=== PATIENT | male | born 1950 | race Caucasian/White ===

== ENCOUNTER → 2016-04-28 | Outpatient (CLI) | payer BC, OTHER ==
[2016-04-28 10:17] LABS: ALANINE AMINOTRANSFERASE 32 U/L (21-72); ALBUMIN 4.4 g/dL (3.5-5.0); ALKALINE PHOSPHATASE 88 U/L (38-126); ASPARTATE AMINO TRANSFERASE 24 U/L (17-59); BILIRUBIN,TOTAL 0.8 mg/dL (0.2-1.3); CHOLESTEROL 120.63 mg/dL (0-200); Direct HDL 53 mg/dL (>40); TRIGLYCERIDES 43 mg/dL (<150)
[2016-04-28 10:33] LABS: DIRECT LDL 50 mg/dL (<100)
== END ==
LOC: OD 07:27
PROVIDERS: ATTEND Specialist
DX: Z79.899 Other long term (current) drug therapy (principal); E03.9 Hypothyroidism, unspecified; E78.5 Hyperlipidemia, unspecified; E66.3 Overweight; I10 Essential (primary) hypertension; E11.9 Type 2 diabetes mellitus without complications; G47.30 Sleep apnea, unspecified; I25.10 Atherosclerotic heart disease of native coronary artery without angina pectoris; I25.2 Old myocardial infarction; R09.89 Other specified symptoms and signs involving the circulatory and respiratory systems; Z95.5 Presence of coronary angioplasty implant and graft; E78.00 Pure hypercholesterolemia, unspecified
CPT/HCPCS: 36415; 80061; 80076; 83036

== ENCOUNTER 2016-10-29 13:44 | Emergency (ER) | payer MEDICARE, OTHER ==
[2016-10-29] MEDS ORDERED: DIPHENHYDRAMINE HCL 50 MG/ML VIAL ONE (13:59)
[2016-10-29] MEDS ORDERED: EPINEPHRINE INJ/PF 1 MG/1 ML AMPULE ONE ×3 (14:00→15:07)
[2016-10-29] MEDS ORDERED: FAMOTIDINE INJ/PF 20 MG/2 ML SDV IV ONE ×2 (14:00→16:09)
[2016-10-29] MEDS ORDERED: METHYLPREDNISOLONE INJ 125 MG/2 ML SDV ONE (14:00)
[2016-10-29] MEDS ORDERED: PROPOFOL 100 ML IV ONE ×3 (14:15→18:15)
--- NOTE | 2016-10-29 14:29 | ER Document Report ---
ED General - General Stated Complaint: DIFFICULTY BREATHING Time Seen by Provider: 10/29/16 13:54 Mode of Arrival: Medic Information source: Patient, Emergency Med Personnel Notes: 66-year-old male who was outside and was stung twice presents with complaints of shortness of breath by EMS. Patient initially did not want to be transported EMS was able to convince the patient come in. They believed initially that this was heatstroke however on patient's arrival to the ED he does admit that his tongue is swollen TRAVEL OUTSIDE OF THE [place] IN LAST 30 DAYS: No - HPI Onset: Just prior to arrival Onset/Duration: Sudden Quality of pain: No pain Severity: Severe Pain Level: Denies Associated symptoms: Other Exacerbated by: Denies Relieved by: Denies Similar symptoms previously: No Recently seen / treated by doctor: No - Related Data Allergies/Adverse Reactions: No Known Allergies Allergy (Verified 10/29/16 15:03) Past Medical History - Social History Smoking Status: Never Smoker Cigarette use (# per day): No Chew tobacco use (# tins/day): No Smoking Education Provided: No Family History: Reviewed & Not Pertinent - Past Medical History Cardiac Medical History: Reports: Hx Coronary Artery Disease, Hx Heart Attack - 2006, cardiac cath x 2, total of 5 stents, Hx Hypertension - meds x 30 years Pulmonary Medical History: Denies: Hx Asthma, Hx Bronchitis, Hx COPD, Hx Pneumonia Neurological Medical History: Denies: Hx Cerebrovascular Accident, Hx Seizures Musculoskeltal Medical History: Reports Hx Arthritis Past Surgical History: Denies: Hx Pacemaker - Immunizations Hx Diphtheria, Pertussis, Tetanus Vaccination: Yes Hx Pneumococcal Vaccination: 08/11/06 Review of Systems - Review of Systems Notes: REVIEW OF SYSTEMS: CONSTITUTIONAL : Denies fever, chills, or sweats. Denies recent illness. EENT: Tongue swelling CARDIOVASCULAR: Denies chest pain. Denies palpitations or racing or irregular heart beat. Denies ankle edema. RESPIRATORY: Denies cough, cold, or chest congestion. Denies shortness of breath, difficulty breathing, or wheezing. GASTROINTESTINAL: Denies abdominal pain or distention. Denies nausea, vomiting , or diarrhea. Denies blood in vomitus, stools, or per rectum. Denies black, tarry stools. Denies constipation. GENITOURINARY: Denies difficulty urinating, painful urination, burning, frequency, blood in urine, or discharge. MUSCULOSKELETAL: Denies back or neck pain or stiffness. Denies joint pain or swelling. SKIN: Hives HEMATOLOGIC : Denies easy bruising or bleeding. LYMPHATIC: Denies swollen, enlarged glands. NEUROLOGICAL: Denies confusion or altered mental status. Denies passing out or loss of consciousness. Denies dizziness or lightheadedness. Denies headache. Denies weakness or paralysis or loss of use of either side. Denies problems with gait or speech. Denies sensory loss, numbness, or tingling. Denies seizures. PSYCHIATRIC: Denies anxiety or stress. Denies depression, suicidal ideation, or homicidal ideation. ALL OTHER SYSTEMS REVIEWED AND NEGATIVE. Dictation was performed using [employer] voice recognition software PHYSICAL EXAMINATION: GENERAL: Well-appearing, well-nourished and in no acute distress. HEAD: Atraumatic, normocephalic. EYES: Pupils equal round and reactive to light, extraocular movements intact, sclera anicteric, conjunctiva are normal. ENT: Extremely edematous tongue protruding from mouth uvula swollen patient breathing with mild stridor NECK: Normal range of motion, supple without lymphadenopathy LUNGS: Breath sounds clear to auscultation bilaterally and equal. No wheezes rales or rhonchi. HEART: Tachycardic ABDOMEN: Soft, nontender, nondistended abdomen. No guarding, no rebound. No masses appreciated. Musculoskeletal: Normal range of motion, no pitting or edema. No cyanosis. NEUROLOGICAL: Cranial nerves grossly intact. Normal speech, normal gait. Normal sensory, motor exams PSYCH: Normal mood, normal affect. SKIN: Hives noted of the left inner thigh right leg Course - Re-evaluation Re-evalutation: 10/29/16 14:28 danielle miller contacted for transfer 10/29/16 14:53 dr Hernandez accepts the transfer , will awaiting transport 10/29/16 15:30 I was immediately notified upon patient's arrival that the tongue was edematous , we immediately remove the patient from room 12 into the trauma bay, crich kit glide scope was prepared, patient was given 2 rounds of epinephrine 0.5mg IM, 125 mg Solu-Medrol, 20 of Pepcid IV 50 Benadryl IV. Patient was watched for approximately 7-10 minutes and it appeared that the swelling was getting worse. I emergently contacted the surgeon for concerns of emergent cricothyrotomy. Anesthesia was also consulted immediately, patient's tongue continued to protrude and get larger, after evaluation with anesthesiologist and surgeon we determined the intubation was most appropriate, patient was intubated with glide scope with no difficulty. Patient will unfortunately have to be transported given that we do not have any ICU beds at this time 10/29/16 15:39 Patient started on epinephrine drip - Diagnostic Test Radiology reviewed: Image reviewed, Reports reviewed Critical Care Note - Critical Care Note Total time excluding time spent on procedures (mins): 45 Comments: 70 minutes of critical care time spent in direct contact evaluating and reevaluating the patient, treating symptoms, reviewing labs and studies and speaking with family and consultants excluding any procedures Discharge - Discharge Clinical Impression: At risk for difficult intubation on pre-intubation airway assessment Anaphylactic reaction Qualifiers: Encounter type: initial encounter Qualified Code(s): T78.2XXA - Anaphylactic shock, unspecified, initial encounter Condition: Critical Disposition: [facility] Referrals: MICHAEL RUIZ MD [Primary Care Provider] - Follow up as needed
[2016-10-29] MEDS ORDERED: MIDAZOLAM 2 MG/2 ML INJ ONE (14:36)
[2016-10-29] MEDS ORDERED: FENTANYL CITRATE INJ/PF 100 MCG/2 ML AMPUL ONE (14:39)
[2016-10-29] MEDS ORDERED: DEXTROSE 5%-WATER 250 ML with EPINEPHRINE/PF 1 MG IV PRN ×2 (14:55)
--- NOTE | 2016-10-29 15:04 | RADIOLOGY REPORT (SQ) ---
EXAM DESCRIPTION: CHEST SINGLE VIEW COMPLETED DATE/TIME: 10/29/2016 2:55 pm REASON FOR STUDY: DIFFICULTY BREATHING COMPARISON: 08/22/2006 EXAM PARAMETERS: NUMBER OF VIEWS: One view. TECHNIQUE: Single frontal radiographic view of the chest acquired. RADIATION DOSE: NA LIMITATIONS: None. FINDINGS: LUNGS AND PLEURA: Patchy bibasilar airspace opacities. Lungs and pleural spaces otherwise clear. MEDIASTINUM AND HILAR STRUCTURES: No masses. Contour normal. HEART AND VASCULAR STRUCTURES: Heart stable in size. Normal vasculature. BONES: No acute findings. HARDWARE: Endotracheal tube is 3.9 cm above suyapa. OTHER: No other significant finding. IMPRESSION: SATISFACTORY PLACEMENT ENDOTRACHEAL TUBE. PATCHY BIBASILAR AIRSPACE OPACITIES COULD REPRESENT SUBSEGMENTAL ATELECTASIS, ASPIRATION, OR PNEUMONI A. TECHNICAL DOCUMENTATION: JOB ID: [id number]
[2016-10-29] MEDS ORDERED: NORMAL SALINE 1000 ML 1,000 ML IV ONE (16:03)
[2016-10-29] MEDS ORDERED: PROPOFOL INJ 200 MG/20 ML VIAL IV ONE ×3 (16:04→16:06)
[2016-10-29] MEDS ORDERED: PROPOFOL 100 ML IV PRN (16:04)
[2016-10-29] MEDS ORDERED: ROCURONIUM BROMIDE INJ 50 MG/5 ML VIAL IV ONE ×2 (16:06→16:09)
[2016-10-29] MEDS ORDERED: FENTANYL CITRATE INJ/PF 100 MCG/2 ML AMPUL IV ONE (16:06)
[2016-10-29] MEDS ORDERED: SUCCINYLCHOLINE CHLORIDE INJ 200 MG/10 ML VIAL IV ONE (16:06)
[2016-10-29] MEDS ORDERED: EPINEPHRINE INJ/PF 1 MG/1 ML AMPULE IM ONE ×2 (16:07)
[2016-10-29] MEDS ORDERED: DIPHENHYDRAMINE HCL 50 MG/ML VIAL IV ONE (16:08)
[2016-10-29] MEDS ORDERED: METHYLPREDNISOLONE INJ 125 MG/2 ML SDV IV ONE (16:08)
[2016-10-29] MEDS ORDERED: NORMAL SALINE 500 ML with ROCURONIUM BROMIDE 500 MG IV PRN ×2 (16:18)
[2016-10-29 18:39] VITALS: BP 148/98
== END 2016-10-29 18:45 | disposition short-term general hospital (02) ==
LOC: ER 13:44
PROC: 0BH17EZ Insertion of Endotracheal Airway into Trachea, Via Natural or Artificial Opening (ICD-10-PCS; principal; 2016-10-29)
DX: T78.2XXA Anaphylactic shock, unspecified, initial encounter (principal)
CPT/HCPCS: 99291; 51702; 96374; 96375; 82962; 71010; 31500; J2250; J1200; J0171; J3010; J2930; J0330; J7060; S0028

== ENCOUNTER 2017-05-27 22:38 | Emergency (ER) | payer OTHER ==
--- NOTE | 2017-05-27 23:13 | ER Document Report ---
ED General - General Chief Complaint: Altered Mental Status Stated Complaint: ALTERED MENTAL STATUS Time Seen by Provider: 05/27/17 23:03 Cannot obtain history due to: Altered mental status Notes: Patient is a 66-year-old male status post esophagectomy, discharged from [facility] yesterday who presents with confusion. History is somewhat limited secondary to the patient's altered mental status at time of presentation. Patient himself denies any acute complaints. He denies any localizing pain. Denies shortness of breath, headache or neck pain or focal weakness or numbness. EMS reports that the noted that the patient has not received any pain medication today although did receive zolpidem approximately 1 minute prior to the onset of the symptoms. No history of similar symptoms in the past. No recent falls or head trauma. Nothing seemed to improve or worsen his symptoms. They have not contacted his primary doctor or discharging physician. TRAVEL OUTSIDE OF THE [place] IN LAST 30 DAYS: No - Related Data Allergies/Adverse Reactions: lisinopril Allergy (Severe, Verified 05/27/17 22:59) Edema Past Medical History - General Information source: Patient, Emergency Med Personnel, [facility], 1928–1983 Records Cannot obtain history due to: Mentally challenged - Social History Smoking Status: Never Smoker Frequency of alcohol use: None Drug Abuse: None Lives with: Family Family History: Reviewed & Not Pertinent Patient has suicidal ideation: No Patient has homicidal ideation: No - Past Medical History Cardiac Medical History: Reports: Hx Coronary Artery Disease, Hx Heart Attack - 2006, cardiac cath x 2, total of 5 stents, Hx Hypercholesterolemia, Hx Hypertension - meds x 30 years Pulmonary Medical History: Denies: Hx Asthma, Hx Bronchitis, Hx COPD, Hx Pneumonia Neurological Medical History: Denies: Hx Cerebrovascular Accident, Hx Seizures Endocrine Medical History: Reports: Hx Diabetes Mellitus Type 2 Renal/ Medical History: Denies: Hx Peritoneal Dialysis Musculoskeltal Medical History: Reports Hx Arthritis Past Surgical History: Denies: Hx Pacemaker - Immunizations Hx Diphtheria, Pertussis, Tetanus Vaccination: Yes Hx Pneumococcal Vaccination: 08/11/06 Review of Systems - Review of Systems Notes: Constitutional: Negative for fever. HENT: Negative for sore throat. Eyes: Negative for visual changes. Cardiovascular: Negative for chest pain. Respiratory: Negative for shortness of breath. Gastrointestinal: Negative for abdominal pain, vomiting or diarrhea. Genitourinary: Negative for dysuria. Musculoskeletal: Negative for back pain. Skin: Negative for rash. Neurological: Negative for headaches, weakness or numbness. 10 point ROS negative except as marked above and in HPI. Physical Exam - Vital signs Vitals: Temp Pulse Resp BP Pulse Ox 99.1 F 100 22 H 126/78 H 93 05/27/17 22:46 05/27/17 22:46 05/27/17 22:46 05/27/17 22:46 05/27/17 22:46 Interpretation: Hypoxic Notes: PHYSICAL EXAMINATION: GENERAL: Appears tired but wakes easily to voice HEAD: Atraumatic, normocephalic. EYES: Pupils equal round and reactive to light, extraocular movements intact, sclera anicteric, conjunctiva are normal. ENT: nares patent, oropharynx clear without exudates. Moderately dry mucous membranes. NECK: Normal range of motion, supple without lymphadenopathy LUNGS: Breath sounds clear to auscultation bilaterally and equal. No wheezes rales or rhonchi. HEART: Regular rate and rhythm without murmurs ABDOMEN: Soft, nontender, normoactive bowel sounds. No guarding, no rebound. No masses appreciated. EXTREMITIES: Normal range of motion, no pitting or edema. No cyanosis. NEUROLOGICAL: Face symmetric. Tongue protrudes midline. Extraocular motions intact. Pupils are 2 mm and equally reactive. Normal speech. 5 out of 5 strength in both the distal and proximal upper and lower extremities bilaterally. Sensation is grossly intact throughout. Finger to nose testing normal. Pronator drift normal. PSYCH: Pleasant on contact, oriented to person, place, but not year. He knows who the president is. Is able to give me his recent hospitalization course. SKIN: Warm, Dry, normal turgor, no rashes or lesions noted. Course - Re-evaluation Re-evalutation: 05/27/17 23:07 Patient presents with altered mental status, appears to have some degree of delirium has some points he is quite awake, cogent, oriented to person, place, month, president, and current situation although not to the year. However if I do not continue to ask him additional questions he rapidly falls back asleep and can always be somewhat difficult to awake. He denies any focal complaints other than stating "I am tired of laying in a damn bed all the time". Specifically he denies any shortness of breath, fever, chest pain, abdominal pain. 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 Stroke screen is negative. NIH stroke scale is 0. Vitals are not notable only from borderline hypoxemia and the patient does have a right-sided chest tube in place. Will obtain labs, chest x-ray, CT the head, and place patient on panel monitor. Patient does not appear to be oversedated with narcotics and the reported to EMS that he has not actually received any pain medication at all today. Although the patient has received zolpidem his symptoms actually started within 1 minute of receiving that medication and I do not believe that his symptoms can therefore can be attributed to that medication. 05/28/17 02:21 Labs, CT the head unremarkable. Chest x-ray shows an ongoing mediastinal infection. Patient does seem to be having hira pus coming from his chest tube as well as his REKHA drains. The at the bedside reports that the odor has become much more intense over the last 24 hours further increasing my suspicion of this is a worsening infection. We have broadened the patient's antibiotics to include cefepime and vancomycin. I have spoken with the patient's surgeon at [facility] who has accepted the patient back for transfer. At this point the patient's clinical presentation most consistently presents as encephalopathy in the setting of likely ongoing infection and postoperative course. Will continue with IV fluids, IV antibiotics and monitoring until the patient can be transferred. 05/28/17 04:09 Patient can clinically unchanged. Awaiting transport. - Vital Signs Vital signs: Temp Pulse Resp BP Pulse Ox 99.2 F 100 19 101/50 L 95 05/28/17 03:00 05/27/17 22:46 05/28/17 03:01 05/28/17 03:01 05/28/17 03:01 - Laboratory Result Diagrams: 05/27/17 23:50 05/27/17 23:50 Laboratory results interpreted by me: 05/27/17 05/27/17 05/27/17 23:50 23:50 23:50 RBC 3.05 L Hgb 9.6 L Hct 28.4 L Seg Neuts % (Manual) 94 H Lymphocytes % (Manual) 4 L Monocytes % (Manual) 2 L Abs Neuts (Manual) 8.8 H Abs Lymphs (Manual) 0.4 L VBG pH 7.47 H VBG pCO2 34.7 L Sodium 135.3 L Creatinine 0.38 L Calcium 8.1 L AST 102 H ALT 75 H Alkaline Phosphatase 220 H Ammonia Total Protein 5.4 L Albumin 2.5 L 05/27/17 23:50 RBC Hgb Hct Seg Neuts % (Manual) Lymphocytes % (Manual) Monocytes % (Manual) Abs Neuts (Manual) Abs Lymphs (Manual) VBG pH VBG pCO2 Sodium Creatinine Calcium AST ALT Alkaline Phosphatase Ammonia < 8.7 L Total Protein Albumin - Diagnostic Test Radiology reviewed: Image reviewed, Reports reviewed Radiology results interpreted by me: 05/28/17 02:22 CT head: No acute intracranial bleed or mass Chest x-ray: Bilateral mediastinal infection worse on the right Discharge - Discharge Clinical Impression: Encephalopathy acute, Mediastinal infection Incontinence of urine Qualifiers: Urinary Incontinence type: unspecified incontinence Qualified Code(s): R32 - Unspecified urinary incontinence Dyspnea Qualifiers: Dyspnea type: unspecified Qualified Code(s): R06.00 - Dyspnea, unspecified Condition: Fair Disposition: [facility] Referrals: MICHAEL RUIZ MD [Primary Care Provider] - Follow up as needed
--- NOTE | 2017-05-27 23:49 | EKG REPORT ---
SEVERITY:- BORDERLINE ECG - SINUS RHYTHM BORDERLINE T WAVE ABNORMALITIES : Confirmed by: Arturo Reyes MD 27-May-2017 23:49:24
[2017-05-28 00:14] LABS: VENOUS BLOOD BASE EXCESS 1.3 mmol/L; VENOUS BLOOD HCO3 24.7 mmol/L (20-32); VENOUS BLOOD PCO2 34.7 mmHg (35-63); VENOUS BLOOD PH 7.47 (7.30-7.42)
[2017-05-28 00:15] LABS: HEMATOCRIT 28.4 % (37.9-51.0); HEMOGLOBIN 9.6 g/dL (13.5-17.0); MEAN CORPUSCULAR HEMOGLOBIN 31.5 pg (27.0-33.4); MEAN CORPUSCULAR HGB CONC 33.7 g/dL (32.0-36.0); MEAN CORPUSCULAR VOLUME 93 fl (80-97); PLATELET COUNT 396 10^3/uL (150-450); RED BLOOD COUNT 3.05 10^6/uL (4.35-5.55); RED CELL DISTRIBUTION WIDTH 13.9 % (11.5-14.0); WHITE BLOOD COUNT 9.4 10^3/uL (4.0-10.5)
--- NOTE | 2017-05-28 00:35 | RADIOLOGY REPORT (SQ) ---
EXAM DESCRIPTION: CT HEAD WITHOUT CLINICAL HISTORY: 66 years Male, ams COMPARISON: None. TECHNIQUE: No contrast. This exam was performed according to our departmental dose-optimization program, which includes automated exposure control, adjustment of the mA and/or kV according to patient size and/or use of iterative reconstruction technique. FINDINGS: No hemorrhage or infarct. No mass, mass effect, or midline shift. Atherosclerosis. Brain and extra-axial structures appear otherwise intact. IMPRESSION: No acute findings.
[2017-05-28 00:39] LABS: ABSOLUTE LYMPHOCYTES# (MANUAL) 0.4 10^3/uL (0.5-4.7); ABSOLUTE MONOCYTES # (MANUAL) 0.2 10^3/uL (0.1-1.4); ABSOLUTE NEUTROPHILS# (MANUAL) 8.8 10^3/uL (1.7-8.2); BASOPHILS % (MANUAL) 0 % (0-2); EOSINOPHILS % (MANUAL) 0 % (0-6); LYMPHOCYTES % (MANUAL) 4 % (13-45); MONOCYTES % (MANUAL) 2 % (3-13); SEGMENTED NEUTROPHILS % (MAN) 94 % (42-78); TOTAL CELLS COUNTED 100
[2017-05-28 00:40] LABS: OVALOCYTES SLIGHT; PLATELET COMMENT ADEQUATE; POIKILOCYTOSIS SLIGHT; TOXIC GRANULATION SLIGHT
[2017-05-28 00:48] LABS: ALANINE AMINOTRANSFERASE 75 U/L (21-72); ALBUMIN 2.5 g/dL (3.5-5.0); ALKALINE PHOSPHATASE 220 U/L (38-126); ANION GAP 10 (5-19); ASPARTATE AMINO TRANSFERASE 102 U/L (17-59); BILIRUBIN,DIRECT 0.2 mg/dL (0.0-0.4); BILIRUBIN,TOTAL 0.3 mg/dL (0.2-1.3); BLOOD UREA NITROGEN 16 mg/dL (7-20); CALCIUM 8.1 mg/dL (8.4-10.2); CARBON DIOXIDE 23 mmol/L (22-30); CHLORIDE 102 mmol/L (98-107); GLUCOSE 104 mg/dL (75-110); POTASSIUM 4.5 mmol/L (3.6-5.0); SODIUM 135.3 mmol/L (137-145); TOTAL PROTEIN 5.4 g/dL (6.3-8.2)
--- NOTE | 2017-05-28 00:55 | RADIOLOGY REPORT (SQ) ---
EXAM DESCRIPTION: CHEST SINGLE VIEW CLINICAL HISTORY: 66 years Male, ams COMPARISON: 8.19.17 NUMBER OF VIEWS/TECHNIQUE: 1/AP LIMITATIONS: None. FINDINGS: Moderate hazy opacity-layered effusion of bilateral lower hemithoraces. Moderate lung volume. Normal cardiac silhouette. Graft material overlies right paracentral mediastinum. Left jugular central line tip at the cavoatrial junction. Right chest tube. Normal cardiac silhouette. No pneumothorax. No acute bone defect. IMPRESSION: Moderate opacity-effusion of bilateral lower hemithoraces. Lines and tubes.
[2017-05-28] MEDS ORDERED: VANCOMYCIN HCL INJ 1000 MG VIAL IV ONE (02:10)
[2017-05-28] MEDS ORDERED: NORMAL SALINE 1000 ML 1,000 ML IV ONE ×2 (02:14→04:09)
[2017-05-28] MEDS ORDERED: CEFEPIME 2 GM/D5W RTU 2 GM/50 ML RTUPB IV ONE (03:15)
[2017-05-28 07:02] VITALS: BP 102/53
== END 2017-05-28 07:50 | disposition short-term general hospital (02) ==
LOC: ER 22:38
DX: J98.51 Mediastinitis (principal); G93.40 Encephalopathy, unspecified; R41.82 Altered mental status, unspecified; R32 Unspecified urinary incontinence; R06.00 Dyspnea, unspecified; I25.10 Atherosclerotic heart disease of native coronary artery without angina pectoris; E78.00 Pure hypercholesterolemia, unspecified; I10 Essential (primary) hypertension; E11.9 Type 2 diabetes mellitus without complications; I25.2 Old myocardial infarction
CPT/HCPCS: 93005; 99285; 96361; 96365; 96366; 96367; 36415; 87040; 82140; 85025; 80053; 82803; 71045; 70450; 93010; J7030; J3370; J0692

== ENCOUNTER 2017-07-08 11:52 | Emergency (ER) | payer OTHER ==
[2017-07-08] MEDS ORDERED: NORMAL SALINE 1000 ML 1,000 ML IV ONE (12:11)
[2017-07-08] MEDS ORDERED: NORMAL SALINE 1000 ML 1,000 ML IV PRN (12:11)
--- NOTE | 2017-07-08 12:18 | ER Document Report ---
ED General - General Chief Complaint: Depression Stated Complaint: PSYCH PROBLEM Time Seen by Provider: 07/08/17 12:11 Notes: History of complain-66 years old male with a history of esophageal cancer resected recently, with permanent pleural vac, feeding tube, presents today with general weakness and difficulty in breathing. Initial report indicates he is also has a thought of ending his life. But he completely denied. In his word he said we will do that. I am hoping to get out of the tube and get better. Dehydrated, otherwise denies any fever chills All other constitutional symptoms. REVIEW OF SYSTEMS: CONSTITUTIONAL : Denies fever, chills, or sweats. Denies recent illness. EENT: Denies eye, ear, throat, or mouth pain or symptoms. Denies nasal or sinus congestion or discharge. Denies throat, tongue, or mouth swelling or difficulty swallowing. CARDIOVASCULAR: Denies chest pain. Denies palpitations or racing or irregular heart beat. Denies ankle edema. RESPIRATORY: Denies cough, cold, or chest congestion. Denies shortness of breath, difficulty breathing, or wheezing. GASTROINTESTINAL: Denies abdominal pain or distention. Denies nausea, vomiting , or diarrhea. Denies blood in vomitus, stools, or per rectum. Denies black, tarry stools. Denies constipation. GENITOURINARY: Denies difficulty urinating, painful urination, burning, frequency, blood in urine, or discharge. MUSCULOSKELETAL: Generalized weakness SKIN: Denies rash, lesions or sores. HEMATOLOGIC : Denies easy bruising or bleeding. LYMPHATIC: Denies swollen, enlarged glands. NEUROLOGICAL: Denies confusion or altered mental status. Denies passing out or loss of consciousness. Denies dizziness or lightheadedness. Denies headache. Denies weakness or paralysis or loss of use of either side. Denies problems with gait or speech. Denies sensory loss, numbness, or tingling. Denies seizures. PSYCHIATRIC: Denies anxiety or stress. Denies depression, suicidal ideation, or homicidal ideation. ALL OTHER SYSTEMS REVIEWED AND NEGATIVE. Dictation was performed using [employer] voice recognition software PHYSICAL EXAMINATION: GENERAL: Appears dry and weak, dry buccal mucosa, right-sided chest tube in place draining fluid. 2 wound VAC noted. Feeding tube in place.. HEAD: Atraumatic, normocephalic. EYES: Pupils equal round and reactive to light, extraocular movements intact, sclera anicteric, conjunctiva are normal. ENT: Nares patent, oropharynx clear without exudates. Moist mucous membranes. NECK: Normal range of motion, supple without lymphadenopathy LUNGS: Bilaterally decreased breath sounds but no obvious rales or wheezing. HEART: Regular rate and rhythm without murmurs ABDOMEN: Soft, nontender, nondistended abdomen. No guarding, no rebound. No masses appreciated. Musculoskeletal: Normal range of motion, no pitting or edema. No cyanosis. NEUROLOGICAL: Cranial nerves grossly intact. Normal speech, normal gait. Normal sensory, motor exams PSYCH: Normal mood, normal affect. SKIN: Warm, Dry, normal turgor, no rashes or lesions noted. TRAVEL OUTSIDE OF THE [place] IN LAST 30 DAYS: No - HPI Onset/Duration: Gradual Quality of pain: Achy. denies: No pain, Burning, Cramping, Dull, Fullness, Pressure, Sharp, Stabbing, Throbbing, Other Severity: Moderate Pain Level: Denies Associated symptoms: denies: None, Allergy/hay fever, Body/muscle aches, Chest pain, Chills, Nonproductive cough, Productive cough, Diarrhea, Drooling, Earache , Fever, Headache, Hoarseness, Hurts to breath, Leg swelling, Nausea, Vomiting, Rhinnorhea, Sinus pain/drainage, Shortness of breath, Slow to respond, Sore throat, Sweating, Weakness, Other Exacerbated by: denies: Denies, Supine, Sitting, Standing, Movement, Walking, Coughing, Deep breathing, Food, Other Relieved by: denies: Denies, Supine, Sitting, Standing, Remaining still, Antacids, Food, Other - Related Data Allergies/Adverse Reactions: lisinopril Allergy (Severe, Verified 05/27/17 22:59) Edema Past Medical History - Social History Smoking Status: Former Smoker Chew tobacco use (# tins/day): No Frequency of alcohol use: None Drug Abuse: None Family History: Reviewed & Not Pertinent Patient has suicidal ideation: No Patient has homicidal ideation: No - Past Medical History Cardiac Medical History: Reports: Hx Coronary Artery Disease, Hx Heart Attack - 2006, cardiac cath x 2, total of 5 stents, Hx Hypercholesterolemia, Hx Hypertension - meds x 30 years Pulmonary Medical History: Denies: Hx Asthma, Hx Bronchitis, Hx COPD, Hx Pneumonia Neurological Medical History: Denies: Hx Cerebrovascular Accident, Hx Seizures Endocrine Medical History: Reports: Hx Diabetes Mellitus Type 2 GI Medical History: Denies: None, Hx Cirrhosis, Hx Crohn's Disease, Hx Diverticulitis, Hx Gastritis, Hx Gastroesophageal Reflux Disease, Hx Hepatitis, Hx Hiatal Hernia, Hx Irritable Bowel, Hx Liver Failure, Hx Pancreatitis, Hx Ulcer, Hx Ulcerative Colitis, Hx Colonoscopy, Hx Endoscopic Retrograde Cholangio , Hx Endoscopy, Other Musculoskeltal Medical History: Reports Hx Arthritis Past Surgical History: Denies: Hx Pacemaker - Immunizations Hx Diphtheria, Pertussis, Tetanus Vaccination: Yes Hx Pneumococcal Vaccination: 08/11/06 Review of Systems - Review of Systems Constitutional: Chills, Weakness. denies: No symptoms reported, See HPI, Diaphoresis, Fever, Malaise, Other, Weight gain, Weight loss, Recent illness EENT: denies: No symptoms reported, See HPI, Eye pain, Eye discharge, Blurred vision, Tearing, Double vision, Ear pain, Ear discharge, Nose pain, Nose congestion, Nose discharge, Sinus pressure, Sinus discharge, Throat pain, Difficulty swallowing, Throat swelling, Mouth pain, Mouth swelling, Dental problem, Vertigo, Other Cardiovascular: See HPI Respiratory: See HPI Gastrointestinal: See HPI Genitourinary: denies: No symptoms reported, See HPI, Burning, Dysuria, Discharge, Frequency, Flank pain, Hematuria, Incontinence, Pain, Urgency, Retention, Other Musculoskeletal: See HPI. denies: No symptoms reported, Back pain, Gout, Joint pain, Joint swelling, Muscle pain, Muscle stiffness, Neck pain, Deformity, Leg swelling, Ankle swelling, Other Skin: denies: No symptoms reported, See HPI, Change in color, Change in hair/ nails, Dryness, Lesions, Lumps, Rash, Other Physical Exam - Vital signs Vitals: Temp Pulse Resp BP Pulse Ox 97.7 F 87 20 136/75 H 95 07/08/17 12:09 07/08/17 12:09 07/08/17 12:09 07/08/17 12:09 07/08/17 12:09 - Notes Notes: Dictated Course - Re-evaluation Re-evalutation: 07/08/17 15:00 Post IV fluid color has come back to normal he feels much better. Patient to go home. - Vital Signs Vital signs: Temp Pulse Resp BP Pulse Ox 97.7 F 87 19 142/79 H 96 07/08/17 12:09 07/08/17 12:09 07/08/17 14:02 07/08/17 14:02 07/08/17 14:02 - Laboratory Result Diagrams: 07/08/17 12:18 07/08/17 12:18 Laboratory results interpreted by me: 07/08/17 07/08/17 12:18 12:18 Hgb 13.3 L RDW 17.8 H BUN 23 H Creatinine 0.42 L Glucose 165 H ALT 85 H Alkaline Phosphatase 150 H Albumin 3.2 L - Diagnostic Test Radiology reviewed: Reports reviewed - Chest x-ray reported by radiologist, which was reviewed Discharge - Discharge Clinical Impression: Dehydration Condition: Fair Disposition: HOME, SELF-CARE Instructions: Dehydration ([facility])
[2017-07-08 12:47] LABS: HEMATOCRIT 40.3 % (37.9-51.0); HEMOGLOBIN 13.3 g/dL (13.5-17.0); MEAN CORPUSCULAR HEMOGLOBIN 29.6 pg (27.0-33.4); MEAN CORPUSCULAR HGB CONC 32.9 g/dL (32.0-36.0); MEAN CORPUSCULAR VOLUME 90 fl (80-97); PLATELET COUNT 228 10^3/uL (150-450); RED BLOOD COUNT 4.48 10^6/uL (4.35-5.55); RED CELL DISTRIBUTION WIDTH 17.8 % (11.5-14.0); WHITE BLOOD COUNT 5.8 10^3/uL (4.0-10.5)
--- NOTE | 2017-07-08 12:59 | RADIOLOGY REPORT (SQ) ---
EXAM DESCRIPTION: CHEST SINGLE VIEW COMPLETED DATE/TIME: 07/08/2017 12:27 pm REASON FOR STUDY: chest tube COMPARISON: Chest films 08/22/2006, 10/29/2016, 05/28/2017 moved stone 3D chart EXAM PARAMETERS: NUMBER OF VIEWS: One view. TECHNIQUE: Single frontal radiographic view of the chest acquired. RADIATION DOSE: NA LIMITATIONS: None. FINDINGS: LUNGS AND PLEURA: Patient is post surgery over the right hemithorax. There Toby-Celaya drains over the chest wall, and a right-sided large bore chest tube, with the tip at the apex right h emithorax. No right pneumothorax. Minimal right basilar atelectasis. On the left, the upper lobe is hyperinflated and hyperlucent from obstructive disease. There is loss of the discrete left hemidiaphragm from basilar airspace disease atelectasis versus pneumonia. Trac e left effusion could not be excluded. MEDIASTINUM AND HILAR STRUCTURES: No masses. Contour normal. HEART AND VASCULAR STRUCTURES: Heart normal in size. Normal vasculature. BONES: No acute findings. HARDWARE: Esophageal stent present along the mid 3rd of the esophagus. Right PICC line tip superior vena cava. Left permanent central line in the superior vena cava. OTHER: No other significant finding. IMPRESSION: Post surgery over the right chest. Large bore right chest tube in place without pneumot horax. Chest wall drains are in place. Esophageal stent mid 3rd of the esophagus. Left basilar consolidation atelectasis versus pneumonia. Minimal right basilar atelectasis. TECHNICAL DOCUMENTATION: JOB ID: [id number] [employer]- All Rights Reserved Reading location - IP/workstation name: [email or web address]
[2017-07-08 13:01] LABS: ALANINE AMINOTRANSFERASE 85 U/L (21-72); ALBUMIN 3.2 g/dL (3.5-5.0); ALKALINE PHOSPHATASE 150 U/L (38-126); ANION GAP 9 (5-19); ASPARTATE AMINO TRANSFERASE 46 U/L (17-59); BILIRUBIN,DIRECT 0.2 mg/dL (0.0-0.4); BILIRUBIN,TOTAL 0.2 mg/dL (0.2-1.3); BLOOD UREA NITROGEN 23 mg/dL (7-20); CALCIUM 8.9 mg/dL (8.4-10.2); CARBON DIOXIDE 27 mmol/L (22-30); CHLORIDE 105 mmol/L (98-107); GLUCOSE 165 mg/dL (75-110); POTASSIUM 4.3 mmol/L (3.6-5.0); SODIUM 140.7 mmol/L (137-145); TOTAL PROTEIN 6.3 g/dL (6.3-8.2)
[2017-07-08 16:14] VITALS: BP 122/84
== END 2017-07-08 16:18 | disposition home or self-care (01) ==
LOC: ER 11:52
DX: E86.0 Dehydration (principal); R53.1 Weakness; R06.00 Dyspnea, unspecified; R68.83 Chills (without fever); I25.10 Atherosclerotic heart disease of native coronary artery without angina pectoris; I10 Essential (primary) hypertension; I25.2 Old myocardial infarction; E11.9 Type 2 diabetes mellitus without complications; Z95.5 Presence of coronary angioplasty implant and graft; Z85.01 Personal history of malignant neoplasm of esophagus; Z98.890 Other specified postprocedural states; Z97.8 Presence of other specified devices; Z88.8 Allergy status to other drugs, medicaments and biological substances; Z87.891 Personal history of nicotine dependence
CPT/HCPCS: 99285; 36415; 85027; 80053; 71045; J7030

== ENCOUNTER 2017-08-07 13:30 | Emergency (ER) | payer OTHER ==
--- NOTE | 2017-08-07 14:16 | ER Document Report ---
ED General - General Chief Complaint: Obstructed G-Tube Stated Complaint: FEEDING TUBE PROBLEM Time Seen by Provider: 08/07/17 13:40 TRAVEL OUTSIDE OF THE [place] IN LAST 30 DAYS: No - HPI Notes: Pleasant 67-year-old man with complicated medical history of any soft ectomy for esophageal cancer in April presents with some serosanguineous discharge from his feeding tube. Patient has chronic REKHA drains in place to continue draining serosanguineous discharge. Patient takes nothing by mouth secondary to his recent surgery. is concerned the man fell last Monday refusing to see his surgeon. Surgeon is at [facility] Dr. Ye Yo. - Related Data Allergies/Adverse Reactions: lisinopril Allergy (Severe, Verified 08/07/17 14:01) Edema Past Medical History - Social History Smoking Status: Unknown if Ever Smoked Family History: Reviewed & Not Pertinent - Past Medical History Cardiac Medical History: Reports: Hx Coronary Artery Disease, Hx Heart Attack - 2006, cardiac cath x 2, total of 5 stents, Hx Hypercholesterolemia, Hx Hypertension - meds x 30 years Pulmonary Medical History: Denies: Hx Asthma, Hx Bronchitis, Hx COPD, Hx Pneumonia Neurological Medical History: Denies: Hx Cerebrovascular Accident, Hx Seizures Endocrine Medical History: Reports: Hx Diabetes Mellitus Type 2 Renal/ Medical History: Denies: Hx Peritoneal Dialysis GI Medical History: Denies: Hx Cirrhosis, Hx Crohn's Disease, Hx Diverticulitis , Hx Gastritis, Hx Gastroesophageal Reflux Disease, Hx Hepatitis, Hx Hiatal Hernia, Hx Irritable Bowel, Hx Liver Failure, Hx Pancreatitis, Hx Ulcer, Hx Ulcerative Colitis, Hx Colonoscopy, Hx Endoscopic Retrograde Cholangio, Hx Endoscopy Musculoskeltal Medical History: Reports Hx Arthritis Infectious Medical History: Denies: Hx Hepatitis Past Surgical History: Denies: Hx Pacemaker - Immunizations Hx Diphtheria, Pertussis, Tetanus Vaccination: Yes Hx Pneumococcal Vaccination: 08/11/06 Review of Systems - Review of Systems Notes: REVIEW OF SYSTEMS: CONSTITUTIONAL: -fevers, -chills EENT: -eye pain, -difficulty swallowing, -nasal congestion CARDIOVASCULAR: -chest pain, -syncope. RESPIRATORY: -cough, -SOB GASTROINTESTINAL: -abdominal pain, -nausea, -vomiting, -diarrhea GENITOURINARY: -dysuria, -hematuria MUSCULOSKELETAL: -back pain, -neck pain SKIN: -rash or skin lesions. HEMATOLOGIC: -easy bruising or bleeding. LYMPHATIC: -swollen, enlarged glands. NEUROLOGICAL: -altered mental status or loss of consciousness, -headache, - neurologic symptoms PSYCHIATRIC: -anxiety, -depression. ALL OTHER SYSTEMS REVIEWED AND NEGATIVE. Physical Exam - Notes Notes: PHYSICAL EXAMINATION: GENERAL: Well-appearing, well-nourished and in no acute distress. HEAD: Atraumatic, normocephalic. EYES: Pupils equal round and reactive to light, extraocular movements intact, sclera anicteric, conjunctiva are normal. ENT: nares patent, oropharynx clear without exudates. Moist mucous membranes. NECK: Normal range of motion, supple without lymphadenopathy LUNGS: Breath sounds clear to auscultation bilaterally HEART: Regular rate and rhythm without murmurs ABDOMEN: Soft, nontender. Feeding tube appears properly positioned no erythema no foul exudate. EXTREMITIES: Normal range of motion, no pitting or edema. No cyanosis. NEUROLOGICAL: Cranial nerves grossly intact. Normal speech, normal gait. Normal sensory and motor exams. PSYCH: Normal mood, normal affect. SKIN: Warm, Dry, normal turgor, no rashes or lesions noted. Course - Re-evaluation Re-evalutation: 08/07/17 14:28 Well-appearing man in no acute distress. is concerned he has to see his CT surgery. We flush his feeding tube with no problems. Patient is stable vital signs within normal limits no orthopnea. Patient agrees to 5 call surgeon scheduled appointment. Contact his cardiothoracic surgeon Dr. Ye Amaral. Arrange for an appointment tomorrow at 9 AM. Discharge - Discharge Clinical Impression: Feeding tube obstruction Qualifiers: Encounter type: initial encounter Qualified Code(s): T85.598A - Other mechanical complication of other gastrointestinal prosthetic devices, implants and grafts, initial encounter Condition: Stable Disposition: HOME, SELF-CARE Additional Instructions: See Dr. Lima @ 9 am tomorrow Referrals: MICHAEL RUIZ MD [Primary Care Provider] - Follow up as needed YE LIMA MD [NO LOCAL MD] - Follow up as needed (9 am tomorrow)
[2017-08-07 16:09] VITALS: BP 118/74
== END 2017-08-07 16:11 | disposition home or self-care (01) ==
LOC: ER 13:30
DX: T85.598A Other mechanical complication of other gastrointestinal prosthetic devices, implants and grafts, initial encounter (principal); C15.9 Malignant neoplasm of esophagus, unspecified; I25.10 Atherosclerotic heart disease of native coronary artery without angina pectoris; I25.2 Old myocardial infarction; I10 Essential (primary) hypertension; E11.9 Type 2 diabetes mellitus without complications; Z79.899 Other long term (current) drug therapy
CPT/HCPCS: 99283

== ENCOUNTER → 2017-08-17 | Outpatient (CLI) | payer MEDICARE, OTHER ==
--- NOTE | 2017-08-17 13:58 | RADIOLOGY REPORT (SQ) ---
EXAM DESCRIPTION: CHEST 2 VIEWS COMPLETED DATE/TIME: 08/17/2017 12:53 pm REASON FOR STUDY: PLEURAL EFFUSION (J90) COMPARISON: 08/22/2006 EXAM PARAMETERS: NUMBER OF VIEWS: two views TECHNIQUE: Digital Frontal and Lateral radiographic views of the chest acquired. RADIATION DOSE: NA LIMITATIONS: none FINDINGS: LUNGS AND PLEURA: Small left pleural effusion. Minimal right pleural effusion. Retrocard iac opacification on the left. MEDIASTINUM AND HILAR STRUCTURES: No masses or contour abnormalities. HEART AND VASCULAR STRUCTURES: Heart normal size. No evidence for failure. BONES: No acute findings. HARDWARE: Thoracotomy tube on the right. Injection port on the left. An esophageal stent is present . OTHER: No other significant finding. IMPRESSION: A small left pleural effusion and minimal right pleural effusion. Possible left lower l obe atelectasis. Tubes and catheters as described. TECHNICAL DOCUMENTATION: JOB ID: [id number] [employer]- All Rights Reserved Reading location - IP/workstation name: [email or web address]
== END ==
LOC: RAD 12:29
PROVIDERS: ATTEND Surgery
DX: J90 Pleural effusion, not elsewhere classified (principal)
CPT/HCPCS: 71046

== ENCOUNTER 2018-04-19 05:40 | Inpatient (IN) | payer MEDICARE ==
[2018-04-19] MEDS ORDERED: ALBUTEROL SULFATE 0.083% NEB 2.5 MG/3 ML AMPUL NEB ONE (05:49)
--- NOTE | 2018-04-19 05:49 | ER Document Report ---
ED Medical Screen (RME) - General Stated Complaint: BREATHING PROBLEMS Primary Care Provider: YE DAS MD [Primary Care Provider] - Follow up as needed Notes: 67-year-old male. History of esophageal cancer. Coughing, short of breath. EMS arrived and found oxygen saturations in the low 80s. Placed on nasal cannula. They were unable to get his oxygen levels up. Placed him on a nonrebreather at 10 L oxygen saturations are improving. Patient is in mild r espiratory distress at this time and tachypneic. I have greeted and performed a rapid initial assessment of this patient. A comprehensive ED assessment and evaluation of the patient, analysis of test results and completion of the medical decision making process will be conducted by additional ED providers. TRAVEL OUTSIDE OF THE [place] IN LAST 30 DAYS: No - Related Data Allergies/Adverse Reactions: lisinopril Allergy (Severe, Verified 08/07/17 14:01) Edema Past Medical History - Past Medical History Cardiac Medical History: Reports: Hx Coronary Artery Disease, Hx Heart Attack - 2006, cardiac cath x 2, total of 5 stents, Hx Hypercholesterolemia, Hx Hyperten char - meds x 30 years Pulmonary Medical History: Denies: Hx Asthma, Hx Bronchitis, Hx COPD, Hx Pneumonia Neurological Medical History: Denies: Hx Cerebrovascular Accident, Hx Seizures Endocrine Medical History: Reports: Hx Diabetes Mellitus Type 2 Renal/ Medical History: Denies: Hx Peritoneal Dialysis GI Medical History: Denies: Hx Cirrhosis, Hx Crohn's Disease, Hx Diverticulitis, Hx Gastritis, Hx Gastroesophageal Reflux Disease, Hx Hepatitis, Hx Hiatal Hernia, Hx Irritable Bowel, Hx Liver Failure, Hx Pancreatitis, Hx Ulcer, Hx Ulcerative Colitis, Hx Colonoscopy, Hx Endoscopic Retrograde Cholangio, Hx Endoscopy Musculoskeltal Medical History: Reports Hx Arthritis Infectious Medical History: Denies: Hx Hepatitis Past Surgical History: Denies: Hx Pacemaker - Immunizations Hx Diphtheria, Pertussis, Tetanus Vaccination: Yes Doctor's Discharge - Discharge Referrals: YE DAS MD [Primary Care Provider] - Follow up as needed
--- NOTE | 2018-04-19 06:45 | ER Document Report ---
ED General - General Chief Complaint: Shortness Of Breath Stated Complaint: BREATHING PROBLEMS Time Seen by Provider: 04/19/18 06:14 Primary Care Provider: YE DAS MD [NO LOCAL MD] - Follow up as needed Information source: Patient, Relative TRAVEL OUTSIDE OF THE [place] IN LAST 30 DAYS: No - HPI Patient complains to provider of: Difficulty breathing Onset: Other - Last night Onset/Duration: Sudden, Persistent Quality of pain: No pain Associated symptoms: Productive cough, Shortness of breath. denies: Fever, Leg swelling, Nausea, Vomiting Exacerbated by: Supine Relieved by: Denies Notes: Patient presents to the emergency department for evaluation of difficulty breat rupesh. His is the primary historian. She states that he has been coughing for the last month. He has not been evaluated for this. She states that over the last 2 days the cough has become more productive with yellow mucus. Denies any fevers. No nausea or vomiting. He had not been complaining of shortness of breath until last night. He is currently not undergoing any chemotherapy treatm ent for his esophageal cancer. He has no calf pain or swelling. No history of blood clots. He does have orthopnea. The patient is not able to lay flat. He must be at at least a 30 degree angle, but required sitting up in a recliner for sleep over the last 2 days. - Related Data Allergies/Adverse Reactions: lisinopril Allergy (Severe, Verified 08/07/17 14:01) Edema Past Medical History - General Information source: Relative - Social History Smoking Status: Unknown if Ever Smoked Family History: Reviewed & Not Pertinent Patient has suicidal ideation: No Patient has homicidal ideation: No - Past Medical History Cardiac Medical History: Reports: Hx Coronary Artery Disease, Hx Heart Attack - 2006, cardiac cath x 2, total of 5 stents, Hx Hypercholesterolemia, Hx Hypertension - meds x 30 years Pulmonary Medical History: Denies: Hx Asthma, Hx Bronchitis, Hx COPD, Hx Pneumonia Neurological Medical History: Denies: Hx Cerebrovascular Accident, Hx Seizures Endocrine Medical History: Reports: Hx Diabetes Mellitus Type 2 Renal/ Medical History: Denies: Hx Peritoneal Dialysis GI Medical History: Denies: Hx Cirrhosis, Hx Crohn's Disease, Hx Diverticulitis, Hx Gastritis, Hx Gastroesophageal Reflux Disease, Hx Hepatitis, Hx Hiatal Hernia, Hx Irritable Bowel, Hx Liver Failure, Hx Pancreatitis, Hx Ulcer, Hx Ulcerative Colitis, Hx Colonoscopy, Hx Endoscopic Retrograde Cholangio, Hx Endoscopy Musculoskeletal Medical History: Reports Hx Arthritis Psychiatric Medical History: Reports: Hx Depression Infectious Medical History: Denies: Hx Hepatitis Past Surgical History: Denies: Hx Pacemaker Other: Esophagectomy, port placement - Immunizations Hx Diphtheria, Pertussis, Tetanus Vaccination: Yes Hx Pneumococcal Vaccination: 08/11/06 Review of Systems - Review of Systems Constitutional: Weakness EENT: No symptoms reported Cardiovascular: denies: Chest pain, Palpitations Respiratory: Cough, Short of breath. denies: Hemoptysis Gastrointestinal: denies: Diarrhea, Nausea, Vomiting Genitourinary: denies: Burning, Dysuria Male Genitourinary: No symptoms reported Musculoskeletal: No symptoms reported Skin: No symptoms reported -: Yes All other systems reviewed and negative Physical Exam - Vital signs Vitals: Resp BP Pulse Ox 31 H 127/79 H 98 04/19/18 05:45 04/19/18 05:45 04/19/18 05:45 - Abdominal Notes: PEG tube left abdomen, no surrounding erythema or induration Course - Re-evaluation Re-evalutation: 04/19/18 11:01 Patient seen and reevaluated. His breathing has significantly improved. He remains normotensive. CT scan results have returned, reviewed with patient and . Antibiotics had already been administered, blood cultures already ordered. 04/19/18 11:23 Notified by nursing that patient did have a systolic blood pressure in the 80s. He continues to feel improved. Second liter of normal saline ordered. 04/19/18 11:[address] Mcgowan, he will admit the patient for further care. - Vital Signs Vital signs: Temp Pulse Resp BP Pulse Ox 98.7 F 98 34 H 113/72 96 04/19/18 06:10 04/19/18 06:10 04/19/18 09:01 04/19/18 09:01 04/19/18 09:01 - Laboratory Result Diagrams: 04/19/18 06:37 04/19/18 06:37 Laboratory results interpreted by me: 04/19/18 04/19/18 04/19/18 06:37 06:37 06:54 WBC 12.8 H Hgb 12.3 L Hct 37.6 L RDW 15.1 H Seg Neuts % (Manual) 90 H Lymphocytes % (Manual) 8 L Monocytes % (Manual) 2 L Abs Neuts (Manual) 11.5 H Creatinine 0.37 L Glucose 134 H POC Glucose 137 H Albumin 3.1 L - Diagnostic Test Radiology reviewed: Image reviewed - EKG Interpretation by Me Rate: Normal Rhythm: NSR When compared to previous EKG there are: No significant change Additional EKG results interpreted by me: EKG interpreted by myself as showing a sinus mechanism with a rate of 95 bpm. Normal axis. Mildly short MD interval. Nonspecific ST and T wave changes, but no acute changes concerning for ischemia or infarction. No significant change when compared to prior study. 04/19/18 08:14 Discharge - Discharge Clinical Impression: Sepsis, Pneumonia, Hypoxia Condition: Fair Disposition: ADMITTED INPATIENT Admitting Provider: Hospitalist - Juan M Unit Admitted: IMCU Referrals: YE DAS MD [NO LOCAL MD] - Follow up as needed
--- NOTE | 2018-04-19 06:52 | RADIOLOGY REPORT (SQ) ---
EXAM DESCRIPTION: XR CHEST 1 VIEW COMPLETED DATE/TME: 04/19/2018 05:48 CLINICAL HISTORY: 67 years, Male, sob COMPARISON: November 14, 2017 NUMBER OF VIEWS: One TECHNIQUE: AP view of the chest LIMITATIONS: None. FINDINGS: Mediport from a left subclavian approach. Small bilateral pleural effusions with adjacent atelectasis. Cardiac silhouette is normal in size. Postsurgical changes over the right hilum. IMPRESSION: Small bilateral pleural effusions with adjacent atelectasis. copyright 2010 [employer]- All Rights Reserved
[2018-04-19 06:57] LABS: HEMATOCRIT 37.6 % (37.9-51.0); HEMOGLOBIN 12.3 g/dL (13.5-17.0); MEAN CORPUSCULAR HEMOGLOBIN 27.4 pg (27.0-33.4); MEAN CORPUSCULAR HGB CONC 32.7 g/dL (32.0-36.0); MEAN CORPUSCULAR VOLUME 84 fl (80-97); PLATELET COUNT 415 10^3/uL (150-450); RED BLOOD COUNT 4.49 10^6/uL (4.35-5.55); RED CELL DISTRIBUTION WIDTH 15.1 % (11.5-14.0); WHITE BLOOD COUNT 12.8 10^3/uL (4.0-10.5)
[2018-04-19 06:59] LABS: INTERNATIONAL RATION (INR) 1.11; PROTHROMBIN TIME 14.9 SEC (11.4-15.4)
[2018-04-19 07:00] LABS: VENOUS BLOOD BASE EXCESS 1.2 mmol/L; VENOUS BLOOD HCO3 26.4 mmol/L (20-32); VENOUS BLOOD PCO2 44.2 mmHg (35-63); VENOUS BLOOD PH 7.39 (7.30-7.42)
[2018-04-19 07:19] LABS: ABSOLUTE MONOCYTES # (MANUAL) 0.3 10^3/uL (0.1-1.4); ABSOLUTE NEUTROPHILS# (MANUAL) 11.5 10^3/uL (1.7-8.2); ANISOCYTOSIS 1+; BASOPHILS % (MANUAL) 0 % (0-2); EOSINOPHILS % (MANUAL) 0 % (0-6); LYMPHOCYTES % (MANUAL) 8 % (13-45); MONOCYTES % (MANUAL) 2 % (3-13); PLATELET COMMENT ADEQUATE; SEGMENTED NEUTROPHILS % (MAN) 90 % (42-78); TOTAL CELLS COUNTED 100
[2018-04-19] MEDS ORDERED: NORMAL SALINE 1000 ML 1,000 ML IV ONE ×2 (07:25→11:16)
[2018-04-19 07:28] LABS: ALANINE AMINOTRANSFERASE 43 U/L (21-72); ALBUMIN 3.1 g/dL (3.5-5.0); ALKALINE PHOSPHATASE 117 U/L (38-126); ANION GAP 9 (5-19); ASPARTATE AMINO TRANSFERASE 24 U/L (17-59); BILIRUBIN,DIRECT 0.3 mg/dL (0.0-0.4); BILIRUBIN,TOTAL 0.4 mg/dL (0.2-1.3); BLOOD UREA NITROGEN 18 mg/dL (7-20); CALCIUM 8.9 mg/dL (8.4-10.2); CARBON DIOXIDE 25 mmol/L (22-30); CHLORIDE 107 mmol/L (98-107); GLUCOSE 134 mg/dL (75-110); POTASSIUM 4.1 mmol/L (3.6-5.0); SODIUM 141.2 mmol/L (137-145); TOTAL PROTEIN 6.6 g/dL (6.3-8.2)
[2018-04-19] MEDS ORDERED: CEFTRIAXONE INJ 1000 MG VIAL IV ONE (07:31)
--- NOTE | 2018-04-19 09:36 | EKG REPORT ---
SEVERITY:- BORDERLINE ECG - SINUS RHYTHM BORDERLINE T ABNORMALITIES, INFERIOR LEADS : Confirmed by: Carrie Griffiths 19-Apr-2018 09:34:58
[2018-04-19] MEDS: LEVOFLOXACIN 750 MG/D5W RTU 750 MG/150 ML RTUPB IV SCH ×2 (09:57→10:00)
--- NOTE | 2018-04-19 10:23 | RADIOLOGY REPORT (SQ) ---
EXAM DESCRIPTION: CTA CHEST COMPLETED DATE/TIME: 04/19/2018 9:55 am REASON FOR STUDY: Dyspnea, hypoxia, h/o esophageal cancer COMPARISON: None. TECHNIQUE: CT scan of the chest performed using helical scanning technique with dynamic intravenous contrast injection. Images reviewed with lung, soft tissue and bone windows. Reconstructed coronal and sagittal MPR images reviewed. Additional 3 dimensional post-processing performed to develop Maximal Intensity Projection images (AZ P). All images stored on PACS. All CT scanners at this facility use dose modulation, iterative reconstruction, and/or weight based d osing when appropriate to reduce radiation dose to as low as reasonably achievable (ALARA). [facility]: Dose Right [facility]: CareDose [facility]: Dose Right [facility]: Teradose 4D [facility]: Doorbot CONTRAST TYPE AND DOSE: contrast/concentration: Isovue mg/ml; Total Contrast Delivered: 75.0 ml; To mendez Saline Delivered: 80.0 ml Contrast bolus optimized for the pulmonary arteries. Not diagnostic for the aorta. RENAL FUNCTION: GFR > 60. RADIATION DOSE: CT Rad equipment meets quality standard of care and radiation dose reduction techniq ues were employed. CTDIvol: 19.2 - 33.1 mGy. DLP: 730 mGy-cm. . LIMITATIONS: None. FINDINGS: LUNGS AND PLEURA: Small bilateral pleural effusions and associated atelectasis or consolid ation. There are diffusely scattered centrilobular ground-glass nodules bilaterally. AORTA AND GREAT VESSELS: No aneurysm. Contrast bolus not optimized for the aorta. HEART: No pericardial effusion. Coronary artery calcifications. PULMONARY ARTERIES: No emboli visualized in the main pulmonary arteries or the segmental branches. HILAR AND MEDIASTINAL STRUCTURES: No identified masses or abnormal nodes. Status post esophagectomy and pull-through. HARDWARE: None in the chest. UPPER ABDOMEN: No significant findings. Limited exam. THYROID AND OTHER SOFT TISSUES: No masses. No adenopathy. BONES: No acute or significant finding. 3D MIPS: Confirm above findings. OTHER: No other significant finding. IMPRESSION: 1. Negative examination for pulmonary embolism. 2. Diffusely scattered centrilobular ground-glass nodules bilaterally, nonspecific and infectious or inflammatory. Differential considerations include atypical infection as well as inhalational lung d isease such as hypersensitivity pneumonitis or smoking related respiratory bronchiolitis. 3. Small bilateral pleural effusions and associated atelectasis or consolidation. 4. Postoperative findings of esophagectomy and pull-through. Comparison to prior examinations would be helpful to evaluate for stability. COMMENT: Quality ID # [id number]: Final reports with documentation of one or more dose reduction techniques (e.g., Automated exposure control, adjustment of the mA and/or kV according to patient size, use of iterative reconstruction technique) TECHNICAL DOCUMENTATION: JOB ID: [id number] [employer]- All Rights Reserved Reading location - IP/workstation name: [email or web address]
[2018-04-19 12:59] LABS: APPEARANCE,URINE SLIGHTLY-CLOUDY; BILIRUBIN,URINE NEGATIVE (NEGATIVE); COLOR,URINE YELLOW; GLUCOSE, URINE NEGATIVE (NEGATIVE); KETONES,URINE NEGATIVE (NEGATIVE); LEUKOCYTE ESTERASE,URINE TRACE (NEGATIVE); NITRITE,URINE NEGATIVE (NEGATIVE); PROTEIN,URINE NEGATIVE (NEGATIVE); URINE SPECIFIC GRAVITY 1.046
[2018-04-19] MEDS ORDERED: ALBUTEROL SULFATE 0.083% NEB 2.5 MG/3 ML AMPUL NEB PRN (13:35)
[2018-04-19] MEDS ORDERED: NORMAL SALINE 1000 ML 1,000 ML IV PRN (13:35)
--- NOTE | 2018-04-19 15:40 | PDOC H&P ---
History of Present Illness Admission Date/PCP: 04/19/18 11:48 MICHAEL RUIZ MD Patient complains of: Increased shortness of breath with cough History of Present Illness: NICOLE EDWARDS is a 67 year old male with a history of esophageal cancer with esophagectomy. He reports that for approximately 1 week (his feels like it has been 3 weeks) he has noticed a cough. He began to experience increased shortness of breath. He would cough to the point where he would have emesis. The sputum was thick and yellow and eventually bile was present. He felt lightheaded when standing. His appetite has been decreased as well. Upon presentation to the emergency department he was noted to have abnormalities on x-ray including pleural effusion and groundglass appearance possibly reflecting pneumonia. His white blood cell count was elevated and his blood pressure was low. He was referred to the hospitalist service for admission. Past Medical History Cardiac Medical History: Reports: Coronary Artery Disease, Myocardial Infarction - 2006, cardiac cath x 2, total of 5 stents, Hyperlipidema, Hypertension - meds x 30 years Pulmonary Medical History: Denies: Asthma, Bronchitis, Chronic Obstructive Pulmonary Disease (COPD), Pneumonia EENT Medical History: Reports: Cataracts Neurological Medical History: Denies: Seizures Endocrine Medical History: Reports: Diabetes Mellitus Type 2 Renal/ Medical History: Reports: None Malignancy Medical History: Reports: Other - Esophagus GI Medical History: Denies: Cirrhosis, Crohn's Disease, Diverticulitis, Gastroesophageal Reflux Disease, Hepatitis, Hiatal Hernia, Ulcerative Colitis Musculoskeltal Medical History: Reports: Arthritis Psychiatric Medical History: Reports: Depression Hematology: Denies: Anemia Past Surgical History Past Surgical History: Reports: Herniorrhaphy - Bilateral Denies: Pacemaker Social History Information Source: Patient, Relative Lives with: Family Smoking Status: Former Smoker Frequency of Alcohol Use: Rare Hx Recreational Drug Use: No Hx Prescription Drug Abuse: No - Advance Directive Resuscitation Status: Do Not Resuscitate Surrogate healthcare decision maker:: Living will on file at the hospital. Family History Family History: CAD, COPD, DM Parental Family History Reviewed: Yes Children Family History Reviewed: Yes Sibling(s) Family History Reviewed.: Yes Medication/Allergy Home Medications: Aspirin [Ecotrin 81 mg EC Tablet] 81 mg PO DAILY 04/19/18 Atorvastatin Calcium [Lipitor 40 mg Tablet] 40 mg JT QHS 04/19/18 Citalopram Hydrobromide [Celexa 20 mg Tablet] 40 mg PO DAILY 04/19/18 Levothyroxine Sodium [Synthroid] 175 mcg PO Q6AM 04/19/18 Megestrol Acetate [Megace Es] 625 mg PO DAILY 04/19/18 Metoprolol Tartrate [Lopressor 25 mg Tablet] 25 mg JT DAILY 04/19/18 Ondansetron HCl [Zofran 8 mg Tablet] 8 mg PO .1HR PC CAR RIDES PRN 04/19/18 Zolpidem Tartrate [Ambien] 10 mg PO QHS 04/19/18 Allergies/Adverse Reactions: lisinopril Allergy (Severe, Verified 08/07/17 14:01) Edema Review of Systems Constitutional: PRESENT: as per HPI Eyes: ABSENT: visual disturbances Ears: ABSENT: hearing changes Nose, Mouth, and Throat: PRESENT: headache(s). ABSENT: mouth pain Cardiovascular: PRESENT: dyspnea on exertion. ABSENT: edema, palpitations Respiratory: PRESENT: cough, dyspnea, sputum Gastrointestinal: ABSENT: abdominal pain, constipation, diarrhea, heartburn Genitourinary: PRESENT: difficulty urinating, nocturia Integumentary: PRESENT: wounds - PEG tube site Neurological: ABSENT: abnormal speech, memory loss, syncope, tremor(s) Psychiatric: PRESENT: depression. ABSENT: hallucinations Endocrine: ABSENT: cold intolerance, heat intolerance Hematologic/Lymphatic: ABSENT: easy bruising, lymphadenopathy Allergic/Immunologic: ABSENT: seasonal rhinorrhea Physical Exam Vital Signs: Temp Pulse Resp BP Pulse Ox 98.5 F 98 29 H 99/59 L 98 04/19/18 13:42 04/19/18 06:10 04/19/18 13:27 04/19/18 13:27 04/19/18 13:27 Intake & Output 04/18/18 04/19/18 04/20/18 06:59 06:59 06:59 Intake Total 2150 Balance 2150 Weight 80.5 kg General appearance: PRESENT: mild distress, well-developed Head exam: PRESENT: normocephalic Eye exam: PRESENT: conjunctiva pink. ABSENT: scleral icterus Ear exam: PRESENT: normal external ear exam Mouth exam: PRESENT: dry mucosa Neck exam: ABSENT: carotid bruit, lymphadenopathy Respiratory exam: PRESENT: decreased breath sounds, rales - Faint on the left. ABSENT: accessory muscle use, stridor, wheezes Cardiovascular exam: PRESENT: RRR, +S1, +S2 GI/Abdominal exam: PRESENT: hypoactive bowel sounds, soft, tenderness - Around the PEG tube site. There is erythema with bilious discharge. Skin erosion at the site as well. Rectal exam: PRESENT: deferred Gentrourinary exam: PRESENT: indwelling catheter Extremities exam: ABSENT: pedal edema Musculoskeletal exam: PRESENT: normal inspection Neurological exam: PRESENT: alert, awake, oriented to person, oriented to place, oriented to time, oriented to situation, CN II-XII grossly intact Psychiatric exam: PRESENT: flat affect. ABSENT: agitated, anxious Focused psych exam: ABSENT: restlessness Skin exam: PRESENT: other - Skin erosion at the site of the PEG tube. It is circumferential. It is quite tender and erythematous. Bilious drainage stains the gauze dressing. There was no foul odor. The silicone collar for the PEG tube seems loose. Results Laboratory Results: 04/19/18 06:37 04/19/18 06:37 04/19/18 04/19/18 04/19/18 06:37 06:37 06:37 WBC 12.8 H RBC 4.49 Hgb 12.3 L Hct 37.6 L MCV 84 MCH 27.4 MCHC 32.7 RDW 15.1 H Plt Count 415 Seg Neutrophils % Not Reportable Lymphocytes % Not Reportable Monocytes % Not Reportable Eosinophils % Not Reportable Basophils % Not Reportable Absolute Neutrophils Not Reportable Absolute Lymphocytes Not Reportable Absolute Monocytes Not Reportable Absolute Eosinophils Not Reportable Absolute Basophils Not Reportable VBG pH VBG pCO2 VBG HCO3 VBG Base Excess Sodium 141.2 Potassium 4.1 Chloride 107 Carbon Dioxide 25 Anion Gap 9 BUN 18 Creatinine 0.37 L Est GFR ( Amer) > 60 Est GFR (Non-Af Amer) > 60 Glucose 134 H Lactic Acid 1.2 Calcium 8.9 Total Bilirubin 0.4 AST 24 ALT 43 Alkaline Phosphatase 117 Total Protein 6.6 Albumin 3.1 L Urine Color Urine Appearance Urine pH Ur Specific [place] Urine Protein Urine Glucose (UA) Urine Ketones Urine Blood Urine Nitrite Ur Leukocyte Esterase Urine WBC (Auto) Urine RBC (Auto) 04/19/18 04/19/18 06:37 12:37 WBC RBC Hgb Hct MCV MCH MCHC RDW Plt Count Seg Neutrophils % Lymphocytes % Monocytes % Eosinophils % Basophils % Absolute Neutrophils Absolute Lymphocytes Absolute Monocytes Absolute Eosinophils Absolute Basophils VBG pH 7.39 VBG pCO2 44.2 VBG HCO3 26.4 VBG Base Excess 1.2 Sodium Potassium Chloride Carbon Dioxide Anion Gap BUN Creatinine Est GFR ( Amer) Est GFR (Non-Af Amer) Glucose Lactic Acid Calcium Total Bilirubin AST ALT Alkaline Phosphatase Total Protein Albumin Urine Color YELLOW Urine Appearance SLIGHTLY-CLOUDY Urine pH 7.0 Ur Specific [place] 1.046 Urine Protein NEGATIVE Urine Glucose (UA) NEGATIVE Urine Ketones NEGATIVE Urine Blood NEGATIVE Urine Nitrite NEGATIVE Ur Leukocyte Esterase TRACE H Urine WBC (Auto) 23 Urine RBC (Auto) 9 Impressions: Chest X-Ray 04/19/18 05:48 IMPRESSION: Small bilateral pleural effusions with adjacent atelectasis. copyright 2011 [employer]- All Rights Reserved Chest/Abdomen CTA 04/19/18 07:41 IMPRESSION: 1. Negative examination for pulmonary embolism. 2. Diffusely scattered centrilobular ground-glass nodules bilaterally, nonspecific and infectious or inflammatory. Differential considerations include atypical infection as well as inhalational lung disease such as hypersensitivity pneumonitis or smoking related respiratory bronchiolitis. 3. Small bilateral pleural effusions and associated atelectasis or consolidation. 4. Postoperative findings of esophagectomy and pull-through. Comparison to pr ior examinations would be helpful to evaluate for stability. Assessment & Plan - Diagnosis (1) Sepsis Qualifiers: Sepsis type: sepsis due to unspecified organism Qualified Code(s): A41.9 - Sepsis, unspecified organism Is this a current diagnosis for this admission?: Yes Plan: The patient exhibited elevated white blood cell count, low blood pressure and tachypnea. He was aggressively hydrated and his blood pressure improved. Antibiotic therapy was started as well. Since the serum lactic acid was normal I will not repeat it. I will continue to monitor his white blood cell count. Cultures have been submitted. (2) Pneumonia Qualifiers: Pneumonia type: due to unspecified organism Laterality: unspecified laterality Is this a current diagnosis for this admission?: Yes Plan: The CT scan revealed scattered centrilobular foci with groundglass appearance. Likely consistent with pneumonia. He also has small bilateral pleural effusions. He will continue on ceftriaxone and levofloxacin. We will continue to monitor his vital signs. I do not believe a sputum culture was ordered prior to initiation of antibiotic therapy. (3) Hypoxia Plan: Patient required oxygen supplementation at the time of admission. With fluids and initiation of antibiotics his saturation improved. (4) Irritation around percutaneous endoscopic gastrostomy (PEG) tube site Is this a current diagnosis for this admission?: Yes Plan: The patient's reports that this has been an ongoing problem and in fact is improved. There is erosion and irritation from gastric secretions. reports that the surgeon suggestion of topical medication has shown significant improvement. I have placed orders to clean the site with saline and then apply Xeroform gauze covered with gauze and changed to daily. The patient will be on antibiotic therapy for his pneumonia and so no specific antibiotic therapy required for this site. (5) History of esophagectomy Is this a current diagnosis for this admission?: Yes Plan: Despite his esophagectomy, the patient has regained a safe swallow. He still requires tube feeding to meet his caloric needs. I have initiated the TwoCal formula at 50 mL an hour with water flushes. In addition he uses 1 packet of been a protein twice daily. We are able to replicate his home regimen. He does have an oral diet for gratification and he can take his medications by mouth as well. - Time Time Spent: 50 to 70 Minutes Medications reviewed and adjusted accordingly: Yes Anticipated discharge: Home - Inpatient Certification Based on my medical assessment, after consideration of the patient's comorbidities, presenting symptoms, or acuity I expect that the services needed warrant INPATIENT care.: Yes I certify that my determination is in accordance with my understanding of Medicare's requirements for reasonable and necessary INPATIENT services [42 CFR 412.3e].: Yes Medical Necessity: Need Close Monitoring Due to Risk of Patient Decompensation, Need For IV Fluids, Need for Pain Control, Need for IV Antibiotics 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
[2018-04-19] MEDS: HEPARIN SOD (PORCINE) 5,000 UNIT/ML 1 ML SYRINGE SUBCUT SCH ×2 (16:00→23:21)
[2018-04-19] MEDS: ONDANSETRON HCL 8 MG TABLET PO PRN (16:06)
[2018-04-19] MEDS: TAMSULOSIN HCL 0.4 MG CAP.SR.24H PO SCH (20:19)
[2018-04-19] MEDS ORDERED: (PENDING PHARMACY ID) (Zolpidem Tartrate [Ambien] 10 MG) PO SCH (22:00)
[2018-04-19] MEDS ORDERED: HEPARIN SOD (PORCINE) 5,000 UNIT/ML 1 ML SYRINGE ONE (22:35)
[2018-04-19] MEDS ORDERED: CITALOPRAM HYDROBROMIDE 20 MG TABLET ONE (22:45)
[2018-04-19] MEDS: ZOLPIDEM TARTRATE 5 MG TABLET PO SCH (23:20)
[2018-04-19] MEDS: CITALOPRAM HYDROBROMIDE 20 MG TABLET PO SCH (23:21)
[2018-04-19] MEDS: ATORVASTATIN CALCIUM 40 MG TABLET PO SCH (23:21)
--- NOTE | 2018-04-20 00:35 | RADIOLOGY REPORT (SQ) ---
EXAM DESCRIPTION: XR CHEST 1 VIEW COMPLETED DATE/TME: 04/20/2018 00:00 CLINICAL HISTORY: 67 years, Male, RESP DISTRESS COMPARISON: None. NUMBER OF VIEWS: One TECHNIQUE: AP view of the chest LIMITATIONS: None. FINDINGS: Mediport from a left subclavian approach terminates at the superior cavoatrial junction. Small left pleural effusion. Minimal bibasilar subsegmental atelectasis. No pleural abnormalities on the right. Cardiac silhouette is normal in size. IMPRESSION: Small left pleural effusion and bibasilar subsegmental atelectasis, similar appearance to prior study. copyright 2010 [employer]- All Rights Reserved
[2018-04-20] MEDS ORDERED: ACETYLCYSTEINE 20% SOLN 800 MG/4 ML VIAL.NEB ONE (00:50)
[2018-04-20] MEDS ORDERED: TORSEMIDE 20 MG TABLET PO ONE (01:15)
[2018-04-20 02:26] LABS: HEMATOCRIT 31.8 % (37.9-51.0); HEMOGLOBIN 10.4 g/dL (13.5-17.0); MEAN CORPUSCULAR HEMOGLOBIN 27.5 pg (27.0-33.4); MEAN CORPUSCULAR HGB CONC 32.8 g/dL (32.0-36.0); MEAN CORPUSCULAR VOLUME 84 fl (80-97); PLATELET COUNT 295 10^3/uL (150-450); RED BLOOD COUNT 3.79 10^6/uL (4.35-5.55); RED CELL DISTRIBUTION WIDTH 15.4 % (11.5-14.0); WHITE BLOOD COUNT 7.4 10^3/uL (4.0-10.5)
[2018-04-20 02:42] LABS: ABSOLUTE LYMPHOCYTES# (MANUAL) 0.2 10^3/uL (0.5-4.7); ABSOLUTE MONOCYTES # (MANUAL) 0.4 10^3/uL (0.1-1.4); ABSOLUTE NEUTROPHILS# (MANUAL) 6.6 10^3/uL (1.7-8.2); BASOPHILS % (MANUAL) 0 % (0-2); EOSINOPHILS % (MANUAL) 2 % (0-6); LYMPHOCYTES % (MANUAL) 3 % (13-45); MONOCYTES % (MANUAL) 6 % (3-13); SEGMENTED NEUTROPHILS % (MAN) 89 % (42-78); TOTAL CELLS COUNTED 100
[2018-04-20 02:43] LABS: ANISOCYTOSIS 1+; PLATELET COMMENT ADEQUATE
[2018-04-20] MEDS ORDERED: TORSEMIDE 20 MG TABLET ONE (02:56)
[2018-04-20 03:23] LABS: ANION GAP 6 (5-19); BLOOD UREA NITROGEN 16 mg/dL (7-20); CALCIUM 8.4 mg/dL (8.4-10.2); CARBON DIOXIDE 22 mmol/L (22-30); CHLORIDE 113 mmol/L (98-107); GLUCOSE 110 mg/dL (75-110); POTASSIUM 4.2 mmol/L (3.6-5.0); SODIUM 140.8 mmol/L (137-145)
[2018-04-20 03:37] LABS: FREE T3 2.93 pg/mL (2.77-5.27); FREE T4 (FREE THYROXINE) 1.7 ng/dL (0.78-2.19)
[2018-04-20 03:51] LABS: THYROID STIMULATING HORMONE 0.73 uIU/mL (0.47-4.68)
[2018-04-20] MEDS: LEVOTHYROXINE SODIUM 0.075 MG TABLET PO SCH (05:53)
[2018-04-20] MEDS: HEPARIN SOD (PORCINE) 5,000 UNIT/ML 1 ML SYRINGE SUBCUT SCH ×3 (05:53→22:26)
[2018-04-20] MEDS: LEVOTHYROXINE SODIUM 0.1 MG TABLET PO SCH (05:53)
--- NOTE | 2018-04-20 07:31 | Progress Note ---
Provider Note Provider Note: Critical care note: Critical care time began 23:59 04/19/2018 Problem: Rapid response for Acute hypoxia The patient was noted by his PACU nurse to develop a significant drop in his oxygen saturation due to paroxysmal coughing. She was also noting that he continued to be significantly tachypneic and due to these concerns called for a rapid response. Patient was found to have an O2 sat of 97% on 100% oxygen via a nonrebreather mask. His respiratory rate was 33 and he was noted to be taking very short shallow breaths without any evidence of respiratory distress. A chest x-ray was be repeated and showed an increased left pleural effusion and stable cardiomegaly as compared to his film from earlier in the day. Patient was noted to have bibasilar rales on exam with dullness in the left base consistent with his x-ray findings. The patient's previous film had been interpreted as a pneumonia and he is currently on antibiotic therapy. As the patient seemed to be stable at the time my evaluation I allowed for him to be transferred to the [facility] for further care. In addition to his current therapy I added Mucomyst via nebulizer twice daily and Lasix 40 mg IV x1. A sputum culture was obtained and sent for evaluation. Respiratory therapy will be doing frequent re-evaluations during the night to determine if he has a need for further intervention. Critical care time ended 00:34 04/20/2018 Total time involved with [id number] critical care 17 minutes.
--- NOTE | 2018-04-20 08:34 | RADIOLOGY REPORT (SQ) ---
EXAM DESCRIPTION: CHEST SINGLE VIEW COMPLETED DATE/TIME: 04/20/2018 8:23 am REASON FOR STUDY: Pneumonia COMPARISON: Chest films 04/20/2018, 04/19/2018 CT angio chest 04/19/2018 EXAM PARAMETERS: NUMBER OF VIEWS: One view. TECHNIQUE: Single frontal radiographic view of the chest acquired. RADIATION DOSE: NA LIMITATIONS: None. FINDINGS: LUNGS AND PLEURA: Persistent trace left pleural effusion. Left retrocardiac consolidation atelectasis versus pneumonia. Stable scarring in the right perihilar region. No pneumothorax MEDIASTINUM AND HILAR STRUCTURES: No masses. Contour normal. HEART AND VASCULAR STRUCTURES: No cardiomegaly BONES: No acute findings. HARDWARE: Left-sided permanent central line tip superior vena cava. Surgical clips along the rightwa rd mediastinum post distal esophagectomy and partial gastric pull-through OTHER: No other significant finding. IMPRESSION: Persistent trace left lower fusion Persistent retrocardiac consolidation atelectasis versus pneumonia. TECHNICAL DOCUMENTATION: JOB ID: [id number] [employer]- All Rights Reserved Reading location - IP/workstation name: [email or web address]
[2018-04-20] MEDS: LEVALBUTEROL HCL NEB 1.25 MG/3 ML AMPUL NEB PRN ×2 (08:53→20:34)
[2018-04-20] MEDS: ACETYLCYSTEINE 20% SOLN 800 MG/4 ML VIAL.NEB NEB SCH ×2 (08:53→20:34)
[2018-04-20] MEDS: METOPROLOL SUCCINATE 25 MG TAB.SR.24H PO SCH (09:33)
[2018-04-20] MEDS: MEGESTROL ACETATE SUSP 400 MG/10 ML UDCUP PO SCH (09:34)
[2018-04-20] MEDS: CITALOPRAM HYDROBROMIDE 20 MG TABLET PO SCH ×2 (09:34→22:26)
[2018-04-20] MEDS: ASPIRIN 81 MG TABLET, ENT COATED PO SCH (09:34)
[2018-04-20] MEDS: LEVOFLOXACIN 750 MG/D5W RTU 750 MG/150 ML RTUPB IV SCH (09:34)
[2018-04-20] MEDS ORDERED: (PENDING PHARMACY ID) (Levothyroxine Sodium [Levothyroxine Sodium] 175 MCG) PO SCH (10:00)
[2018-04-20] MEDS ORDERED: MEGESTROL ACETATE 625 MG GT SCH (10:00)
[2018-04-20] MEDS: CEFTRIAXONE 1 GM/D5W RTU 1 GM/50 ML RTUPB IV SCH (12:34)
[2018-04-20] MEDS: TAMSULOSIN HCL 0.4 MG CAP.SR.24H PO SCH (17:05)
--- NOTE | 2018-04-20 20:05 | PDOC PROGRESS REPORT ---
Subjective Progress Note for:: 04/20/18 Subjective:: The patient became acutely short of breath last night. See Dr. Guillory's note. Feels better this morning. Reason For Visit: SEPSIS Physical Exam Vital Signs: Temp Pulse Resp BP Pulse Ox 98.4 F 72 20 100/57 L 98 04/20/18 16:31 04/20/18 16:31 04/20/18 16:31 04/20/18 16:31 04/20/18 16:31 Intake & Output 04/19/18 04/20/18 04/21/18 06:59 06:59 06:59 Intake Total 3200 1310 Output Total 1000 1300 Balance 2200 10 Weight 80.5 kg 83.1 kg General appearance: PRESENT: no acute distress, cooperative, other - Frail appearing Mouth exam: PRESENT: dry mucosa, tongue midline Respiratory exam: PRESENT: clear to auscultation bette. ABSENT: rales, rhonchi, wheezes Cardiovascular exam: PRESENT: RRR, +S1, +S2 GI/Abdominal exam: PRESENT: normal bowel sounds, soft, tenderness - At the PEG tube site, other - PEG tube in place Neurological exam: PRESENT: alert, awake, oriented to person, oriented to place, oriented to situation Psychiatric exam: ABSENT: agitated, anxious Skin exam: PRESENT: other - Still with erythema at the PEG tube site. Lips are very dry. Results Laboratory Results: 04/20/18 02:18 04/20/18 02:18 04/20/18 04/20/18 04/20/18 02:18 02:18 02:18 WBC 7.4 RBC 3.79 L Hgb 10.4 L Hct 31.8 L MCV 84 MCH 27.5 MCHC 32.8 RDW 15.4 H Plt Count 295 Seg Neutrophils % Not Reportable Lymphocytes % Not Reportable Monocytes % Not Reportable Eosinophils % Not Reportable Basophils % Not Reportable Absolute Neutrophils Not Reportable Absolute Lymphocytes Not Reportable Absolute Monocytes Not Reportable Absolute Eosinophils Not Reportable Absolute Basophils Not Reportable Sodium 140.8 Potassium 4.2 Chloride 113 H Carbon Dioxide 22 Anion Gap 6 BUN 16 Creatinine 0.35 L Est GFR ( Amer) > 60 Est GFR (Non-Af Amer) > 60 Glucose 110 Calcium 8.4 TSH 0.73 Free T4 1.70 Free T3 pg/mL 2.93 04/20/18 02:18 NT-Pro-B Natriuret Pep 273 Impressions: Chest/Abdomen CTA 04/19/18 07:41 IMPRESSION: 1. Negative examination for pulmonary embolism. 2. Diffusely scattered centrilobular ground-glass nodules bilaterally, nonspecific and infectious or inflammatory. Differential considerations include atypical infection as well as inhalational lung disease such as hypersensitivity pneumonitis or smoking related respiratory bronchiolitis. 3. Small bilateral pleural effusions and associated atelectasis or consolidation. 4. Postoperative findings of esophagectomy and pull-through. Comparison to prior examinations would be helpful to evaluate for stability. Chest X-Ray 04/20/18 06:00 IMPRESSION: Persistent trace left lower fusion Persistent retrocardiac consolidation atelectasis versus pneumonia. Assessment & Plan - Diagnosis (1) Sepsis Qualifiers: Sepsis type: sepsis due to unspecified organism Qualified Code(s): A41.9 - Sepsis, unspecified organism Is this a current diagnosis for this admission?: Yes Plan: Resolved (2) Pneumonia Qualifiers: Pneumonia type: due to unspecified organism Laterality: unspecified laterality Is this a current diagnosis for this admission?: Yes Plan: Continue antibiotics as ordered (3) Hypoxia Is this a current diagnosis for this admission?: Yes Plan: Continue supplemental oxygen (4) Irritation around percutaneous endoscopic gastrostomy (PEG) tube site Is this a current diagnosis for this admission?: Yes Plan: Minimal improvement. These types of lesions usually take weeks to resolve. (5) History of esophagectomy Is this a current diagnosis for this admission?: Yes Plan: Multiple symptoms related to reflux in the past. He does tend to cough. Although he takes his pills by mouth he has requested no more meal trays since he does not eat but rather gets his nutrition through the PEG tube. - Time Time Spent with patient: 15-24 minutes Medications reviewed and adjusted accordingly: Yes
[2018-04-20] MEDS: ZOLPIDEM TARTRATE 5 MG TABLET PO SCH (22:26)
[2018-04-20] MEDS: ATORVASTATIN CALCIUM 40 MG TABLET PO SCH (22:26)
[2018-04-20] MEDS: PROMETHAZINE HCL 25 MG TABLET PO PRN (22:39)
[2018-04-21] MEDS: LANSOPRAZOLE 30 MG TAB.RAP.DR PO SCH (05:45)
[2018-04-21] MEDS: LEVOTHYROXINE SODIUM 0.1 MG TABLET PO SCH (05:45)
[2018-04-21] MEDS: LEVOTHYROXINE SODIUM 0.075 MG TABLET PO SCH (05:45)
[2018-04-21] MEDS: HEPARIN SOD (PORCINE) 5,000 UNIT/ML 1 ML SYRINGE SUBCUT SCH ×3 (05:45→22:12)
[2018-04-21] MEDS: LEVALBUTEROL HCL NEB 1.25 MG/3 ML AMPUL NEB PRN (08:37)
[2018-04-21] MEDS: ACETYLCYSTEINE 20% SOLN 800 MG/4 ML VIAL.NEB NEB SCH ×2 (08:38→20:21)
--- NOTE | 2018-04-21 08:39 | RADIOLOGY REPORT (SQ) ---
EXAM DESCRIPTION: CHEST SINGLE VIEW COMPLETED DATE/TIME: 04/21/2018 7:54 am REASON FOR STUDY: pneumonia COMPARISON: 04/20/2018. FINDINGS: Single-view chest AP portable upright. Left central line remains in good position. Persistent small effusions with basilar diminished aeration, similar appearance compared to prior. No significant change. TECHNICAL DOCUMENTATION: JOB ID: [id number] Reading location - IP/workstation name: [email or web address]
[2018-04-21] MEDS: LEVOFLOXACIN 750 MG/D5W RTU 750 MG/150 ML RTUPB IV SCH (11:27)
[2018-04-21] MEDS: CEFTRIAXONE 1 GM/D5W RTU 1 GM/50 ML RTUPB IV SCH (11:27)
[2018-04-21] MEDS: CITALOPRAM HYDROBROMIDE 20 MG TABLET PO SCH ×2 (11:27→22:07)
[2018-04-21] MEDS: FUROSEMIDE 20 MG TABLET PO SCH (11:27)
[2018-04-21] MEDS: PROMETHAZINE HCL 25 MG TABLET PO PRN (11:28)
[2018-04-21] MEDS: MEGESTROL ACETATE SUSP 400 MG/10 ML UDCUP PO SCH (11:28)
[2018-04-21] MEDS: METOPROLOL SUCCINATE 25 MG TAB.SR.24H PO SCH (11:28)
[2018-04-21] MEDS: ASPIRIN 81 MG TABLET, ENT COATED PO SCH (11:28)
[2018-04-21] MEDS ORDERED: MORPHINE SULFATE 10 MG/ML INJ ONE (19:39)
--- NOTE | 2018-04-21 19:51 | PDOC PROGRESS REPORT ---
Subjective Progress Note for:: 04/21/18 Subjective:: Still feeling poorly. Very depressed. Reason For Visit: SEPSIS Physical Exam Vital Signs: Temp Pulse Resp BP Pulse Ox 98.6 F 77 20 100/59 L 98 04/21/18 15:32 04/21/18 15:32 04/21/18 15:32 04/21/18 15:32 04/21/18 15:32 Intake & Output 04/20/18 04/21/18 04/22/18 06:59 06:59 06:59 Intake Total 3200 1870 600 Output Total 1000 1900 600 Balance 2200 -30 0 Weight 83.1 kg 80.1 kg General appearance: PRESENT: no acute distress, cooperative Eye exam: PRESENT: conjunctiva pale. ABSENT: scleral icterus Respiratory exam: PRESENT: crackles - Bases, decreased breath sounds - Basis. ABSENT: rhonchi, stridor Cardiovascular exam: PRESENT: RRR, +S1, +S2 GI/Abdominal exam: PRESENT: normal bowel sounds, soft, tenderness - Around the PEG tube site Neurological exam: PRESENT: alert, awake, oriented to person, oriented to place, oriented to situation Psychiatric exam: PRESENT: depressed, flat affect Results Laboratory Results: 04/20/18 02:18 04/20/18 02:18 04/19/18 12:37 Catheterized Urine Urine Culture - Final Enterococcus Faecalis(Group D) 04/20/18 02:18 NT-Pro-B Natriuret Pep 273 Impressions: Chest/Abdomen CTA 04/19/18 07:41 IMPRESSION: 1. Negative examination for pulmonary embolism. 2. Diffusely scattered centrilobular ground-glass nodules bilaterally, nonspecific and infectious or inflammatory. Differential considerations include atypical infection as well as inhalational lung disease such as hypersensitivity pneumonitis or smoking related respiratory bronchiolitis. 3. Small bilateral pleural effusions and associated atelectasis or consolidation. 4. Postoperative findings of esophagectomy and pull-through. Comparison to sam or examinations would be helpful to evaluate for stability. Assessment & Plan - Diagnosis (1) Sepsis Qualifiers: Sepsis type: sepsis due to unspecified organism Qualified Code(s): A41.9 - Sepsis, unspecified organism Is this a current diagnosis for this admission?: Yes Plan: Improved. The patient has received IV fluid and has been on antibiotic therapy. Urine was positive for Enterococcus faecalis and sputum was growing [place] with scarce normal ledy. (2) Pneumonia Qualifiers: Pneumonia type: due to unspecified organism Laterality: unspecified lat erality Is this a current diagnosis for this admission?: Yes Plan: White cell count is improved once started on antibiotic therapy. Continue to monitor. Cannot exclude aspiration as a cause. (3) Hypoxia Is this a current diagnosis for this admission?: Yes Plan: Still requiring nasal cannula supplementation. (4) Irritation around percutaneous endoscopic gastrostomy (PEG) tube site Is this a current diagnosis for this admission?: Yes Plan: Surgical consult ordered to evaluate PEG tube and PEG tube site (5) History of esophagectomy Is this a current diagnosis for this admission?: Yes (6) Depression Qualifiers: Depression Type: unspecified Qualified Code(s): F32.9 - Major depressive disorder, single episode, unspecified Is this a current diagnosis for this admission?: Yes Plan: The patient has a very depressed affect. He in fact admitted to being depressed. He is already on an SSRI but has not noticed significant improvemen t. Even though he can swallow (which is excellent for an esophagectomy patient) he has no interest in eating. He will take his pills by mouth. The nurse has observed him declining cell phone calls. His also reported concerns for depression. I spoke to the patient. I will add venlafaxine 75 mg twice daily initially to complement the SSRI. Continue to monitor. Will suggest mental health counseling as an outpatient. - Time Time Spent with patient: 15-24 minutes Medications reviewed and adjusted accordingly: Yes
--- NOTE | 2018-04-21 20:09 | PDOC CONSULTATION ---
Consultation Consult Date: 04/21/18 Consult reason:: peg tube leak with irritation of skin History of Present Illness Admission Date/PCP: 04/19/18 11:48 MICHAEL RUIZ MD History of Present Illness: NICOLE EDWARDS is a 67 year old male with history of esophagectomy for ca and peg tube about 7 months ago. Peg tube noted to be leaking and irritating the skin. Past Medical History Cardiac Medical History: Reports: Coronary Artery Disease, Myocardial Infarction - 2006, cardiac cath x 2, total of 5 stents, Hyperlipidema, Hypertension - meds x 30 years Pulmonary Medical History: Denies: Asthma, Bronchitis, Chronic Obstructive Pulmonary Disease (COPD), Pneumonia EENT Medical History: Reports: Cataracts Neurological Medical History: Denies: Seizures Endocrine Medical History: Reports: Diabetes Mellitus Type 2 Renal/ Medical History: Reports: None Malignancy Medical History: Reports: Other - Esophagus GI Medical History: Denies: Cirrhosis, Crohn's Disease, Diverticulitis, Gastroesophageal Reflux Disease, Hepatitis, Hiatal Hernia, Ulcerative Colitis Musculoskeltal Medical History: Reports: Arthritis Psychiatric Medical History: Reports: Depression Hematology: Denies: Anemia Past Surgical History Past Surgical History: Reports: Herniorrhaphy - Bilateral Denies: Pacemaker Social History Lives with: Family Smoking Status: Former Smoker Frequency of Alcohol Use: Rare Hx Recreational Drug Use: No Hx Prescription Drug Abuse: No - Advance Directive Resuscitation Status: Do Not Resuscitate Family History Family History: CAD, COPD, DM Parental Family History Reviewed: Yes Children Family History Reviewed: No Sibling(s) Family History Reviewed.: No Medication/Allergy Home Medications: Aspirin [Ecotrin 81 mg EC Tablet] 81 mg PO DAILY 04/19/18 Atorvastatin Calcium [Lipitor 40 mg Tablet] 40 mg JT QHS 04/19/18 Citalopram Hydrobromide [Celexa 20 mg Tablet] 40 mg PO DAILY 04/19/18 Levothyroxine Sodium [Synthroid] 175 mcg PO Q6AM 04/19/18 Megestrol Acetate [Megace Es] 625 mg PO DAILY 04/19/18 Metoprolol Tartrate [Lopressor 25 mg Tablet] 25 mg JT DAILY 04/19/18 Ondansetron HCl [Zofran 8 mg Tablet] 8 mg PO .1HR PC CAR RIDES PRN 04/19/18 Zolpidem Tartrate [Ambien] 10 mg PO QHS 04/19/18 Allergies/Adverse Reactions: lisinopril Allergy (Severe, Verified 08/07/17 14:01) Edema Review of Systems Constitutional: PRESENT: other - no fever/chills Ears: PRESENT: other - no visual/hearing change Cardiovascular: PRESENT: other - no chest pains/cough Gastrointestinal: PRESENT: other - pains around peg tube site Physical Exam Vital Signs: Temp Pulse Resp BP Pulse Ox 98.6 F 77 20 100/59 L 98 04/21/18 15:32 04/21/18 15:32 04/21/18 15:32 04/21/18 15:32 04/21/18 15:32 Intake & Output 04/20/18 04/21/18 04/22/18 06:59 06:59 06:59 Intake Total 3200 1870 600 Output Total 1000 1900 600 Balance 2200 -30 0 Weight 83.1 kg 80.1 kg General appearance: PRESENT: no acute distress Head exam: PRESENT: atraumatic Eye exam: PRESENT: conjunctiva pink Mouth exam: PRESENT: moist Neck exam: PRESENT: full ROM Respiratory exam: PRESENT: decreased breath sounds Cardiovascular exam: PRESENT: RRR Pulses: PRESENT: normal radial pulses Vascular exam: PRESENT: normal capillary refill GI/Abdominal exam: PRESENT: other - leak around peg tube site with erythema of surrounding skin. Skin excoriation from jejunal leak Rectal exam: PRESENT: deferred Neurological exam: PRESENT: alert, oriented to person, oriented to place, oriented to time, oriented to situation Psychiatric exam: PRESENT: depressed Skin exam: PRESENT: normal color, warm Results Laboratory Results: 04/20/18 02:18 04/20/18 02:18 04/19/18 12:37 Catheterized Urine Urine Culture - Final Enterococcus Faecalis(Group D) 04/20/18 02:18 NT-Pro-B Natriuret Pep 273 Impressions: Chest/Abdomen CTA 04/19/18 07:41 IMPRESSION: 1. Negative examination for pulmonary embolism. 2. Diffusely scattered centrilobular ground-glass nodules bilaterally, nonspecific and infectious or inflammatory. Differential considerations include atypical infection as well as inhalational lung disease such as hypersensitivity pneumonitis or smoking related respiratory bronchiolitis. 3. Small bilateral pleural effusions and associated atelectasis or consolidation. 4. Postoperative findings of esophagectomy and pull-through. Comparison to prior examinations would be helpful to evaluate for stability. Assessment & Plan - Diagnosis (1) Irritation around percutaneous endoscopic gastrostomy (PEG) tube site Is this a current diagnosis for this admission?: Yes - Time Time Spent: 30 to 50 Minutes - Plan Summary Plan Summary: Temporarily applied an appliance around peg/jejunal tube to prevent contact of secretion/leak from Jejunal tube. Tube is about 20 Fr. May need a replacement with a bigger tube. Will ask End oscopy for a bigger tube Monday. Can be replace at bedside.
[2018-04-21] MEDS: TAMSULOSIN HCL 0.4 MG CAP.SR.24H PO SCH (20:47)
[2018-04-21] MEDS ORDERED: MORPHINE SULFATE 10 MG/ML INJ IV ONE (21:00)
[2018-04-21] MEDS: ONDANSETRON HCL 8 MG TABLET PO PRN (22:07)
[2018-04-21] MEDS: ZOLPIDEM TARTRATE 5 MG TABLET PO SCH (22:07)
[2018-04-21] MEDS: VENLAFAXINE HCL 75 MG TABLET PO SCH (22:10)
[2018-04-21] MEDS: ATORVASTATIN CALCIUM 40 MG TABLET PO SCH (22:11)
[2018-04-22 05:24] LABS: HEMATOCRIT 32.8 % (37.9-51.0); HEMOGLOBIN 10.9 g/dL (13.5-17.0); MEAN CORPUSCULAR HEMOGLOBIN 27.6 pg (27.0-33.4); MEAN CORPUSCULAR HGB CONC 33.2 g/dL (32.0-36.0); MEAN CORPUSCULAR VOLUME 83 fl (80-97); PLATELET COUNT 296 10^3/uL (150-450); RED BLOOD COUNT 3.94 10^6/uL (4.35-5.55); RED CELL DISTRIBUTION WIDTH 15.3 % (11.5-14.0); WHITE BLOOD COUNT 5.7 10^3/uL (4.0-10.5)
[2018-04-22 05:48] LABS: ALANINE AMINOTRANSFERASE 37 U/L (21-72); ALBUMIN 2.5 g/dL (3.5-5.0); ALKALINE PHOSPHATASE 95 U/L (38-126); ANION GAP 5 (5-19); ASPARTATE AMINO TRANSFERASE 21 U/L (17-59); BILIRUBIN,DIRECT 0.1 mg/dL (0.0-0.4); BILIRUBIN,TOTAL 0.2 mg/dL (0.2-1.3); BLOOD UREA NITROGEN 16 mg/dL (7-20); CALCIUM 8.6 mg/dL (8.4-10.2); CARBON DIOXIDE 27 mmol/L (22-30); CHLORIDE 107 mmol/L (98-107); GLUCOSE 141 mg/dL (75-110); POTASSIUM 4.5 mmol/L (3.6-5.0); TOTAL PROTEIN 5.7 g/dL (6.3-8.2)
[2018-04-22] MEDS: HEPARIN SOD (PORCINE) 5,000 UNIT/ML 1 ML SYRINGE SUBCUT SCH ×2 (06:03→13:18)
[2018-04-22] MEDS: LANSOPRAZOLE 30 MG TAB.RAP.DR PO SCH (06:03)
[2018-04-22] MEDS: LEVOTHYROXINE SODIUM 0.075 MG TABLET PO SCH (06:03)
[2018-04-22] MEDS: LEVOTHYROXINE SODIUM 0.1 MG TABLET PO SCH (06:03)
[2018-04-22] MEDS: ONDANSETRON HCL 8 MG TABLET PO PRN ×2 (06:03→20:49)
[2018-04-22] MEDS: ACETYLCYSTEINE 20% SOLN 800 MG/4 ML VIAL.NEB NEB SCH ×2 (08:38→20:49)
[2018-04-22] MEDS: ASPIRIN 81 MG TABLET, ENT COATED PO SCH (10:13)
[2018-04-22] MEDS: VENLAFAXINE HCL 75 MG TABLET PO SCH (10:13)
[2018-04-22] MEDS: METOPROLOL SUCCINATE 25 MG TAB.SR.24H PO SCH (10:13)
[2018-04-22] MEDS: CITALOPRAM HYDROBROMIDE 20 MG TABLET PO SCH (10:13)
[2018-04-22] MEDS: FUROSEMIDE 20 MG TABLET PO SCH (10:13)
[2018-04-22] MEDS: LEVOFLOXACIN 750 MG/D5W RTU 750 MG/150 ML RTUPB IV SCH (10:13)
[2018-04-22] MEDS: MEGESTROL ACETATE SUSP 400 MG/10 ML UDCUP PO SCH (10:13)
--- NOTE | 2018-04-22 11:25 | PDOC PROGRESS REPORT ---
Subjective Progress Note for:: 04/22/18 Subjective:: more comfortable. No pains around catheter Reason For Visit: SEPSIS Physical Exam Vital Signs: Temp Pulse Resp BP Pulse Ox 97.4 F 69 18 112/63 98 04/22/18 07:43 04/22/18 07:43 04/22/18 07:43 04/22/18 07:43 04/22/18 07:43 Intake & Output 04/21/18 04/22/18 04/23/18 06:59 06:59 06:59 Intake Total 1870 750 Output Total 1900 1200 Balance -30 -450 Weight 80.1 kg 79.8 kg Exam: Appliance around catheter in place. Still has some leakage around appliance Results Laboratory Results: 04/22/18 04:37 04/22/18 04:37 04/22/18 04/22/18 04:37 04:37 WBC 5.7 RBC 3.94 L Hgb 10.9 L Hct 32.8 L MCV 83 MCH 27.6 MCHC 33.2 RDW 15.3 H Plt Count 296 Sodium 139.0 Potassium 4.5 Chloride 107 Carbon Dioxide 27 Anion Gap 5 BUN 16 Creatinine 0.34 L Est GFR ( Amer) > 60 Est GFR (Non-Af Amer) > 60 Glucose 141 H Calcium 8.6 Total Bilirubin 0.2 AST 21 ALT 37 Alkaline Phosphatase 95 Total Protein 5.7 L Albumin 2.5 L 04/20/18 06:10 Sputum Gram Stain - Final 04/19/18 12:37 Catheterized Urine Urine Culture - Final Enterococcus Faecalis(Group D) 04/20/18 02:18 NT-Pro-B Natriuret Pep 273 Impressions: Chest/Abdomen CTA 04/19/18 07:41 IMPRESSION: 1. Negative examination for pulmonary embolism. 2. Diffusely scattered centrilobular ground-glass nodules bilaterally, nonspecific and infectious or inflammatory. Differential considerations include atypical infection as well as inhalational lung disease such as hypersensitivity pneumonitis or smoking related respiratory bronchiolitis. 3. Small bilateral pleural effusions and associated atelectasis or conso lidation. 4. Postoperative findings of esophagectomy and pull-through. Comparison to prior examinations would be helpful to evaluate for stability. Assessment & Plan - Diagnosis (1) Irritation around percutaneous endoscopic gastrostomy (PEG) tube site Is this a current diagnosis for this admission?: Yes - Time Time Spent with patient: 15-24 minutes - Plan Summary Plan Summary: Jejunostomy need to be changed to a bigger size to prevent leakage. Will change tomorrow. Ask endo for a size 22 or 24 Fr.
[2018-04-22] MEDS ORDERED: NORMAL SALINE 1000 ML 1,000 ML IV PRN (16:52)
[2018-04-22] MEDS: TAMSULOSIN HCL 0.4 MG CAP.SR.24H PO SCH (17:29)
[2018-04-22] MEDS: PROMETHAZINE HCL 25 MG TABLET PO PRN (17:31)
--- NOTE | 2018-04-22 17:41 | PDOC PROGRESS REPORT ---
Subjective Progress Note for:: 04/22/18 Subjective:: Patient looks slightly better than yesterday. Still with very flat affect. Reports feeling very dry. Reason For Visit: SEPSIS Physical Exam Vital Signs: Temp Pulse Resp BP Pulse Ox 98.1 F 80 18 110/64 98 04/22/18 15:56 04/22/18 15:56 04/22/18 15:56 04/22/18 15:56 04/22/18 15:56 Intake & Output 04/21/18 04/22/18 04/23/18 06:59 06:59 06:59 Intake Total 1870 750 150 Output Total 1900 1200 275 Balance -30 -450 -125 Weight 80.1 kg 79.8 kg General appearance: PRESENT: no acute distress, cooperative, other - Frail- appearing Ear exam: PRESENT: normal external ear exam Mouth exam: PRESENT: other - Very dry lips with skin peeling Respiratory exam: PRESENT: clear to auscultation bette - Anteriorly, symmetrical, unlabored. ABSENT: rales, rhonchi, wheezes Cardiovascular exam: PRESENT: RRR, +S1, +S2 GI/Abdominal exam: PRESENT: normal bowel sounds, soft, tenderness - Around PEG tube site Neurological exam: PRESENT: alert, awake, oriented to person, oriented to place, oriented to situation, CN II-XII grossly intact Psychiatric exam: PRESENT: flat affect. ABSENT: agitated, anxious Results Laboratory Results: 04/22/18 04:37 04/22/18 04:37 04/22/18 04/22/18 04:37 04:37 WBC 5.7 RBC 3.94 L Hgb 10.9 L Hct 32.8 L MCV 83 MCH 27.6 MCHC 33.2 RDW 15.3 H Plt Count 296 Sodium 139.0 Potassium 4.5 Chloride 107 Carbon Dioxide 27 Anion Gap 5 BUN 16 Creatinine 0.34 L Est GFR ( Amer) > 60 Est GFR (Non-Af Amer) > 60 Glucose 141 H Calcium 8.6 Total Bilirubin 0.2 AST 21 ALT 37 Alkaline Phosphatase 95 Total Protein 5.7 L Albumin 2.5 L 04/20/18 06:10 Sputum Gram Stain - Final 04/20/18 06:10 Sputum Sputum Culture - Final Yeast, Not [place] Albicans Reduced Normal Heather 04/20/18 02:18 NT-Pro-B Natriuret Pep 273 Impressions: Chest/Abdomen CTA 04/19/18 07:41 IMPRESSION: 1. Negative examination for pulmonary embolism. 2. Diffusely scattered centrilobular ground-glass nodules bilaterally, nonspecific and infectious or inflammatory. Differential considerations include atypical infection as well as inhalational lung disease such as hypersensitivity pneumonitis or smoking related respiratory bronchiolitis. 3. Small bilateral pleural effusions and associated atelectasis or consolidation. 4. Postoperative findings of esophagectomy and pull-through. Comparison to prior examinations would be helpful to evaluate for stability. Assessment & Plan - Diagnosis (1) Sepsis Qualifiers: Sepsis type: sepsis due to unspecified organism Qualified Code(s): A41.9 - Sepsis, unspecified organism Is this a current diagnosis for this admission?: Yes Plan: Significantly improved. Continue to treat infections. (2) Pneumonia Qualifiers: Pneumonia type: due to unspecified organism Laterality: unspecified late rality Is this a current diagnosis for this admission?: Yes Plan: The last sputum specimen grew overwhelmingly predominant yeast. I did start the patient on fluconazole. We will continue to monitor progress. (3) Hypoxia Is this a current diagnosis for this admission?: Yes Plan: Still requiring 3 L oxygen supplement (4) Irritation around percutaneous endoscopic gastrostomy (PEG) tube site Is this a current diagnosis for this admission?: Yes Plan: Appreciate consult from surgery. I believe the plan is to replace the PEG tube tomorrow. (5) History of esophagectomy Is this a current diagnosis for this admission?: Yes Plan: Patient is able to take his pills by mouth. He states that he is not tolerating sips of water and does not want any or drink by mouth. (6) Depression Qualifiers: Depression Type: unspecified Qualified Code(s): F32.9 - Major depressive d isorder, single episode, unspecified Is this a current diagnosis for this admission?: Yes Plan: Just added a second medication yesterday. He does not express any side effects. - Time Time Spent with patient: 15-24 minutes Medications reviewed and adjusted accordingly: Yes
[2018-04-22] MEDS ORDERED: MORPHINE SULFATE 10 MG/ML INJ ONE (22:33)
[2018-04-22] MEDS ORDERED: MORPHINE SULFATE 10 MG/ML INJ IV ONE (23:00)
--- NOTE | 2018-04-22 23:57 | EKG REPORT ---
SEVERITY:- ABNORMAL ECG - SINUS RHYTHM : Confirmed by: Carrie Griffiths 22-Apr-2018 23:56:29
[2018-04-23] MEDS: FLUCONAZOLE 200 MG/NS RTU 200 MG/100 ML RTUPB IV SCH ×2 (00:45→21:35)
[2018-04-23] MEDS: ATORVASTATIN CALCIUM 40 MG TABLET PO SCH ×2 (00:45→21:35)
[2018-04-23] MEDS: VENLAFAXINE HCL 75 MG TABLET PO SCH ×3 (00:45→21:35)
[2018-04-23] MEDS: ZOLPIDEM TARTRATE 5 MG TABLET PO SCH ×2 (00:45→21:35)
[2018-04-23] MEDS: CITALOPRAM HYDROBROMIDE 20 MG TABLET PO SCH ×3 (00:45→21:34)
[2018-04-23] MEDS: HEPARIN SOD (PORCINE) 5,000 UNIT/ML 1 ML SYRINGE SUBCUT SCH ×4 (00:45→21:35)
[2018-04-23] MEDS: LEVOTHYROXINE SODIUM 0.1 MG TABLET PO SCH (05:54)
[2018-04-23] MEDS: LANSOPRAZOLE 30 MG TAB.RAP.DR PO SCH (05:54)
[2018-04-23] MEDS: LEVOTHYROXINE SODIUM 0.075 MG TABLET PO SCH (06:30)
--- NOTE | 2018-04-23 06:57 | EKG REPORT ---
SEVERITY:- BORDERLINE ECG - SINUS RHYTHM BORDERLINE T ABNORMALITIES, INFERIOR LEADS : Confirmed by: Carrie Griffiths 23-Apr-2018 06:56:58
[2018-04-23] MEDS: LEVALBUTEROL HCL NEB 1.25 MG/3 ML AMPUL NEB PRN (08:15)
[2018-04-23] MEDS: ACETYLCYSTEINE 20% SOLN 800 MG/4 ML VIAL.NEB NEB SCH ×2 (08:15→20:09)
--- NOTE | 2018-04-23 09:11 | OPERATIVE REPORT E ---
Operative Report NAME: NICOLE EDWARDS : 1950 AGE: 67Y DATE OF SURGERY: 04/22/2018 ROOM: 313 PREOPERATIVE DIAGNOSIS: LEAKING JEJUNOSTOMY TUBE. POSTOPERATIVE DIAGNOSIS: LEAKING JEJUNOSTOMY TUBE. OPERATION: Placement of a larger jejunostomy tube, Kinyarwanda-22. SURGEON: LEBRON NUÑEZ M.D. ANESTHESIA: Sedation. INDICATION: This is a 67-year-old male post esophagectomy and jejunostomy tube placement about 7 months ago. The patient was admitted for leaking around the jejunostomy tube and irritating the skin, causing a lot of pain. The original J-tube is about a 20 Kinyarwanda size. PROCEDURE: Patient was given morphine IV and after a few minutes the old J-tube was threaded with Glidewire. The old jejunostomy tube was then pulled out over the guidewire. Next, a size Kinyarwanda-22 J-tube/gastrostomy tube was then passed through the guidewire and threaded through original hole. The Glidewire was subsequently pulled out and a new G-tube balloon was then inflated to about 4 mL. A Vaseline dressing placed around the insertion site and a 4 x 4 placed over it. The new G-tube is going to be used for feedings right away. DICTATING PHYSICIAN: LEBRON NUÑEZ M.D. [id number] PHY#: [id number] ID: [id number] JOB#: [id number] ACCT: [id number] cc:LEBRON NUÑEZ M.D. >
--- NOTE | 2018-04-23 09:30 | PDOC PROGRESS REPORT ---
Subjective Progress Note for:: 04/23/18 Subjective:: The patient seems to be feeling slightly better today. His PEG tube was replaced last evening. He reports that there is less pain. Reason For Visit: SEPSIS Physical Exam Vital Signs: Temp Pulse Resp BP Pulse Ox 97.8 F 77 24 H 103/65 99 04/23/18 07:54 04/23/18 07:54 04/23/18 07:54 04/23/18 07:54 04/23/18 07:54 Intake & Output 04/22/18 04/23/18 04/24/18 06:59 06:59 06:59 Intake Total 750 2617 10 Output Total 1200 1125 Balance -450 1492 10 Weight 79.8 kg 78.3 kg General appearance: PRESENT: no acute distress, other - Very frail-appearing 67-year-old patient resting in bed. Head exam: PRESENT: normocephalic Eye exam: PRESENT: conjunctiva pale Mouth exam: PRESENT: dry mucosa Respiratory exam: PRESENT: decreased breath sounds - At bases, rales - At bases, symmetrical. ABSENT: wheezes Cardiovascular exam: PRESENT: RRR, +S1, +S2 GI/Abdominal exam: PRESENT: normal bowel sounds, soft, tenderness - Still slightly near the PEG tube site but nowhere else. Neurological exam: PRESENT: alert, awake, oriented to person, oriented to place, oriented to time, oriented to situation, CN II-XII grossly intact Psychiatric exam: PRESENT: flat affect. ABSENT: agitated, anxious Results Laboratory Results: 04/22/18 04:37 04/22/18 04:37 04/20/18 06:10 Sputum Gram Stain - Final 04/20/18 06:10 Sputum Sputum Culture - Final Yeast, Not [place] Albicans Reduced Normal Ledy 04/20/18 02:18 NT-Pro-B Natriuret Pep 273 Impressions: Chest/Abdomen CTA 04/19/18 07:41 IMPRESSION: 1. Negative examination for pulmonary embolism. 2. Diffusely scattered centrilobular ground-glass nodules bilaterally, nonspecific and infectious or inflammatory. Differential considerations include atypical infection as well as inhalational lung disease such as hypersensitivity pneumonitis or smoking related respiratory bronchiolitis. 3. Small bilateral pleural effusions and associated atelectasis or consolidation. 4. Postoperative findings of esophagectomy and pull-through. Comparison to prior examinations would be helpful to evaluate for stability. Assessment & Plan - Diagnosis (1) Sepsis Qualifiers: Sepsis type: Streptococcus, other Qualified Code(s): A40.8 - Other streptococcal sepsis Is this a current diagnosis for this admission?: Yes Plan: Urine with enterococci. Complete antibiotic therapy as ordered. The patient also had sputum with predominance of yeast and minimal normal ledy. Flucona zole started. Sepsis resolved. (2) Pneumonia Qualifiers: Pneumonia type: due to unspecified organism Laterality: unspecified lat erality Is this a current diagnosis for this admission?: Yes Plan: Possibly aspiration from coughing although difficult to tell. Reflux is always present after partial esophagectomy. Continue antibiotic therapy. (3) Hypoxia Is this a current diagnosis for this admission?: Yes Plan: Still requiring 3 and half liters oxygen by nasal cannula. I have ordered physical therapy consult. Hopefully with increased activity his breathing will improve. (4) Irritation around percutaneous endoscopic gastrostomy (PEG) tube site Is this a current diagnosis for this admission?: Yes Plan: PEG tube replaced last night. Appreciate surgicalist help. (5) History of esophagectomy Is this a current diagnosis for this admission?: Yes Plan: Patient is able to take his pills by mouth. He states that he is not tolerating sips of water and does not want any or drink by mouth. Hopefully as he begins to feel better he will take in liquids by mouth and I could decrease the water boluses. (6) Depression Qualifiers: Depression Type: unspecified Qualified Code(s): F32.9 - Major depressive disorder, single episode, unspecified Is this a current diagnosis for this admission?: Yes Plan: Having change the PEG tube and having less pain probably will have a significant positive effect. I have ordered physical therapy. Increased activity will be helpful as well. No changes in the new medication for at least a week. - Time Time Spent with patient: Less than 15 minutes Medications reviewed and adjusted accordingly: Yes
[2018-04-23] MEDS: LEVOFLOXACIN 750 MG/D5W RTU 750 MG/150 ML RTUPB IV SCH (10:48)
[2018-04-23] MEDS: ASPIRIN 81 MG TABLET, ENT COATED PO SCH (10:49)
[2018-04-23] MEDS: METOPROLOL SUCCINATE 25 MG TAB.SR.24H PO SCH (10:49)
[2018-04-23] MEDS: MEGESTROL ACETATE SUSP 400 MG/10 ML UDCUP PO SCH (10:49)
[2018-04-23] MEDS: PANTOT AC/MIN OIL/PET HY-PHL OINT 50 GM TOP SCH ×2 (12:59→17:03)
[2018-04-23] MEDS: TAMSULOSIN HCL 0.4 MG CAP.SR.24H PO SCH (17:03)
[2018-04-23] MEDS: PROMETHAZINE HCL 25 MG TABLET PO PRN (17:11)
[2018-04-24] MEDS: HEPARIN SOD (PORCINE) 5,000 UNIT/ML 1 ML SYRINGE SUBCUT SCH ×3 (05:13→22:07)
[2018-04-24] MEDS: LANSOPRAZOLE 30 MG TAB.RAP.DR PO SCH (05:13)
[2018-04-24] MEDS: LEVOTHYROXINE SODIUM 0.1 MG TABLET PO SCH (05:13)
[2018-04-24] MEDS: LEVOTHYROXINE SODIUM 0.075 MG TABLET PO SCH (05:13)
[2018-04-24] MEDS: ACETYLCYSTEINE 20% SOLN 800 MG/4 ML VIAL.NEB NEB SCH ×2 (08:04→20:11)
[2018-04-24] MEDS: PROMETHAZINE HCL 25 MG TABLET PO PRN (08:35)
[2018-04-24] MEDS: ASPIRIN 81 MG TABLET, ENT COATED PO SCH (11:03)
[2018-04-24] MEDS: LEVOFLOXACIN 750 MG/D5W RTU 750 MG/150 ML RTUPB IV SCH (11:03)
[2018-04-24] MEDS: VENLAFAXINE HCL 75 MG TABLET PO SCH ×2 (11:03→22:06)
[2018-04-24] MEDS: CITALOPRAM HYDROBROMIDE 20 MG TABLET PO SCH ×2 (11:03→22:06)
[2018-04-24] MEDS: PANTOT AC/MIN OIL/PET HY-PHL OINT 50 GM TOP SCH ×2 (11:04→17:29)
[2018-04-24] MEDS: MEGESTROL ACETATE SUSP 400 MG/10 ML UDCUP PO SCH (11:04)
[2018-04-24] MEDS: METOPROLOL SUCCINATE 25 MG TAB.SR.24H PO SCH (11:05)
[2018-04-24] MEDS: ONDANSETRON HCL 8 MG TABLET PO PRN (13:25)
--- NOTE | 2018-04-24 15:58 | PDOC PROGRESS REPORT ---
Subjective Progress Note for:: 04/24/18 Subjective:: No adverse events overnight. No new complaints. He says he can take his pills with water but drinking any substantial amount of water makes him nauseated. He said he eats very little food by mouth. He is at 50 mL's an hour on his tube feeds and says his goal rate is 80. He says he mainly just feels tired. Reason For Visit: SEPSIS Physical Exam Vital Signs: Temp Pulse Resp BP Pulse Ox 98.0 F 82 26 H 108/61 99 04/24/18 12:03 04/24/18 12:03 04/24/18 12:03 04/24/18 12:03 04/24/18 12:03 Intake & Output 04/23/18 04/24/18 04/25/18 06:59 06:59 06:59 Intake Total 2617 980 50 Output Total 1125 1300 400 Balance 1492 -320 -350 Weight 78.3 kg 79.5 kg General appearance: PRESENT: no acute distress, cooperative, disheveled Respiratory exam: PRESENT: crackles - Bibasilar, rhonchi - Left base, tachypnea - Mild, unlabored. ABSENT: accessory muscle use, wheezes Cardiovascular exam: PRESENT: RRR, +S1, +S2 Vascular exam: PRESENT: normal capillary refill GI/Abdominal exam: PRESENT: normal bowel sounds, soft, other - PEG tube. ABSENT: distended, guarding, rebound, tenderness Extremities exam: ABSENT: clubbing, pedal edema Neurological exam: PRESENT: alert, awake, oriented to person, oriented to place, oriented to time, oriented to situation Psychiatric exam: PRESENT: appropriate affect, normal mood Skin exam: PRESENT: dry, warm Results Laboratory Results: 04/22/18 04:37 04/22/18 04:37 04/19/18 06:58 Blood Blood Culture - Final NO GROWTH IN 5 DAYS 04/19/18 06:37 Blood Blood Culture - Final NO GROWTH IN 5 DAYS 04/20/18 02:18 NT-Pro-B Natriuret Pep 273 Impressions: Chest/Abdomen CTA 04/19/18 07:41 IMPRESSION: 1. Negative examination for pulmonary embolism. 2. Diffusely scattered centrilobular ground-glass nodules bilaterally, nonspecific and infectious or inflammatory. Differential considerations include atypical infection as well as inhalational lung disease such as hypersensitivity pneumonitis or smoking related respiratory bronchiolitis. 3. Small bilateral pleural effusions and associated atelectasis or consolidation. 4. Postoperative findings of esophagectomy and pull-through. Comparison to prior examinations would be helpful to evaluate for stability. Assessment & Plan - Diagnosis (1) Sepsis Qualifiers: Sepsis type: Streptococcus, other Qualified Code(s): A40.8 - Other streptococcal sepsis Is this a current diagnosis for this admission?: Yes Plan: Resolved (2) Pneumonia Qualifiers: Pneumonia type: due to unspecified organism Laterality: unspecified laterality Is this a current diagnosis for this admission?: Yes Plan: Suspected to be due to aspiration. He is getting empiric antibiotic coverage. He also had yeast grow out of his culture and he is being covered for that. (3) Hypoxia Is this a current diagnosis for this admission?: Yes Plan: Likely due to his pneumonia. Expect that this will improve with further treatment, as well as ambulation with physical therapy. (4) History of esophagectomy Is this a current diagnosis for this admission?: Yes Plan: Reason why he is on tube feeds. He can take his pills by mouth and small bits of fluid and food if he desires. (5) Irritation around percutaneous endoscopic gastrostomy (PEG) tube site Is this a current diagnosis for this admission?: Yes Plan: Resolved (6) Depression Qualifiers: Depression Type: unspecified Qualified Code(s): F32.9 - Major depressive disorder, single episode, unspecified Is this a current diagnosis for this admission?: Yes Plan: He is recently been started on medication. - Time Time Spent with patient: 25-34 minutes
--- NOTE | 2018-04-24 17:53 | EKG REPORT ---
SEVERITY:- NORMAL ECG - SINUS RHYTHM : Confirmed by: Lynn Merritt MD 24-Apr-2018 17:51:52
[2018-04-24] MEDS: TAMSULOSIN HCL 0.4 MG CAP.SR.24H PO SCH (17:55)
[2018-04-24] MEDS: ATORVASTATIN CALCIUM 40 MG TABLET PO SCH (22:06)
[2018-04-24] MEDS: ZOLPIDEM TARTRATE 5 MG TABLET PO SCH (22:07)
[2018-04-24] MEDS: FLUCONAZOLE 200 MG/NS RTU 200 MG/100 ML RTUPB IV SCH (22:07)
[2018-04-25] MEDS: LEVOTHYROXINE SODIUM 0.075 MG TABLET PO SCH (05:20)
[2018-04-25] MEDS: LEVOTHYROXINE SODIUM 0.1 MG TABLET PO SCH (05:20)
[2018-04-25] MEDS: HEPARIN SOD (PORCINE) 5,000 UNIT/ML 1 ML SYRINGE SUBCUT SCH ×3 (05:20→22:27)
[2018-04-25] MEDS: LANSOPRAZOLE 30 MG TAB.RAP.DR PO SCH (05:20)
[2018-04-25] MEDS: ACETYLCYSTEINE 20% SOLN 800 MG/4 ML VIAL.NEB NEB SCH ×2 (08:13→20:06)
[2018-04-25] MEDS: LEVOFLOXACIN 750 MG/D5W RTU 750 MG/150 ML RTUPB IV SCH (10:05)
[2018-04-25] MEDS: ASPIRIN 81 MG TABLET, ENT COATED PO SCH (10:06)
[2018-04-25] MEDS: FUROSEMIDE 20 MG TABLET PO SCH (10:06)
[2018-04-25] MEDS: MEGESTROL ACETATE SUSP 400 MG/10 ML UDCUP PO SCH (10:06)
[2018-04-25] MEDS: VENLAFAXINE HCL 75 MG TABLET PO SCH ×2 (10:06→22:25)
[2018-04-25] MEDS: CITALOPRAM HYDROBROMIDE 20 MG TABLET PO SCH ×2 (10:06→22:24)
[2018-04-25] MEDS: METOPROLOL SUCCINATE 25 MG TAB.SR.24H PO SCH (10:06)
[2018-04-25] MEDS: PANTOT AC/MIN OIL/PET HY-PHL OINT 50 GM TOP SCH ×2 (10:07→17:09)
[2018-04-25] MEDS: ONDANSETRON HCL 8 MG TABLET PO PRN ×2 (10:50→20:24)
--- NOTE | 2018-04-25 14:05 | PDOC PROGRESS REPORT ---
Subjective Progress Note for:: 04/25/18 Subjective:: No adverse events overnight. No new complaints. He is not been getting out of bed very much. He said that his surgeon had put him up on 80 mL's an hour on his tube feeds, because he said if his weight got up to 190 pounds, then he can stop the tube feeds altogether. That is why his rate on his tube feeds has been previously so much higher than what the dietitian recommended. He is up to 70 mL's an hour today, and is tolerating it well. Reason For Visit: SEPSIS Physical Exam Vital Signs: Temp Pulse Resp BP Pulse Ox 98.2 F 93 18 112/78 97 04/25/18 08:21 04/25/18 08:21 04/25/18 08:21 04/25/18 08:21 04/25/18 08:21 Intake & Output 04/24/18 04/25/18 04/26/18 06:59 06:59 06:59 Intake Total 980 2627 218 Output Total 1300 1075 175 Balance -320 1552 43 Weight 79.5 kg 79.5 kg General appearance: PRESENT: no acute distress, cooperative, disheveled Respiratory exam: PRESENT: Clear to auscultation bilaterally except for rhonchi - Left base, unlabored. ABSENT: accessory muscle use, tachypnea, wheezes Cardiovascular exam: PRESENT: RRR, +S1, +S2 Vascular exam: PRESENT: normal capillary refill GI/Abdominal exam: PRESENT: normal bowel sounds, soft, other - PEG tube. ABSENT: distended, guarding, rebound, tenderness Extremities exam: ABSENT: clubbing, pedal edema Neurological exam: PRESENT: alert, awake, oriented to person, oriented to place, oriented to time, oriented to situation Psychiatric exam: PRESENT: appropriate affect, normal mood Skin exam: PRESENT: dry, warm Results Laboratory Results: 04/22/18 04:37 04/22/18 04:37 04/20/18 02:18 NT-Pro-B Natriuret Pep 273 Impressions: Chest/Abdomen CTA 04/19/18 07:41 IMPRESSION: 1. Negative examination for pulmonary embolism. 2. Diffusely scattered centrilobular ground-glass nodules bilaterally, nonspecific and infectious or inflammatory. Differential considerations include atypical infection as well as inhalational lung disease such as hypersensitivity pneumonitis or smoking related respiratory bronchiolitis. 3. Small bilateral pleural effusions and associated atelectasis or consolidation. 4. Postoperative findings of esophagectomy and pull-through. Comparison to prior examinations would be helpful to evaluate for stability. Assessment & Plan - Diagnosis (1) Sepsis Qualifiers: Sepsis type: Streptococcus, other Qualified Code(s): A40.8 - Other streptococcal sepsis Is this a current diagnosis for this admission?: Yes Plan: Resolved (2) Pneumonia Qualifiers: Pneumonia type: due to unspecified organism Laterality: unspecified laterality Is this a current diagnosis for this admission?: Yes Plan: Suspected to be due to aspiration. He is getting empiric antibiotic coverage. He also had yeast grow out of his culture and he is being covered for that. (3) Hypoxia Is this a current diagnosis for this admission?: Yes Plan: Secondary to his aspiration pneumonia. We will wean his oxygen today. We will going to try to get him ambulating. Physical therapy has been seeing him. We have also got him an incentive spirometer. (4) History of esophagectomy Is this a current diagnosis for this admission?: Yes Plan: Reason why he is on tube feeds. He can take his pills by mouth and small bits of fluid and food if he desires. (5) Irritation around percutaneous endoscopic gastrostomy (PEG) tube site Is this a current diagnosis for this admission?: Yes Plan: Resolved (6) Depression Qualifiers: Depression Type: unspecified Qualified Code(s): F32.9 - Major depressive disorder, single episode, unspecified Is this a current diagnosis for this admission?: Yes Plan: He is recently been started on medication. - Time Time Spent with patient: 25-34 minutes
[2018-04-25] MEDS: TAMSULOSIN HCL 0.4 MG CAP.SR.24H PO SCH (17:14)
--- NOTE | 2018-04-25 19:29 | Progress Note ---
Provider Note Provider Note: ID Consult Note Asked by Pharmacy to review patient's chart. Pt not seen or examined. Mr Shah is a 67 year old man with PMH/PSH including esophageal cancer s/p esophagectomy. He presented on 04/19/18 with cough for 1-3 weeks productive of thick yellow sputum, decreased appetite, SOB, lightheadedness and orthopnea. Pt was hypoxic, tachypneic. He had decreased breath sounds on the left base, dry oral mucosa, and skin erosion around PEG tube site. WBC count 12.8. CXR AP view was read as showing small b/l effusions with adjacent atelectasis and postsurgical changes over the right hilum. CT chest was read as showing small b/l pleural effusions and associated atelectasis or consolidation and nonspecific diffusely scattered centrilobular ground-glass nodules b/l. Blood cultures on 04/19 were sent, had no growth. For pneumonia, ceftriaxone (04/19 - present) and levofloxacin (04/19-04/25) were started. Sputum sent on 04/20 showed growth of 2+ yeast and reduced normal ledy, and fluconazole was added from 04/22 to present. He has not had fevers. His WBC count normalized. Impression/Recommendations Pt has been suspected of having aspiration pneumonia. Patients s/p esophagectomy and gastric pull through may have increased risk for aspiration for mechanical or functional reasons, e.g. delayed gastric emptying. Rocephin or Unasyn would have activity against oral ledy. Recommend discontinuing fluconazole, however. Although yeast was also isolated from the patient's sputum, he was receiving antibiotics already, and that will suppress growth of bacteria and lead to a greater proportion of yeast being recovered. [place] is often isolated from the respiratory tract but very rarely causes true pneumonia. Most cases of [place] lung involvement occur in the setting of disseminated candidiasis in highly immunocompromised patients. The yeast in his sputum most likely reflects airway colonization and does not require dedicated antifungal therapy. Chris Lyn MD [facility] Infectious Diseases, pager [phone]
[2018-04-25] MEDS: ZOLPIDEM TARTRATE 5 MG TABLET PO SCH (22:24)
[2018-04-25] MEDS: ATORVASTATIN CALCIUM 40 MG TABLET PO SCH (22:25)
[2018-04-25] MEDS: FLUCONAZOLE 200 MG/NS RTU 200 MG/100 ML RTUPB IV SCH (22:27)
[2018-04-26] MEDS: LEVOTHYROXINE SODIUM 0.075 MG TABLET PO SCH (05:27)
[2018-04-26] MEDS: LEVOTHYROXINE SODIUM 0.1 MG TABLET PO SCH (05:27)
[2018-04-26] MEDS: LANSOPRAZOLE 30 MG TAB.RAP.DR PO SCH (05:27)
[2018-04-26] MEDS: HEPARIN SOD (PORCINE) 5,000 UNIT/ML 1 ML SYRINGE SUBCUT SCH ×3 (05:28→21:18)
[2018-04-26] MEDS: ACETYLCYSTEINE 20% SOLN 800 MG/4 ML VIAL.NEB NEB SCH ×2 (07:55→20:14)
[2018-04-26] MEDS: CITALOPRAM HYDROBROMIDE 20 MG TABLET PO SCH ×2 (10:59→21:15)
[2018-04-26] MEDS: ASPIRIN 81 MG TABLET, ENT COATED PO SCH (11:00)
[2018-04-26] MEDS: METOPROLOL SUCCINATE 25 MG TAB.SR.24H PO SCH (11:00)
[2018-04-26] MEDS: FUROSEMIDE 20 MG TABLET PO SCH (11:00)
[2018-04-26] MEDS: MEGESTROL ACETATE SUSP 400 MG/10 ML UDCUP PO SCH (11:01)
[2018-04-26] MEDS: VENLAFAXINE HCL 75 MG TABLET PO SCH ×2 (11:02→21:14)
[2018-04-26] MEDS: LEVOFLOXACIN 750 MG/D5W RTU 750 MG/150 ML RTUPB IV SCH (11:02)
--- NOTE | 2018-04-26 14:17 | PDOC PROGRESS REPORT ---
Subjective Progress Note for:: 04/26/18 Subjective:: No adverse events overnight. No new complaints. Vital signs been stable. When I saw him this morning he was off oxygen and doing fairly well, but he was coughing a little bit. His tube feeds were up to 80 which is where he had been wanting it to help get his weight up as has been previously noted, but he was coughing a little bit and laying down flat in the bed with his tube feeds running. We set him up in the bed and he was reminded that he has to keep the head of bed at 30 degrees while he is getting his tube feeds. His is said previously that he did the same thing at home. Reason For Visit: SEPSIS Physical Exam Vital Signs: Temp Pulse Resp BP Pulse Ox 98.0 F 95 20 102/62 97 04/26/18 11:34 04/26/18 11:34 04/26/18 11:34 04/26/18 11:34 04/26/18 11:34 Intake & Output 04/25/18 04/26/18 04/27/18 06:59 06:59 06:59 Intake Total 2627 1986 150 Output Total 1075 1125 Balance 1552 861 150 Weight 79.5 kg 79.6 kg General appearance: PRESENT: no acute distress, cooperative, disheveled Respiratory exam: PRESENT: Clear to auscultation bilaterally except for rhonchi - Left base, unlabored. ABSENT: accessory muscle use, tachypnea, wheezes Cardiovascular exam: PRESENT: RRR, +S1, +S2 Vascular exam: PRESENT: normal capillary refill GI/Abdominal exam: PRESENT: normal bowel sounds, soft, other - PEG tube. ABSENT: distended, guarding, rebound, tenderness Extremities exam: ABSENT: clubbing, pedal edema Neurological exam: PRESENT: alert, awake, oriented to person, oriented to place, oriented to time, oriented to situation Psychiatric exam: PRESENT: appropriate affect, normal mood Skin exam: PRESENT: dry, warm Results Laboratory Results: 04/22/18 04:37 04/22/18 04:37 04/20/18 02:18 NT-Pro-B Natriuret Pep 273 Impressions: Chest/Abdomen CTA 04/19/18 07:41 IMPRESSION: 1. Negative examination for pulmonary embolism. 2. Diffusely scattered centrilobular ground-glass nodules bilaterally, nonspecific and infectious or inflammatory. Differential considerations include atypical infection as well as inhalational lung disease such as hypersensitivity pneumonitis or smoking related respiratory bronchiolitis. 3. Small bilateral pleural effusions and associated atelectasis or consolidation. 4. Postoperative findings of esophagectomy and pull-through. Comparison to prior examinations would be helpful to evaluate for stability. Assessment & Plan - Diagnosis (1) Sepsis Qualifiers: Sepsis type: Streptococcus, other Qualified Code(s): A40.8 - Other streptococcal sepsis Is this a current diagnosis for this admission?: Yes Plan: Resolved (2) Pneumonia Qualifiers: Pneumonia type: due to unspecified organism Laterality: unspecified laterality Is this a current diagnosis for this admission?: Yes Plan: Likely due to aspiration. He is trying to lay down while he is get his tube feeds running, and he winds up refluxing the tube feeds and getting a congested cough. Set him back up in the bed and he started feeling like the refluxing of the tube feeds was not as bad and his cough got better. I told him if this continues we will probably get a have to cut his rate back to around 65, which is still higher than it should be for maintenance. Will probably discontinue his antibiotics tomorrow. (3) Hypoxia Is this a current diagnosis for this admission?: Yes Plan: Resolved. He was on room air this morning. (4) History of esophagectomy Is this a current diagnosis for this admission?: Yes Plan: Reason why he is on tube feeds. He can take his pills by mouth and small bits of fluid and food if he desires. (5) Irritation around percutaneous endoscopic gastrostomy (PEG) tube site Is this a current diagnosis for this admission?: Yes Plan: Resolved (6) Depression Qualifiers: Depression Type: unspecified Qualified Code(s): F32.9 - Major depressive disorder, single episode, unspecified Is this a current diagnosis for this admission?: Yes Plan: He is recently been started on medication. - Time Time Spent with patient: 25-34 minutes
[2018-04-26] MEDS: TAMSULOSIN HCL 0.4 MG CAP.SR.24H PO SCH (17:26)
[2018-04-26] MEDS: ONDANSETRON HCL 8 MG TABLET PO PRN (21:15)
[2018-04-26] MEDS: ATORVASTATIN CALCIUM 40 MG TABLET PO SCH (21:15)
[2018-04-26] MEDS: ZOLPIDEM TARTRATE 5 MG TABLET PO SCH (21:15)
[2018-04-27] MEDS: ONDANSETRON HCL 8 MG TABLET PO PRN ×2 (05:37→13:53)
[2018-04-27] MEDS: LEVOTHYROXINE SODIUM 0.1 MG TABLET PO SCH (05:37)
[2018-04-27] MEDS: LANSOPRAZOLE 30 MG TAB.RAP.DR PO SCH (05:37)
[2018-04-27] MEDS: LEVOTHYROXINE SODIUM 0.075 MG TABLET PO SCH (05:37)
[2018-04-27] MEDS: HEPARIN SOD (PORCINE) 5,000 UNIT/ML 1 ML SYRINGE SUBCUT SCH ×3 (05:38→22:35)
[2018-04-27] MEDS: ACETYLCYSTEINE 20% SOLN 800 MG/4 ML VIAL.NEB NEB SCH ×2 (07:57→19:52)
[2018-04-27] MEDS: FUROSEMIDE 20 MG TABLET PO SCH (10:31)
[2018-04-27] MEDS: VENLAFAXINE HCL 75 MG TABLET PO SCH ×2 (10:31→22:35)
[2018-04-27] MEDS: ASPIRIN 81 MG TABLET, ENT COATED PO SCH (10:31)
[2018-04-27] MEDS: CITALOPRAM HYDROBROMIDE 20 MG TABLET PO SCH ×2 (10:31→22:35)
[2018-04-27] MEDS: MEGESTROL ACETATE SUSP 400 MG/10 ML UDCUP PO SCH (10:31)
[2018-04-27] MEDS: LEVOFLOXACIN 750 MG/D5W RTU 750 MG/150 ML RTUPB IV SCH (10:32)
[2018-04-27] MEDS: METOPROLOL SUCCINATE 25 MG TAB.SR.24H PO SCH (10:32)
[2018-04-27] MEDS ORDERED: ONDANSETRON 4 MG TAB.RAPDIS ONE (12:30)
--- NOTE | 2018-04-27 15:14 | PDOC PROGRESS REPORT ---
Subjective Progress Note for:: 04/27/18 Subjective:: No adverse events overnight. He is back on oxygen today. He is okay at rest, but he still looks a little bit short of breath. He said he is actually been like that for a while. He has trouble moving long distances under his own power without getting fatigued at home, and said he has been like that for several months. Reason For Visit: SEPSIS Physical Exam Vital Signs: Temp Pulse Resp BP Pulse Ox 97.4 F 88 19 110/66 99 04/27/18 08:41 04/27/18 08:41 04/27/18 08:41 04/27/18 08:41 04/27/18 08:41 Intake & Output 04/26/18 04/27/18 04/28/18 06:59 06:59 06:59 Intake Total 1986 2103 150 Output Total 1125 1175 Balance 861 928 150 Weight 79.6 kg 79.4 kg General appearance: PRESENT: no acute distress, cooperative, disheveled Respiratory exam: PRESENT: Clear to auscultation bilaterally except for rhonchi - Left base, unlabored. ABSENT: accessory muscle use, tachypnea, wheezes Cardiovascular exam: PRESENT: RRR, +S1, +S2 Vascular exam: PRESENT: normal capillary refill GI/Abdominal exam: PRESENT: normal bowel sounds, soft, other - PEG tube. ABSENT: distended, guarding, rebound, tenderness Extremities exam: ABSENT: clubbing, pedal edema Neurological exam: PRESENT: alert, awake, oriented to person, oriented to place, oriented to time, oriented to situation Psychiatric exam: PRESENT: appropriate affect, normal mood Skin exam: PRESENT: dry, warm Results Laboratory Results: 04/22/18 04:37 04/22/18 04:37 04/20/18 02:18 NT-Pro-B Natriuret Pep 273 Impressions: Chest/Abdomen CTA 04/19/18 07:41 IMPRESSION: 1. Negative examination for pulmonary embolism. 2. Diffusely scattered centrilobular ground-glass nodules bilaterally, nonspecific and infectious or inflammatory. Differential considerations include atypical infection as well as inhalational lung disease such as hypersensitivity pneumonitis or smoking related respiratory bronchiolitis. 3. Small bilateral pleural effusions and associated atelectasis or cons olidation. 4. Postoperative findings of esophagectomy and pull-through. Comparison to prior examinations would be helpful to evaluate for stability. Assessment & Plan - Diagnosis (1) Sepsis Qualifiers: Sepsis type: Streptococcus, other Qualified Code(s): A40.8 - Other streptococcal sepsis Is this a current diagnosis for this admission?: Yes Plan: Resolved (2) Pneumonia Qualifiers: Pneumonia type: aspiration pneumonia Laterality: right Lung location: lower lobe of lung Is this a current diagnosis for this admission?: Yes Plan: Likely due to aspiration. His breathing still does not look completely comfortable even though his lung exam is not too bad, simply continue him on antibiotics for couple more days. (3) Hypoxia Is this a current diagnosis for this admission?: Yes Plan: He seems to be okay at rest from a SPO2 standpoint, but he has some increased work of breathing that gets a little bit better when he puts on oxygen. I have encouraged him to take deeper breaths to encourage him to cough and are recommending aggressive pulmonary toilet. (4) History of esophagectomy Is this a current diagnosis for this admission?: Yes Plan: Reason why he is on tube feeds. He can take his pills by mouth and small bits of fluid and food if he desires. (5) Irritation around percutaneous endoscopic gastrostomy (PEG) tube site Is this a current diagnosis for this admission?: Yes Plan: Resolved (6) Depression Qualifiers: Depression Type: unspecified Qualified Code(s): F32.9 - Major depressive disorder, single episode, unspecified Is this a current diagnosis for this admission?: Yes Plan: He is recently been started on medication. - Time Time Spent with patient: 25-34 minutes
[2018-04-27] MEDS: TAMSULOSIN HCL 0.4 MG CAP.SR.24H PO SCH (18:03)
[2018-04-27] MEDS: ZOLPIDEM TARTRATE 5 MG TABLET PO SCH (22:35)
[2018-04-27] MEDS: ATORVASTATIN CALCIUM 40 MG TABLET PO SCH (22:36)
[2018-04-28] MEDS: LEVOTHYROXINE SODIUM 0.075 MG TABLET PO SCH (05:42)
[2018-04-28] MEDS: LANSOPRAZOLE 30 MG TAB.RAP.DR PO SCH (05:42)
[2018-04-28] MEDS: HEPARIN SOD (PORCINE) 5,000 UNIT/ML 1 ML SYRINGE SUBCUT SCH ×3 (05:42→21:40)
[2018-04-28] MEDS: LEVOTHYROXINE SODIUM 0.1 MG TABLET PO SCH (05:42)
[2018-04-28] MEDS: ACETYLCYSTEINE 20% SOLN 800 MG/4 ML VIAL.NEB NEB SCH ×2 (08:47→20:20)
[2018-04-28] MEDS: LEVOFLOXACIN 750 MG/D5W RTU 750 MG/150 ML RTUPB IV SCH (10:51)
[2018-04-28] MEDS: MEGESTROL ACETATE SUSP 400 MG/10 ML UDCUP PO SCH (10:51)
[2018-04-28] MEDS: VENLAFAXINE HCL 75 MG TABLET PO SCH ×2 (10:52→21:40)
[2018-04-28] MEDS: ASPIRIN 81 MG TABLET, ENT COATED PO SCH (10:52)
[2018-04-28] MEDS: CITALOPRAM HYDROBROMIDE 20 MG TABLET PO SCH ×2 (10:52→21:40)
[2018-04-28] MEDS: FUROSEMIDE 20 MG TABLET PO SCH (10:52)
[2018-04-28] MEDS: METOPROLOL SUCCINATE 25 MG TAB.SR.24H PO SCH (10:52)
[2018-04-28] MEDS: ONDANSETRON HCL 8 MG TABLET PO PRN (11:42)
--- NOTE | 2018-04-28 14:37 | PDOC PROGRESS REPORT ---
Subjective Progress Note for:: 04/28/18 Subjective:: No adverse events overnight. He says his breathing feels about normal for him. He is on oxygen, now only about 1 L, but his SPO2 is in the upper 90s. He still refusing to go to rehab but his thinks he should and says she is going to try to talk him into it. He did not do very well for physical therapy and I do not think he would do very well at home before a rehab stay. Reason For Visit: SEPSIS Physical Exam Vital Signs: Temp Pulse Resp BP Pulse Ox 98.4 F 95 22 H 106/67 99 04/28/18 11:41 04/28/18 11:41 04/28/18 11:41 04/28/18 11:41 04/28/18 11:41 Intake & Output 04/27/18 04/28/18 04/29/18 06:59 06:59 06:59 Intake Total 2103 1740 200 Output Total 1175 1150 275 Balance 928 590 -75 Weight 79.4 kg 80 kg General appearance: PRESENT: no acute distress, cooperative, disheveled Respiratory exam: PRESENT: Clear to auscultation bilaterally except for rhonchi - Left base, unlabored. ABSENT: accessory muscle use, tachypnea, wheezes Cardiovascular exam: PRESENT: RRR, +S1, +S2 Vascular exam: PRESENT: normal capillary refill GI/Abdominal exam: PRESENT: normal bowel sounds, soft, other - PEG tube. ABSENT: distended, guarding, rebound, tenderness Extremities exam: ABSENT: clubbing, pedal edema Neurological exam: PRESENT: alert, awake, oriented to person, oriented to place, oriented to time, oriented to situation Psychiatric exam: PRESENT: appropriate affect, normal mood Skin exam: PRESENT: dry, warm Results Laboratory Results: 04/22/18 04:37 04/22/18 04:37 04/20/18 02:18 NT-Pro-B Natriuret Pep 273 Impressions: Chest/Abdomen CTA 04/19/18 07:41 IMPRESSION: 1. Negative examination for pulmonary embolism. 2. Diffusely scattered centrilobular ground-glass nodules bilaterally, nonspecific and infectious or inflammatory. Differential considerations include atypical infection as well as inhalational lung disease such as hypersensitivity pneumonitis or smoking related respiratory bronchiolitis. 3. Small bilateral pleural effusions and associated atelectasis or consolidation. 4. Postoperative findings of esophagectomy and pull-through. Comparison to prior examinations would be helpful to evaluate for stability. Assessment & Plan - Diagnosis (1) Sepsis Qualifiers: Sepsis type: Streptococcus, other Qualified Code(s): A40.8 - Other streptococcal sepsis Is this a current diagnosis for this admission?: Yes Plan: Resolved (2) Pneumonia Qualifiers: Pneumonia type: aspiration pneumonia Laterality: right Lung location: lower lobe of lung Is this a current diagnosis for this admission?: Yes Plan: Likely due to aspiration. His breathing still does not look completely comfortable even though his lung exam is not too bad, so I will plan to continue him on antibiotics for another day or so. (3) Hypoxia Is this a current diagnosis for this admission?: Yes Plan: He seems to be okay at rest from a SPO2 standpoint, but he has some increased work of breathing that gets a little bit better when he puts on oxygen. I have encouraged him to take deeper breaths to encourage him to cough and are recommending aggressive pulmonary toilet. We will try to discontinue the oxygen today. (4) History of esophagectomy Is this a current diagnosis for this admission?: Yes Plan: Reason why he is on tube feeds. He can take his pills by mouth and small bits of fluid and food if he desires. (5) Irritation around percutaneous endoscopic gastrostomy (PEG) tube site Is this a current diagnosis for this admission?: Yes Plan: Resolved (6) Depression Qualifiers: Depression Type: unspecified Qualified Code(s): F32.9 - Major depressive disorder, single episode, unspecified Is this a current diagnosis for this admission?: Yes Plan: He is recently been started on medication. - Time Time Spent with patient: 15-24 minutes
[2018-04-28] MEDS: TAMSULOSIN HCL 0.4 MG CAP.SR.24H PO SCH (17:53)
[2018-04-28] MEDS: ZOLPIDEM TARTRATE 5 MG TABLET PO SCH (21:40)
[2018-04-28] MEDS: ATORVASTATIN CALCIUM 40 MG TABLET PO SCH (21:40)
[2018-04-29] MEDS: LEVOTHYROXINE SODIUM 0.075 MG TABLET PO SCH (06:40)
[2018-04-29] MEDS: LANSOPRAZOLE 30 MG TAB.RAP.DR PO SCH (06:40)
[2018-04-29] MEDS: HEPARIN SOD (PORCINE) 5,000 UNIT/ML 1 ML SYRINGE SUBCUT SCH ×3 (06:40→21:31)
[2018-04-29] MEDS: LEVOTHYROXINE SODIUM 0.1 MG TABLET PO SCH (06:40)
[2018-04-29] MEDS: ACETYLCYSTEINE 20% SOLN 800 MG/4 ML VIAL.NEB NEB SCH ×2 (08:00→19:53)
[2018-04-29] MEDS: LEVOFLOXACIN 750 MG/D5W RTU 750 MG/150 ML RTUPB IV SCH (11:24)
[2018-04-29] MEDS: FUROSEMIDE 20 MG TABLET PO SCH (11:24)
[2018-04-29] MEDS: VENLAFAXINE HCL 75 MG TABLET PO SCH ×2 (11:24→21:31)
[2018-04-29] MEDS: MEGESTROL ACETATE SUSP 400 MG/10 ML UDCUP PO SCH (11:32)
[2018-04-29] MEDS: CITALOPRAM HYDROBROMIDE 20 MG TABLET PO SCH ×2 (11:34→21:31)
[2018-04-29] MEDS: ONDANSETRON HCL 8 MG TABLET PO PRN (11:35)
[2018-04-29] MEDS: ASPIRIN 81 MG TABLET, ENT COATED PO SCH (14:31)
[2018-04-29] MEDS: METOPROLOL SUCCINATE 25 MG TAB.SR.24H PO SCH (14:32)
--- NOTE | 2018-04-29 15:20 | PDOC PROGRESS REPORT ---
Subjective Progress Note for:: 04/29/18 Subjective:: No adverse events overnight. He still has a nasal cannula on despite the fact that he is only at 1 L and his oxygen saturations are in the upper 90s. 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 He talked with his not going to rehab yesterday, and says he does not want to go to one locally, but would [place]. Reason For Visit: SEPSIS Physical Exam Vital Signs: Temp Pulse Resp BP Pulse Ox 97.7 F 105 H 22 H 114/74 97 04/29/18 12:23 04/29/18 12:23 04/29/18 07:52 04/29/18 12:23 04/29/18 12:23 Intake & Output 04/28/18 04/29/18 04/30/18 06:59 06:59 06:59 Intake Total 1740 3748 200 Output Total 1150 1275 350 Balance 590 2473 -150 Weight 80 kg 80.6 kg General appearance: PRESENT: no acute distress, cooperative, disheveled Respiratory exam: PRESENT: Clear to auscultation bilaterally except for rhonchi - Left base, unlabored. ABSENT: accessory muscle use, tachypnea, wheezes Cardiovascular exam: PRESENT: RRR, +S1, +S2 Vascular exam: PRESENT: normal capillary refill GI/Abdominal exam: PRESENT: normal bowel sounds, soft, other - PEG tube. ABSENT: distended, guarding, rebound, tenderness Extremities exam: ABSENT: clubbing, pedal edema Neurological exam: PRESENT: alert, awake, oriented to person, oriented to place, oriented to time, oriented to situation Psychiatric exam: PRESENT: appropriate affect, normal mood Skin exam: PRESENT: dry, warm Results Laboratory Results: 04/22/18 04:37 04/22/18 04:37 04/20/18 02:18 NT-Pro-B Natriuret Pep 273 Impressions: Chest/Abdomen CTA 04/19/18 07:41 IMPRESSION: 1. Negative examination for pulmonary embolism. 2. Diffusely scattered centrilobular ground-glass nodules bilaterally, nonspecific and infectious or inflammatory. Differential considerations include atypical infection as well as inhalational lung disease such as hypersensitivity pneumonitis or smoking related respiratory bronchiolitis. 3. Small bilateral pleural effusions and associated atelectasis or consolidation. 4. Postoperative findings of esophagectomy and pull-through. Comparison to prior examinations would be helpful to evaluate for stability. Assessment & Plan - Diagnosis (1) Sepsis Qualifiers: Sepsis type: Streptococcus, other Qualified Code(s): A40.8 - Other streptococcal sepsis Is this a current diagnosis for this admission?: Yes Plan: Resolved (2) Pneumonia Qualifiers: Pneumonia type: aspiration pneumonia Laterality: right Lung location: lower lobe of lung Is this a current diagnosis for this admission?: Yes Plan: Likely due to aspiration. His breathing still does not look completely comfortable even though his lung exam is not too bad, so I will plan to continue him on antibiotics for another day or so. We can probably discontinue them on Monday. (3) Hypoxia Is this a current diagnosis for this admission?: Yes Plan: He seems to be okay at rest from a SPO2 standpoint, but he has some increased work of breathing that gets a little bit better when he puts on oxygen. I have encouraged him to take deeper breaths to encourage him to cough and are recommending aggressive pulmonary toilet. 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 (4) History of esophagectomy Is this a current diagnosis for this admission?: Yes Plan: Reason why he is on tube feeds. He can take his pills by mouth and small bits of fluid and food if he desires. (5) Irritation around percutaneous endoscopic gastrostomy (PEG) tube site Is this a current diagnosis for this admission?: Yes Plan: Resolved (6) Depression Qualifiers: Depression Type: unspecified Qualified Code(s): F32.9 - Major depressive disorder, single episode, unspecified Is this a current diagnosis for this admission?: Yes Plan: He is recently been started on medication. - Time Time Spent with patient: 15-24 minutes
[2018-04-29] MEDS: DOCUSATE SODIUM 100 MG CAPSULE PO SCH (17:08)
[2018-04-29] MEDS: TAMSULOSIN HCL 0.4 MG CAP.SR.24H PO SCH (17:08)
[2018-04-29] MEDS: ZOLPIDEM TARTRATE 5 MG TABLET PO SCH (21:31)
[2018-04-29] MEDS: ATORVASTATIN CALCIUM 40 MG TABLET PO SCH (21:31)
[2018-04-30] MEDS: LEVOTHYROXINE SODIUM 0.1 MG TABLET PO SCH (06:57)
[2018-04-30] MEDS: LEVOTHYROXINE SODIUM 0.075 MG TABLET PO SCH (06:57)
[2018-04-30] MEDS: LANSOPRAZOLE 30 MG TAB.RAP.DR PO SCH (06:57)
[2018-04-30] MEDS: HEPARIN SOD (PORCINE) 5,000 UNIT/ML 1 ML SYRINGE SUBCUT SCH ×3 (07:14→22:35)
[2018-04-30] MEDS: ACETYLCYSTEINE 20% SOLN 800 MG/4 ML VIAL.NEB NEB SCH ×2 (07:50→20:50)
[2018-04-30] MEDS: DOCUSATE SODIUM 100 MG CAPSULE PO SCH ×2 (09:48→18:25)
[2018-04-30] MEDS: LEVOFLOXACIN 750 MG/D5W RTU 750 MG/150 ML RTUPB IV SCH (09:48)
[2018-04-30] MEDS: PROMETHAZINE HCL 25 MG TABLET PO PRN ×2 (09:48→18:30)
[2018-04-30] MEDS: METOPROLOL SUCCINATE 25 MG TAB.SR.24H PO SCH (09:48)
[2018-04-30] MEDS: FUROSEMIDE 20 MG TABLET PO SCH (09:49)
[2018-04-30] MEDS: ASPIRIN 81 MG TABLET, ENT COATED PO SCH (09:49)
[2018-04-30] MEDS: CITALOPRAM HYDROBROMIDE 20 MG TABLET PO SCH ×2 (09:49→22:35)
[2018-04-30] MEDS: MEGESTROL ACETATE SUSP 400 MG/10 ML UDCUP PO SCH (09:56)
[2018-04-30] MEDS: VENLAFAXINE HCL 75 MG TABLET PO SCH ×2 (09:56→22:34)
[2018-04-30] MEDS ORDERED: ONDANSETRON HCL 8 MG TABLET PO PRN ×2 (10:02→10:30)
[2018-04-30 11:06] LABS: HEMATOCRIT 35.1 % (37.9-51.0); HEMOGLOBIN 11.9 g/dL (13.5-17.0); MEAN CORPUSCULAR HEMOGLOBIN 27.8 pg (27.0-33.4); MEAN CORPUSCULAR HGB CONC 33.9 g/dL (32.0-36.0); MEAN CORPUSCULAR VOLUME 82 fl (80-97); PLATELET COUNT 279 10^3/uL (150-450); RED BLOOD COUNT 4.28 10^6/uL (4.35-5.55); RED CELL DISTRIBUTION WIDTH 15.8 % (11.5-14.0); WHITE BLOOD COUNT 8.9 10^3/uL (4.0-10.5)
--- NOTE | 2018-04-30 11:28 | PDOC PROGRESS REPORT ---
Subjective Progress Note for:: 04/30/18 Subjective:: 04/30/2018-no acute events in the last 24 hours. Patient is afebrile. Patient waiting for the placement. Family decided to take the patient [facility]. Pulse ox is 92% on room air. [facility] via [facility] cannula. Reason For Visit: SEPSIS Physical Exam Vital Signs: Temp Pulse Resp BP Pulse Ox 97.3 F 84 17 101/70 92 04/30/18 08:00 04/30/18 08:00 04/30/18 08:00 04/30/18 08:00 04/30/18 08:00 Intake & Output 04/29/18 04/30/18 05/01/18 06:59 06:59 06:59 Intake Total 3748 2225 640 Output Total 1275 1475 Balance 2473 750 640 Weight 80.6 kg 81 kg General appearance: PRESENT: no acute distress Head exam: PRESENT: atraumatic Eye exam: PRESENT: PERRLA Neck exam: ABSENT: carotid bruit, JVD, lymphadenopathy, thyromegaly Respiratory exam: PRESENT: decreased breath sounds Cardiovascular exam: PRESENT: RRR. ABSENT: diastolic murmur, rubs, systolic murmur GI/Abdominal exam: PRESENT: other - Patient has a PEG tube. Extremities exam: PRESENT: full ROM. ABSENT: calf tenderness, clubbing, pedal edema Neurological exam: PRESENT: alert, awake, oriented to person, oriented to place, oriented to time, oriented to situation, CN II-XII grossly intact. ABSENT: motor sensory deficit Psychiatric exam: PRESENT: appropriate affect, normal mood. ABSENT: homicidal ideation, suicidal ideation Results Laboratory Results: 04/22/18 04:37 04/20/18 02:18 NT-Pro-B Natriuret Pep 273 Impressions: Chest/Abdomen CTA 04/19/18 07:41 IMPRESSION: 1. Negative examination for pulmonary embolism. 2. Diffusely scattered centrilobular ground-glass nodules bilaterally, nonspecific and infectious or inflammatory. Differential considerations include atypical infection as well as inhalational lung disease such as hypersensitivity pneumonitis or smoking related respiratory bronchiolitis. 3. Small bilateral pleural effusions and associated atelectasis or consolidation. 4. Postoperative findings of esophagectomy and pull-through. Comparison to prior examinations would be helpful to evaluate for stability. Assessment & Plan - Diagnosis (1) Sepsis Qualifiers: Sepsis type: Streptococcus, other Qualified Code(s): A40.8 - Other streptococcal sepsis Is this a current diagnosis for this admission?: Yes Plan: 04/30/2018 patient was admitted with sepsis which was resolved. (2) Pneumonia Qualifiers: Pneumonia type: aspiration pneumonia Laterality: right Lung location: lower lobe of lung Is this a current diagnosis for this admission?: Yes Plan: Likely due to aspiration. His breathing still does not look completely comfortable even though his lung exam is not too bad, so I will plan to continue him on antibiotics for another day or so. We can probably discontinue them on Monday. 04/30/2018-patient was admitted with possible aspiration pneumonia. Sputum cultures and blood cultures are negative. Patient is afebrile. Pulse ox is 92% on room air. He may need to go to the rehab facility on 2 L oxygen via nasal cannula. Plan is to discontinue antibiotic therapy today. (3) Hypoxia Is this a current diagnosis for this admission?: Yes Plan: He seems to be okay at rest from a SPO2 standpoint, but he has some increased work of breathing that gets a little bit better when he puts on oxygen. I have encouraged him to take deeper breaths to encourage him to cough and are recommending aggressive pulmonary toilet. 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 04/30/2018-patient has this persistent hypoxia with minimal activity. Pulse ox is 92% on 2 L. Plan is to discharge him to rehab facility on oxygen 2 L via nasal cannula. Because of hypoxia may be secondary to underlying aspiration pneumonia. (4) History of esophagectomy Is this a current diagnosis for this admission?: Yes Plan: Reason why he is on tube feeds. He can take his pills by mouth and small bits of fluid and food if he desires 04/30/2018-patient has a history of esophagectomy and PEG feedings. Plan is to continue the present management. He is able to take the oral medications and small amount of fluids by mouth. (5) Depression Qualifiers: Depression Type: unspecified Qualified Code(s): F32.9 - Major depressive disorder, single episode, unspecified Is this a current diagnosis for this admission?: Yes Plan: 04/30/2018-patient has history of depression. On citalopram 20 mg twice daily and Effexor 75 mg twice daily. Plan is to continue those medications. - Time Time Spent with patient: 15-24 minutes Medications reviewed and adjusted accordingly: Yes Anticipated discharge: SNF
[2018-04-30 12:09] LABS: ABSOLUTE LYMPHOCYTES# (MANUAL) 0.5 10^3/uL (0.5-4.7); ABSOLUTE MONOCYTES # (MANUAL) 0.8 10^3/uL (0.1-1.4); ABSOLUTE NEUTROPHILS# (MANUAL) 7.5 10^3/uL (1.7-8.2); BAND NEUTROPHILS % (MANUAL) 1 % (3-5); BASOPHILS % (MANUAL) 0 % (0-2); EOSINOPHILS % (MANUAL) 1 % (0-6); LYMPHOCYTES % (MANUAL) 5 % (13-45); METAMYELOCYTES % (MANUAL) 1 % (0); MONOCYTES % (MANUAL) 9 % (3-13); SEGMENTED NEUTROPHILS % (MAN) 82 % (42-78); TOTAL CELLS COUNTED 100
[2018-04-30 12:12] LABS: ANISOCYTOSIS SLIGHT; OVALOCYTES SLIGHT; POIKILOCYTOSIS SLIGHT; POLYCHROMASIA 1+
[2018-04-30 12:13] LABS: PLATELET COMMENT ADEQUATE
[2018-04-30] MEDS: TAMSULOSIN HCL 0.4 MG CAP.SR.24H PO SCH (18:25)
[2018-04-30] MEDS ORDERED: (PENDING PHARMACY ID) (Zolpidem Tartrate [Ambien] 10 MG) PO SCH (22:00)
[2018-04-30] MEDS: ATORVASTATIN CALCIUM 40 MG TABLET JT SCH (22:34)
[2018-04-30] MEDS: ZOLPIDEM TARTRATE 5 MG TABLET PO SCH (22:34)
[2018-05-01 05:42] LABS: ALANINE AMINOTRANSFERASE 42 U/L (21-72); ALBUMIN 2.9 g/dL (3.5-5.0); ALKALINE PHOSPHATASE 136 U/L (38-126); ANION GAP 7 (5-19); ASPARTATE AMINO TRANSFERASE 26 U/L (17-59); BILIRUBIN,DIRECT 0.2 mg/dL (0.0-0.4); BILIRUBIN,TOTAL 0.2 mg/dL (0.2-1.3); BLOOD UREA NITROGEN 20 mg/dL (7-20); CALCIUM 8.8 mg/dL (8.4-10.2); CARBON DIOXIDE 25 mmol/L (22-30); CHLORIDE 107 mmol/L (98-107); GLUCOSE 118 mg/dL (75-110); POTASSIUM 4.8 mmol/L (3.6-5.0); SODIUM 138.8 mmol/L (137-145); TOTAL PROTEIN 6.3 g/dL (6.3-8.2)
[2018-05-01] MEDS ORDERED: (PENDING PHARMACY ID) (Levothyroxine Sodium [Synthroid] 175 MCG) PO SCH (06:00)
[2018-05-01] MEDS: LEVOTHYROXINE SODIUM 0.075 MG TABLET PO SCH (06:18)
[2018-05-01] MEDS: HEPARIN SOD (PORCINE) 5,000 UNIT/ML 1 ML SYRINGE SUBCUT SCH ×3 (06:19→22:45)
[2018-05-01] MEDS: LEVOTHYROXINE SODIUM 0.1 MG TABLET PO SCH (06:19)
[2018-05-01] MEDS: LANSOPRAZOLE 30 MG TAB.RAP.DR PO SCH (06:19)
[2018-05-01 06:27] LABS: HEMATOCRIT 36.2 % (37.9-51.0); HEMOGLOBIN 12.1 g/dL (13.5-17.0); MEAN CORPUSCULAR HEMOGLOBIN 27.7 pg (27.0-33.4); MEAN CORPUSCULAR HGB CONC 33.4 g/dL (32.0-36.0); MEAN CORPUSCULAR VOLUME 83 fl (80-97); PLATELET COUNT 291 10^3/uL (150-450); RED BLOOD COUNT 4.37 10^6/uL (4.35-5.55); RED CELL DISTRIBUTION WIDTH 15.9 % (11.5-14.0); WHITE BLOOD COUNT 8.3 10^3/uL (4.0-10.5)
[2018-05-01 07:17] LABS: ABSOLUTE LYMPHOCYTES# (MANUAL) 0.7 10^3/uL (0.5-4.7); ABSOLUTE NEUTROPHILS# (MANUAL) 6.4 10^3/uL (1.7-8.2); BAND NEUTROPHILS % (MANUAL) 2 % (3-5); BASOPHILS % (MANUAL) 0 % (0-2); EOSINOPHILS % (MANUAL) 3 % (0-6); LYMPHOCYTES % (MANUAL) 8 % (13-45); METAMYELOCYTES % (MANUAL) 1 % (0); MONOCYTES % (MANUAL) 12 % (3-13); SEGMENTED NEUTROPHILS % (MAN) 74 % (42-78); TOTAL CELLS COUNTED 100
[2018-05-01 07:19] LABS: PLATELET COMMENT ADEQUATE; TOXIC GRANULATION SLIGHT
[2018-05-01] MEDS: ACETYLCYSTEINE 20% SOLN 800 MG/4 ML VIAL.NEB NEB SCH (08:02)
[2018-05-01] MEDS: FUROSEMIDE 20 MG TABLET PO SCH (09:27)
[2018-05-01] MEDS: VENLAFAXINE HCL 75 MG TABLET PO SCH ×2 (09:31→22:45)
[2018-05-01] MEDS: METOPROLOL SUCCINATE 25 MG TAB.SR.24H PO SCH (09:32)
[2018-05-01] MEDS: DOCUSATE SODIUM 100 MG CAPSULE PO SCH ×2 (09:32→17:26)
[2018-05-01] MEDS: ASPIRIN 81 MG TABLET, ENT COATED PO SCH (09:33)
[2018-05-01] MEDS: CITALOPRAM HYDROBROMIDE 20 MG TABLET PO SCH ×2 (09:34→22:45)
[2018-05-01] MEDS: MEGESTROL ACETATE SUSP 400 MG/10 ML UDCUP PO SCH (09:34)
--- NOTE | 2018-05-01 09:43 | PDOC PROGRESS REPORT ---
Subjective Progress Note for:: 05/01/18 Subjective:: 04/30/2018-no acute events in the last 24 hours. Patient is afebrile. Patient waiting for the placement. Family decided to take the patient [facility]. Pulse ox is 92% on room air. [facility] may need to [facility] to the [facility] oxygen via nasal cannula. 05/01/2018 no adverse events in the last 24 hours. Patient is afebrile. Pulse ox is 98% on room air today. Patient prefers to go to a [facility] facility for rehab. Nurse is concerned about patient's physical deconditioning. Reason For Visit: SEPSIS Physical Exam Vital Signs: Temp Pulse Resp BP Pulse Ox 98.3 F 91 16 116/77 95 05/01/18 03:20 05/01/18 08:02 05/01/18 08:02 05/01/18 03:20 05/01/18 08:02 Intake & Output 04/30/18 05/01/18 05/02/18 06:59 06:59 06:59 Intake Total 2225 1040 960 Output Total 1475 1400 Balance 750 -360 960 Weight 81 kg 81.3 kg General appearance: PRESENT: mild distress Head exam: PRESENT: atraumatic Eye exam: PRESENT: PERRLA Mouth exam: PRESENT: moist, tongue midline Neck exam: ABSENT: carotid bruit, JVD, lymphadenopathy, thyromegaly Respiratory exam: PRESENT: decreased breath sounds Cardiovascular exam: PRESENT: RRR, systolic murmur. ABSENT: diastolic murmur, rubs GI/Abdominal exam: PRESENT: normal bowel sounds, soft. ABSENT: distended, guarding, mass, organolmegaly, rebound, tenderness Extremities exam: PRESENT: full ROM. ABSENT: calf tenderness, clubbing, pedal edema Neurological exam: PRESENT: alert, awake, oriented to person, oriented to place, oriented to time, oriented to situation, CN II-XII grossly intact. ABSENT: motor sensory deficit Psychiatric exam: PRESENT: anxious Results Laboratory Results: 05/01/18 05:01 05/01/18 05:01 04/30/18 04/30/18 05/01/18 10:50 10:50 05:01 WBC 8.9 8.3 RBC 4.28 L 4.37 Hgb 11.9 L 12.1 L Hct 35.1 L 36.2 L MCV 82 83 MCH 27.8 27.7 MCHC 33.9 33.4 RDW 15.8 H 15.9 H Plt Count 279 291 Seg Neutrophils % Not Reportable Not Reportable Lymphocytes % Not Reportable Not Reportable Monocytes % Not Reportable Not Reportable Eosinophils % Not Reportable Not Reportable Basophils % Not Reportable Not Reportable Absolute Neutrophils Not Reportable Not Reportable Absolute Lymphocytes Not Reportable Not Reportable Absolute Monocytes Not Reportable Not Reportable Absolute Eosinophils Not Reportable Not Reportable Absolute Basophils Not Reportable Not Reportable Sodium Potassium Chloride Carbon Dioxide Anion Gap BUN Creatinine Est GFR ( Amer) Est GFR (Non-Af Amer) Glucose Calcium Magnesium 2.2 Total Bilirubin AST ALT Alkaline Phosphatase Total Protein Albumin 05/01/18 05:01 WBC RBC Hgb Hct MCV MCH MCHC RDW Plt Count Seg Neutrophils % Lymphocytes % Monocytes % Eosinophils % Basophils % Absolute Neutrophils Absolute Lymphocytes Absolute Monocytes Absolute Eosinophils Absolute Basophils Sodium 138.8 Potassium 4.8 Chloride 107 Carbon Dioxide 25 Anion Gap 7 BUN 20 Creatinine 0.40 L Est GFR ( Amer) > 60 Est GFR (Non-Af Amer) > 60 Glucose 118 H Calcium 8.8 Magnesium 2.2 Total Bilirubin 0.2 AST 26 ALT 42 Alkaline Phosphatase 136 H Total Protein 6.3 Albumin 2.9 L 04/20/18 02:18 NT-Pro-B Natriuret Pep 273 Impressions: Chest/Abdomen CTA 04/19/18 07:41 IMPRESSION: 1. Negative examination for pulmonary embolism. 2. Diffusely scattered centrilobular ground-glass nodules bilaterally, nonspecific and infectious or inflammatory. Differential considerations include atypical infection as well as inhalational lung disease such as hypersensitivity pneumonitis or smoking related respiratory bronchiolitis. 3. Small bilateral pleural effusions and associated atelectasis or consolidation. 4. Postoperative findings of esophagectomy and pull-through. Comparison to prior examinations would be helpful to evaluate for stability. Assessment & Plan - Diagnosis (1) Sepsis Qualifiers: Sepsis type: Streptococcus, other Qualified Code(s): A40.8 - Other streptococcal sepsis Is this a current diagnosis for this admission?: Yes Plan: 04/30/2018 patient was admitted with sepsis which was resolved. 04/30/2018 sepsis was resolved T-max is 98.3 today. Patient is off the antibiotics. (2) Pneumonia Qualifiers: Pneumonia type: aspiration pneumonia Laterality: right Lung location: lower lobe of lung Is this a current diagnosis for this admission?: Yes Plan: Likely due to aspiration. His breathing still does not look completely comfortable even though his lung exam is not too bad, so I will plan to continue him on antibiotics for another day or so. We can probably discontinue them on Monday. 04/30/2018-patient was admitted with possible aspiration pneumonia. Sputum cultures and blood cultures are negative. Patient is afebrile. Pulse ox is 92% on room air. He may need to go to the rehab facility on 2 L oxygen via nasal cannula. Plan is to discontinue antibiotic therapy today. 05/01/2018-patient was admitted for aspiration pneumonia sputum cultures blood cultures are negative. His pulse ox is improved to 98% on room air. He is off the antibiotic therapy. Patiently is present on Xopenex nebulizations every 4 as needed. Plan is to continue the present management. (3) Hypoxia Is this a current diagnosis for this admission?: Yes Plan: He seems to be okay at rest from a SPO2 standpoint, but he has some increased work of breathing that gets a little bit better when he puts on oxygen. I have encouraged him to take deeper breaths to encourage him to cough and are recommending aggressive pulmonary toilet. 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 04/30/2018-patient has this persistent hypoxia with minimal activity. Pulse ox is 92% on 2 L. Plan is to discharge him to rehab facility on oxygen 2 L via nasal cannula. Because of hypoxia may be secondary to underlying aspiration pneumonia. 05/01/2018-pulse ox today is 98% on room air. Hypoxia is resolving. Hypoxia most likely secondary to underlying aspiration pneumonia which is resolving. (4) History of esophagectomy Is this a current diagnosis for this admission?: Yes Plan: Reason why he is on tube feeds. He can take his pills by mouth and small bits of fluid and food if he desires 04/30/2018-patient has a history of esophagectomy and PEG feedings. Plan is to continue the present management. He is able to take the oral medications and small amount of fluids by mouth. 05/01/2018-patient's gets tube feedings but he is also to take small amounts of fluids by mouth and able to take the pills. PEG site is clean. No problems with the feeding. (5) Depression Qualifiers: Depression Type: unspecified Qualified Code(s): F32.9 - Major depressive disorder, single episode, unspecified Is this a current diagnosis for this admission?: Yes Plan: 04/30/2018-patient has history of depression. On citalopram 20 mg twice daily and Effexor 75 mg twice daily. Plan is to continue those medications. 05/01/2018-patient denies any symptoms of depression today. Presently on citalopram 20 mg p.o. twice a day and Effexor 75 mg twice a day. Once she is ready to be discharged to the rehab facility plan is to continue these medications. - Time Time Spent with patient: 15-24 minutes Medications reviewed and adjusted accordingly: Yes Anticipated discharge: SNF
[2018-05-01] MEDS ORDERED: METOPROLOL TARTRATE 25 MG TABLET JT SCH (10:00)
[2018-05-01] MEDS ORDERED: ASPIRIN 81 MG TABLET, ENT COATED PO SCH (10:00)
[2018-05-01] MEDS ORDERED: CITALOPRAM HYDROBROMIDE 20 MG TABLET PO SCH (10:00)
[2018-05-01] MEDS ORDERED: MEGESTROL ACETATE 625 MG PO SCH (10:00)
[2018-05-01] MEDS: TAMSULOSIN HCL 0.4 MG CAP.SR.24H PO SCH (17:26)
[2018-05-01] MEDS: ZOLPIDEM TARTRATE 5 MG TABLET PO SCH (22:45)
[2018-05-01] MEDS: ATORVASTATIN CALCIUM 40 MG TABLET JT SCH (22:45)
[2018-05-02] MEDS: HEPARIN SOD (PORCINE) 5,000 UNIT/ML 1 ML SYRINGE SUBCUT SCH (05:51)
[2018-05-02] MEDS: LEVOTHYROXINE SODIUM 0.075 MG TABLET PO SCH (05:51)
[2018-05-02] MEDS: LEVOTHYROXINE SODIUM 0.1 MG TABLET PO SCH (05:51)
[2018-05-02] MEDS: LANSOPRAZOLE 30 MG TAB.RAP.DR PO SCH (05:51)
[2018-05-02] MEDS: VENLAFAXINE HCL 75 MG TABLET PO SCH (09:25)
[2018-05-02] MEDS: ASPIRIN 81 MG TABLET, ENT COATED PO SCH (09:25)
[2018-05-02] MEDS: CITALOPRAM HYDROBROMIDE 20 MG TABLET PO SCH (09:25)
[2018-05-02] MEDS: DOCUSATE SODIUM 100 MG CAPSULE PO SCH (09:25)
[2018-05-02] MEDS: METOPROLOL SUCCINATE 25 MG TAB.SR.24H PO SCH (09:25)
[2018-05-02] MEDS: FUROSEMIDE 20 MG TABLET PO SCH (09:25)
[2018-05-02] MEDS: MEGESTROL ACETATE SUSP 400 MG/10 ML UDCUP PO SCH (09:25)
--- NOTE | 2018-05-02 11:46 | PDOC TRANSFER SUMMARY ---
General - Admit/Disc Date/PCP Admission Date/Primary Care Provider: 04/19/18 11:48 MICHAEL RUIZ MD Discharge Date: 05/02/18 - Discharge Diagnosis (1) Sepsis Is this a current diagnosis for this admission?: Yes Summary: Patient was admitted with sepsis, he is off the antibiotics right now temperature today 97.9 sepsis is resolved. (2) Pneumonia Is this a current diagnosis for this admission?: Yes Summary: Likely due to aspiration. His breathing still does not look completely comfortable even though his lung exam is not too bad, so I will plan to continue him on antibiotics for another day or so. We can probably discontinue them on Monday. 04/30/2018-patient was admitted with possible aspiration pneumonia. Sputum cultures and blood cultures are negative. Patient is afebrile. Pulse ox is 92% on room air. He may need to go to the rehab facility on 2 L oxygen via nasal cannula. Plan is to discontinue antibiotic therapy today. 05/01/2018-patient was admitted for aspiration pneumonia sputum cultures blood cultures are negative. His pulse ox is improved to 98% on room air. He is off the antibiotic therapy. Patiently is present on Xopenex nebulizations every 4 as needed. Plan is to continue the present management. 05/02/2018-patient has history of stroke/dysphagia might be the reason for aspiration pneumonia. Treat him cultures blood cultures are negative. Treated with IV antibiotic therapy presently he is off the antibiotics. Pulse ox on room air today is 97%. (3) Hypoxia Is this a current diagnosis for this admission?: Yes Summary: He seems to be okay at rest from a SPO2 standpoint, but he has some increased work of breathing that gets a little bit better when he puts on oxygen. I have encouraged him to take deeper breaths to encourage him to cough and are recommending aggressive pulmonary toilet. 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 04/30/2018-patient has this persistent hypoxia with minimal activity. Pulse ox is 92% on 2 L. Plan is to discharge him to rehab facility on oxygen 2 L via nasal cannula. Because of hypoxia may be secondary to underlying aspiration pneumonia. 05/01/2018-pulse ox today is 98% on room air. Hypoxia is resolving. Hypoxia most likely secondary to underlying aspiration pneumonia which is resolving. 05/02/2018-patient's pulse ox today 97% on room air hypoxia is resolved. Hypoxia most likely secondary to underlying aspiration pneumonia. (4) History of esophagectomy Is this a current diagnosis for this admission?: Yes Summary: Reason why he is on tube feeds. He can take his pills by mouth and small bits of fluid and food if he desires 04/30/2018-patient has a history of esophagectomy and PEG feedings. Plan is to continue the present management. He is able to take the oral medications and small amount of fluids by mouth. 05/01/2018-patient's gets tube feedings but he is also to take small amounts of fluids by mouth and able to take the pills. PEG site is clean. No problems with the feeding. 05/02/2018-patient has history of esophagectomy but able to take a small amount of fluids and able to take the pills by mouth. He has a feeding tube. (5) Depression Is this a current diagnosis for this admission?: Yes - Additional Information Resuscitation Status: Do Not Resuscitate Discharge Diet: Tube Feeding (Comments) Home Medications: Aspirin [Ecotrin 81 mg EC Tablet] 81 mg PO DAILY 04/19/18 Atorvastatin Calcium [Lipitor 40 mg Tablet] 40 mg JT QHS 04/19/18 Citalopram Hydrobromide [Celexa 20 mg Tablet] 40 mg PO DAILY 04/19/18 Levothyroxine Sodium [Synthroid] 175 mcg PO Q6AM 04/19/18 Megestrol Acetate [Megace Es] 625 mg PO DAILY 04/19/18 Metoprolol Tartrate [Lopressor 25 mg Tablet] 25 mg JT DAILY 04/19/18 Ondansetron HCl [Zofran 8 mg Tablet] 8 mg PO .1HR PC CAR RIDES PRN 04/19/18 Zolpidem Tartrate [Ambien] 10 mg PO QHS 04/19/18 Aspirin [Ecotrin 81 mg EC Tablet] 81 mg PO DAILY tabec 05/02/18 Citalopram Hydrobromide [Celexa 20 mg Tablet] 20 mg PO Q12 tablet 05/02/18 Docusate Sodium [Colace 100 mg Capsule] 100 mg PO BID capsule 05/02/18 Furosemide [Lasix 20 mg Tablet] 20 mg PO DAILY tablet 05/02/18 Lansoprazole [Prevacid 30 mg Odt Tablet] 30 mg PO Q6AM tab.rap. 05/02/18 Levalbuterol HCl [Xopenex Neb 1.25 mg/3 ml Ampul] 1.25 mg NEB RTQ4HP PRN vial .neb 05/02/18 Levothyroxine Sodium [Synthroid 0.075 mg Tablet] 0.075 mg PO Q6AM tablet 05/02/18 Megestrol Acetate [Megace Daija 400 mg/10 ml Udcup] 800 mg PO DAILY udc 05/02/18 Metoprolol Succinate [Toprol Xl 25 mg Tab.sr] 25 mg PO DAILY tab.sr.24h 05/02/18 Tamsulosin HCl [Flomax 0.4 mg Cap.sr] 0.4 mg PO PCSUPPER cap.sr.24h 05/02/18 Venlafaxine HCl [Effexor 75 mg Tablet] 75 mg PO Q12 tablet 05/02/18 Zolpidem Tartrate [Ambien 5 mg Tablet] 10 mg PO QHS tablet 05/02/18 History of Present Illness Admission Date/PCP: 04/19/18 11:48 MICHAEL RUIZ MD History of Present Illness: NICOLE EDWARDS is a 67 year old male 67 year old male with a history of esophageal cancer with esophagectomy. He reports that for approximately 1 week (his feels like it has been 3 weeks) he has noticed a cough. He began to experience increased shortness of breath. He would cough to the point where he would have emesis. The sputum was thick and yellow and eventually bile was present. He felt lightheaded when standing. His appetite has been decreased as well. Upon presentation to the emergency department he was noted to have abnormalities on x-ray including pleural effusion and groundglass appearance possibly reflecting pneumonia. His white blood cell count was elevated and his blood pressure was low. He was referred to the hospitalist service for admission. Physical Exam Vital Signs: Temp Pulse Resp BP Pulse Ox 97.9 F 94 24 H 108/67 97 05/02/18 08:00 05/02/18 08:00 05/02/18 08:00 05/02/18 08:00 05/02/18 08:00 Intake & Output 05/01/18 05/02/18 05/03/18 06:59 06:59 06:59 Intake Total 1040 2040 1110 Output Total 1400 1850 Balance -559 163 1983 Weight 81.3 kg 82.4 kg General appearance: PRESENT: no acute distress Head exam: PRESENT: atraumatic Eye exam: PRESENT: PERRLA Mouth exam: PRESENT: moist, tongue midline Neck exam: ABSENT: carotid bruit, JVD, lymphadenopathy, thyromegaly Respiratory exam: PRESENT: decreased breath sounds Cardiovascular exam: PRESENT: RRR. ABSENT: diastolic murmur, rubs, systolic murmur GI/Abdominal exam: PRESENT: normal bowel sounds, soft. ABSENT: distended, guarding, mass, organolmegaly, rebound, tenderness Extremities exam: PRESENT: full ROM. ABSENT: calf tenderness, clubbing, pedal edema Neurological exam: PRESENT: alert, awake, oriented to person, oriented to place, oriented to time, oriented to situation, CN II-XII grossly intact. ABSENT: motor sensory deficit Psychiatric exam: PRESENT: appropriate affect, normal mood. ABSENT: homicidal ideation, suicidal ideation Results Laboratory Results: 05/01/18 05:01 05/01/18 05:01 04/20/18 02:18 NT-Pro-B Natriuret Pep 273 Impressions: Chest/Abdomen CTA 04/19/18 07:41 IMPRESSION: 1. Negative examination for pulmonary embolism. 2. Diffusely scattered centrilobular ground-glass nodules bilaterally, nonspecific and infectious or inflammatory. Differential considerations include atypical infection as well as inhalational lung disease such as hypersensitivity pneumonitis or smoking related respiratory bronchiolitis. 3. Small bilateral pleural effusions and associated atelectasis or consolidation. 4. Postoperative findings of esophagectomy and pull-through. Comparison to prior examinations would be helpful to evaluate for stability. Qualifiers - * PATIENT BEING DISCHARGED WITH ANY OF THE FOLLOWING DIAGNOSIS: No VTE patient discharged on overlapping Therapy?: No
[2018-05-02 13:53] VITALS: BP 119/73
== END 2018-05-02 15:34 | DRG 871 ==
LOC: ER 05:40 → EH 11:48 → 3W 04-20 01:40
PROVIDERS: ADMIT Internal Medicine; ATTEND Internal Medicine
PROC: 0D2DXUZ Change Feeding Device in Lower Intestinal Tract, External Approach (ICD-10-PCS; principal; 2018-04-22)
DX: A40.8 Other streptococcal sepsis (principal); J69.0 Pneumonitis due to inhalation of food and vomit; R09.02 Hypoxemia; Z43.4 Encounter for attention to other artificial openings of digestive tract; I25.10 Atherosclerotic heart disease of native coronary artery without angina pectoris; E78.5 Hyperlipidemia, unspecified; I10 Essential (primary) hypertension; E11.9 Type 2 diabetes mellitus without complications; F32.9 Major depressive disorder, single episode, unspecified; M19.90 Unspecified osteoarthritis, unspecified site; Z79.82 Long term (current) use of aspirin; Z79.899 Other long term (current) drug therapy; I25.2 Old myocardial infarction; Z95.5 Presence of coronary angioplasty implant and graft; Z87.891 Personal history of nicotine dependence; Z85.01 Personal history of malignant neoplasm of esophagus; Z88.8 Allergy status to other drugs, medicaments and biological substances
CPT/HCPCS: 36415; 71045; 71275; 80048; 80053; 81001; 82803; 82962; 83605; 83735; 83880; 84439; 84443; 84481; 85025; 85027; 85610; 87040; 87070; 87086; 87088; 87186; 87205; 93005; 93010; 96365; 96366; 99285; C1769; J0696; J1450; J1644; J1956; J2270; J3490; J7030; S0119

== ENCOUNTER → 2018-12-05 | Outpatient (CLI) | payer MEDICARE ==
--- NOTE | 2018-12-05 15:28 | RADIOLOGY REPORT (SQ) ---
EXAM DESCRIPTION: BARIUM SWALLOW ESOPHAGUS COMPLETED DATE/TIME: 12/05/2018 9:39 am REASON FOR STUDY: DECREASED APETITIE R63.0 ANOREXIA COMPARISON: None. TECHNIQUE: Under fluoroscopic guidance, patient ingested thick and thin barium. Fluoroscopic spot im ages and routine radiographic images acquired and stored on PACS. 12 MM BARIUM TABLET GIVEN: 12 mm barium tablet passed easily into the stomach without delay. LIMITATIONS: None. FLUOROSCOPY TIME: 3.49 minutes 20 images saved to PACS. FINDINGS: NEUROMUSCULAR COORDINATION OF SWALLOW: Normal. No aspiration. ESOPHAGEAL MOTILITY: Stasis of barium seen in the neoesophagus on the supine images. Patent anastomo sis without evidence for complication. ESOPHAGEAL MUCOSA: Normal mucosa without masses or ulceration. GASTRO-ESOPHAGEAL JUNCTION: Surgical changes consistent with esophageal resection and gastric pull-th rough. NON-GI TRACT STRUCTURES: No significant finding. OTHER: Mild narrowing of the pylorus but no delay in gastric emptying. IMPRESSION: SURGICAL CHANGES CONSISTENT WITH ESOPHAGEAL RESECTION AND GASTRIC PULL THROUGH. STASIS OF BARIUM SEEN IN THE NEOESOPHAGUS. COMMENT: None Quality ID [id number]: Final reports for procedures using fluoroscopy that document radiation exposure cj saundra, or exposure time and number of fluorographic images (if radiation exposure indices are not avail able) TECHNICAL DOCUMENTATION: JOB ID: [id number] [employer]- All Rights Reserved Reading location - IP/workstation name: [email or web address] [id number]
== END ==
LOC: RAD 08:59
PROVIDERS: ATTEND Family Medicine
DX: K22.8 Other specified diseases of esophagus (principal); R63.0 Anorexia
CPT/HCPCS: 74220

== ENCOUNTER 2019-02-12 09:09 | Inpatient (IN) | payer MEDICARE ==
--- NOTE | 2019-02-12 09:58 | ER Document Report ---
ED Medical Screen (RME) - General Chief Complaint: Dizziness Stated Complaint: DIZZINESS Time Seen by Provider: 02/12/19 09:52 Primary Care Provider: MICHAEL RUIZ MD [Primary Care Provider] - Follow up as needed Mode of Arrival: Medic Information source: Patient TRAVEL OUTSIDE OF THE [place] 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 Patient states that he is breathing "fast". Denies any new medications foods or travel. Patient is on oxygen to keep his pulse ox greater than 94%, he is between 9091 on room air, patient does not use oxygen at home. Blood sugar was 121. is at bedside. Patient states he does have episodes of vertigo when he does wake up in the morning, he usually has a "couple coffee and usually settles out" however today patient feels worse due to feeling short of breath. Denies any fevers or chills. ROS: Other than noted above, the 12 point review of systems was reviewed with the patient and were negative, all pertinent findings are included in the HPI. PHYSICAL EXAMINATION: Vital signs reviewed. GENERAL: Well-appearing, well-nourished and in no acute distress. HEAD: Atraumatic, normocephalic. NECK: Normal range of motion CV: Heart regular rate and rhythm LUNGS: Tachypnea, diminished lung sounds in bilateral lower lobes NEUROLOGICAL: Normal speech PSYCH: Normal mood, normal affect. MDM: Patient seen and examined for rapid initial assessment. Vital signs reviewed. A comprehensive ED assessment and evaluation of the patient, analysis of test results and completion of the medical decision making process will be conducted by additional ED providers. *Note is created using voice recognition software and may contain spelling, syntax or grammatical errors. - Related Data Allergies/Adverse Reactions: lisinopril Allergy (Severe, Verified 08/07/17 14:01) Edema Past Medical History - Past Medical History Cardiac Medical History: Reports: Hx Coronary Artery Disease, Hx Heart Attack - 2006, cardiac cath x 2, total of 5 stents, Hx Hypercholesterolemia, Hx Hypertension - meds x 30 years Pulmonary Medical History: Denies: Hx Asthma, Hx Bronchitis, Hx COPD, Hx Pneumonia Neurological Medical History: Denies: Hx Cerebrovascular Accident, Hx Seizures Endocrine Medical History: Reports: Hx Diabetes Mellitus Type 2 Renal/ Medical History: Denies: Hx Peritoneal Dialysis GI Medical History: Denies: Hx Cirrhosis, Hx Crohn's Disease, Hx Diverticulitis, Hx Gastritis, Hx Gastroesophageal Reflux Disease, Hx Hepatitis, Hx Hiatal Hernia, Hx Irritable Bowel, Hx Liver Failure, Hx Pancreatitis, Hx Ulcer, Hx Ulcerative Colitis, Hx Colonoscopy, Hx Endoscopic Retrograde Cholangio, Hx Endoscopy Musculoskeltal Medical History: Reports Hx Arthritis Psychiatric Medical History: Reports: Hx Depression Infectious Medical History: Denies: Hx Hepatitis Past Surgical History: Reports: Hx Herniorrhaphy - Bilateral. Denies: Hx Pacemaker - Immunizations Hx Diphtheria, Pertussis, Tetanus Vaccination: Yes Physical Exam - Vital signs Vitals: Temp Pulse Resp BP Pulse Ox 94.6 F L 65 24 H 100/79 98 02/12/19 09:26 02/12/19 09:26 02/12/19 09:26 02/12/19 09:26 02/12/19 09:26 Course - Vital Signs Vital signs: Temp Pulse Resp BP Pulse Ox 94.6 F L 65 24 H 100/79 98 02/12/19 09:26 02/12/19 09:26 02/12/19 09:26 02/12/19 09:26 02/12/19 09:26 Doctor's Discharge - Discharge Referrals: MICHAEL RUIZ MD [Primary Care Provider] - Follow up as needed
[2019-02-12] MEDS ORDERED: ALBUTEROL SULFATE 0.083% NEB 2.5 MG/3 ML AMPUL NEB ONE (10:01)
[2019-02-12] MEDS: NORMAL SALINE 1000 ML 1,000 ML IV PRN ×2 (10:40→22:48)
[2019-02-12 10:51] LABS: VENOUS BLOOD BASE EXCESS 7.1 mmol/L; VENOUS BLOOD HCO3 34.3 mmol/L (20-32); VENOUS BLOOD PCO2 61.2 mmHg (35-63); VENOUS BLOOD PH 7.37 (7.30-7.42)
--- NOTE | 2019-02-12 10:52 | ER Document Report ---
ED General - General Chief Complaint: Dizziness Stated Complaint: DIZZINESS Time Seen by Provider: 02/12/19 09:52 Primary Care Provider: MICHAEL RUIZ MD [Primary Care Provider] - Follow up as needed Mode of Arrival: Medic Notes: 68 year unfortunate male arrives with complaints of sob and dizziness. H/O Esophageal carcinoma - 2018 - s/p surgery with gastric pull through. Here today due to worsening sob. No fever. No known sick contacts. No chest pain. Difficulty with swallowing is present but not new. Known Restrictive lung disease and pneumonia twice in the past several months. TRAVEL OUTSIDE OF THE [place] IN LAST 30 DAYS: No - HPI Onset: Just prior to arrival Onset/Duration: Gradual Severity: Moderate Exacerbated by: Movement, Walking, Coughing Relieved by: Denies - Related Data Allergies/Adverse Reactions: lisinopril Allergy (Severe, Verified 08/07/17 14:01) Edema Past Medical History - General Information source: Patient - Social History Smoking Status: Unknown if Ever Smoked Family History: CAD, COPD, DM Patient has suicidal ideation: No Patient has homicidal ideation: No - Past Medical History Cardiac Medical History: Reports: Hx Coronary Artery Disease, Hx Heart Attack - 2006, cardiac cath x 2, total of 5 stents, Hx Hypercholesterolemia, Hx Hypertension - meds x 30 years Pulmonary Medical History: Denies: Hx Asthma, Hx Bronchitis, Hx COPD, Hx Pneumonia Neurological Medical History: Denies: Hx Cerebrovascular Accident, Hx Seizures Endocrine Medical History: Reports: Hx Diabetes Mellitus Type 2 Renal/ Medical History: Denies: Hx Peritoneal Dialysis GI Medical History: Denies: Hx Cirrhosis, Hx Crohn's Disease, Hx Diverticulitis, Hx Gastritis, Hx Gastroesophageal Reflux Disease, Hx Hepatitis, Hx Hiatal Hernia, Hx Irritable Bowel, Hx Liver Failure, Hx Pancreatitis, Hx Ulcer, Hx Ulcerative Colitis, Hx Colonoscopy, Hx Endoscopic Retrograde Cholangio, Hx Endoscopy Musculoskeletal Medical History: Reports Hx Arthritis Psychiatric Medical History: Reports: Hx Depression Infectious Medical History: Denies: Hx Hepatitis Past Surgical History: Reports: Hx Herniorrhaphy - Bilateral. Denies: Hx Pacemaker - Immunizations Hx Diphtheria, Pertussis, Tetanus Vaccination: Yes Hx Pneumococcal Vaccination: 08/11/06 Review of Systems - Review of Systems Constitutional: Weakness. denies: No symptoms reported EENT: No symptoms reported Cardiovascular: No symptoms reported Respiratory: See HPI, Cough, Short of breath. denies: No symptoms reported Gastrointestinal: No symptoms reported Genitourinary: No symptoms reported Male Genitourinary: No symptoms reported Musculoskeletal: No symptoms reported Skin: No symptoms reported Hematologic/Lymphatic: No symptoms reported Neurological/Psychological: No symptoms reported Physical Exam - Vital signs Vitals: Temp Pulse Resp BP Pulse Ox 94.6 F L 65 24 H 100/79 98 02/12/19 09:26 02/12/19 09:26 02/12/19 09:26 02/12/19 09:26 02/12/19 09:26 Course - Re-evaluation Re-evalutation: 02/12/19 16:12 mdm - Complex male s/p esophagectomy is here with empyema left lung. No beds at [facility]. I have called [facility] and awaiting call back. Dr. Marrero is the physician I have turned this pt over to. - Vital Signs Vital signs: Temp Pulse Resp BP Pulse Ox 98.1 F 65 24 H 125/72 100 02/12/19 15:41 02/12/19 09:26 02/12/19 15:41 02/12/19 15:41 02/12/19 15:41 - Laboratory Result Diagrams: 02/12/19 10:35 02/12/19 10:35 Laboratory results interpreted by me: 02/12/19 02/12/19 02/12/19 09:53 10:35 10:35 Hgb 12.2 L MCH 25.8 L MCHC 31.9 L RDW 22.0 H Lymph % (Auto) 12.6 L VBG HCO3 Sodium 136.1 L Chloride 97 L Carbon Dioxide 32 H Creatinine 0.50 L POC Glucose 121 H Creatine Kinase 34 L Urine Ketones Urine Blood Urine Urobilinogen 02/12/19 02/12/19 10:35 15:35 Hgb MCH MCHC RDW Lymph % (Auto) VBG HCO3 34.3 H Sodium Chloride Carbon Dioxide Creatinine POC Glucose Creatine Kinase Urine Ketones TRACE H Urine Blood SMALL H Urine Urobilinogen 2.0 H - Diagnostic Test Radiology reviewed: Reports reviewed Critical Care Note - Critical Care Note Total time excluding time spent on procedures (mins): 30 Discharge - Discharge Clinical Impression: Empyema lung Dyspnea Qualifiers: Dyspnea type: dyspnea on exertion Qualified Code(s): R06.09 - Other forms of dyspnea Condition: Fair Disposition: [facility] Referrals: MICHAEL RUIZ MD [Primary Care Provider] - Follow up as needed
--- NOTE | 2019-02-12 10:55 | RADIOLOGY REPORT (SQ) ---
EXAM DESCRIPTION: CHEST SINGLE VIEW COMPLETED DATE/TIME: 02/12/2019 10:46 am REASON FOR STUDY: sob COMPARISON: 04/21/2018 FINDINGS: Single-view chest AP portable upright. Bilateral small effusions with basilar subsegmental atelectasis. Left port in place. Allowing for differences in technique, cardiomediastinal silhouette is stable. No pneumothorax detected. TECHNICAL DOCUMENTATION: JOB ID: [id number] Reading location - IP/workstation name: [email or web address]
[2019-02-12 11:04] LABS: ABSOLUTE EOSINOPHILS # (AUTO) 0.1 10^3/uL (0.0-0.6); ABSOLUTE LYMPHOCYTES (AUTO) 0.6 10^3/uL (0.5-4.7); ABSOLUTE MONOCYTES (AUTO) 0.5 10^3/uL (0.1-1.4); ABSOLUTE NEUT (AUTO) 3.6 10^3/uL (1.7-8.2); BASOPHILS % (AUTO) 0.9 % (0-2); EOSINOPHILS % (AUTO) 2.9 % (0-6); HEMATOCRIT 38.1 % (37.9-51.0); HEMOGLOBIN 12.2 g/dL (13.5-17.0); LYMPHOCYTES % (AUTO) 12.6 % (13-45); MEAN CORPUSCULAR HEMOGLOBIN 25.8 pg (27.0-33.4); MEAN CORPUSCULAR HGB CONC 31.9 g/dL (32.0-36.0); MEAN CORPUSCULAR VOLUME 81 fl (80-97); MONOCYTES % (AUTO) 9.4 % (3-13); PLATELET COUNT 299 10^3/uL (150-450); RED BLOOD COUNT 4.72 10^6/uL (4.35-5.55); SEGMENTED NEUTROPHILS % (AUTO) 74.2 % (42-78); TOTAL CELLS COUNTED % (AUTO) 100 %; WHITE BLOOD COUNT 4.8 10^3/uL (4.0-10.5)
[2019-02-12 11:09] LABS: ALBUMIN 3.5 g/dL (3.5-5.0); ALKALINE PHOSPHATASE 101 U/L (38-126); ANION GAP 7 (5-19); ASPARTATE AMINO TRANSFERASE 19 U/L (17-59); BILIRUBIN,DIRECT 0.1 mg/dL (0.0-0.4); BILIRUBIN,TOTAL 0.4 mg/dL (0.2-1.3); BLOOD UREA NITROGEN 8 mg/dL (7-20); CALCIUM 9.3 mg/dL (8.4-10.2); CARBON DIOXIDE 32 mmol/L (22-30); CHLORIDE 97 mmol/L (98-107); CREATINE KINASE 34 U/L (55-170); GLUCOSE 105 mg/dL (75-110)
[2019-02-12 11:25] LABS: CREATINE KINASE MB 1.94 ng/mL (<4.55)
[2019-02-12 11:27] LABS: TROPONIN I < 0.012 ng/mL
--- NOTE | 2019-02-12 14:29 | EKG REPORT ---
SEVERITY:- BORDERLINE ECG - SINUS RHYTHM BORDERLINE RIGHT AXIS DEVIATION BORDERLINE T ABNORMALITIES, ANT-LAT LEADS : Confirmed by: Lynn Merritt MD 12-Feb-2019 14:28:28
--- NOTE | 2019-02-12 16:01 | RADIOLOGY REPORT (SQ) ---
EXAM DESCRIPTION: CTA CHEST COMPLETED DATE/TIME: 02/12/2019 3:04 pm REASON FOR STUDY: sob/ cancer/ pneumonia history COMPARISON: 04/19/2018 TECHNIQUE: CT scan of the chest performed using helical scanning technique with dynamic intravenous contrast injection. Images reviewed with lung, soft tissue and bone windows. Reconstructed coronal and sagittal MPR images reviewed. Additional 3 dimensional post-processing performed to develop Maximal Intensity Projection images (MD P). All images stored on PACS. All CT scanners at this facility use dose modulation, iterative reconstruction, and/or weight based d osing when appropriate to reduce radiation dose to as low as reasonably achievable (ALARA). [facility]: Dose Right [facility]: CareDose [facility]: Dose Right [facility]: Teradose 4D [facility]: Hepregen CONTRAST TYPE AND DOSE: contrast/concentration: Isovue 350.00 mg/ml; Total Contrast Delivered: 53.0 ml; Total Saline Delivered: 70.0 ml Contrast bolus adequate for pulmonary arteries and aorta. RENAL FUNCTION: BUN 8 creatinine 0.5 RADIATION DOSE: CT Rad equipment meets quality standard of care and radiation dose reduction techniq ues were employed. CTDIvol: 9.9 - 19.4 mGy. DLP: 671 mGy-cm. . LIMITATIONS: None. FINDINGS: LUNGS AND PLEURA: Prior gastric pull-through procedure. Loculated left pleural effusion/e mpyema. Dense opacification in the left lower lobe medially. No pulmonary infiltrate. AORTA AND GREAT VESSELS: No aneurysm. No dissection. HEART: No pericardial effusion. Moderate to marked coronary artery calcifications. PULMONARY ARTERIES: No emboli visualized in the main pulmonary arteries or the segmental branches. HILAR AND MEDIASTINAL STRUCTURES: There are some small nonspecific mediastinal nodes. HARDWARE: None in the chest. UPPER ABDOMEN: No significant findings. Limited exam. THYROID AND OTHER SOFT TISSUES: No masses. No adenopathy. BONES: No acute or significant finding. 3D MIPS: Confirm above findings. OTHER: No other significant finding. IMPRESSION: 1. There is no pulmonary embolus. There is no aortic aneurysm or dissection. 2. There is dense opacification the medial left lower lobe: Atelectasis versus consolidation. 3. Loculated left pleural effusion/ empyema. There is a general decreased in fluid volume. COMMENT: Quality ID # [id number]: Final reports with documentation of one or more dose reduction techniques (e.g., Automated exposure control, adjustment of the mA and/or kV according to patient size, use of iterative reconstruction technique) TECHNICAL DOCUMENTATION: JOB ID: [id number] [email or web address]- All Rights Reserved Reading location - IP/workstation name: [email or web address]
[2019-02-12 16:13] LABS: APPEARANCE,URINE CLEAR; BILIRUBIN,URINE NEGATIVE (NEGATIVE); COLOR,URINE YELLOW; GLUCOSE, URINE NEGATIVE (NEGATIVE); KETONES,URINE TRACE mg/dL (NEGATIVE); LEUKOCYTE ESTERASE,URINE NEGATIVE (NEGATIVE); NITRITE,URINE NEGATIVE (NEGATIVE); PROTEIN,URINE NEGATIVE (NEGATIVE); URINE SPECIFIC GRAVITY 1.059
[2019-02-12] MEDS ORDERED: PIPERACILLIN/TAZOBACTAM 3.375 GM VIAL IV ONE (17:00)
[2019-02-12] MEDS ORDERED: GUAIFENESIN SYRP 200 MG/10 ML UDC PO PRN (18:50)
--- NOTE | 2019-02-12 19:13 | PDOC H&P ---
History of Present Illness Admission Date/PCP: 02/12/19 18:24 MICHAEL RUIZ MD Patient complains of: dyspnea History of Present Illness: NICOLE EDWARDS is a 68 year old male with a past medical history of esophageal cancer status post total esophagectomy approximately 1 year ago, SD status post stents x2, hypertension, hyperlipidemia, hypothyroidism, BPH, and depression who presented to the emergency department with a complaint of 3 weeks of progressiv jorge worsening dyspnea and nonproductive cough. Patient reports that over the last few weeks he is noted decreased ability to walk related to shortness of breath with more frequent pauses required. Today he noted dizziness and generalized weakness following ambulating 10 to 15 feet which prompted him to seek evaluation in emergency department. He reports that he has had a nonproductive cough, fatigue, and early satiety. He denies fever, chills, chest pain, abdominal pain, nausea vomiting and diarrhea. Evaluation in the emergency department demonstrated initial temperature of 94.6, borderline hypotension (100/79), persistent tachypnea (RR 38), and hypoxia on room air. CBC is unremarkable, chemistry reveals bicarb of 32, normal troponin, urinalysis negative for UTI, chest x-ray demonstrating bilateral small effusions with bibasilar subsegmental atelectasis and questionable cardiomegaly, chest CTA is negative for PE but does show a dense opacification of the medial left lower lobe with a loculated left pleural effusion/empyema. He is referred to the hospitalist service for admission and management of acute respiratory failure with hypoxia secondary to left lower lobe pneumonia. Past Medical History Cardiac Medical History: Reports: Coronary Artery Disease, Myocardial Infarction - 2006, cardiac cath x 2, total of 5 stents, Hyperlipidema, Hypertension Pulmonary Medical History: Reports: Other - DONTRELL Denies: Asthma, Bronchitis, Chronic Obstructive Pulmonary Disease (COPD), Pneumonia EENT Medical History: Reports: None Neurological Medical History: Denies: Ischemic CVA, Seizures Endocrine Medical History: Reports: Diabetes Mellitus Type 2 - Tight control Malignancy Medical History: Reports: None GI Medical History: Reports: Gastroesophageal Reflux Disease Denies: Cirrhosis, Crohn's Disease, Diverticulitis, Hepatitis, Hiatal Hernia, Ulcerative Colitis Musculoskeltal Medical History: Reports: Arthritis Skin Medical History: Reports: None Psychiatric Medical History: Reports: Depression Traumatic Medical History: Reports: None Hematology: Denies: Anemia Infectious Medical History: Reports: None Past Surgical History Past Surgical History: Reports: Herniorrhaphy - Bilateral, Other - Esophagectomy Denies: Pacemaker Social History Information Source: Patient Lives with: Family Smoking Status: Unknown if Ever Smoked Electronic Cigarette use?: No Frequency of Alcohol Use: Rare Hx Recreational Drug Use: No Hx Prescription Drug Abuse: No - Advance Directive Resuscitation Status: Full Code Surrogate healthcare decision maker:: The patient's . Family History Family History: CAD, COPD, DM Parental Family History Reviewed: Yes Children Family History Reviewed: Yes Sibling(s) Family History Reviewed.: Yes Medication/Allergy Home Medications: Aspirin [Ecotrin 81 mg EC Tablet] 81 mg PO DAILY 04/19/18 Atorvastatin Calcium [Lipitor 40 mg Tablet] 40 mg JT QHS 04/19/18 Citalopram Hydrobromide [Celexa 20 mg Tablet] 40 mg PO DAILY 04/19/18 Levothyroxine Sodium [Synthroid] 175 mcg PO Q6AM 04/19/18 Megestrol Acetate [Megace Es] 625 mg PO DAILY 04/19/18 Metoprolol Tartrate [Lopressor 25 mg Tablet] 25 mg JT DAILY 04/19/18 Ondansetron HCl [Zofran 8 mg Tablet] 8 mg PO .1HR PC CAR RIDES PRN 04/19/18 Zolpidem Tartrate [Ambien] 10 mg PO QHS 04/19/18 Aspirin [Ecotrin 81 mg EC Tablet] 81 mg PO DAILY tabec 05/02/18 Citalopram Hydrobromide [Celexa 20 mg Tablet] 20 mg PO Q12 tablet 05/02/18 Docusate Sodium [Colace 100 mg Capsule] 100 mg PO BID capsule 05/02/18 Furosemide [Lasix 20 mg Tablet] 20 mg PO DAILY tablet 05/02/18 Lansoprazole [Prevacid 30 mg Odt Tablet] 30 mg PO Q6AM tab.rap. 05/02/18 Levalbuterol HCl [Xopenex Neb 1.25 mg/3 ml Ampul] 1.25 mg NEB RTQ4HP PRN vial.neb 05/02/18 Levothyroxine Sodium [Synthroid 0.075 mg Tablet] 0.075 mg PO Q6AM tablet 05/02/18 Megestrol Acetate [Megace Daija 400 mg/10 ml Udcup] 800 mg PO DAILY udc 05/02/18 Metoprolol Succinate [Toprol Xl 25 mg Tab.sr] 25 mg PO DAILY tab.sr.24h 05/02/18 Tamsulosin HCl [Flomax 0.4 mg Cap.sr] 0.4 mg PO PCSUPPER cap.sr.24h 05/02/18 Venlafaxine HCl [Effexor 75 mg Tablet] 75 mg PO Q12 tablet 05/02/18 Zolpidem Tartrate [Ambien 5 mg Tablet] 10 mg PO QHS tablet 05/02/18 Allergies/Adverse Reactions: lisinopril Allergy (Severe, Verified 02/12/19 18:38) Edema Review of Systems Constitutional: PRESENT: anorexia, fatigue, weight loss. ABSENT: chills, fever(s), headache(s), weight gain Eyes: ABSENT: visual disturbances Ears: ABSENT: hearing changes Cardiovascular: PRESENT: dyspnea on exertion. ABSENT: chest pain, edema, orthropnea, palpitations Respiratory: PRESENT: cough, dyspnea. ABSENT: hemoptysis, sputum Gastrointestinal: ABSENT: abdominal pain, constipation, diarrhea, hematemesis, hematochezia, nausea, vomiting Genitourinary: ABSENT: dysuria, hematuria Musculoskeletal: ABSENT: joint swelling Integumentary: ABSENT: rash, wounds Neurological: PRESENT: dizziness. ABSENT: abnormal gait, abnormal speech, confusion, focal weakness, syncope Psychiatric: ABSENT: anxiety, depression, homidical ideation, suicidal ideation Endocrine: ABSENT: cold intolerance, heat intolerance, polydipsia, polyuria Hematologic/Lymphatic: ABSENT: easy bleeding, easy bruising Physical Exam Vital Signs: Temp Pulse Resp BP Pulse Ox 98.1 F 65 26 H 137/82 H 98 02/12/19 15:41 02/12/19 09:26 02/12/19 18:31 02/12/19 18:31 02/12/19 18:31 Intake & Output 02/11/19 02/12/19 02/13/19 06:59 06:59 06:59 Weight 68.7 kg General appearance: PRESENT: no acute distress, cooperative, mild distress, thin, well-developed, well-nourished Head exam: PRESENT: atraumatic, normocephalic Eye exam: PRESENT: conjunctiva pink, EOMI, PERRLA. ABSENT: scleral icterus Mouth exam: PRESENT: dry mucosa, tongue midline Neck exam: ABSENT: carotid bruit, JVD, lymphadenopathy, thyromegaly Respiratory exam: PRESENT: accessory muscle use, clear to auscultation bette, decreased breath sounds - Throughout, prolonged expiratory phas, symmetrical, tachypnea, other - Supplemental oxygen by nasal cannula. ABSENT: rales, rhonchi, wheezes Cardiovascular exam: PRESENT: RRR, +S1, +S2. ABSENT: diastolic murmur, rubs, systolic murmur Pulses: PRESENT: normal dorsalis pedis pul Vascular exam: PRESENT: normal capillary refill GI/Abdominal exam: PRESENT: normal bowel sounds, soft. ABSENT: distended, guarding, mass, organolmegaly, rebound, tenderness Rectal exam: PRESENT: deferred Extremities exam: PRESENT: full ROM. ABSENT: calf tenderness, clubbing, pedal edema Neurological exam: PRESENT: alert, awake, oriented to person, oriented to place, oriented to time, oriented to situation, CN II-XII grossly intact. ABSENT: motor sensory deficit Psychiatric exam: PRESENT: appropriate affect, normal mood. ABSENT: homicidal ideation, suicidal ideation Skin exam: PRESENT: dry, intact, warm. ABSENT: cyanosis, rash Results Laboratory Results: 02/12/19 10:35 02/12/19 10:35 02/12/19 02/12/19 02/12/19 10:25 10:35 10:35 WBC 4.8 RBC 4.72 Hgb 12.2 L Hct 38.1 MCV 81 MCH 25.8 L MCHC 31.9 L RDW 22.0 H Plt Count 299 Seg Neutrophils % 74.2 VBG pH VBG pCO2 VBG HCO3 VBG Base Excess Sodium 136.1 L Potassium 5.0 Chloride 97 L Carbon Dioxide 32 H Anion Gap 7 BUN 8 Creatinine 0.50 L Est GFR ( Amer) > 60 Glucose 105 Lactic Acid 1.7 Calcium 9.3 Total Bilirubin 0.4 AST 19 Alkaline Phosphatase 101 Total Protein 7.0 Albumin 3.5 Urine Color Urine Appearance Urine pH Ur Specific Gardiner Urine Protein Urine Glucose (UA) Urine Ketones Urine Blood Urine Nitrite Ur Leukocyte Esterase Urine WBC (Auto) Urine RBC (Auto) 02/12/19 02/12/19 10:35 15:35 WBC RBC Hgb Hct MCV MCH MCHC RDW Plt Count Seg Neutrophils % VBG pH 7.37 VBG pCO2 61.2 VBG HCO3 34.3 H VBG Base Excess 7.1 Sodium Potassium Chloride Carbon Dioxide Anion Gap BUN Creatinine Est GFR ( Amer) Glucose Lactic Acid Calcium Total Bilirubin AST Alkaline Phosphatase Total Protein Albumin Urine Color YELLOW Urine Appearance CLEAR Urine pH 6.0 Ur Specific Gardiner 1.059 Urine Protein NEGATIVE Urine Glucose (UA) NEGATIVE Urine Ketones TRACE H Urine Blood SMALL H Urine Nitrite NEGATIVE Ur Leukocyte Esterase NEGATIVE Urine WBC (Auto) 2 Urine RBC (Auto) 28 02/12/19 02/12/19 10:35 10:35 Creatine Kinase 34 L CK-MB (CK-2) 1.94 Troponin I < 0.012 Impressions: Chest/Abdomen CTA 02/12/19 10:46 IMPRESSION: 1. There is no pulmonary embolus. There is no aortic aneurysm or dissection. 2. There is dense opacification the medial left lower lobe: Atelectasis versus consolidation. 3. Loculated left pleural effusion/ empyema. There is a general decreased in fluid volume. Assessment and Plan - Diagnosis (1) Left lower lobe pneumonia Is this a current diagnosis for this admission?: Yes Plan: Blood cultures are pending. Sputum culture pending. ABG pending. Patient is admitted to [facility] on continuous cardiac telemetry and pulse oximetry. Continue supplemental oxygen as needed to maintain saturations greater than 89%. Consider high flow or BiPAP support as indicated following ABG results. Scheduled and as needed nebulizer treatments. He is empirically placed on IV Rocephin and azithromycin for treatment of community-acquired pneumonia. Mucinex twice daily. Encourage pulmonary toilet. (2) Acute respiratory failure with hypoxia Is this a current diagnosis for this admission?: Yes Plan: Secondary to #1. Additionally, will provide IV Solu-Medrol 125 mg x 1 as patient reports that he recently saw a shed hand who discussed starting pulmonary rehabilitation for restrictive lung disease. He reports that he was placed on an oral at that time but without improvement in his symptoms. Patient denies prior formal diagnosis of COPD. If patient demonstrates improvement; consider continuing steroid therapy. Consider pulmonology consultation. (3) Pleural effusion Is this a current diagnosis for this admission?: Yes Plan: Repeat chest imaging tomorrow morning. Consider thoracentesis. Echocardiogram pending. (4) History of esophagectomy Is this a current diagnosis for this admission?: Yes Plan: Soft diet. Consider Reglan for gastroparesis. Discussed with Dr. Callejas and Dr. Holland; may utilize BiPAP if indicated. - Time Time Spent with patient: 35 or more minutes Medications reviewed and adjusted accordingly: Yes Anticipated discharge: Home with Homehealth - Inpatient Certification Based on my medical assessment, after consideration of the patient's comorbidities, presenting symptoms, or acuity I expect that the services needed warrant INPATIENT care.: Yes I certify that my determination is in accordance with my understanding of Medicare's requirements for reasonable and necessary INPATIENT services [42 CFR 412.3e].: Yes Medical Necessity: Failure to Improve With Outpatient Therapy, Need Close Monitoring Due to Risk of Patient Decompensation, Need For IV Fluids, Need for IV Antibiotics, Risk of Diagnosis Which Will Require Inpatient Eval/Care/Monitoring
[2019-02-12] MEDS ORDERED: METHYLPREDNISOLONE INJ 125 MG/2 ML SDV IV ONE (20:00)
[2019-02-12] MEDS: GUAIFENESIN 600 MG TABLET.SA PO SCH (21:33)
[2019-02-12] MEDS: FAMOTIDINE 20 MG TABLET PO SCH (21:33)
[2019-02-12 21:35] LABS: ARTERIAL BLOOD BASE EXCESS 5.9 mmol/L; ARTERIAL BLOOD PCO2 53.1 mmHg (35-45); ARTERIAL BLOOD PO2 111.4 mmHg (80-100); ARTERIAL BLOOD TOTAL CO2 33.6 mmol/L (23-27)
[2019-02-12 21:37] LABS: ARTERIAL BLOOD FIO2 28%
[2019-02-12] MEDS ORDERED: NA PHOS,M-B/NA PHOS,DI-BA (ADULT) 133 ML ENEMA PR ONE (22:00)
[2019-02-12] MEDS ORDERED: LACTULOSE SYRUP 20 GM/30 ML UDCUP PO ONE (22:00)
[2019-02-12] MEDS: AZITHROMYCIN 500 MG in DEXTROSE 5%-WATER 250 ML IV SCH (22:37)
[2019-02-12] MEDS: HEPARIN SOD (PORCINE) 5,000 UNIT/ML 1 ML VIAL SUBCUT SCH (22:38)
[2019-02-13] MEDS: IPRATROPIUM/ALBUTEROL 0.5-2.5 MG/3 ML AMPUL NEB SCH ×3 (00:30→15:56)
[2019-02-13 05:05] LABS: ABSOLUTE LYMPHOCYTES (AUTO) 0.2 10^3/uL (0.5-4.7); ABSOLUTE NEUT (AUTO) 3.3 10^3/uL (1.7-8.2); BASOPHILS % (AUTO) 0.2 % (0-2); EOSINOPHILS % (AUTO) 0.1 % (0-6); HEMATOCRIT 39.2 % (37.9-51.0); HEMOGLOBIN 12.5 g/dL (13.5-17.0); LYMPHOCYTES % (AUTO) 5.6 % (13-45); MEAN CORPUSCULAR HEMOGLOBIN 25.7 pg (27.0-33.4); MEAN CORPUSCULAR HGB CONC 31.8 g/dL (32.0-36.0); MEAN CORPUSCULAR VOLUME 81 fl (80-97); MONOCYTES % (AUTO) 0.9 % (3-13); PLATELET COUNT 262 10^3/uL (150-450); RED BLOOD COUNT 4.86 10^6/uL (4.35-5.55); RED CELL DISTRIBUTION WIDTH 21.7 % (11.5-14.0); SEGMENTED NEUTROPHILS % (AUTO) 93.2 % (42-78); TOTAL CELLS COUNTED % (AUTO) 100 %; WHITE BLOOD COUNT 3.6 10^3/uL (4.0-10.5)
[2019-02-13 05:32] LABS: ANION GAP 8 (5-19); BLOOD UREA NITROGEN 7 mg/dL (7-20); CALCIUM 9.2 mg/dL (8.4-10.2); CARBON DIOXIDE 29 mmol/L (22-30); CHLORIDE 102 mmol/L (98-107); GLUCOSE 144 mg/dL (75-110); POTASSIUM 4.4 mmol/L (3.6-5.0)
[2019-02-13] MEDS: HEPARIN SOD (PORCINE) 5,000 UNIT/ML 1 ML VIAL SUBCUT SCH ×3 (06:05→21:38)
[2019-02-13] MEDS: NORMAL SALINE 1000 ML 1,000 ML IV PRN ×2 (08:15→18:24)
[2019-02-13] MEDS: FAMOTIDINE 20 MG TABLET PO SCH ×2 (09:50→21:38)
[2019-02-13] MEDS: GUAIFENESIN 600 MG TABLET.SA PO SCH ×2 (09:50→21:37)
[2019-02-13] MEDS: CEFTRIAXONE 1 GM/D5W RTU 1 GM/50 ML RTUPB IV SCH (09:51)
--- NOTE | 2019-02-13 17:58 | PDOC PROGRESS REPORT ---
Subjective Progress Note for:: 02/13/19 Subjective:: NICOLE EDWARDS is a 68 year old male with a past medical history of esophageal cancer status post total esophagectomy approximately 1 year ago, SC status post stents x2, hypertension, hyperlipidemia, hypothyroidism, BPH, and depression who was admitted 02/12/2019 for a left lower lobe pneumonia. He was seen on evening rounds. He was found resting in bed comfortably on supplemental oxygen via nasal cannula at 2 L/min. He is not home O2 dependent. He does report that he is feeling better today, however is noted to have continued tachypnea. He is no longer having retractions or accessory muscle use. He is speaking full sentences at this time. He reports that he sees a gas station operator expelled would be interested in seeing someone in [place] if available. We will arrange for the patient to be seen by Dr. Ware. He denies fever, chills, chest pain, palpitations, orthopnea, abdominal pain, nausea vomiting diarrhea. He has no new questions or concerns at this time. Nursing reports bile leakage from PEG tube site (his PEG removed approximately 1 year ago). No other concerns at this time. Reason For Visit: ACUTE RESPIRATORY FAILURE WITH HYPOXIA Physical Exam Vital Signs: Temp Pulse Resp BP Pulse Ox 98.1 F 83 16 107/55 L 100 02/13/19 16:13 02/13/19 16:13 02/13/19 16:13 02/13/19 16:13 02/13/19 16:13 Pulse Oximeter Continuous Start: 02/12/19 18:51 Freq: RTQ4 Status: Active Protocol: Document 02/13/19 15:58 LDA (Rec: 02/13/19 15:59 LDA [id number]) Pulse Oximetry Assessment Equipment Usage Equipment Standby Continuous SpO2 Machine # [id number] Intake & Output 02/12/19 02/13/19 02/14/19 06:59 06:59 06:59 Intake Total 1200 Output Total 375 Balance 825 Weight 69.1 kg General appearance: PRESENT: no acute distress, cooperative, well-developed, well-nourished Head exam: PRESENT: atraumatic, normocephalic Eye exam: PRESENT: conjunctiva pink, EOMI, PERRLA. ABSENT: scleral icterus Ear exam: PRESENT: normal external ear exam Mouth exam: PRESENT: dry mucosa, tongue midline Respiratory exam: PRESENT: clear to auscultation bette, decreased breath sounds - Left base, symmetrical, tachypnea, unlabored, other - Supplemental oxygen by nasal cannula. ABSENT: rales, rhonchi, wheezes Cardiovascular exam: PRESENT: RRR, +S1, +S2. ABSENT: diastolic murmur, rubs, systolic murmur Pulses: PRESENT: normal dorsalis pedis pul Vascular exam: PRESENT: normal capillary refill GI/Abdominal exam: PRESENT: normal bowel sounds, soft, other - Slight leakage from old PEG site. ABSENT: distended, guarding, mass, organolmegaly, rebound, tenderness Rectal exam: PRESENT: deferred Extremities exam: PRESENT: full ROM. ABSENT: calf tenderness, clubbing, pedal edema Neurological exam: PRESENT: alert, awake, oriented to person, oriented to place, oriented to time, oriented to situation, CN II-XII grossly intact. ABSENT: motor sensory deficit Psychiatric exam: PRESENT: appropriate affect, normal mood. ABSENT: homicidal ideation, suicidal ideation Skin exam: PRESENT: dry, intact, warm. ABSENT: cyanosis, rash Results Laboratory Results: 02/13/19 04:26 02/13/19 04:26 02/12/19 02/12/19 02/13/19 19:28 21:15 04:26 WBC 3.6 L RBC 4.86 Hgb 12.5 L Hct 39.2 MCV 81 MCH 25.7 L MCHC 31.8 L RDW 21.7 H Plt Count 262 Seg Neutrophils % 93.2 H Carbonic Acid Cancelled 1.60 H HCO3/H2CO3 Ratio Cancelled 20:1 ABG pH Cancelled 7.40 ABG pCO2 Cancelled 53.1 H ABG pO2 Cancelled 111.4 H ABG HCO3 Cancelled 32.0 H ABG O2 Saturation Cancelled 98.0 ABG Base Excess Cancelled 5.9 FiO2 Cancelled 28% Sodium Potassium Chloride Carbon Dioxide Anion Gap BUN Creatinine Est GFR ( Amer) Glucose Calcium 02/13/19 04:26 WBC RBC Hgb Hct MCV MCH MCHC RDW Plt Count Seg Neutrophils % Carbonic Acid HCO3/H2CO3 Ratio ABG pH ABG pCO2 ABG pO2 ABG HCO3 ABG O2 Saturation ABG Base Excess FiO2 Sodium 139.2 Potassium 4.4 Chloride 102 Carbon Dioxide 29 Anion Gap 8 BUN 7 Creatinine 0.37 L Est GFR ( Amer) > 60 Glucose 144 H Calcium 9.2 02/12/19 02/12/19 02/12/19 10:35 10:35 10:35 Creatine Kinase 34 L CK-MB (CK-2) 1.94 Troponin I < 0.012 NT-Pro-B Natriuret Pep 92 Impressions: Chest/Abdomen CTA 02/12/19 10:46 IMPRESSION: 1. There is no pulmonary embolus. There is no aortic aneurysm or dissection. 2. There is dense opacification the medial left lower lobe: Atelectasis versus consolidation. 3. Loculated left pleural effusion/ empyema. There is a general decreased in fluid volume. Assessment and Plan - Diagnosis (1) Left lower lobe pneumonia Is this a current diagnosis for this admission?: Yes Plan: Blood cultures are negative at 24 hours Sputum culture pending. ABG revealed compensated respiratory acidosis with hypercapnia and hypoxia Patient is admitted to [facility] on continuous cardiac telemetry and pulse oximetry. Continue supplemental oxygen as needed to maintain saturations greater than 89%. BiPAP as needed. Scheduled and as needed nebulizer treatments. He is empirically placed on IV Rocephin and azithromycin for treatment of community-acquired pneumonia. Mucinex twice daily. Encourage pulmonary toilet. Consider pulmonology consultation; certainly will set up with outpatient follow- up appointment. Patient would benefit from pulmonary rehabilitation. (2) Acute respiratory failure with hypoxia Is this a current diagnosis for this admission?: Yes Plan: Secondary to #1. Patient denies prior formal diagnosis of COPD. However, recent evaluation by gas station operator included discussion regarding restrictive lung disease. Had been referred to pulmonary rehabilitation but had not yet been seen. Start p.o. prednisone. Consider pulmonology consultation. Any management as above. (3) Pleural effusion Is this a current diagnosis for this admission?: Yes Plan: Loculated effusion noted on chest imaging. Likely secondary to left lower lobe pneumonia. Some concern for malignancy. We will rule out CHF with echocardiogram. Consider thoracentesis; will discuss with interventional radiology tomorrow.. (4) History of esophagectomy Is this a current diagnosis for this admission?: Yes Plan: Soft diet. Consider Reglan for gastroparesis. Discussed with Dr. Callejas and Dr. Holland; may utilize BiPAP if indicated. (5) Status post insertion of percutaneous endoscopic gastrostomy (PEG) tube Is this a current diagnosis for this admission?: Yes Plan: Removed approximately 1 year ago; now with slight leakage especially following meals. We will ask nursing to provide skin barrier cream. - Time Time Spent with patient: 25-34 minutes Medications reviewed and adjusted accordingly: Yes Anticipated discharge: Home with Homehealth
[2019-02-13] MEDS: FERROUS SULFATE 325 MG TABLET PO SCH (18:24)
[2019-02-13] MEDS: CITALOPRAM HYDROBROMIDE 20 MG TABLET PO SCH (18:24)
[2019-02-13] MEDS: PREDNISONE 20 MG TABLET PO SCH (18:28)
[2019-02-13] MEDS: AZITHROMYCIN 500 MG in DEXTROSE 5%-WATER 250 ML IV SCH (21:37)
[2019-02-13] MEDS: ATORVASTATIN CALCIUM 40 MG TABLET PO SCH (21:38)
[2019-02-14] MEDS: IPRATROPIUM/ALBUTEROL 0.5-2.5 MG/3 ML AMPUL NEB SCH ×3 (00:19→16:32)
--- NOTE | 2019-02-14 00:56 | XCELERA REPORT ---
[address] [address] Transthoracic Echocardiogram Report Name: NICOLE EDWARDS Age: 68 yrs Gender: Male : 1950 Patient Status: Inpatient Patient Location: [place] [address]^A Study Date: 02/12/2019 08:25 PM Height: 70 in Weight: 151 lb BSA: 1.9 m2 Procedure: A two-dimensional transthoracic echocardiogram with color flow and Doppler was performed. Study Quality: Poor. The study was technically difficult with many images being suboptimal in quality. Reason For Study: dyspnea, hypoxia, recurrent pleural effusion History: dyspnea, hypoxia, recurrent pleural effusion. Ordering Physician: YESSICA^^^ASSISTANT PROFESSOR OF GERMAN-C Performed By: Yana Palumbo Interpretation Summary The left ventricle is normal in size. There is normal left ventricular wall thickness. LV EF is 60% Left ventricular systolic function is normal. Doppler measurements suggest impaired left ventricular relaxation, which is associated with grade I/IV or mild diastolic dysfunction The left ventricular wall motion is normal. There is no thrombus. Cannot assess ASD,VSD , or PFO. There is no evidence of mitral valve prolapse. There is no vegetation seen on the mitral valve. There is no mitral valve stenosis. There is a trace amount of mitral regurgitation There is no aortic valvular vegetation. There is aortic sclerosis without aortic stenosis. There is no LVOT obstruction. No aortic regurgitation is present. There is no tricuspid stenosis. There is a trace amount of tricuspid regurgitation Tricuspid regurgitation jet envelope not well defined to measure RV systolic pressure accurately. There is no pulmonic valvular stenosis. There is no pulmonic valvular regurgitation. The aortic root is not well visualized but is probably normal size. There is no pericardial effusion. MMode/2D Measurements & Calculations RVDd: 2.4 cm LVIDd: 4.7 cm FS: 29.8 % Ao root diam: 3.6 cm IVSd: 1.1 cm LVIDs: 3.3 cm EDV(Teich): 104.5 ml Ao root area: 10.1 cm2 LVPWd: 0.96 cm ESV(Teich): 45.0 ml LA dimension: 3.0 cm EF(Teich): 56.9 % Doppler Measurements & Calculations MV E max janna: MV P1/2t max janna: Ao V2 max: LV V1 max P.5 cm/sec 86.1 cm/sec 89.5 cm/sec 1.4 mmHg MV A max janna: MV P1/2t: 48.5 msec Ao max PG: LV V1 max: 94.8 cm/sec MVA(P1/2t): 4.5 cm2 3.2 mmHg 59.2 cm/sec MV E/A: 0.82 MV dec slope: 520.3 cm/sec2 MV dec time: 0.19 sec PA V2 max: MV P1/2t-pr_phl: 74.5 cm/sec 48.5 msec PA max P.2 mmHg Left Ventricle The left ventricle is normal in size. There is normal left ventricular wall thickness. LV EF is 60%. Left ventricular systolic function is normal. Doppler measurements suggest impaired left ventricular relaxation, which is associated with grade I/IV or mild diastolic dysfunction. The left ventricular wall motion is normal. There is no thrombus. Cannot assess ASD,VSD , or PFO. Right Ventricle The right ventricle is not well visualized secondary to technical limitations. Atria The right atrium is normal. The left atrial size is normal. Mitral Valve There is no evidence of mitral valve prolapse. There is no vegetation seen on the mitral valve. There is no mitral valve stenosis. There is a trace amount of mitral regurgitation. Aortic Valve There is no aortic valvular vegetation. There is aortic sclerosis without aortic stenosis. There is no LVOT obstruction. No aortic regurgitation is present. Tricuspid Valve There is no tricuspid stenosis. There is a trace amount of tricuspid regurgitation. Tricuspid regurgitation jet envelope not well defined to measure RV systolic pressure accurately. Pulmonic Valve There is no pulmonic valvular stenosis. There is no pulmonic valvular regurgitation. Great Vessels The aortic root is not well visualized but is probably normal size. The inferior vena cava was not visualized. Effusions There is no pericardial effusion. : MARY^ELVIE^^^ASSISTANT PROFESSOR [employer] GERMAN-C [place]
[2019-02-14 04:51] LABS: HEMATOCRIT 34.9 % (37.9-51.0); HEMOGLOBIN 11.1 g/dL (13.5-17.0); MEAN CORPUSCULAR HEMOGLOBIN 25.8 pg (27.0-33.4); MEAN CORPUSCULAR HGB CONC 31.8 g/dL (32.0-36.0); MEAN CORPUSCULAR VOLUME 81 fl (80-97); PLATELET COUNT 224 10^3/uL (150-450); RED BLOOD COUNT 4.29 10^6/uL (4.35-5.55); RED CELL DISTRIBUTION WIDTH 21.8 % (11.5-14.0); WHITE BLOOD COUNT 5.1 10^3/uL (4.0-10.5)
[2019-02-14 05:11] LABS: BLOOD UREA NITROGEN 7 mg/dL (7-20); CALCIUM 8.7 mg/dL (8.4-10.2); CHLORIDE 105 mmol/L (98-107); GLUCOSE 144 mg/dL (75-110); POTASSIUM 4.1 mmol/L (3.6-5.0)
[2019-02-14 05:17] LABS: ANION GAP 5 (5-19); CARBON DIOXIDE 31 mmol/L (22-30)
[2019-02-14] MEDS: LEVOTHYROXINE SODIUM 0.075 MG TABLET PO SCH (05:56)
[2019-02-14] MEDS: HEPARIN SOD (PORCINE) 5,000 UNIT/ML 1 ML VIAL SUBCUT SCH ×3 (05:56→22:09)
[2019-02-14] MEDS: NORMAL SALINE 1000 ML 1,000 ML IV PRN ×2 (05:57→20:54)
[2019-02-14] MEDS: ACETAMINOPHEN 325 MG TABLET PO PRN (06:04)
[2019-02-14 09:10] LABS: PARTIAL THROMBOPLASTIN TIME 31.6 SEC (23.5-35.8); PROTHROMBIN TIME 14.3 SEC (11.4-15.4)
[2019-02-14] MEDS: CITALOPRAM HYDROBROMIDE 20 MG TABLET PO SCH ×2 (09:26→18:04)
[2019-02-14] MEDS: FAMOTIDINE 20 MG TABLET PO SCH ×2 (09:26→22:06)
[2019-02-14] MEDS: PREDNISONE 20 MG TABLET PO SCH (09:26)
[2019-02-14] MEDS: CEFTRIAXONE 1 GM/D5W RTU 1 GM/50 ML RTUPB IV SCH (09:26)
[2019-02-14] MEDS: ASPIRIN 81 MG TABLET, ENT COATED PO SCH (09:26)
[2019-02-14] MEDS: GUAIFENESIN 600 MG TABLET.SA PO SCH ×2 (09:26→22:06)
[2019-02-14] MEDS: METOPROLOL TARTRATE 25 MG TABLET PO SCH (09:26)
--- NOTE | 2019-02-14 15:37 | RADIOLOGY REPORT (SQ) ---
EXAM DESCRIPTION: CHEST SINGLE VIEW COMPLETED DATE/TIME: 02/14/2019 3:06 pm REASON FOR STUDY: S/P LT THORACENTESIS COMPARISON: CT angio chest 02/12/2019 EXAM PARAMETERS: NUMBER OF VIEWS: One view. TECHNIQUE: Single frontal radiographic view of the chest acquired. RADIATION DOSE: NA LIMITATIONS: None. FINDINGS: LUNGS AND PLEURA: Immediate post thoracentesis film, post diagnostic tap left posterior pl eural space to rule out empyema. No left pneumothorax. Chronic volume loss with air bronchograms in the medial left lower lobe. This is similar compared to CT chest 02/12/2019. Right lung grossly clear. No right pleural effusion or pneumothorax. MEDIASTINUM AND HILAR STRUCTURES: No masses. Contour normal. HEART AND VASCULAR STRUCTURES: Heart normal in size. Normal vasculature. BONES: No acute findings. HARDWARE: Left-sided permanent central line tip superior vena cava OTHER: No other significant finding. IMPRESSION: No pneumothorax immediately post diagnostic left thoracentesis. TECHNICAL DOCUMENTATION: JOB ID: [id number] [employer]- All Rights Reserved Reading location - IP/workstation name: [email or web address]
[2019-02-14 15:57] LABS: FLUID TYPE PLEURAL
[2019-02-14 15:58] LABS: FLUID APPEARANCE CLOUDY; FLUID COLOR YELLOW; FLUID SOURCE LUNG
[2019-02-14 15:59] LABS: FLUID VISCOSITY LIQUID
--- NOTE | 2019-02-14 16:58 | RADIOLOGY REPORT (SQ) ---
EXAM DESCRIPTION: U/S THORACENTESIS WITH IMAGING COMPLETED DATE/TIME: 02/14/2019 3:42 pm REASON FOR STUDY: LOCULATED EFFUSION COMPARISON: CT chest 02/12/2019, 04/19/2018 LIMITATIONS: None. PROCEDURE: Procedure, risks, benefit, and alternative explained to patient who then gave written con sent. The posterior left chest wall was marked using ultrasound guidance. A time-out was called for correct marking verification. Chest prepped and draped using sterile technique. Local anesthesia ac hieved using 7 ml of 1% lidocaine injection. A 5fr needle/catheter set was introduced into the left pleural space. Fluid was aspirated. The needle was removed and the entry site was covered with ster ile bandage. No immediate complications noted. No pneumothorax on post procedure chest film dictated separately Images acquired during the procedure were stored on PACS. FINDINGS: ENTRY SITE: Left posterior pleural space FLUID VOLUME: 60 mL aspirated, cloudy yellow fluid FLUID ANALYSIS: Sent for testing IMPRESSION: SUCCESSFUL THORACENTESIS OF A CHRONIC LOCULATED LEFT PLEURAL EFFUSION USING ULTRASOUND Al VALLEJO. COMMENT: Patient medication list reviewed: Yes- Quality ID# [id number]:Eligible professional attests to doc umenting in the medical record they obtained, updated, or reviewed the patient's current medications. TECHNICAL DOCUMENTATION: JOB ID: [id number] [employer]- All Rights Reserved Reading location - IP/workstation name: [email or web address]
[2019-02-14] MEDS: FERROUS SULFATE 325 MG TABLET PO SCH (18:04)
--- NOTE | 2019-02-14 18:26 | RADIOLOGY REPORT (SQ) ---
EXAM DESCRIPTION: CHEST SINGLE VIEW COMPLETED DATE/TIME: 02/14/2019 5:27 pm REASON FOR STUDY: S/P LT THORACENTESIS- 2 HOUR FILM COMPARISON: 02/14/2019 EXAM PARAMETERS: NUMBER OF VIEWS: One view. TECHNIQUE: Single frontal radiographic view of the chest acquired. RADIATION DOSE: NA LIMITATIONS: None. FINDINGS: LUNGS AND PLEURA: Residual left pleural effusion. No pneumothorax. Retrocardiac opacific ation. MEDIASTINUM AND HILAR STRUCTURES: No masses. Contour normal. HEART AND VASCULAR STRUCTURES: Heart normal in size. Normal vasculature. BONES: No acute findings. HARDWARE: Injection port on the left. OTHER: No other significant finding. IMPRESSION: No pneumothorax status post thoracentesis. Airspace disease in the left lower lobe, ate lectasis likely. TECHNICAL DOCUMENTATION: JOB ID: [id number]- All Rights Reserved Reading location - IP/workstation name: [email or web address]
--- NOTE | 2019-02-14 18:52 | RADIOLOGY REPORT (SQ) ---
EXAM DESCRIPTION: CHEST SINGLE VIEW COMPLETED DATE/TIME: 02/14/2019 6:31 pm REASON FOR STUDY: DIFFICULTY BREATHING COMPARISON: 02/14/2019 EXAM PARAMETERS: NUMBER OF VIEWS: One view. TECHNIQUE: Single frontal radiographic view of the chest acquired. RADIATION DOSE: NA LIMITATIONS: None. FINDINGS: LUNGS AND PLEURA: Marked retrocardiac opacification on the left. Small pleural effusions. MEDIASTINUM AND HILAR STRUCTURES: No masses. Contour normal. HEART AND VASCULAR STRUCTURES: Heart normal in size. Normal vasculature. BONES: No acute findings. HARDWARE: Injection port. OTHER: No other significant finding. IMPRESSION: There is marked retrocardiac opacification on the left suggesting atelectasis in the lef t lower lobe. TECHNICAL DOCUMENTATION: JOB ID: [id number] [employer]- All Rights Reserved Reading location - IP/workstation name: [email or web address]
--- NOTE | 2019-02-14 19:23 | PDOC PROGRESS REPORT ---
Subjective Progress Note for:: 02/14/19 Reason For Visit: ACUTE RESPIRATORY FAILURE WITH HYPOXIA Physical Exam Vital Signs: Temp Pulse Resp BP Pulse Ox 97.6 F 80 18 97/50 L 100 02/14/19 17:27 02/14/19 17:27 02/14/19 17:27 02/14/19 17:27 02/14/19 17:27 Pulse Oximeter Continuous Start: 02/12/19 18:51 Freq: RTQ4 Status: Active Protocol: Document 02/14/19 13:10 [facility] (Rec: 02/14/19 13:12 [facility] [id number]) Pulse Oximetry Assessment Oxygen Saturation (92-100) 100 Oxygen Flow Rate (L/min) 1.5 Oxygen Delivery Method Nasal Cannula Fraction of Inspired Oxygen (FIO2) 26 Equipment Usage Equipment in Use Continuous SpO2 Machine # [id number] Intake & Output 02/13/19 02/14/19 02/15/19 06:59 06:59 06:59 Intake Total 1450 3150 1640 Output Total 375 350 Balance 1075 2800 1640 Weight 69.1 kg 69 kg Results Laboratory Results: 02/14/19 04:31 02/14/19 04:31 02/14/19 02/14/19 02/14/19 04:31 04:31 04:31 WBC 5.1 RBC 4.29 L Hgb 11.1 L Hct 34.9 L MCV 81 MCH 25.8 L MCHC 31.8 L RDW 21.8 H Plt Count 224 Sodium 140.6 Potassium 4.1 Chloride 105 Carbon Dioxide 31 H Anion Gap 5 BUN 7 Creatinine 0.43 L Est GFR ( Amer) > 60 Glucose 144 H Calcium 8.7 Total Protein 6.1 L Fluid Type Fluid Source Fluid Color Fluid Appearance Fluid Viscosity Fluid WBC Fluid RBC 02/14/19 14:39 WBC RBC Hgb Hct MCV MCH MCHC RDW Plt Count Sodium Potassium Chloride Carbon Dioxide Anion Gap BUN Creatinine Est GFR ( Amer) Glucose Calcium Total Protein Fluid Type PLEURAL Fluid Source LUNG Fluid Color YELLOW Fluid Appearance CLOUDY Fluid Viscosity LIQUID Fluid WBC 6 Fluid RBC 5475 02/12/19 02/12/19 02/12/19 10:35 10:35 10:35 Creatine Kinase 34 L CK-MB (CK-2) 1.94 Troponin I < 0.012 NT-Pro-B Natriuret Pep 92 Impressions: Chest/Abdomen CTA 02/12/19 10:46 IMPRESSION: 1. There is no pulmonary embolus. There is no aortic aneurysm or dissection. 2. There is dense opacification the medial left lower lobe: Atelectasis versus consolidation. 3. Loculated left pleural effusion/ empyema. There is a general decreased in fluid volume. Thoracentesis Ultrasound 02/14/19 00:00 IMPRESSION: SUCCESSFUL THORACENTESIS OF A CHRONIC LOCULATED LEFT PLEURAL EFFUSION USING ULTRASOUND GUIDANCE. Chest X-Ray 02/14/19 17:59 IMPRESSION: There is marked retrocardiac opacification on the left suggesting atelectasis in the left lower lobe. Assessment and Plan - Diagnosis (1) Left lower lobe pneumonia Is this a current diagnosis for this admission?: Yes Plan: Blood cultures are negative at 48 hours Sputum culture pending. ABG revealed compensated respiratory acidosis with hypercapnia and hypoxia Patient is admitted to [facility] on continuous cardiac telemetry and pulse oximetry. Continue supplemental oxygen as needed to maintain saturations greater than 89%. BiPAP as needed. Scheduled and as needed nebulizer treatments. He is empirically placed on IV Rocephin and azithromycin for treatment of community-acquired pneumonia. Mucinex twice daily. Encourage pulmonary toilet. Consider pulmonology consultation; certainly will set up with outpatient follow- up appointment. Patient would benefit from pulmonary rehabilitation. (2) Acute respiratory failure with hypoxia Is this a current diagnosis for this admission?: Yes Plan: Secondary to #1. Patient denies prior formal diagnosis of COPD. However, recent evaluation by pu lmonologist included discussion regarding restrictive lung disease. Had been referred to pulmonary rehabilitation but had not yet been seen. Continue p.o. prednisone. Consider pulmonology consultation. Aggressive pulmonary toilet Remaining management as above. (3) Pleural effusion Is this a current diagnosis for this admission?: Yes Plan: Loculated effusion noted on chest imaging. Status post thoracentesis today; fluid sent for testing. Cultures and cytology pending. Echocardiogram revealed LVEF 60%, mild diastolic dysfunction, no pericardial effusion Likely secondary to left lower lobe pneumonia. Some concern for malignancy. Cultures and antibiotics as above. Remaining management as above. (4) History of esophagectomy Is this a current diagnosis for this admission?: Yes Plan: Soft diet. Consider Reglan for gastroparesis. Discussed with Dr. Callejas and Dr. Holland; may utilize BiPAP if indicated. (5) Status post insertion of percutaneous endoscopic gastrostomy (PEG) tube Is this a current diagnosis for this admission?: Yes Plan: Removed approximately 1 year ago; now with slight leakage especially following meals. We will ask nursing to provide skin barrier cream. (6) HTN (hypertension) Is this a current diagnosis for this admission?: Yes Plan: Blood pressures are overall acceptable. Continue home dose metoprolol. Cardiac diet. (7) HLD (hyperlipidemia) Is this a current diagnosis for this admission?: Yes Plan: Cardiac diet. Home dose atorvastatin. (8) Hypothyroidism Is this a current diagnosis for this admission?: Yes Plan: Continue home dose synthroid. - Time Time Spent with patient: 25-34 minutes Medications reviewed and adjusted accordingly: Yes Anticipated discharge: Home with Homehealth Within: within 72 hours
[2019-02-14] MEDS: AZITHROMYCIN 250 MG TABLET PO SCH (22:06)
[2019-02-14] MEDS: ATORVASTATIN CALCIUM 40 MG TABLET PO SCH (22:06)
[2019-02-15] MEDS: IPRATROPIUM/ALBUTEROL 0.5-2.5 MG/3 ML AMPUL NEB SCH ×4 (00:14→23:58)
[2019-02-15 04:24] LABS: HEMOGLOBIN 10.9 g/dL (13.5-17.0); MEAN CORPUSCULAR HEMOGLOBIN 25.9 pg (27.0-33.4); MEAN CORPUSCULAR VOLUME 81 fl (80-97); PLATELET COUNT 220 10^3/uL (150-450); RED BLOOD COUNT 4.21 10^6/uL (4.35-5.55)
[2019-02-15 04:43] LABS: BLOOD UREA NITROGEN 11 mg/dL (7-20); CALCIUM 8.7 mg/dL (8.4-10.2); GLUCOSE 103 mg/dL (75-110); POTASSIUM 3.8 mmol/L (3.6-5.0)
[2019-02-15 04:49] LABS: CARBON DIOXIDE 33 mmol/L (22-30); CHLORIDE 104 mmol/L (98-107)
[2019-02-15 04:52] LABS: ANION GAP 3 (5-19)
[2019-02-15] MEDS: HEPARIN SOD (PORCINE) 5,000 UNIT/ML 1 ML VIAL SUBCUT SCH ×3 (05:57→22:11)
[2019-02-15] MEDS: NORMAL SALINE 1000 ML 1,000 ML IV PRN ×2 (05:57→14:16)
[2019-02-15] MEDS: LEVOTHYROXINE SODIUM 0.075 MG TABLET PO SCH (05:57)
[2019-02-15] MEDS: METOPROLOL TARTRATE 25 MG TABLET PO SCH (08:19)
[2019-02-15] MEDS: FAMOTIDINE 20 MG TABLET PO SCH ×2 (09:26→22:11)
[2019-02-15] MEDS: PREDNISONE 20 MG TABLET PO SCH (09:26)
[2019-02-15] MEDS: GUAIFENESIN 600 MG TABLET.SA PO SCH ×2 (09:27→22:11)
[2019-02-15] MEDS: CITALOPRAM HYDROBROMIDE 20 MG TABLET PO SCH ×2 (09:27→17:08)
[2019-02-15] MEDS: ASPIRIN 81 MG TABLET, ENT COATED PO SCH (09:27)
[2019-02-15] MEDS: CEFTRIAXONE 1 GM/D5W RTU 1 GM/50 ML RTUPB IV SCH (10:15)
[2019-02-15] MEDS: FERROUS SULFATE 325 MG TABLET PO SCH (17:08)
--- NOTE | 2019-02-15 18:50 | PDOC PROGRESS REPORT ---
Subjective Progress Note for:: 02/15/19 Subjective:: NICOLE EDWARDS is a 68 year old male with a past medical history of esophageal cancer status post total esophagectomy approximately 1 year ago, [place] status post stents x2, hypertension, hyperlipidemia, hypothyroidism, BPH, and depression who was admitted 02/12/2019 for a left lower lobe pneumonia. He was seen on morning rounds. He was found resting in bed comfortably on supplemental oxygen via nasal cannula at 2 L/min. He is not home O2 dependent. He does report that he is feeling better today. However, his respiratory status appears essentially unchanged to me. We did discuss that I am concerned that this may be close to his baseline function. He denies fever, chills, chest pain, palpitations, orthopnea, abdominal pain, nausea vomiting diarrhea. He has no new questions or concerns at this time. No concerns per nursing today. Reason For Visit: ACUTE RESPIRATORY FAILURE WITH HYPOXIA Physical Exam Vital Signs: Temp Pulse Resp BP Pulse Ox 97.5 F 61 20 96/54 L 100 02/15/19 15:57 02/15/19 16:36 02/15/19 16:36 02/15/19 15:57 02/15/19 16:36 Pulse Oximeter Continuous Start: 02/12/19 18:51 Freq: RTQ4 Status: Active Protocol: Document 02/15/19 16:36 [facility] (Rec: 02/15/19 17:13 [facility] [id number]) Pulse Oximetry Assessment Oxygen Saturation (92-100) 100 Oxygen Flow Rate (L/min) 2 Oxygen Delivery Method Nasal Cannula Fraction of Inspired Oxygen (FIO2) 28 Equipment Usage Equipment Standby Continuous SpO2 Machine # 9 Intake & Output 02/14/19 02/15/19 02/16/19 06:59 06:59 06:59 Intake Total 3150 2870 1290 Output Total 350 450 Balance 2800 2420 1290 Weight 69 kg 73 kg General appearance: PRESENT: no acute distress, cooperative, thin, well- developed, well-nourished Head exam: PRESENT: atraumatic, normocephalic Eye exam: PRESENT: conjunctiva pink, EOMI, PERRLA. ABSENT: scleral icterus Ear exam: PRESENT: normal external ear exam Mouth exam: PRESENT: moist, tongue midline Respiratory exam: PRESENT: accessory muscle use, clear to auscultation bette, decreased breath sounds, retraction, symmetrical - Throughout, tachypnea, other - Supplemental oxygen by nasal cannula. ABSENT: rales, rhonchi, wheezes Cardiovascular exam: PRESENT: RRR, +S1, +S2. ABSENT: diastolic murmur, rubs, systolic murmur Pulses: PRESENT: normal dorsalis pedis pul Vascular exam: PRESENT: normal capillary refill GI/Abdominal exam: PRESENT: normal bowel sounds, soft. ABSENT: distended, guarding, mass, organolmegaly, rebound, tenderness Rectal exam: PRESENT: deferred Extremities exam: PRESENT: full ROM. ABSENT: calf tenderness, clubbing, pedal edema Neurological exam: PRESENT: alert, awake, oriented to person, oriented to place, oriented to time, oriented to situation, CN II-XII grossly intact. ABSENT: motor sensory deficit Psychiatric exam: PRESENT: appropriate affect, normal mood. ABSENT: homicidal ideation, suicidal ideation Skin exam: PRESENT: dry, intact, warm. ABSENT: cyanosis, rash Results Laboratory Results: 02/15/19 03:57 02/15/19 03:57 02/15/19 02/15/19 03:57 03:57 WBC 5.0 RBC 4.21 L Hgb 10.9 L Hct 34.0 L MCV 81 MCH 25.9 L MCHC 32.0 RDW 22.0 H Plt Count 220 Sodium 140.4 Potassium 3.8 Chloride 104 Carbon Dioxide 33 H Anion Gap 3 L BUN 11 Creatinine 0.46 L Est GFR ( Amer) > 60 Glucose 103 Calcium 8.7 02/12/19 02/12/19 02/12/19 10:35 10:35 10:35 Creatine Kinase 34 L CK-MB (CK-2) 1.94 Troponin I < 0.012 NT-Pro-B Natriuret Pep 92 Impressions: Chest/Abdomen CTA 02/12/19 10:46 IMPRESSION: 1. There is no pulmonary embolus. There is no aortic aneurysm or dissection. 2. There is dense opacification the medial left lower lobe: Atelectasis versus consolidation. 3. Loculated left pleural effusion/ empyema. There is a general decreased in fluid volume. Thoracentesis Ultrasound 02/14/19 00:00 IMPRESSION: SUCCESSFUL THORACENTESIS OF A CHRONIC LOCULATED LEFT PLEURAL EFFUSION USING ULTRASOUND GUIDANCE. Chest X-Ray 02/14/19 17:59 IMPRESSION: There is marked retrocardiac opacification on the left suggesting atelectasis in the left lower lobe. Assessment and Plan - Diagnosis (1) Left lower lobe pneumonia Is this a current diagnosis for this admission?: Yes Plan: Blood cultures are negative at 72 hours Sputum culture pending. ABG revealed compensated respiratory acidosis with hypercapnia and hypoxia Patient is admitted to [facility] on continuous cardiac telemetry and pulse oximetry. Continue supplemental oxygen as needed to maintain saturations greater than 89%. BiPAP as needed. Scheduled and as needed nebulizer treatments. He was empirically placed on IV Rocephin and azithromycin for treatment of community-acquired pneumonia. We will discontinue IV Rocephin as the patient remains afebrile with normal WBCs >48 hrs Mucinex twice daily. Encourage pulmonary toilet. Consider pulmonology consultation; certainly will set up with outpatient follow- up appointment. Patient would benefit from pulmonary rehabilitation. (2) Acute respiratory failure with hypoxia Is this a current diagnosis for this admission?: Yes Plan: Secondary to #1. Patient denies prior formal diagnosis of COPD. However, recent evaluation by engineering laboratory technician included discussion regarding restrictive lung disease. Had been referred to pulmonary rehabilitation but had not yet been seen. Continue p.o. prednisone. Consider pulmonology consultation. Aggressive pulmonary toilet Remaining management as above. (3) Pleural effusion Is this a current diagnosis for this admission?: Yes Plan: Loculated effusion noted on chest imaging. Status post thoracentesis yesterday; fluid sent for testing. Cultures so far negative. Cytology pending. Echocardiogram revealed LVEF 60%, mild diastolic dysfunction, no pericardial effusion Likely secondary to left lower lobe pneumonia. Some concern for malignancy. Cultures and antibiotics as above. Remaining management as above. (4) History of esophagectomy Is this a current diagnosis for this admission?: Yes Plan: Soft diet. Consider Reglan for gastroparesis. Discussed with Dr. Callejas and Dr. Holland; may utilize BiPAP if indicated. (5) Status post insertion of percutaneous endoscopic gastrostomy (PEG) tube Is this a current diagnosis for this admission?: Yes Plan: Removed approximately 1 year ago; now with slight leakage especially following meals. We will ask nursing to provide skin barrier cream. (6) HTN (hypertension) Is this a current diagnosis for this admission?: Yes Plan: Blood pressures are overall acceptable. Continue home dose metoprolol. Cardiac diet. (7) HLD (hyperlipidemia) Is this a current diagnosis for this admission?: Yes Plan: Cardiac diet. Home dose atorvastatin. (8) Hypothyroidism Is this a current diagnosis for this admission?: Yes Plan: Continue home dose synthroid. - Time Time Spent with patient: 25-34 minutes Medications reviewed and adjusted accordingly: Yes Anticipated discharge: Home with Homehealth Within: within 72 hours
[2019-02-15] MEDS: AZITHROMYCIN 250 MG TABLET PO SCH (22:11)
[2019-02-15] MEDS: ATORVASTATIN CALCIUM 40 MG TABLET PO SCH (22:11)
[2019-02-16] MEDS: LEVOTHYROXINE SODIUM 0.075 MG TABLET PO SCH (05:09)
[2019-02-16] MEDS: HEPARIN SOD (PORCINE) 5,000 UNIT/ML 1 ML VIAL SUBCUT SCH ×3 (05:09→22:04)
[2019-02-16 05:19] LABS: HEMATOCRIT 33.7 % (37.9-51.0); HEMOGLOBIN 10.7 g/dL (13.5-17.0); MEAN CORPUSCULAR HEMOGLOBIN 25.7 pg (27.0-33.4); MEAN CORPUSCULAR HGB CONC 31.8 g/dL (32.0-36.0); MEAN CORPUSCULAR VOLUME 81 fl (80-97); PLATELET COUNT 207 10^3/uL (150-450); RED BLOOD COUNT 4.17 10^6/uL (4.35-5.55); WHITE BLOOD COUNT 4.4 10^3/uL (4.0-10.5)
[2019-02-16 05:43] LABS: BLOOD UREA NITROGEN 9 mg/dL (7-20); CALCIUM 8.8 mg/dL (8.4-10.2); CARBON DIOXIDE 34 mmol/L (22-30); CHLORIDE 102 mmol/L (98-107); GLUCOSE 86 mg/dL (75-110); POTASSIUM 3.8 mmol/L (3.6-5.0)
[2019-02-16 05:51] LABS: ANION GAP 3 (5-19)
[2019-02-16] MEDS: IPRATROPIUM/ALBUTEROL 0.5-2.5 MG/3 ML AMPUL NEB SCH ×3 (08:12→23:41)
[2019-02-16] MEDS: METOPROLOL TARTRATE 25 MG TABLET PO SCH (08:57)
[2019-02-16] MEDS: ASPIRIN 81 MG TABLET, ENT COATED PO SCH (08:59)
[2019-02-16] MEDS: PREDNISONE 20 MG TABLET PO SCH (08:59)
[2019-02-16] MEDS: FAMOTIDINE 20 MG TABLET PO SCH ×2 (09:00→22:04)
[2019-02-16] MEDS: GUAIFENESIN 600 MG TABLET.SA PO SCH ×2 (09:00→22:04)
[2019-02-16] MEDS: CITALOPRAM HYDROBROMIDE 20 MG TABLET PO SCH ×2 (09:00→17:27)
[2019-02-16] MEDS ORDERED: MORPHINE SULFATE 10 MG/5 ML ORAL SOLUTION UDCUP PO PRN (11:59)
--- NOTE | 2019-02-16 12:01 | PDOC PROGRESS REPORT ---
Subjective Progress Note for:: 02/16/19 Subjective:: NICOLE EDWARDS is a 68 year old male with a past medical history of esophageal cancer status post total esophagectomy approximately 1 year ago, [place] status post stents x2, hypertension, hyperlipidemia, hypothyroidism, BPH, and depression who was admitted 02/12/2019 for a left lower lobe pneumonia. He was seen on morning rounds with his present. He was found resting in bed on BiPAP with supplemental oxygen. He is not home O2 dependent. He reports shortness of breath this morning without cough or chest pain. Again, his respiratory status remains clinically unchanged; continues to have tachypnea with shallow respirations, intermittent retractions, and accessory muscle use. He denies fever, chills, chest pain, palpitations, orthopnea, abdominal pain, nausea vomiting diarrhea. He has no new questions or concerns at this time. No concerns per nursing today. Reason For Visit: ACUTE RESPIRATORY FAILURE WITH HYPOXIA Physical Exam Vital Signs: Temp Pulse Resp BP Pulse Ox 97.7 F 77 18 117/60 95 02/16/19 07:50 02/16/19 08:15 02/16/19 08:15 02/16/19 07:50 02/16/19 08:15 Pulse Oximeter Continuous Start: 02/12/19 18:51 Freq: RTQ4 Status: Active Protocol: Document 02/16/19 08:15 J (Rec: 02/16/19 08:30 J [email or web address]) Pulse Oximetry Assessment Oxygen Saturation (92-100) 95 Oxygen Flow Rate (L/min) 2 Oxygen Delivery Method Nasal Cannula Equipment Usage Equipment in Use Continuous SpO2 Machine # 9 Intake & Output 02/15/19 02/16/19 02/17/19 06:59 06:59 06:59 Intake Total 2870 2770 Output Total 450 825 Balance 2420 1945 Weight 73 kg General appearance: PRESENT: no acute distress, cooperative, thin, well- developed Head exam: PRESENT: atraumatic, normocephalic Eye exam: PRESENT: conjunctiva pink, EOMI, PERRLA. ABSENT: scleral icterus Ear exam: PRESENT: normal external ear exam Mouth exam: PRESENT: moist, tongue midline Neck exam: ABSENT: carotid bruit, JVD, lymphadenopathy, thyromegaly Respiratory exam: PRESENT: accessory muscle use, clear to auscultation bette, symmetrical, tachypnea, unlabored, other - BiPAP. ABSENT: rales, rhonchi, wheezes Cardiovascular exam: PRESENT: RRR, +S1, +S2. ABSENT: diastolic murmur, rubs, systolic murmur Pulses: PRESENT: normal dorsalis pedis pul Vascular exam: PRESENT: normal capillary refill GI/Abdominal exam: PRESENT: normal bowel sounds, soft. ABSENT: distended, guarding, mass, organolmegaly, rebound, tenderness Rectal exam: PRESENT: deferred Extremities exam: PRESENT: full ROM. ABSENT: calf tenderness, clubbing, pedal edema Neurological exam: PRESENT: alert, awake, oriented to person, oriented to place, oriented to time, oriented to situation, CN II-XII grossly intact. ABSENT: motor sensory deficit Psychiatric exam: PRESENT: appropriate affect, normal mood. ABSENT: homicidal ideation, suicidal ideation Skin exam: PRESENT: dry, intact, warm. ABSENT: cyanosis, rash Results Laboratory Results: 02/16/19 04:38 02/16/19 04:38 02/16/19 02/16/19 04:38 04:38 WBC 4.4 RBC 4.17 L Hgb 10.7 L Hct 33.7 L MCV 81 MCH 25.7 L MCHC 31.8 L RDW 22.0 H Plt Count 207 Sodium 138.8 Potassium 3.8 Chloride 102 Carbon Dioxide 34 H Anion Gap 3 L BUN 9 Creatinine 0.43 L Est GFR ( Amer) > 60 Glucose 86 Calcium 8.8 02/12/19 02/12/19 02/12/19 10:35 10:35 10:35 Creatine Kinase 34 L CK-MB (CK-2) 1.94 Troponin I < 0.012 NT-Pro-B Natriuret Pep 92 Impressions: Chest/Abdomen CTA 02/12/19 10:46 IMPRESSION: 1. There is no pulmonary embolus. There is no aortic aneurysm or dissection. 2. There is dense opacification the medial left lower lobe: Atelectasis versus consolidation. 3. Loculated left pleural effusion/ empyema. There is a general decreased in fluid volume. Thoracentesis Ultrasound 02/14/19 00:00 IMPRESSION: SUCCESSFUL THORACENTESIS OF A CHRONIC LOCULATED LEFT PLEURAL EFFUSION USING ULTRASOUND GUIDANCE. Chest X-Ray 02/14/19 17:59 IMPRESSION: There is marked retrocardiac opacification on the left suggesting atelectasis in the left lower lobe. Assessment and Plan - Diagnosis (1) Left lower lobe pneumonia Is this a current diagnosis for this admission?: Yes Plan: Blood cultures are negative at 72 hours 4 days Sputum culture has no growth at [address] pending. Patient is admitted to [facility] on continuous cardiac telemetry and pulse oximetry. Continue supplemental oxygen as needed to maintain saturations greater than 89%. BiPAP as needed. Scheduled and as needed nebulizer treatments. He was empirically placed on IV Rocephin and azithromycin for treatment of community-acquired pneumonia. Discontinued IV Rocephin after 4 days, will discontinue azithromycin tonight after the fifth dose. Mucinex twice daily. Encourage pulmonary toilet. Consider pulmonology consultation; certainly will set up with outpatient follow- up appointment. Patient would benefit from pulmonary rehabilitation. (2) Pleural effusion Is this a current diagnosis for this admission?: Yes Plan: Loculated effusion noted on chest imaging. Status post thoracentesis; fluid sent for testing. Cultures so far negative. Cytology pending. Echocardiogram revealed LVEF 60%, mild diastolic dysfunction, no pericardial effusion Likely secondary to left lower lobe pneumonia. Some concern for malignancy. Repeat Chest CT pending. Cultures and antibiotics as above. Remaining management as above. (3) Acute on chronic respiratory failure with hypoxia and hypercapnia Is this a current diagnosis for this admission?: Yes Plan: Secondary to #1 & #2. ABG revealed compensated respiratory acidosis with hypercapnia and hypoxia Patient denies prior formal diagnosis of COPD. However, recent evaluation by press maintainer included discussion regarding restrictive lung disease. Had been referred to pulmonary rehabilitation but had not yet been seen. Continue p.o. prednisone. Have started Daliresp Will start p.o. morphine for air hunger Consider pulmonology consultation. Palliative Care consultation Aggressive pulmonary toilet Remaining management as above. (4) History of esophagectomy Is this a current diagnosis for this admission?: Yes Plan: Soft diet. Consider Reglan for gastroparesis. Discussed with Dr. Callejas and Dr. Holland; may utilize BiPAP if indicated. (5) Status post insertion of percutaneous endoscopic gastrostomy (PEG) tube Is this a current diagnosis for this admission?: Yes Plan: Removed approximately 1 year ago; now with slight leakage especially following meals. We will ask nursing to provide skin barrier cream. (6) HTN (hypertension) Is this a current diagnosis for this admission?: Yes Plan: Blood pressures are overall acceptable. Continue home dose metoprolol. Cardiac diet. (7) HLD (hyperlipidemia) Is this a current diagnosis for this admission?: Yes Plan: Cardiac diet. Home dose atorvastatin. (8) Hypothyroidism Is this a current diagnosis for this admission?: Yes Plan: Continue home dose synthroid. - Time Time Spent with patient: 25-34 minutes Medications reviewed and adjusted accordingly: Yes Anticipated discharge: Home
[2019-02-16] MEDS ORDERED: LACTULOSE SYRUP 20 GM/30 ML UDCUP PO ONE (13:33)
[2019-02-16] MEDS: ROFLUMILAST 500 MCG TABLET PO SCH (14:11)
--- NOTE | 2019-02-16 15:10 | RADIOLOGY REPORT (SQ) ---
EXAM DESCRIPTION: CT CHEST WITHOUT COMPLETED DATE/TIME: 02/16/2019 12:12 pm REASON FOR STUDY: persistent dyspnea, hypoxia COMPARISON: 02/12/2019 TECHNIQUE: CT scan performed of the chest without intravenous contrast. Images reviewed with lung, soft tissue and bone windows. Reconstructed coronal and sagittal MPR images reviewed. All images st ored on PACS. All CT scanners at this facility use dose modulation, iterative reconstruction, and/or weight based d osing when appropriate to reduce radiation dose to as low as reasonably achievable (ALARA). [facility]: Dose Right [facility]: CareDose [facility]: Dose Right [facility]: Teradose 4D [facility]: [employer] RADIATION DOSE: CT Rad equipment meets quality standard of care and radiation dose reduction techniq ues were employed. CTDIvol: 12.6 mGy. DLP: 507 mGy-cm. mGy. LIMITATIONS: No technical limitations. FINDINGS: Minimal significant change since 4 days ago. Slight decrease in size of loculated left pl eural effusion. No developing infiltrate. Postsurgical changes from esophagectomy and gastric pull- through. IMPRESSION: Slight decrease in size of loculated left pleural effusion. No pneumothorax. TECHNICAL DOCUMENTATION: JOB ID: [id number] Quality ID # [id number]: Final reports with documentation of one or more dose reduction techniques (e.g., Au tomated exposure control, adjustment of the mA and/or kV according to patient size, use of iterative reconstruction technique) 2010 [employer]- All Rights Reserved Reading location - IP/workstation name: [email or web address]
[2019-02-16] MEDS ORDERED: NA PHOS,M-B/NA PHOS,DI-BA (ADULT) 133 ML ENEMA PR ONE (16:12)
[2019-02-16] MEDS: FERROUS SULFATE 325 MG TABLET PO SCH (17:27)
--- NOTE | 2019-02-16 19:15 | RADIOLOGY REPORT (SQ) ---
EXAM DESCRIPTION: KUB/ABDOMEN (SINGLE VIEW) COMPLETED DATE/TIME: 02/16/2019 6:13 pm REASON FOR STUDY: abd pain, distention COMPARISON: None. NUMBER OF VIEWS: One view. TECHNIQUE: Supine radiographic image of the abdomen acquired. LIMITATIONS: None. FINDINGS: BOWEL GAS PATTERN: Non-obstructive bowel gas pattern. No dilated loops. CALCIFICATIONS: No suspicious calcifications. SOFT TISSUES: No gross mass or suggestion of organomegaly. HARDWARE: None in the abdomen. BONES: No acute fracture. No worrisome bone lesions. OTHER: No other significant finding. IMPRESSION: NO RADIOGRAPHIC EVIDENCE FOR ACUTE ABDOMINAL DISEASE. TECHNICAL DOCUMENTATION: JOB ID: [id number] [place]-72 2010 [employer]- All Rights Reserved Reading location - IP/workstation name: [email or web address]
[2019-02-16] MEDS: ATORVASTATIN CALCIUM 40 MG TABLET PO SCH (22:03)
[2019-02-16] MEDS: AZITHROMYCIN 250 MG TABLET PO SCH (22:04)
[2019-02-17] MEDS: HEPARIN SOD (PORCINE) 5,000 UNIT/ML 1 ML VIAL SUBCUT SCH ×3 (05:58→22:00)
[2019-02-17] MEDS: LEVOTHYROXINE SODIUM 0.075 MG TABLET PO SCH (05:59)
[2019-02-17] MEDS: IPRATROPIUM/ALBUTEROL 0.5-2.5 MG/3 ML AMPUL NEB SCH (08:37)
[2019-02-17] MEDS: ROFLUMILAST 500 MCG TABLET PO SCH (09:22)
[2019-02-17] MEDS: CITALOPRAM HYDROBROMIDE 20 MG TABLET PO SCH ×2 (09:22→17:19)
[2019-02-17] MEDS: FAMOTIDINE 20 MG TABLET PO SCH ×2 (09:22→21:08)
[2019-02-17] MEDS: ASPIRIN 81 MG TABLET, ENT COATED PO SCH (09:23)
[2019-02-17] MEDS: GUAIFENESIN 600 MG TABLET.SA PO SCH ×2 (09:23→21:08)
[2019-02-17] MEDS: METOPROLOL TARTRATE 25 MG TABLET PO SCH (09:23)
[2019-02-17] MEDS: PREDNISONE 20 MG TABLET PO SCH (09:23)
[2019-02-17] MEDS ORDERED: ALBUTEROL SULFATE 0.083% NEB 2.5 MG/3 ML AMPUL NEB PRN (11:21)
[2019-02-17] MEDS: ALBUTEROL SULFATE 0.083% NEB 2.5 MG/3 ML AMPUL NEB PRN (12:36)
[2019-02-17] MEDS: LORAZEPAM 1 MG TABLET PO PRN (13:24)
--- NOTE | 2019-02-17 13:32 | PDOC PROGRESS REPORT ---
Subjective Progress Note for:: 02/17/19 Subjective:: NICOLE EDWARDS is a 68 year old male with a past medical history of esophageal cancer status post total esophagectomy approximately 1 year ago, [place] status post stents x2, hypertension, hyperlipidemia, hypothyroidism, BPH, and depression who was admitted 02/12/2019 for a left lower lobe pneumonia. He was seen on morning rounds with his present. He was found resting in bed on room air. He was noted to be slightly tachypneic, but without accessory muscle use or retractions and speaking full sentences. He tells me that he is feeling well today. Does continue to have increased work of breathing and air hunger, but is overall noted to be resting comfortably and not in any acute distress. During our discussion, the patient did become more tachypneic and d istressed; I believe that there is a strong anxiety component to his respiratory status as we were discussing the evaluation thus far had all resulted normal and that I cannot give him a specific, reversible, cause for his shortness of breath that this may be his new baseline. He denies fever, chills, chest pain, palpitations, orthopnea, abdominal pain, nausea vomiting diarrhea. He has no new questions or concerns at this time. Nursing reports that oral morphine was ineffective for respiratory rate/air hunger yesterday; suggest antianxiety medications. Reason For Visit: ACUTE RESPIRATORY FAILURE WITH HYPOXIA Physical Exam Vital Signs: Temp Pulse Resp BP Pulse Ox 97.9 F 55 L 17 108/60 97 02/17/19 11:39 02/17/19 11:39 02/17/19 11:39 02/17/19 11:39 02/17/19 11:39 Pulse Oximeter Continuous Start: 02/12/19 18:51 Freq: RTQ4 Status: Complete Protocol: Document 02/17/19 04:15 PMU (Rec: 02/17/19 04:46 PMU [id number]) Pulse Oximetry Assessment Oxygen Flow Rate (L/min) 2 Oxygen Delivery Method Nasal Cannula Fraction of Inspired Oxygen (FIO2) 28 Equipment Usage Equipment Standby Continuous SpO2 Machine # 9 Intake & Output 02/16/19 02/17/19 02/18/19 06:59 06:59 06:59 Intake Total 2770 460 Output Total 825 400 Balance 1945 60 Weight 72 kg General appearance: PRESENT: no acute distress, cooperative, thin, well-developed, well-nourished Head exam: PRESENT: atraumatic, normocephalic Eye exam: PRESENT: conjunctiva pink, EOMI, PERRLA. ABSENT: scleral icterus Ear exam: PRESENT: normal external ear exam Mouth exam: PRESENT: moist, tongue midline Respiratory exam: PRESENT: clear to auscultation bette, decreased breath sounds, symmetrical, tachypnea, other - Room air. ABSENT: rales, rhonchi, wheezes Cardiovascular exam: PRESENT: RRR. ABSENT: diastolic murmur, rubs, systolic murmur Pulses: PRESENT: normal dorsalis pedis pul Vascular exam: PRESENT: normal capillary refill GI/Abdominal exam: PRESENT: normal bowel sounds, soft. ABSENT: distended, guarding, mass, organolmegaly, rebound, tenderness Rectal exam: PRESENT: deferred Extremities exam: PRESENT: full ROM. ABSENT: calf tenderness, clubbing, pedal edema Musculoskeletal exam: PRESENT: ambulatory Neurological exam: PRESENT: alert, awake, oriented to person, oriented to place, oriented to time, oriented to situation, CN II-XII grossly intact. ABSENT: motor sensory deficit Psychiatric exam: PRESENT: anxious, appropriate affect. ABSENT: homicidal ideation, suicidal ideation Skin exam: PRESENT: dry, intact, warm. ABSENT: cyanosis, rash Results Laboratory Results: 02/16/19 04:38 02/16/19 04:38 02/12/19 02/12/19 02/12/19 10:35 10:35 10:35 Creatine Kinase 34 L CK-MB (CK-2) 1.94 Troponin I < 0.012 NT-Pro-B Natriuret Pep 92 Impressions: Chest/Abdomen CTA 02/12/19 10:46 IMPRESSION: 1. There is no pulmonary embolus. There is no aortic aneurysm or dissection. 2. There is dense opacification the medial left lower lobe: Atelectasis versus consolidation. 3. Loculated left pleural effusion/ empyema. There is a general decreased in fluid volume. Thoracentesis Ultrasound 02/14/19 00:00 IMPRESSION: SUCCESSFUL THORACENTESIS OF A CHRONIC LOCULATED LEFT PLEURAL EFFUSION USING ULTRASOUND GUIDANCE. Chest X-Ray 02/14/19 17:59 IMPRESSION: There is marked retrocardiac opacification on the left suggesting atelectasis in the left lower lobe. Chest CT 02/16/19 00:00 IMPRESSION: Slight decrease in size of loculated left pleural effusion. No pneumothorax. KUB X-Ray 02/16/19 00:00 IMPRESSION: NO RADIOGRAPHIC EVIDENCE FOR ACUTE ABDOMINAL DISEASE. Assessment and Plan - Diagnosis (1) Left lower lobe pneumonia Is this a current diagnosis for this admission?: Yes Plan: Blood cultures are negative at 72 hours 4 days Sputum culture has no growth at [address] is negative; slight right-sided pleural effusion noted, decreased from previously. No new findings.. Patient is admitted to [facility] on continuous cardiac telemetry and pulse oximetry. Continue supplemental oxygen as needed to maintain saturations greater than 89%. BiPAP as needed. As needed nebulizer treatments. Resume home dose and oral. He was empirically placed on IV Rocephin and azithromycin for treatment of community-acquired pneumonia. Received 4 days of Rocephin and 5 of azithromycin. Mucinex twice daily. Encourage pulmonary toilet. Consider pulmonology consultation; certainly will set up with outpatient follow- up appointment. Patient would benefit from pulmonary rehabilitation. (2) Pleural effusion Is this a current diagnosis for this admission?: Yes Plan: Loculated effusion noted on chest imaging. Status post thoracentesis; fluid sent for testing. Cultures so far negative. Cytology pending. Echocardiogram revealed LVEF 60%, mild diastolic dysfunction, no pericardial effusion Likely secondary to left lower lobe pneumonia. Some concern for malignancy. Cultures and antibiotics as above. Remaining management as above. (3) Acute on chronic respiratory failure with hypoxia and hypercapnia Is this a current diagnosis for this admission?: Yes Plan: Secondary to #1 & #2. ABG revealed compensated respiratory acidosis with hypercapnia and hypoxia PFT testing pending. Patient denies prior formal diagnosis of COPD. However, recent evaluation by visual artist included discussion regarding restrictive lung disease. Had been referred to pulmonary rehabilitation but had not yet been seen. Continue p.o. prednisone; have decreased dose. Have started Daliresp Resume home dose Anoro Trial p.o. morphine or ativan for air hunger Consider pulmonology consultation. Palliative Care consultation Aggressive pulmonary toilet Remaining management as above. (4) History of esophagectomy Is this a current diagnosis for this admission?: Yes Plan: Soft diet. Consider Reglan for gastroparesis. Discussed with Dr. Callejas and Dr. Amalia; may utilize BiPAP if indicated. (5) Status post insertion of percutaneous endoscopic gastrostomy (PEG) tube Is this a current diagnosis for this admission?: Yes Plan: Removed approximately 1 year ago; now with slight leakage especially following meals. We will ask nursing to provide skin barrier cream. (6) HTN (hypertension) Is this a current diagnosis for this admission?: Yes Plan: Blood pressures are overall acceptable. Continue home dose metoprolol. Cardiac diet. (7) HLD (hyperlipidemia) Is this a current diagnosis for this admission?: Yes Plan: Cardiac diet. Home dose atorvastatin. (8) Hypothyroidism Is this a current diagnosis for this admission?: Yes Plan: Continue home dose synthroid. - Time Time Spent with patient: 25-34 minutes Medications reviewed and adjusted accordingly: Yes Anticipated discharge: Home with Homehealth Within: within 48 hours
[2019-02-17] MEDS: FERROUS SULFATE 325 MG TABLET PO SCH (17:19)
[2019-02-17] MEDS ORDERED: (PENDING PHARMACY ID) (Umeclidinium Brm/Vilanterol Tr [Anoro Ellipta 62.5-25 Mcg Inh] 1 PU IH SCH (18:00)
[2019-02-17] MEDS: ATORVASTATIN CALCIUM 40 MG TABLET PO SCH (21:08)
[2019-02-17] MEDS: ACETAMINOPHEN 325 MG TABLET PO PRN (21:08)
[2019-02-18] MEDS: HEPARIN SOD (PORCINE) 5,000 UNIT/ML 1 ML VIAL SUBCUT SCH ×3 (05:27→21:09)
[2019-02-18] MEDS: LEVOTHYROXINE SODIUM 0.075 MG TABLET PO SCH (06:29)
[2019-02-18] MEDS: ASPIRIN 81 MG TABLET, ENT COATED PO SCH (09:07)
[2019-02-18] MEDS: PREDNISONE 20 MG TABLET PO SCH (09:07)
[2019-02-18] MEDS: CITALOPRAM HYDROBROMIDE 20 MG TABLET PO SCH ×2 (09:07→17:15)
[2019-02-18] MEDS: METOPROLOL TARTRATE 25 MG TABLET PO SCH (09:07)
[2019-02-18] MEDS: ROFLUMILAST 500 MCG TABLET PO SCH (09:07)
[2019-02-18] MEDS: FAMOTIDINE 20 MG TABLET PO SCH ×2 (09:07→21:10)
[2019-02-18] MEDS: GUAIFENESIN 600 MG TABLET.SA PO SCH ×2 (09:07→21:09)
--- NOTE | 2019-02-18 15:29 | PDOC PROGRESS REPORT ---
Subjective Progress Note for:: 02/18/19 Subjective:: NICOLE EDWARDS is a 68 year old male with a past medical history of esophageal cancer status post total esophagectomy approximately 1 year ago, [place] status post stents x2, hypertension, hyperlipidemia, hypothyroidism, BPH, and depression who was admitted 02/12/2019 for a left lower lobe pneumonia. He was seen on afternoon rounds . He was found resting in bed on room air. He was noted to be slightly tachypneic, but without accessory muscle use or retractions and speaking full sentences. He tells me that he is feeling well today. Does continue to have increased work of breathing and air hunger following activity and meals; patient does comment that he thinks that it takes too much energy to eat leading to his shortness of breath. Patient is completed PFT; results pending. He denies fever, chills, chest pain, palpitations, orthopnea, abdominal pain, nausea vomiting diarrhea. He has no new questions or concerns at this time. No concerns per nursing. Reason For Visit: ACUTE RESPIRATORY FAILURE WITH HYPOXIA Physical Exam Vital Signs: Temp Pulse Resp BP Pulse Ox 97.6 F 69 18 94/50 L 96 02/18/19 11:13 02/18/19 13:53 02/18/19 11:13 02/18/19 11:13 02/18/19 11:13 Pulse Oximeter Continuous Start: 02/12/19 18: 51 Freq: RTQ4 Status: Complete Protocol: Document 02/17/19 04:15 PMU (Rec: 02/17/19 04:46 PMU [id number]) Pulse Oximetry Assessment Oxygen Flow Rate (L/min) 2 Oxygen Delivery Method Nasal Cannula Fraction of Inspired Oxygen (FIO2) 28 Equipment Usage Equipment Standby Continuous SpO2 Machine # 9 Intake & Output 02/17/19 02/18/19 02/19/19 06:59 06:59 06:59 Intake Total 460 560 480 Output Total 400 350 200 Balance 60 210 280 Weight 72 kg 71.8 kg General appearance: PRESENT: no acute distress, cooperative, thin, well- developed Head exam: PRESENT: atraumatic, normocephalic Eye exam: PRESENT: conjunctiva pink, EOMI, PERRLA. ABSENT: scleral icterus Ear exam: PRESENT: normal external ear exam Mouth exam: PRESENT: moist, tongue midline Neck exam: ABSENT: carotid bruit, JVD, lymphadenopathy, thyromegaly Respiratory exam: PRESENT: accessory muscle use, clear to auscultation bette, decreased breath sounds - Throughout, symmetrical, tachypnea - Shallow, other - Room air. ABSENT: rales, rhonchi, wheezes Cardiovascular exam: PRESENT: RRR. ABSENT: diastolic murmur, rubs, systolic murmur Pulses: PRESENT: normal dorsalis pedis pul Vascular exam: PRESENT: normal capillary refill GI/Abdominal exam: PRESENT: normal bowel sounds, soft, other - PEG tube site with intermittent fluid; no surrounding erythema.. ABSENT: distended, guarding, mass, organolmegaly, rebound, tenderness Rectal exam: PRESENT: deferred Extremities exam: PRESENT: full ROM. ABSENT: calf tenderness, clubbing, pedal edema Neurological exam: PRESENT: alert, awake, oriented to person, oriented to place, oriented to time, oriented to situation, CN II-XII grossly intact. ABSENT: motor sensory deficit Psychiatric exam: PRESENT: appropriate affect, normal mood. ABSENT: homicidal ideation, suicidal ideation Skin exam: PRESENT: dry, intact, warm. ABSENT: cyanosis, rash Results Laboratory Results: 02/16/19 04:38 02/16/19 04:38 02/14/19 02/14/19 02/14/19 14:39 14:39 14:39 Fluid Glucose 117 Fluid Total Protein Fluid LDH 60 Fluid Amylase 5 02/14/19 14:39 Fluid Glucose Fluid Total Protein 2.3 Fluid LDH Fluid Amylase 02/14/19 14:39 Pleural Fluid Gram Stain - Final 02/14/19 14:39 Pleural Fluid Body Fluid Culture - Final NO AEROBIC OR ANAEROBIC ORGANISMS RECOVERED 02/14/19 14:39 Pleural Fluid Fungal Smear - Final 02/14/19 14:39 Pleural Fluid Fungal Smear - Final 02/12/19 18:03 Blood Blood Culture - Final NO GROWTH IN 5 DAYS 02/12/19 10:25 Blood Blood Culture - Final NO GROWTH IN 5 DAYS 02/12/19 02/12/19 02/12/19 10:35 10:35 10:35 Creatine Kinase 34 L CK-MB (CK-2) 1.94 Troponin I < 0.012 NT-Pro-B Natriuret Pep 92 Impressions: Chest/Abdomen CTA 02/12/19 10:46 IMPRESSION: 1. There is no pulmonary embolus. There is no aortic aneurysm or dissection. 2. There is dense opacification the medial left lower lobe: Atelectasis versus consolidation. 3. Loculated left pleural effusion/ empyema. There is a general decreased in fluid volume. Thoracentesis Ultrasound 02/14/19 00:00 IMPRESSION: SUCCESSFUL THORACENTESIS OF A CHRONIC LOCULATED LEFT PLEURAL EFFUSION USING ULTRASOUND GUIDANCE. Chest X-Ray 02/14/19 17:59 IMPRESSION: There is marked retrocardiac opacification on the left suggesting atelectasis in the left lower lobe. Chest CT 02/16/19 00:00 IMPRESSION: Slight decrease in size of loculated left pleural effusion. No pneumothorax. KUB X-Ray 02/16/19 00:00 IMPRESSION: NO RADIOGRAPHIC EVIDENCE FOR ACUTE ABDOMINAL DISEASE. Assessment and Plan - Diagnosis (1) Left lower lobe pneumonia Is this a current diagnosis for this admission?: Yes Plan: Resolved. Blood cultures are negative Sputum culture are pending Repeat Chest CT is negative; slight right-sided pleural effusion noted, decre ased from previously. No new findings. Patient is admitted to [facility] on continuous cardiac telemetry and pulse oximetry. Continue supplemental oxygen as needed to maintain saturations greater than 89%. BiPAP as needed. As needed nebulizer treatments. Resume home dose and oral. He was empirically placed on IV Rocephin and azithromycin for treatment of community-acquired pneumonia. Received 4 days of Rocephin and 5 of azithromycin. Mucinex twice daily. Encourage pulmonary toilet. (2) Pleural effusion Is this a current diagnosis for this admission?: Yes Plan: Loculated effusion noted on chest imaging. Status post thoracentesis; fluid sent for testing. Cultures so far negative. Cytology pending. Echocardiogram revealed LVEF 60%, mild diastolic dysfunction, no pericardial effusion Likely secondary to left lower lobe pneumonia. Some concern for malignancy. Cultures and antibiotics as above. Pulmonology is consulted; appreciate Dr. Ware's assistance. Remaining management as above. (3) Acute on chronic respiratory failure with hypoxia and hypercapnia Is this a current diagnosis for this admission?: Yes Plan: Secondary to #1 & #2. ABG revealed compensated respiratory acidosis with hypercapnia and hypoxia PFT testing pending. Patient denies prior formal diagnosis of COPD. However, recent evaluation by memorial marker designer included discussion regarding restrictive lung disease. Had been referred to pulmonary rehabilitation but had not yet been seen. Continue p.o. prednisone; have decreased dose to 40 mg daily Have started Daliresp Resume home dose Anoro Trial p.o. morphine or ativan for air hunger Pulmonology is consulted; appreciate Dr. Ware's evaluation and recommendations. Palliative Care consultation Aggressive pulmonary toilet Remaining management as above. (4) History of esophagectomy Is this a current diagnosis for this admission?: Yes Plan: Soft diet. Consider Reglan for gastroparesis. Discussed with Dr. Callejas and Dr. Holland; may utilize BiPAP if indicated. (5) Status post insertion of percutaneous endoscopic gastrostomy (PEG) tube Is this a current diagnosis for this admission?: Yes Plan: Removed approximately 1 year ago; now with slight leakage especially following meals. We will ask nursing to provide skin barrier cream. (6) HTN (hypertension) Is this a current diagnosis for this admission?: Yes Plan: Blood pressures are overall acceptable; actually slightly on the low side. Have decrease metoprolol to 12.5 mg daily Cardiac diet. (7) HLD (hyperlipidemia) Is this a current diagnosis for this admission?: Yes Plan: Cardiac diet. Home dose atorvastatin. (8) Hypothyroidism Is this a current diagnosis for this admission?: Yes Plan: Continue home dose synthroid. - Time Time Spent with patient: 25-34 minutes Medications reviewed and adjusted accordingly: Yes Anticipated discharge: Home with Homehealth Within: within 24 hours - Pending evaluation and recommendations from Pulmonology Service.
[2019-02-18] MEDS: FERROUS SULFATE 325 MG TABLET PO SCH (17:15)
[2019-02-18] MEDS: ACETAMINOPHEN 325 MG TABLET PO PRN (21:09)
[2019-02-18] MEDS: LORAZEPAM 1 MG TABLET PO PRN (21:09)
[2019-02-18] MEDS: ATORVASTATIN CALCIUM 40 MG TABLET PO SCH (21:10)
[2019-02-19 04:59] LABS: HEMATOCRIT 35.5 % (37.9-51.0); HEMOGLOBIN 11.4 g/dL (13.5-17.0); MEAN CORPUSCULAR HEMOGLOBIN 25.7 pg (27.0-33.4); MEAN CORPUSCULAR HGB CONC 32.1 g/dL (32.0-36.0); MEAN CORPUSCULAR VOLUME 80 fl (80-97); PLATELET COUNT 217 10^3/uL (150-450); RED BLOOD COUNT 4.43 10^6/uL (4.35-5.55); RED CELL DISTRIBUTION WIDTH 21.9 % (11.5-14.0)
[2019-02-19 05:18] LABS: ANION GAP 6 (5-19); BLOOD UREA NITROGEN 14 mg/dL (7-20); CALCIUM 8.6 mg/dL (8.4-10.2); CARBON DIOXIDE 33 mmol/L (22-30); CHLORIDE 100 mmol/L (98-107); GLUCOSE 94 mg/dL (75-110); POTASSIUM 3.5 mmol/L (3.6-5.0)
[2019-02-19] MEDS: HEPARIN SOD (PORCINE) 5,000 UNIT/ML 1 ML VIAL SUBCUT SCH ×3 (06:00→21:22)
[2019-02-19] MEDS: LEVOTHYROXINE SODIUM 0.075 MG TABLET PO SCH (06:00)
--- NOTE | 2019-02-19 08:26 | PDOC PROGRESS REPORT ---
Subjective Progress Note for:: 02/19/19 Subjective:: 02/19/2019-no complaints Reason For Visit: ACUTE RESPIRATORY FAILURE WITH HYPOXIA Physical Exam Vital Signs: Temp Pulse Resp BP Pulse Ox 97.8 F 66 16 132/70 H 94 02/19/19 06:59 02/19/19 07:47 02/19/19 07:47 02/19/19 06:59 02/19/19 07:47 Pulse Oximeter Continuous Start: 02/12/19 18:51 Freq: RTQ4 Status: Complete Protocol: Document 02/17/19 04:15 PMU (Rec: 02/17/19 04:46 PMU [id number]) Pulse Oximetry Assessment Oxygen Flow Rate (L/min) 2 Oxygen Delivery Method Nasal Cannula Fraction of Inspired Oxygen (FIO2) 28 Equipment Usage Equipment Standby Continuous SpO2 Machine # 9 Intake & Output 02/18/19 02/19/19 02/20/19 06:59 06:59 06:59 Intake Total 560 1770 Output Total 350 200 Balance 210 1570 Weight 71.8 kg 71.8 kg General appearance: PRESENT: no acute distress, well-developed, well-nourished Respiratory exam: PRESENT: clear to auscultation bette. ABSENT: rales, rhonchi, wheezes Cardiovascular exam: PRESENT: RRR. ABSENT: diastolic murmur, rubs, systolic murmur Pulses: PRESENT: normal dorsalis pedis pul Vascular exam: PRESENT: normal capillary refill GI/Abdominal exam: PRESENT: normal bowel sounds, soft. ABSENT: distended, guarding, mass, organolmegaly, rebound, tenderness Rectal exam: PRESENT: deferred Extremities exam: PRESENT: full ROM. ABSENT: calf tenderness, clubbing, pedal edema Neurological exam: PRESENT: alert, awake, oriented to person, oriented to place, oriented to time, oriented to situation, CN II-XII grossly intact. ABSENT: motor sensory deficit Psychiatric exam: PRESENT: appropriate affect, normal mood. ABSENT: homicidal ideation, suicidal ideation Skin exam: PRESENT: dry, intact, warm. ABSENT: cyanosis, rash Results Laboratory Results: 02/19/19 04:37 02/19/19 04:37 02/19/19 02/19/19 04:37 04:37 WBC 6.0 RBC 4.43 Hgb 11.4 L Hct 35.5 L MCV 80 MCH 25.7 L MCHC 32.1 RDW 21.9 H Plt Count 217 Sodium 139.4 Potassium 3.5 L Chloride 100 Carbon Dioxide 33 H Anion Gap 6 BUN 14 Creatinine 0.44 L Est GFR ( Amer) > 60 Glucose 94 Calcium 8.6 02/14/19 14:39 Pleural Fluid Gram Stain - Final 02/14/19 14:39 Pleural Fluid Body Fluid Culture - Final NO AEROBIC OR ANAEROBIC ORGANISMS RECOVERED 02/14/19 14:39 Pleural Fluid Fungal Smear - Final 02/14/19 14:39 Pleural Fluid Fungal Smear - Final 02/12/19 02/12/19 02/12/19 10:35 10:35 10:35 Creatine Kinase 34 L CK-MB (CK-2) 1.94 Troponin I < 0.012 NT-Pro-B Natriuret Pep 92 Impressions: Chest/Abdomen CTA 02/12/19 10:46 IMPRESSION: 1. There is no pulmonary embolus. There is no aortic aneurysm or dissection. 2. There is dense opacification the medial left lower lobe: Atelectasis versus consolidation. 3. Loculated left pleural effusion/ empyema. There is a general decreased in fluid volume. Thoracentesis Ultrasound 02/14/19 00:00 IMPRESSION: SUCCESSFUL THORACENTESIS OF A CHRONIC LOCULATED LEFT PLEURAL EFFUSION USING ULTRASOUND GUIDANCE. Chest X-Ray 02/14/19 17:59 IMPRESSION: There is marked retrocardiac opacification on the left suggesting atelectasis in the left lower lobe. Chest CT 02/16/19 00:00 IMPRESSION: Slight decrease in size of loculated left pleural effusion. No pneumothorax. KUB X-Ray 02/16/19 00:00 IMPRESSION: NO RADIOGRAPHIC EVIDENCE FOR ACUTE ABDOMINAL DISEASE. Assessment and Plan - Diagnosis (1) Acute on chronic respiratory failure with hypoxia and hypercapnia Is this a current diagnosis for this admission?: Yes Plan: Secondary to #1 & #2. ABG revealed compensated respiratory acidosis with hypercapnia and hypoxia PFT testing pending. Patient denies prior formal diagnosis of COPD. However, recent evaluation by boat carpenter mechanic included discussion regarding restrictive lung disease. Had been referred to pulmonary rehabilitation but had not yet been seen. Continue p.o. prednisone; have decreased dose to 40 mg daily Have started Daliresp Resume home dose Anoro Trial p.o. morphine or ativan for air hunger Pulmonology is consulted; appreciate Dr. Ware's evaluation and recommendations. Palliative Care consultation Aggressive pulmonary toilet Remaining management as above. 02/19/2019-stable at this time. Patient remains on nasal cannula. Prednisone continues. Patient remains on Daliresp and Anoro awaiting recommendations per pulmonology (2) HLD (hyperlipidemia) Is this a current diagnosis for this admission?: Yes Plan: Cardiac diet. Home dose atorvastatin. 02/19/2019-stable continue to follow (3) HTN (hypertension) Is this a current diagnosis for this admission?: Yes Plan: Blood pressures are overall acceptable; actually slightly on the low side. Have decrease metoprolol to 12.5 mg daily Cardiac diet. 02/19/2019-stable continue to follow (4) Hypothyroidism Is this a current diagnosis for this admission?: Yes Plan: Continue home dose synthroid. 02/19/2019-continue home Synthroid (5) Left lower lobe pneumonia Is this a current diagnosis for this admission?: Yes Plan: Resolved. Blood cultures are negative Sputum culture are pending Repeat Chest CT is negative; slight right-sided pleural effusion noted, decreased from previously. No new findings. Patient is admitted to [facility] on continuous cardiac telemetry and pulse oximetry. Continue supplemental oxygen as needed to maintain saturations greater than 89%. BiPAP as needed. As needed nebulizer treatments. Resume home dose and oral. He was empirically placed on IV Rocephin and azithromycin for treatment of community-acquired pneumonia. Received 4 days of Rocephin and 5 of azithromycin. Mucinex twice daily. Encourage pulmonary toilet. 02/19/2019-continue weight cultures. Patient remains on Rocephin and azithromycin. Mucinex. Pulmonary toileting. (6) Pleural effusion Is this a current diagnosis for this admission?: Yes Plan: Loculated effusion noted on chest imaging. Status post thoracentesis; fluid sent for testing. Cultures so far negative. Cytology pending. Echocardiogram revealed LVEF 60%, mild diastolic dysfunction, no pericardial effusion Likely secondary to left lower lobe pneumonia. Some concern for malignancy. Cultures and antibiotics as above. Pulmonology is consulted; appreciate Dr. Ware's assistance. Remaining management as above. 02/19/2019 awaiting cytology on pleural fluid. May change plan of care at that time. (7) History of esophagectomy Is this a current diagnosis for this admission?: Yes Plan: Soft diet. Consider Reglan for gastroparesis. Discussed with Dr. Callejas and Dr. Holland; may utilize BiPAP if indicated. 02/19/2019-continue Reglan. BiPAP if indicated. Soft diet (8) Irritation around percutaneous endoscopic gastrostomy (PEG) tube site Is this a current diagnosis for this admission?: Yes Plan: 02/19/2019-stable - Time Time Spent with patient: 15-24 minutes - Inpatient Certification Based on my medical assessment, after consideration of the patient's comorbidities, presenting symptoms, or acuity I expect that the services needed warrant INPATIENT care.: Yes I certify that my determination is in accordance with my understanding of Medicare's requirements for reasonable and necessary INPATIENT services [42 CFR 412.3e].: Yes Medical Necessity: Significant Comorbidiites Make Outpatient Treatment Too Risky, Need Close Monitoring Due to Risk of Patient Decompensation
[2019-02-19] MEDS ORDERED: POTASSIUM CHLORIDE 10 MEQ TABLET.ER PO ONE (09:00)
[2019-02-19] MEDS: METOPROLOL TARTRATE 25 MG TABLET PO SCH (09:07)
[2019-02-19] MEDS: GUAIFENESIN 600 MG TABLET.SA PO SCH ×2 (09:08→21:22)
[2019-02-19] MEDS: ROFLUMILAST 500 MCG TABLET PO SCH (09:08)
[2019-02-19] MEDS: PREDNISONE 20 MG TABLET PO SCH (09:08)
[2019-02-19] MEDS: CITALOPRAM HYDROBROMIDE 20 MG TABLET PO SCH ×2 (09:08→17:04)
[2019-02-19] MEDS: FAMOTIDINE 20 MG TABLET PO SCH ×2 (09:08→21:22)
[2019-02-19] MEDS: ASPIRIN 81 MG TABLET, ENT COATED PO SCH (09:08)
--- NOTE | 2019-02-19 10:58 | Pulmonary Function Test ---
Pulmonary Function Test Date of Procedure:: 02/19/19 INDICATION:: Dyspnea Referring Provider: [facility] Technician: Stefany Mireles [employer] - Report Spirometry: Spirometry: pre-FVC: 1.27 L 30% post-FVC: 1.24 L 29% pre-FEV:1 1.15 L 34% post-FEV1: 1.19 L 35% pre-FEV1/FVC %:[90] post-FEV1/FVC%: 96 predicted: 79 [id number]%: 1.52 L 45% [id number]%: 2.43 L 72% Lung Volume: Total lung capacity: 3.26 L 50% Vital capacity: 1.27 L 30% Inspiratory capacity: 0.60 L FRC N2: 2.66 L 67% ERV: 0.40 L RV: 1 .99 L 80% RV/TLC %:: 61 predicted 40 Diffusion Capactity: DLCO: 8.5 43% DLCO/VA: 1.89 51% Impression: Moderate restrictive ventilatory defect. No hyperinflation or air trapping. Obstructive defect cannot be inferred by the decrease flow in the FEF 25-75%. Severe decrease in diffusion capacity.
[2019-02-19] MEDS: FERROUS SULFATE 325 MG TABLET PO SCH (17:04)
[2019-02-19] MEDS: ACETAMINOPHEN 325 MG TABLET PO PRN (21:22)
[2019-02-19] MEDS: LORAZEPAM 1 MG TABLET PO PRN (21:22)
[2019-02-19] MEDS: ATORVASTATIN CALCIUM 40 MG TABLET PO SCH (21:22)
[2019-02-20] MEDS: LEVOTHYROXINE SODIUM 0.075 MG TABLET PO SCH (06:07)
[2019-02-20] MEDS: HEPARIN SOD (PORCINE) 5,000 UNIT/ML 1 ML VIAL SUBCUT SCH ×3 (06:07→21:33)
[2019-02-20] MEDS: ROFLUMILAST 500 MCG TABLET PO SCH (09:06)
[2019-02-20] MEDS: ASPIRIN 81 MG TABLET, ENT COATED PO SCH (09:06)
[2019-02-20] MEDS: GUAIFENESIN 600 MG TABLET.SA PO SCH ×2 (09:06→21:33)
[2019-02-20] MEDS: PREDNISONE 20 MG TABLET PO SCH (09:06)
[2019-02-20] MEDS: METOPROLOL TARTRATE 25 MG TABLET PO SCH (09:06)
[2019-02-20] MEDS: FAMOTIDINE 20 MG TABLET PO SCH ×2 (09:06→21:33)
[2019-02-20] MEDS: CITALOPRAM HYDROBROMIDE 20 MG TABLET PO SCH ×2 (09:07→17:19)
[2019-02-20] MEDS: ALBUTEROL SULFATE 0.083% NEB 2.5 MG/3 ML AMPUL NEB PRN (09:10)
--- NOTE | 2019-02-20 09:26 | PDOC PROGRESS REPORT ---
Subjective Progress Note for:: 02/20/19 Subjective:: 02/19/2019-no complaints 02/20/2019-shortness of breath Reason For Visit: ACUTE RESPIRATORY FAILURE WITH HYPOXIA Physical Exam Vital Signs: Temp Pulse Resp BP Pulse Ox 98.0 F 81 18 141/78 H 93 02/20/19 06:40 02/20/19 09:12 02/20/19 09:12 02/20/19 06:40 02/20/19 09:12 Pulse Oximeter Continuous Start: 02/12/19 18:51 Freq: RTQ4 Status: Complete Protocol: Document 02/17/19 04:15 PMU (Rec: 02/17/19 04:46 PMU [id number]) Pulse Oximetry Assessment Oxygen Flow Rate (L/min) 2 Oxygen Delivery Method Nasal Cannula Fraction of Inspired Oxygen (FIO2) 28 Equipment Usage Equipment Standby Continuous SpO2 Machine # 9 Intake & Output 02/19/19 02/20/19 02/21/19 06:59 06:59 06:59 Intake Total 1770 1330 Output Total 200 1925 Balance 1570 -595 Weight 71.8 kg 70.1 kg General appearance: PRESENT: no acute distress, well-developed, well-nourished Neck exam: ABSENT: carotid bruit, JVD, lymphadenopathy, thyromegaly Respiratory exam: PRESENT: accessory muscle use, decreased breath sounds, symmetrical, tachypnea Cardiovascular exam: PRESENT: RRR. ABSENT: diastolic murmur, rubs, systolic murmur Pulses: PRESENT: +1 pedal pulses bilateral Vascular exam: PRESENT: normal capillary refill GI/Abdominal exam: PRESENT: normal bowel sounds, soft. ABSENT: distended, guarding, mass, organolmegaly, rebound, tenderness Extremities exam: PRESENT: full ROM. ABSENT: calf tenderness, clubbing, pedal edema Neurological exam: PRESENT: alert, awake, oriented to person, oriented to place, oriented to time, oriented to situation, CN II-XII grossly intact. ABSENT: motor sensory deficit Psychiatric exam: PRESENT: appropriate affect, normal mood. ABSENT: homicidal ideation, suicidal ideation Skin exam: PRESENT: dry, intact, warm. ABSENT: cyanosis, rash Results Laboratory Results: 02/19/19 04:37 02/19/19 04:37 12/03/19 12/03/19 12/03/19 10:35 10:35 10:35 Creatine Kinase 34 L CK-MB (CK-2) 1.94 Troponin I < 0.012 NT-Pro-B Natriuret Pep 92 Impressions: Chest/Abdomen CTA 02/12/19 10:46 IMPRESSION: 1. There is no pulmonary embolus. There is no aortic aneurysm or dissection. 2. There is dense opacification the medial left lower lobe: Atelectasis versus consolidation. 3. Loculated left pleural effusion/ empyema. There is a general decreased in fluid volume. Thoracentesis Ultrasound 02/14/19 00:00 IMPRESSION: SUCCESSFUL THORACENTESIS OF A CHRONIC LOCULATED LEFT PLEURAL EFFUSION USING ULTRASOUND GUIDANCE. Chest X-Ray 02/14/19 17:59 IMPRESSION: There is marked retrocardiac opacification on the left suggesting atelectasis in the left lower lobe. Chest CT 02/16/19 00:00 IMPRESSION: Slight decrease in size of loculated left pleural effusion. No pneumothorax. KUB X-Ray 02/16/19 00:00 IMPRESSION: NO RADIOGRAPHIC EVIDENCE FOR ACUTE ABDOMINAL DISEASE. Assessment and Plan - Diagnosis (1) Acute on chronic respiratory failure with hypoxia and hypercapnia Is this a current diagnosis for this admission?: Yes Plan: Secondary to #1 & #2. ABG revealed compensated respiratory acidosis with hypercapnia and hypoxia PFT testing pending. Patient denies prior formal diagnosis of COPD. However, recent evaluation by copy and print associate included discussion regarding restrictive lung disease. Had been referred to pulmonary rehabilitation but had not yet been seen. Continue p.o. prednisone; have decreased dose to 40 mg daily Have started Daliresp Resume home dose Anoro Trial p.o. morphine or ativan for air hunger Pulmonology is consulted; appreciate Dr. Ware's evaluation and recommendations. Palliative Care consultation Aggressive pulmonary toilet Remaining management as above. 02/19/2019-stable at this time. Patient remains on nasal cannula. Prednisone continues. Patient remains on Daliresp and Anoro awaiting recommendations per pulmonology 02/20/2019-patient sitting up in the chair. Somewhat tachypneic short of breath. Continues on nasal cannula, prednisone Daliresp and Anoro. Still awaiting further recognitions per pulmonology. Repeat chest x-ray at this time. (2) HLD (hyperlipidemia) Is this a current diagnosis for this admission?: Yes Plan: Cardiac diet. Home dose atorvastatin. 02/19/2019-stable continue to follow 02/20/2019-stable follow (3) HTN (hypertension) Is this a current diagnosis for this admission?: Yes Plan: Blood pressures are overall acceptable; actually slightly on the low side. Have decrease metoprolol to 12.5 mg daily Cardiac diet. 02/19/2019-stable continue to follow 02/20/2019-stable (4) Hypothyroidism Is this a current diagnosis for this admission?: Yes Plan: Continue home dose synthroid. 02/19/2019-continue home Synthroid 02/20/2019-stable continue Synthroid (5) Left lower lobe pneumonia Is this a current diagnosis for this admission?: Yes Plan: Resolved. Blood cultures are negative Sputum culture are pending Repeat Chest CT is negative; slight right-sided pleural effusion noted, decreased from previously. No new findings. Patient is admitted to [facility] on continuous cardiac telemetry and pulse oximetry. Continue supplemental oxygen as needed to maintain saturations greater than 89%. BiPAP as needed. As needed nebulizer treatments. Resume home dose and oral. He was empirically placed on IV Rocephin and azithromycin for treatment of community-acquired pneumonia. Received 4 days of Rocephin and 5 of azithromycin. Mucinex twice daily. Encourage pulmonary toilet. 02/19/2019-continue weight cultures. Patient remains on Rocephin and azithromycin. Mucinex. Pulmonary toileting. 02/20/2019-await cultures. Remains on Rocephin and azithromycin. Pulmonary toileting. Mucinex. Oxygen therapy (6) Pleural effusion Is this a current diagnosis for this admission?: Yes Plan: Loculated effusion noted on chest imaging. Status post thoracentesis; fluid sent for testing. Cultures so far negative. Cytology pending. Echocardiogram revealed LVEF 60%, mild diastolic dysfunction, no pericardial effusion Likely secondary to left lower lobe pneumonia. Some concern for malignancy. Cultures and antibiotics as above. Pulmonology is consulted; appreciate Dr. Ware's assistance. Remaining management as above. 02/19/2019 awaiting cytology on pleural fluid. May change plan of care at that time. 02/20/2019-still awaiting cytology on pleural fluid (7) History of esophagectomy Is this a current diagnosis for this admission?: Yes Plan: Soft diet. Consider Reglan for gastroparesis. Discussed with Dr. Callejas and Dr. Holland; may utilize BiPAP if indicated. 02/19/2019-continue Reglan. BiPAP if indicated. Soft diet 02/20/2019-stable (8) Irritation around percutaneous endoscopic gastrostomy (PEG) tube site Is this a current diagnosis for this admission?: Yes Plan: 02/19/2019-stable 02/20/2019-stable - Time Time Spent with patient: 15-24 minutes - Inpatient Certification Based on my medical assessment, after consideration of the patient's comorbidities, presenting symptoms, or acuity I expect that the services needed warrant INPATIENT care.: Yes I certify that my determination is in accordance with my understanding of Medicare's requirements for reasonable and necessary INPATIENT services [42 CFR 412.3e].: Yes Medical Necessity: Significant Comorbidiites Make Outpatient Treatment Too Risky, Need Close Monitoring Due to Risk of Patient Decompensation, Need for IV Antibiotics
--- NOTE | 2019-02-20 14:45 | RADIOLOGY REPORT (SQ) ---
EXAM DESCRIPTION: CHEST 2 VIEWS COMPLETED DATE/TIME: 02/20/2019 2:14 pm REASON FOR STUDY: sob COMPARISON: CT chest 02/16/2019, 02/12/2019, 04/19/2018 Chest film 02/14/2019, 02/12/2019, 04/20/2018 EXAM PARAMETERS: NUMBER OF VIEWS: two views TECHNIQUE: Digital Frontal and Lateral radiographic views of the chest acquired. RADIATION DOSE: NA LIMITATIONS: none FINDINGS: LUNGS AND PLEURA: Trace chronic appearing bilateral pleural effusions are present. Few ti ny air bubbles are present in left pleural fluid pocket post thoracentesis on 02/14/2019. There is bilateral lower lobe collapse and consolidation left greater than right. No pneumothorax. No worrisome pulmonary nodules. MEDIASTINUM AND HILAR STRUCTURES: Post gastric pull-through for esophageal cancer, gastric pull-throu gh is along the right posterior mediastinum. HEART AND VASCULAR STRUCTURES: Heart normal size. No evidence for failure. BONES: No acute findings. HARDWARE: Left-sided permanent central line tip in the superior vena cava. OTHER: No other significant finding. IMPRESSION: Trace chronic appearing pleural effusions Postsurgical changes in the posterior right chest from gastric pull-through. Chronic left lower lobe collapse and consolidation TECHNICAL DOCUMENTATION: JOB ID: [id number] [employer]- All Rights Reserved Reading location - IP/workstation name: [email or web address]
[2019-02-20] MEDS: FERROUS SULFATE 325 MG TABLET PO SCH (17:19)
[2019-02-20] MEDS: ATORVASTATIN CALCIUM 40 MG TABLET PO SCH (21:33)
[2019-02-20] MEDS: ACETAMINOPHEN 325 MG TABLET PO PRN (21:33)
[2019-02-20] MEDS: LORAZEPAM 1 MG TABLET PO PRN (21:33)
[2019-02-21 05:32] LABS: HEMATOCRIT 38.8 % (37.9-51.0); HEMOGLOBIN 12.5 g/dL (13.5-17.0); MEAN CORPUSCULAR HEMOGLOBIN 26.1 pg (27.0-33.4); MEAN CORPUSCULAR HGB CONC 32.2 g/dL (32.0-36.0); MEAN CORPUSCULAR VOLUME 81 fl (80-97); PLATELET COUNT 215 10^3/uL (150-450); RED BLOOD COUNT 4.79 10^6/uL (4.35-5.55); RED CELL DISTRIBUTION WIDTH 22.7 % (11.5-14.0); WHITE BLOOD COUNT 6.6 10^3/uL (4.0-10.5)
[2019-02-21 05:51] LABS: ANION GAP 6 (5-19); BLOOD UREA NITROGEN 10 mg/dL (7-20); CALCIUM 8.8 mg/dL (8.4-10.2); CARBON DIOXIDE 30 mmol/L (22-30); CHLORIDE 102 mmol/L (98-107); GLUCOSE 80 mg/dL (75-110); POTASSIUM 4.2 mmol/L (3.6-5.0)
[2019-02-21] MEDS: HEPARIN SOD (PORCINE) 5,000 UNIT/ML 1 ML VIAL SUBCUT SCH (06:10)
[2019-02-21] MEDS: LEVOTHYROXINE SODIUM 0.075 MG TABLET PO SCH (06:10)
[2019-02-21] MEDS: METOPROLOL TARTRATE 25 MG TABLET PO SCH (08:36)
--- NOTE | 2019-02-21 09:25 | PDOC DISCHARGE SUMMARY ---
Impression - Admit/DC Date/PCP Admission Date/Primary Care Provider: 02/12/19 18:24 MICHAEL RUIZ MD Discharge Date: 02/21/19 - Discharge Diagnosis (1) Acute on chronic respiratory failure with hypoxia and hypercapnia Is this a current diagnosis for this admission?: Yes (2) HLD (hyperlipidemia) Is this a current diagnosis for this admission?: Yes (3) HTN (hypertension) Is this a current diagnosis for this admission?: Yes (4) Hypothyroidism Is this a current diagnosis for this admission?: Yes (5) Left lower lobe pneumonia Is this a current diagnosis for this admission?: Yes (6) Pleural effusion Is this a current diagnosis for this admission?: Yes (7) History of esophagectomy Is this a current diagnosis for this admission?: Yes (8) Irritation around percutaneous endoscopic gastrostomy (PEG) tube site Is this a current diagnosis for this admission?: Yes - Additional Information Resuscitation Status: Full Code Discharge Activity: Activity As Tolerated Referrals: MICHAEL RUIZ MD [Primary Care Provider] - Follow up as needed Home Medications: Albuterol Sulfate [Proair HFA Inhalation Aerosol 8.5 gm MDI] 2 puff IH Q4HP PRN 02/13/19 Aspirin [Adult Low Dose Aspirin EC] 81 mg PO DAILY 02/13/19 Atorvastatin Calcium [Lipitor 40 mg Tablet] 40 mg PO QHS 02/13/19 Citalopram Hydrobromide [Celexa 20 mg Tablet] 20 mg PO BID 02/13/19 Ferrous Sulfate [Feosol 325 mg Tablet] 325 mg PO QPM 02/13/19 Lansoprazole [Prevacid] 30 mg PO Q6AM 02/13/19 Levothyroxine Sodium 75 mcg PO Q6AM 02/13/19 Metoprolol Tartrate [Lopressor 25 mg Tablet] 25 mg PO QAM 02/13/19 Umeclidinium Brm/Vilanterol Tr [Anoro Ellipta 62.5-25 Mcg INH] 1 puff IH QPM 02/13/19 Zolpidem Tartrate [Ambien Cr] 12.5 mg PO QHS 02/13/19 History of Present Illiness History of Present Illness: NICOLE EDWARDS is a 68 year old male who presented to the ER with a history of esophageal cancer status post total esophagectomy approximately 1 year ago with shortness of breath Hospital Course Hospital Course: Patient has past medical history of esophageal cancer with a total esophagectomy approximately 1 year ago, NM status post 2 stents, hypertension, hyperlipidemia, hypothyroidism, BPH and depression who presented emergency department with complaint of 3 weeks of progressive shortness of breath and nonproductive cough. Patient dates over the last few weeks he has noted decreased ability to walk and required frequent pauses. He noted dizziness and generalized weakness following ambulating up to 10 to 15 feet. In the emergency department he was found to have a temperature 94.6, borderline hypotension, persistent tachypnea and hypoxia on room air. Patient was admitted for further evaluation treatment was treated aggressively for community-acquired pneumonia left lower lobe. Patient has progressed well throughout his hospital stay and is at this time ready to return home. Patient will be discharged home with outpatient physical therapy and pulmonary rehab. Patient understands plan of care and is agreement's. Patient will follow with primary care practitioner within 1 week. Physical Exam Vital Signs: Temp Pulse Resp BP Pulse Ox 97.5 F 66 18 130/73 H 96 02/21/19 07:24 02/21/19 07:24 02/21/19 07:24 02/21/19 07:24 02/21/19 07:24 Pulse Oximeter Continuous Start: 02/12/19 18:51 Freq: RTQ4 Status: Complete Protocol: Document 02/17/19 04:15 PMU (Rec: 02/17/19 04:46 PMU [email or web address]) Pulse Oximetry Assessment Oxygen Flow Rate (L/min) 2 Oxygen Delivery Method Nasal Cannula Fraction of Inspired Oxygen (FIO2) 28 Equipment Usage Equipment Standby Continuous SpO2 Machine # 9 Intake & Output 02/20/19 02/21/19 02/22/19 06:59 06:59 06:59 Intake Total 1330 1380 Output Total 1925 950 Balance -595 430 Weight 70.1 kg 69.2 kg General appearance: PRESENT: no acute distress, well-developed, well-nourished Head exam: PRESENT: atraumatic, normocephalic Eye exam: PRESENT: conjunctiva pink, EOMI, PERRLA. ABSENT: scleral icterus Ear exam: PRESENT: normal external ear exam Mouth exam: PRESENT: moist, tongue midline Neck exam: ABSENT: carotid bruit, JVD, lymphadenopathy, thyromegaly Respiratory exam: PRESENT: decreased breath sounds, symmetrical, unlabored. ABSENT: rales, rhonchi, wheezes Cardiovascular exam: PRESENT: RRR. ABSENT: diastolic murmur, rubs, systolic murmur Pulses: PRESENT: normal dorsalis pedis pul Vascular exam: PRESENT: normal capillary refill GI/Abdominal exam: PRESENT: normal bowel sounds, soft. ABSENT: distended, guarding, mass, organolmegaly, rebound, tenderness Rectal exam: PRESENT: deferred Extremities exam: PRESENT: full ROM. ABSENT: calf tenderness, clubbing, pedal edema Neurological exam: PRESENT: alert, awake, oriented to person, oriented to place, oriented to time, oriented to situation, CN II-XII grossly intact. ABSENT: motor sensory deficit Psychiatric exam: PRESENT: appropriate affect, normal mood. ABSENT: homicidal ideation, suicidal ideation Skin exam: PRESENT: dry, intact, warm. ABSENT: cyanosis, rash Results Laboratory Results: WBC 6.6 10^3/uL (4.0-10.5) 02/21/19 04:48 RBC 4.79 10^6/uL (4.35-5.55) 02/21/19 04:48 Hgb 12.5 g/dL (13.5-17.0) L 02/21/19 04:48 Hct 38.8 % (37.9-51.0) 02/21/19 04:48 MCV 81 fl (80-97) 02/21/19 04:48 MCH 26.1 pg (27.0-33.4) L 02/21/19 04:48 MCHC 32.2 g/dL (32.0-36.0) 02/21/19 04:48 RDW 22.7 % (11.5-14.0) H 02/21/19 04:48 Plt Count 215 10^3/uL (150-450) 02/21/19 04:48 Lymph % (Auto) 5.6 % (13-45) L 02/13/19 04:26 [place] % (Auto) 0.9 % (3-13) L 02/13/19 04:26 Eos % (Auto) 0.1 % (0-6) 02/13/19 04:26 Baso % (Auto) 0.2 % (0-2) 02/13/19 04:26 Absolute Neuts (auto) 3.3 10^3/uL (1.7-8.2) 02/13/19 04:26 Absolute Lymphs (auto) 0.2 10^3/uL (0.5-4.7) L 02/13/19 04:26 Absolute Monos (auto) 0.0 10^3/uL (0.1-1.4) L 02/13/19 04:26 Absolute Eos (auto) 0.0 10^3/uL (0.0-0.6) 02/13/19 04:26 Absolute Basos (auto) 0.0 10^3/uL (0.0-0.2) 02/13/19 04:26 Seg Neutrophils % 93.2 % (42-78) H 02/13/19 04:26 PT 14.3 SEC (11.4-15.4) 02/14/19 08:37 INR 1.10 02/14/19 08:37 APTT 31.6 SEC (23.5-35.8) 02/14/19 08:37 Carbonic Acid 1.60 mmol/L (1.05-1.35) H 02/12/19 21:15 HCO3/H2CO3 Ratio 20:1 02/12/19 21:15 ABG pH 7.40 (7.35-7.45) 02/12/19 21:15 ABG pCO2 53.1 mmHg (35-45) H 02/12/19 21:15 ABG pO2 111.4 mmHg (80-100) H 02/12/19 21:15 ABG HCO3 32.0 mmol/L (20-24) H 02/12/19 21:15 ABG Total CO2 33.6 mmol/L (23-27) H 02/12/19 21:15 ABG O2 Saturation 98.0 % (94-98) 02/12/19 21:15 ABG Base Excess 5.9 mmol/L 02/12/19 21:15 VBG pH 7.37 (7.30-7.42) 02/12/19 10:35 VBG pCO2 61.2 mmHg (35-63) 02/12/19 10:35 VBG HCO3 34.3 mmol/L (20-32) H 02/12/19 10:35 VBG Base Excess 7.1 mmol/L 02/12/19 10:35 FiO2 28% 02/12/19 21:15 Sodium 137.8 mmol/L (137-145) 02/21/19 04:48 Potassium 4.2 mmol/L (3.6-5.0) 02/21/19 04:48 Chloride 102 mmol/L (98-107) 02/21/19 04:48 Carbon Dioxide 30 mmol/L (22-30) 02/21/19 04:48 Anion Gap 6 (5-19) 02/21/19 04:48 BUN 10 mg/dL (7-20) 02/21/19 04:48 Creatinine 0.43 mg/dL (0.52-1.25) L 02/21/19 04:48 Est GFR ( Amer) > 60 (>60) 02/21/19 04:48 Est GFR (MDRD) Non-Af > 60 (>60) 02/21/19 04:48 Glucose 80 mg/dL (75-110) 02/21/19 04:48 POC Glucose 121 mg/dL (70-110) H 02/12/19 09:53 Hemoglobin A1c % 6.2 % (4.7-6.0) H 02/13/19 04:26 Lactic Acid 1.7 mmol/L (0.7-2.1) 02/12/19 10:25 Calcium 8.8 mg/dL (8.4-10.2) 02/21/19 04:48 Total Bilirubin 0.4 mg/dL (0.2-1.3) 02/12/19 10:35 Direct Bilirubin 0.1 mg/dL (0.0-0.4) 02/12/19 10:35 Neonat Total Bilirubin Not Reportable 02/12/19 10:35 Neonat Direct Bilirubin Not Reportable 02/12/19 10:35 Neonat Indirect Bili Not Reportable 02/12/19 10:35 AST 19 U/L (17-59) 02/12/19 10:35 ALT 9 U/L (<50) 02/12/19 10:35 Alkaline Phosphatase 101 U/L (38-126) 02/12/19 10:35 Lactate Dehydrogenase 121 U/L (120-246) 02/14/19 08:37 Creatine Kinase 34 U/L (55-170) L 02/12/19 10:35 CK-MB (CK-2) 1.94 ng/mL (<4.55) 02/12/19 10:35 Troponin I < 0.012 ng/mL 02/12/19 10:35 NT-Pro-B Natriuret Pep 92 pg/mL (<125) 02/12/19 10:35 Total Protein 6.1 g/dL (6.3-8.2) L 02/14/19 04:31 Albumin 3.5 g/dL (3.5-5.0) 02/12/19 10:35 Urine Color YELLOW 02/12/19 15:35 Urine Appearance CLEAR 02/12/19 15:35 Urine pH 6.0 (5.0-9.0) 02/12/19 15:35 Ur Specific Clifford 1.059 02/12/19 15:35 Urine Protein NEGATIVE mg/dL (NEGATIVE) 02/12/19 15:35 Urine Glucose (UA) NEGATIVE mg/dL (NEGATIVE) 02/12/19 15:35 Urine Ketones TRACE mg/dL (NEGATIVE) H 02/12/19 15:35 Urine Blood SMALL (NEGATIVE) H 02/12/19 15:35 Urine Nitrite NEGATIVE (NEGATIVE) 02/12/19 15:35 Urine Bilirubin NEGATIVE (NEGATIVE) 02/12/19 15:35 Urine Urobilinogen 2.0 mg/dL (<2.0) H 02/12/19 15:35 Ur Leukocyte Esterase NEGATIVE (NEGATIVE) 02/12/19 15:35 Urine WBC (Auto) 2 /HPF 02/12/19 15:35 Urine RBC (Auto) 28 /HPF 02/12/19 15:35 Urine Mucus (Auto) MOD /LPF 02/12/19 15:35 Urine Ascorbic Acid NEGATIVE (NEGATIVE) 02/12/19 15:35 Fluid Type PLEURAL 02/14/19 14:39 Fluid Source LUNG 02/14/19 14:39 Fluid Color YELLOW 02/14/19 14:39 Fluid Appearance CLOUDY 02/14/19 14:39 Fluid Viscosity LIQUID 02/14/19 14:39 Fluid WBC 6 /uL 02/14/19 14:39 Fluid RBC 5475 /uL 02/14/19 14:39 Fluid Seg Neutrophils 67 % 02/14/19 14:39 Fluid Lymphocytes 33 % 02/14/19 14:39 Fluid Monocytes 0 % 02/14/19 14:39 Fluid Eosinophils 0 % 02/14/19 14:39 Fluid Basophils 0 % 02/14/19 14:39 Fluid Glucose 117 mg/dL (.) 02/14/19 14:39 Fluid Total Protein 2.3 g/dL (.) 02/14/19 14:39 Fluid LDH 60 IU/L (.) 02/14/19 14:39 Fluid Amylase 5 U/L (.) 02/14/19 14:39 02/12/19 02/12/19 10:35 10:35 CK-MB (CK-2) 1.94 Troponin I < 0.012 NT-Pro-B Natriuret Pep 92 Impressions: Chest/Abdomen CTA 02/12/19 10:46 IMPRESSION: 1. There is no pulmonary embolus. There is no aortic aneurysm or dissection. 2. There is dense opacification the medial left lower lobe: Atelectasis versus consolidation. 3. Loculated left pleural effusion/ empyema. There is a general decreased in fluid volume. Chest X-Ray 02/14/19 00:00 IMPRESSION: No pneumothorax immediately post diagnostic left thoracentesis. Thoracentesis Ultrasound 02/14/19 00:00 IMPRESSION: SUCCESSFUL THORACENTESIS OF A CHRONIC LOCULATED LEFT PLEURAL EFFUSION USING ULTRASOUND GUIDANCE. Chest X-Ray 02/14/19 16:30 IMPRESSION: No pneumothorax status post thoracentesis. Airspace disease in the left lower lobe, atelectasis likely. Chest X-Ray 02/14/19 17:59 IMPRESSION: There is marked retrocardiac opacification on the left suggesting atelectasis in the left lower lobe. Chest CT 02/16/19 00:00 IMPRESSION: Slight decrease in size of loculated left pleural effusion. No pneumothorax. KUB X-Ray 02/16/19 00:00 IMPRESSION: NO RADIOGRAPHIC EVIDENCE FOR ACUTE ABDOMINAL DISEASE. Chest X-Ray 02/20/19 00:00 IMPRESSION: Trace chronic appearing pleural effusions Postsurgical changes in the posterior right chest from gastric pull-through. Chronic left lower lobe collapse and consolidation Plan Time Spent: Greater than 30 Minutes Stroke Is this a Stroke Patient?: No Acute Heart Failure - Is this a Heart Failure Patient?: No
[2019-02-21] MEDS: PREDNISONE 20 MG TABLET PO SCH (09:36)
[2019-02-21] MEDS: ROFLUMILAST 500 MCG TABLET PO SCH (09:37)
[2019-02-21] MEDS: GUAIFENESIN 600 MG TABLET.SA PO SCH (09:37)
[2019-02-21] MEDS: CITALOPRAM HYDROBROMIDE 20 MG TABLET PO SCH (09:37)
[2019-02-21] MEDS: ASPIRIN 81 MG TABLET, ENT COATED PO SCH (09:37)
[2019-02-21] MEDS: FAMOTIDINE 20 MG TABLET PO SCH (09:37)
[2019-02-21 10:55] VITALS: BP 96/54
== END 2019-02-21 11:16 | disposition home or self-care (01) | DRG 193 ==
LOC: ER 09:09 → EH 18:24 → 3W 21:55
PROVIDERS: ADMIT Internal Medicine; ATTEND Internal Medicine
PROC: 5A09557 Assistance with Respiratory Ventilation, Greater than 96 Consecutive Hours, Continuous Positive Airway Pressure (ICD-10-PCS; principal; 2019-02-12)
PROC: 0W9B3ZZ Drainage of Left Pleural Cavity, Percutaneous Approach (ICD-10-PCS; 2019-02-14)
DX: J18.9 Pneumonia, unspecified organism (principal); J96.21 Acute and chronic respiratory failure with hypoxia; J96.22 Acute and chronic respiratory failure with hypercapnia; J91.8 Pleural effusion in other conditions classified elsewhere; E78.5 Hyperlipidemia, unspecified; I10 Essential (primary) hypertension; E03.9 Hypothyroidism, unspecified; G47.33 Obstructive sleep apnea (adult) (pediatric); E11.9 Type 2 diabetes mellitus without complications; K21.9 Gastro-esophageal reflux disease without esophagitis; F32.9 Major depressive disorder, single episode, unspecified; Z93.1 Gastrostomy status; N40.0 Benign prostatic hyperplasia without lower urinary tract symptoms; I25.2 Old myocardial infarction; Z90.49 Acquired absence of other specified parts of digestive tract; Z85.01 Personal history of malignant neoplasm of esophagus; Z95.5 Presence of coronary angioplasty implant and graft; Z79.82 Long term (current) use of aspirin; Z79.52 Long term (current) use of systemic steroids; Z79.899 Other long term (current) drug therapy; Z88.8 Allergy status to other drugs, medicaments and biological substances; Z83.3 Family history of diabetes mellitus; Z82.49 Family history of ischemic heart disease and other diseases of the circulatory system
CPT/HCPCS: 32555; 36415; 36600; 71045; 71046; 71250; 71275; 74018; 80048; 80053; 81001; 82150; 82550; 82553; 82803; 82945; 82962; 83036; 83605; 83615; 83880; 84155; 84157; 84484; 85025; 85027; 85610; 85730; 87040; 87070; 87075; 87101; 87205; 88305; 89050; 93005; 93010; 93306; 94060; 94660; 94668; 94727; 94729; 94762; 94799; 99285; J0456; J0696; J1644; J2543; J2930; J3490; J7030; J7060; J7512; J7620

== ENCOUNTER 2019-02-26 12:27 | Observation (INO) | payer MEDICARE ==
[2019-02-26] MEDS ORDERED: IPRATROPIUM/ALBUTEROL 0.5-2.5 MG/3 ML AMPUL NEB ONE (13:08)
--- NOTE | 2019-02-26 13:11 | ER Document Report ---
ED Medical Screen (RME) - General Chief Complaint: Breathing Difficulty Stated Complaint: DIFFICULTY BREATHING Time Seen by Provider: 02/26/19 13:02 Primary Care Provider: MICHAEL RUIZ MD [Primary Care Provider] - Follow up as needed TRAVEL OUTSIDE OF THE [place] IN LAST 30 DAYS: No - HPI Notes: 02/26/19 13:09 68-year-old male with a history of restrictive lung disease was recently discharged from [facility] for pneumonia presents to the emergency room for shortness of breath by EMS. Symptoms are progressive over the last couple of days. Patient states he was not discharged home with any antibiotics. Patient is tripoding with a respiratory rate of 41. Denies any chest pain, nausea vomiting diarrhea, fevers or chills. Spouse is with patient. Patient is not oxygen de pendent. I have greeted and performed a rapid initial assessment of this patient. A comprehensive ED assessment and evaluation of the patient, analysis of test results and completion of the medical decision making process will be conducted by additional ED providers. PHYSICAL EXAMINATION: GENERAL: Chronically ill-appearing malnourished and in mild distress HEAD: Atraumatic, normocephalic. EYES: Pupils equal round extraocular movements intact, conjunctiva are normal. NECK: Normal range of motion LUNGS: Diminished breath sounds in bilateral upper lobes Musculoskeletal: Normal range of motion NEUROLOGICAL: Normal speech, normal gait. PSYCH: Normal mood, normal affect. SKIN: Warm, Dry, normal turgor, no rashes or lesions noted. - Related Data Allergies/Adverse Reactions: lisinopril Allergy (Severe, Verified 02/26/19 12:55) Edema Past Medical History - Past Medical History Cardiac Medical History: Reports: Hx Coronary Artery Disease, Hx Heart Attack - 2006, cardiac cath x 2, total of 5 stents, Hx Hypercholesterolemia, Hx Hypertension Pulmonary Medical History: Denies: Hx Asthma, Hx Bronchitis, Hx COPD, Hx Pneumonia Neurological Medical History: Denies: Hx Cerebrovascular Accident, Hx Seizures Endocrine Medical History: Reports: Hx Diabetes Mellitus Type 2 - Tight control Renal/ Medical History: Denies: Hx Peritoneal Dialysis GI Medical History: Reports: Hx Gastroesophageal Reflux Disease. Denies: Hx Cirrhosis, Hx Crohn's Disease, Hx Diverticulitis, Hx Gastritis, Hx Hepatitis, Hx Hiatal Hernia, Hx Irritable Bowel, Hx Liver Failure, Hx Pancreatitis, Hx Ulcer, Hx Ulcerative Colitis, Hx Colonoscopy, Hx Endoscopic Retrograde Cholangio, Hx Endoscopy Musculoskeltal Medical History: Reports Hx Arthritis Psychiatric Medical History: Reports: Hx Depression Infectious Medical History: Denies: Hx Hepatitis Past Surgical History: Reports: Hx Herniorrhaphy - Bilateral, Other - Esophagectomy. Denies: Hx Pacemaker - Immunizations Hx Diphtheria, Pertussis, Tetanus Vaccination: Yes Physical Exam - Vital signs Vitals: Temp Pulse Resp BP Pulse Ox 97.5 F 95 41 H 113/76 96 02/26/19 12:49 02/26/19 12:49 02/26/19 12:49 02/26/19 12:49 02/26/19 12:49 Course - Vital Signs Vital signs: Temp Pulse Resp BP Pulse Ox 97.5 F 95 41 H 113/76 96 02/26/19 12:49 02/26/19 12:49 02/26/19 12:49 02/26/19 12:49 02/26/19 12:49 Doctor's Discharge - Discharge Referrals: MICHAEL RUIZ MD [Primary Care Provider] - Follow up as needed
--- NOTE | 2019-02-26 14:20 | RADIOLOGY REPORT (SQ) ---
EXAM DESCRIPTION: CHEST SINGLE VIEW COMPLETED DATE/TIME: 02/26/2019 2:10 pm REASON FOR STUDY: sob, hx of PNA x 2 weeks ago COMPARISON: 02/20/2019 EXAM PARAMETERS: NUMBER OF VIEWS: One view. TECHNIQUE: Single frontal radiographic view of the chest acquired. RADIATION DOSE: NA LIMITATIONS: None. FINDINGS: LUNGS AND PLEURA: Persistent small pleural effusions probable basilar atelectasis. No pne umothorax. MEDIASTINUM AND HILAR STRUCTURES: No masses. Contour normal. HEART AND VASCULAR STRUCTURES: Stable in appearance. BONES: No acute findings. HARDWARE: [id number] remains in place. OTHER: No other significant finding. IMPRESSION: No significant interval change in the chest with small bilateral pleural effusions and b asilar atelectasis. TECHNICAL DOCUMENTATION: JOB ID: [id number] [employer]- All Rights Reserved Reading location - IP/workstation name: [email or web address]
[2019-02-26 15:21] LABS: ABSOLUTE BASOPHILS # (AUTO) 0.1 10^3/uL (0.0-0.2); ABSOLUTE EOSINOPHILS # (AUTO) 0.1 10^3/uL (0.0-0.6); ABSOLUTE LYMPHOCYTES (AUTO) 0.4 10^3/uL (0.5-4.7); ABSOLUTE MONOCYTES (AUTO) 0.4 10^3/uL (0.1-1.4); BASOPHILS % (AUTO) 0.9 % (0-2); EOSINOPHILS % (AUTO) 0.8 % (0-6); HEMATOCRIT 44.5 % (37.9-51.0); HEMOGLOBIN 14.4 g/dL (13.5-17.0); LYMPHOCYTES % (AUTO) 5.3 % (13-45); MEAN CORPUSCULAR HEMOGLOBIN 26.8 pg (27.0-33.4); MEAN CORPUSCULAR HGB CONC 32.4 g/dL (32.0-36.0); MEAN CORPUSCULAR VOLUME 83 fl (80-97); MONOCYTES % (AUTO) 4.5 % (3-13); PLATELET COUNT 236 10^3/uL (150-450); RED BLOOD COUNT 5.39 10^6/uL (4.35-5.55); RED CELL DISTRIBUTION WIDTH 22.6 % (11.5-14.0); SEGMENTED NEUTROPHILS % (AUTO) 88.5 % (42-78); TOTAL CELLS COUNTED % (AUTO) 100 %; WHITE BLOOD COUNT 7.9 10^3/uL (4.0-10.5)
[2019-02-26 15:23] LABS: ARTERIAL BLOOD BASE EXCESS 2.3 mmol/L; ARTERIAL BLOOD H2CO3 1.18 mmol/L (1.05-1.35); ARTERIAL BLOOD HCO3 26.4 mmol/L (20-24); ARTERIAL BLOOD O2 SATURATION 98.7 % (94-98); ARTERIAL BLOOD PCO2 39.3 mmHg (35-45); ARTERIAL BLOOD PH 7.45 (7.35-7.45); ARTERIAL BLOOD PO2 128.4 mmHg (80-100); ARTERIAL BLOOD TOTAL CO2 27.6 mmol/L (23-27)
[2019-02-26 15:24] LABS: ARTERIAL BLOOD FIO2 28%
[2019-02-26 15:40] LABS: ALBUMIN 3.8 g/dL (3.5-5.0); ALKALINE PHOSPHATASE 97 U/L (38-126); ANION GAP 12 (5-19); ASPARTATE AMINO TRANSFERASE 22 U/L (17-59); BILIRUBIN,DIRECT 0.1 mg/dL (0.0-0.4); BILIRUBIN,TOTAL 0.7 mg/dL (0.2-1.3); BLOOD UREA NITROGEN 11 mg/dL (7-20); CALCIUM 9.3 mg/dL (8.4-10.2); CARBON DIOXIDE 27 mmol/L (22-30); CHLORIDE 94 mmol/L (98-107); GLUCOSE 105 mg/dL (75-110); POTASSIUM 4.7 mmol/L (3.6-5.0); TOTAL PROTEIN 7.2 g/dL (6.3-8.2)
--- NOTE | 2019-02-26 17:10 | ER Document Report ---
ED Respiratory Problem - General Chief Complaint: Shortness Of Breath Stated Complaint: DIFFICULTY BREATHING Time Seen by Provider: 02/26/19 14:02 Information source: Patient Notes: Patient presents complaining of shortness of breath for the past 3 days. Patient was recently admitted from 02/12 to 02/21/2019 for pneumonia with a loculated effusion that had to be drained by thoracentesis. Patient states that he felt well for 2 days and then started to have shortness of breath. Patient does complain of lightheadedness and nausea. Patient denies any chest discomfort fever vomiting or diarrhea. Patient does report a history of restrictive lung disease. TRAVEL OUTSIDE OF THE [place] IN LAST 30 DAYS: No - HPI Patient complains to provider of: Short of breath. No: COPD Onset: Other - 3 days Duration: Worse/persistent Quality of pain: No pain Pain Level: Denies Context: Other - Restrictive lung disease, recent treatment for left lower lobe pneumonia. denies: Recent immobilization, Recent surgery, Smoker Associated symptoms: Short of breath. denies: Chest pain/discomfort, Congestion, Fever, Headache Similar symptoms previously: Yes Recently seen / treated by doctor: Yes - Related Data Allergies/Adverse Reactions: lisinopril Allergy (Severe, Verified 02/26/19 12:55) Edema Past Medical History - General Information source: Patient - Social History Smoking Status: Never Smoker Frequency of alcohol use: None Drug Abuse: None Lives with: Spouse/Significant other Family History: CAD, COPD, DM Patient has suicidal ideation: No Patient has homicidal ideation: No - Past Medical History Cardiac Medical History: Reports: Hx Coronary Artery Disease, Hx Heart Attack - 2006, cardiac cath x 2, total of 5 stents, Hx Hypercholesterolemia, Hx Hypertension Pulmonary Medical History: Reports: Hx Pneumonia, Other - Restrictive lung disease Endocrine Medical History: Reports: Hx Diabetes Mellitus Type 2 - Tight control Renal/ Medical History: Denies: Hx Peritoneal Dialysis GI Medical History: Reports: Hx Gastroesophageal Reflux Disease Musculoskeletal Medical History: Reports Hx Arthritis Psychiatric Medical History: Reports: Hx Depression Infectious Medical History: Denies: Hx Hepatitis Past Surgical History: Reports: Hx Cardiac Catheterization - x2, 5 stents, Hx Herniorrhaphy - Bilateral, Other - Esophagectomy - Immunizations Hx Diphtheria, Pertussis, Tetanus Vaccination: Yes Hx Pneumococcal Vaccination: 08/11/06 Review of Systems - Review of Systems Constitutional: Recent illness - Recent pneumonia EENT: No symptoms reported Cardiovascular: Lightheaded. denies: Chest pain Respiratory: Cough, Short of breath Gastrointestinal: No symptoms reported. denies: Nausea, Vomiting Genitourinary: No symptoms reported Male Genitourinary: No symptoms reported Musculoskeletal: No symptoms reported. denies: Back pain, Leg swelling Skin: No symptoms reported Hematologic/Lymphatic: No symptoms reported Neurological/Psychological: No symptoms reported Physical Exam - Vital signs Vitals: Temp Pulse Resp BP Pulse Ox 97.5 F 95 41 H 113/76 96 02/26/19 12:49 02/26/19 12:49 02/26/19 12:49 02/26/19 12:49 02/26/19 12:49 - General General appearance: Alert In distress: Mild - HEENT Head: Normocephalic, Atraumatic Eyes: Normal Conjunctiva: Normal Ears: Normal External canal: Normal Nasal: Normal Mouth/Lips: Normal Mucous membranes: Normal Neck: Normal, Supple. No: Lymphadenopathy - Respiratory Respiratory status: Labored, Tachypnea Chest status: Nontender, Accessory muscle use Breath sounds: Other - Diminished bilaterally in the bases otherwise clear Chest palpation: Normal - Cardiovascular Rhythm: Regular Heart sounds: S1 appreciated, S2 appreciated - Abdominal Inspection: Other - Healing previous PEG site Distension: No distension Bowel sounds: Normal Tenderness: Nontender - Back Back: Normal, Nontender - Extremities General upper extremity: Normal inspection, Normal strength General lower extremity: Normal inspection, Normal strength - Neurological Neuro grossly intact: Yes Cognition: Normal Jovanni Coma Scale Eye Opening: Spontaneous [place] Coma Scale Verbal: Oriented Jovanni Coma Scale Motor: Obeys Commands Jovanni Coma Scale Total: 15 - Psychological Associated symptoms: Normal affect, Normal mood - Skin Skin Temperature: Warm Skin Moisture: Dry Skin Color: Pale Course - Re-evaluation Re-evalutation: 02/26/19 17:09 Patient continues tachypneic, oxygen turned off, no change in pulse ox. Patient continues with increased respiratory effort and use of accessory muscles. Consulted with Dr. Mallory regarding patient presentation diagnostic evaluation. No additional testing advised at this time. Does recommend consultation with hospitalist for admission. Call placed to Dr. Callejas who advises consulting with Dr. Posey for admission. 02/26/19 17:[address] Posey who does agree to come and evaluate patient. 02/26/19 17:46 Dr. Posey evaluated patient and agrees to admit as an observation to telemetry at this time. - Vital Signs Vital signs: Temp Pulse Resp BP Pulse Ox 99.0 F 95 21 H 107/64 98 02/26/19 17:00 02/26/19 12:49 02/26/19 19:01 02/26/19 19:00 02/26/19 19:01 - Laboratory Result Diagrams: 02/26/19 15:09 02/26/19 15:09 Laboratory results interpreted by me: 02/26/19 02/26/19 02/26/19 15:09 15:09 15:09 MCH 26.8 L RDW 22.6 H Lymph % (Auto) 5.3 L Absolute Lymphs (auto) 0.4 L Seg Neutrophils % 88.5 H D-Dimer ABG pO2 128.4 H ABG HCO3 26.4 H ABG Total CO2 27.6 H ABG O2 Saturation 98.7 H Sodium 132.7 L Chloride 94 L Creatinine 0.46 L NT-Pro-B Natriuret Pep TSH 02/26/19 02/26/19 02/26/19 15:09 15:09 15:09 MCH RDW Lymph % (Auto) Absolute Lymphs (auto) Seg Neutrophils % D-Dimer 1.46 H ABG pO2 ABG HCO3 ABG Total CO2 ABG O2 Saturation Sodium Chloride Creatinine NT-Pro-B Natriuret Pep 136 H TSH 11.20 H - Diagnostic Test Radiology reviewed: Image reviewed, Reports reviewed Discharge - Discharge Clinical Impression: Pleural effusion, History of esophagectomy, Restrictive lung disease Dyspnea Qualifiers: Dyspnea type: unspecified Qualified Code(s): R06.00 - Dyspnea, unspecified Condition: Stable Disposition: ADMITTED OBSERVATION Admitting Provider: Taty (Hospitalist) Unit Admitted: Telemetry
[2019-02-26] MEDS ORDERED: IPRATROPIUM/ALBUTEROL 0.5-2.5 MG/3 ML AMPUL NEB SCH (18:00)
[2019-02-26] MEDS: PREDNISONE 20 MG TABLET PO SCH (19:10)
--- NOTE | 2019-02-26 19:21 | PDOC H&P ---
History of Present Illness Admission Date/PCP: MICHAEL RUIZ MD Patient complains of: SOB History of Present Illness: NICOLE EDWARDS is a 68 year old male with a past medical history of esophageal cancer status post total esophagectomy approximately 1 year ago, [place] status post stents x2, hypertension, hyperlipidemia, hypothyroidism, BPH, and depression who presented with shortness of breath. Patient was recently admitted on 02/12/2019 for pneumonia. He was hospitalized for 9 days. He ended up requiring thoracentesis for his pleural effusion. He was treated with antibiotics as well. He says that he did not really fully recover back to his baseline but he did improve with the treatments on his recent admission. He says that he was doing well until the past 2 days when he started having recurrence of increasing shortness of breath. He says that he felt dizzy when he tried to ambulate. He denies chest pain. He denies productive cough. No fever or chills. In the ER, work-up was unremarkable. Chest x-ray did not show acute changes. His blood gases pretty much unremarkable. He was noted to be tachypneic in the high 20s. Past Medical History Cardiac Medical History: Reports: Coronary Artery Disease, Myocardial Infarction - 2007, cardiac cath x 2, total of 5 stents, Hyperlipidema, Hypertension Pulmonary Medical History: Denies: Asthma, Bronchitis, Chronic Obstructive Pulmonary Disease (COPD), Pneumonia Neurological Medical History: Denies: Seizures Endocrine Medical History: Reports: Diabetes Mellitus Type 2 - Tight control GI Medical History: Reports: Gastroesophageal Reflux Disease Denies: Cirrhosis, Crohn's Disease, Diverticulitis, Hepatitis, Hiatal Hernia, Ulcerative Colitis Musculoskeltal Medical History: Reports: Arthritis Psychiatric Medical History: Reports: Depression Hematology: Denies: Anemia Past Surgical History Past Surgical History: Reports: Cardiac Catheterization - x2, 5 stents, Herniorrhaphy - Bilateral, Other - Esophagectomy Denies: Pacemaker Social History Smoking Status: Never Smoker Frequency of Alcohol Use: None Hx Recreational Drug Use: No Hx Prescription Drug Abuse: No Family History Family History: CAD, COPD, DM Parental Family History Reviewed: Yes - No premature CAD Children Family History Reviewed: No Sibling(s) Family History Reviewed.: No Medication/Allergy Home Medications: Albuterol Sulfate [Proair HFA Inhalation Aerosol 8.5 gm MDI] 2 puff IH Q4HP PRN 02/13/19 Aspirin [Adult Low Dose Aspirin EC] 81 mg PO DAILY 02/13/19 Atorvastatin Calcium [Lipitor 40 mg Tablet] 40 mg PO QHS 02/13/19 Citalopram Hydrobromide [Celexa 20 mg Tablet] 20 mg PO BID 02/13/19 Ferrous Sulfate [Feosol 325 mg Tablet] 325 mg PO QPM 02/13/19 Lansoprazole [Prevacid] 30 mg PO Q6AM 02/13/19 Levothyroxine Sodium 75 mcg PO Q6AM 02/13/19 Metoprolol Tartrate [Lopressor 25 mg Tablet] 25 mg PO QAM 02/13/19 Umeclidinium Brm/Vilanterol Tr [Anoro Ellipta 62.5-25 Mcg INH] 1 puff IH QPM 02/13/19 Zolpidem Tartrate [Ambien Cr] 12.5 mg PO QHS 02/13/19 Allergies/Adverse Reactions: lisinopril Allergy (Severe, Verified 02/26/19 12:55) Edema Review of Systems All systems: reviewed and no additional remarkable complaints except as stated - As mentioned in HPI Physical Exam Vital Signs: Temp Pulse Resp BP Pulse Ox 99.0 F 95 30 H 114/68 95 02/26/19 17:00 02/26/19 12:49 02/26/19 17:01 02/26/19 17:00 02/26/19 17:01 Intake & Output 02/25/19 02/26/19 02/27/19 06:59 06:59 06:59 Weight 146 lb 2.664 oz General appearance: PRESENT: no acute distress, well-developed, well-nourished Head exam: PRESENT: atraumatic, normocephalic Eye exam: PRESENT: conjunctiva pink, EOMI, PERRLA. ABSENT: scleral icterus Ear exam: PRESENT: normal external ear exam Mouth exam: PRESENT: moist, tongue midline Neck exam: ABSENT: carotid bruit, JVD, lymphadenopathy, thyromegaly Respiratory exam: PRESENT: clear to auscultation bette. ABSENT: rales, rhonchi, wheezes Cardiovascular exam: PRESENT: RRR. ABSENT: diastolic murmur, rubs, systolic murmur Pulses: PRESENT: normal dorsalis pedis pul GI/Abdominal exam: PRESENT: normal bowel sounds, soft. ABSENT: distended, guarding, mass, organolmegaly, rebound, tenderness Rectal exam: PRESENT: deferred Extremities exam: PRESENT: full ROM. ABSENT: calf tenderness, clubbing, pedal edema Neurological exam: PRESENT: alert, awake, oriented to person, oriented to place, oriented to time, oriented to situation, CN II-XII grossly intact. ABSENT: motor sensory deficit Results Laboratory Results: 02/26/19 15:09 02/26/19 15:09 02/26/19 02/26/19 02/26/19 15:09 15:09 15:09 WBC 7.9 RBC 5.39 Hgb 14.4 Hct 44.5 MCV 83 MCH 26.8 L MCHC 32.4 RDW 22.6 H Plt Count 236 Seg Neutrophils % 88.5 H Carbonic Acid 1.18 HCO3/H2CO3 Ratio 22:1 ABG pH 7.45 ABG pCO2 39.3 ABG pO2 128.4 H ABG HCO3 26.4 H ABG O2 Saturation 98.7 H ABG Base Excess 2.3 FiO2 28% Sodium 132.7 L Potassium 4.7 Chloride 94 L Carbon Dioxide 27 Anion Gap 12 BUN 11 Creatinine 0.46 L Est GFR ( Amer) > 60 Glucose 105 Calcium 9.3 Total Bilirubin 0.7 AST 22 Alkaline Phosphatase 97 Total Protein 7.2 Albumin 3.8 02/26/19 15:09 Troponin I < 0.012 Impressions: Chest X-Ray 02/26/19 13:08 IMPRESSION: No significant interval change in the chest with small bilateral pleural effusions and basilar atelectasis. Assessment and Plan - Diagnosis (1) Dyspnea Qualifiers: Dyspnea type: unspecified Qualified Code(s): R06.00 - Dyspnea, unspecified Is this a current diagnosis for this admission?: Yes Plan: Patient is presenting with progressive shortness of breath in the past 2 days. He was noted to be tachypneic. No significant wheezes on examination but he does have slightly decreased breath sounds. He had a recent PFT which was not definitive for obstructive lung disease but did show decreased DLCO. He did not have formal or full pulmonary function testing. He denies previous formal diagnosis of COPD but he was placed on Anoro by his celluloid trimmer [facility]. He says he has not been using the Anoro. Chest x-ray does not show new changes. He is not hypoxic. Obtained d-dimer which came back elevated. Will pursue a CTA of the chest to rule out PE. Discussed benefits and risk CTA including JOSE R with patient and . Will also start him on scheduled breathing treatments and low-dose prednisone and see if he gets relief from these treatments. (2) HTN (hypertension) Is this a current diagnosis for this admission?: Yes Plan: Resume home meds once verified. (3) Hypothyroidism Is this a current diagnosis for this admission?: Yes Plan: Resume Synthroid once verified. - Time Time Spent with patient: 25-34 minutes
--- NOTE | 2019-02-26 19:22 | ADVANCED CARE ---
- Diagnosis (1) Dyspnea Diagnosis Current: Yes (2) History of esophagectomy Diagnosis Current: Yes (3) HTN (hypertension) Diagnosis Current: Yes (4) Hypothyroidism Diagnosis Current: Yes Resuscitation Status: Full Code Discussion: Discussed with patient. He says he is a Full Code and prefers to receive chest compressions, defibrillation or mechanical ventilation if the need arises. He says that his , Xenia is his surrogate medical decision maker.
--- NOTE | 2019-02-26 20:28 | RADIOLOGY REPORT (SQ) ---
EXAM: CT chest angiography with intravenous contrast CLINICAL DATA: 68-year-old male with shortness of breath and elevated d-dimer. TECHNICAL DATA: Following the administration of intravenous contrast, multiple high-resolution axial images of the chest were performed followed by sagittal and coronal reconstructed images. Coronal oblique MIP images were also performed. The CT study is performed according to ALARA (as low as reasonably achievable) or ALARA/IMAGE GENTLY, with automatic adjustment of mA and/or kV according to patient size. Performed on: 02/26/2019 at 7:41 PM COMPARISONS: Prior CT chest performed on 02/16/2019 and 02/12/2019 FINDINGS: There is satisfactory visualization and contrast opacification of pulmonary arteries. No definite intra-arterial filling defects are identified to suggest acute or chronic pulmonary embolism. The thoracic aorta is normal in caliber and contour without evidence of aneurysm or dissection. Again demonstrated are postsurgical changes consistent with an esophagectomy and gastric pull-through procedure. There is a persistent loculated pleural fluid collection in the inferior left hemithorax and persistent focal area of airspace consolidation in the posterior medial left lower lobe. There is minimal atelectasis in the dependent right lung. The heart is normal in size. There is no pericardial effusion. There is no reflux of contrast into the hepatic veins to suggest right heart strain. There is no evidence of hilar, mediastinal or axillary lymphadenopathy. No acute osseous abnormality is identified. The visualized upper abdominal structures are unremarkable. IMPRESSION: 1. No CT evidence to suggest acute or chronic pulmonary embolism, aortic aneurysm or aortic dissection. 2. Again demonstrated are postsurgical changes consistent with an esophagectomy and gastric pull-through procedure. 3. Persistent loculated left pleural effusion/empyema without significant change since 02/12/2019. 4. Persistent focal airspace consolidation in the posterior medial left lower lobe and minimal dependent right lung atelectasis, similar when compared to 02/12/2019.
[2019-02-26] MEDS: HEPARIN SOD (PORCINE) 5,000 UNIT/ML 1 ML VIAL SUBCUT SCH (21:29)
--- NOTE | 2019-02-26 22:27 | EKG REPORT ---
SEVERITY:- ABNORMAL ECG - SINUS RHYTHM NONSPECIFIC T ABNORMALITIES, ANTERIOR LEADS : Confirmed by: Carrie Griffiths 26-Feb-2019 22:27:12
[2019-02-27] MEDS: IPRATROPIUM/ALBUTEROL 0.5-2.5 MG/3 ML AMPUL NEB SCH ×4 (02:55→20:02)
[2019-02-27 03:27] LABS: APPEARANCE,URINE CLEAR; BILIRUBIN,URINE NEGATIVE (NEGATIVE); COLOR,URINE YELLOW; GLUCOSE, URINE NEGATIVE (NEGATIVE); KETONES,URINE 20 mg/dL (NEGATIVE); LEUKOCYTE ESTERASE,URINE NEGATIVE (NEGATIVE); NITRITE,URINE NEGATIVE (NEGATIVE); PROTEIN,URINE NEGATIVE (NEGATIVE); URINE SPECIFIC GRAVITY 1.043
[2019-02-27] MEDS: HEPARIN SOD (PORCINE) 5,000 UNIT/ML 1 ML VIAL SUBCUT SCH ×3 (06:00→21:07)
[2019-02-27] MEDS ORDERED: ONDANSETRON HCL INJ/PF 4 MG/2 ML SDV IV ONE (08:50)
[2019-02-27] MEDS ORDERED: ALPRAZOLAM 0.25 MG TABLET PO ONE (08:50)
[2019-02-27] MEDS: PREDNISONE 20 MG TABLET PO SCH ×2 (09:01→17:04)
[2019-02-27] MEDS ORDERED: NORMAL SALINE 1000 ML 1,000 ML IV PRN (14:23)
--- NOTE | 2019-02-27 14:55 | PDOC CONSULTATION ---
Consultation Consult Date: 02/27/19 Attending physician:: BRO ARCE Provider Consulted: VALDEZ RUCKER Consult reason:: Dyspnea History of Present Illness Admission Date/PCP: 02/26/19 18:17 MICHAEL RUIZ MD History of Present Illness: NICOEL EDWARDS is a 68 year old male with multiple medical problems including esophageal cancer status post esophagectomy is status post stent coronary artery x2 status post RI. Recently in hospital for dyspnea which apparently resolved however the last 2 to 3 days it returned he presented to the emergency room short of breath PO2 128 on 2 L and a PCO2 of 39 and a pH of 7.42 PE was ruled out she has occasional dry productive dry nonproductive cough no hemoptysis nausea no vomiting no diarrhea questionable fevers and chills no sore throat no chest pain or edema. Past Medical History Cardiac Medical History: Reports: Coronary Artery Disease, Myocardial Infarction - 2006, Hyperlipidema, Hypertension Pulmonary Medical History: Reports: Pneumonia, Other - Restrictive lung disease Denies: Asthma, Bronchitis, Chronic Obstructive Pulmonary Disease (COPD) Neurological Medical History: Denies: Seizures Endocrine Medical History: Reports: Diabetes Mellitus Type 2 - Tight control GI Medical History: Reports: Gastroesophageal Reflux Disease Denies: Cirrhosis, Crohn's Disease, Diverticulitis, Hepatitis, Hiatal Hernia, Ulcerative Colitis Musculoskeltal Medical History: Reports: Arthritis Psychiatric Medical History: Reports: Depression Traumatic Medical History: Denies: Traumatic Brain Injury Hematology: Denies: Anemia, Hemophilia, Sickle Cell Disease Past Surgical History Past Surgical History: Reports: Cardiac Catheterization - x2, 5 stents, Herniorrhaphy - Bilateral, Other - Esophagectomy Denies: Pacemaker Social History Information Source: Patient, [facility] Records Lives with: Spouse/Significant other Smoking Status: Never Smoker Passive smoke exposure as: Both Frequency of Alcohol Use: None Hx Recreational Drug Use: No Drugs: None Hx Prescription Drug Abuse: No Do you have pets?: No Have you had any respiratory illnesses as a child?: No Have you been exposed to any sick contacts recently?: No Have you had any recent respiratory illnesses?: Yes Have you travelled outside of [place] in the past 12 months?: No - Advance Directive Resuscitation Status: Full Code Family History Family History: CAD, COPD, DM Parental Family History Reviewed: Yes Children Family History Reviewed: Yes Sibling(s) Family History Reviewed.: Yes Medication/Allergy Home Medications: Albuterol Sulfate [Proair HFA Inhalation Aerosol 8.5 gm MDI] 2 puff IH Q4HP PRN 02/13/19 Aspirin [Adult Low Dose Aspirin EC] 81 mg PO DAILY 02/13/19 Atorvastatin Calcium [Lipitor 40 mg Tablet] 40 mg PO QHS 02/13/19 Citalopram Hydrobromide [Celexa 20 mg Tablet] 20 mg PO BID 02/13/19 Ferrous Sulfate [Feosol 325 mg Tablet] 325 mg PO QPM 02/13/19 Lansoprazole [Prevacid] 30 mg PO Q6AM 02/13/19 Levothyroxine Sodium 75 mcg PO Q6AM 02/13/19 Metoprolol Tartrate [Lopressor 25 mg Tablet] 25 mg PO QAM 02/13/19 Umeclidinium Brm/Vilanterol Tr [Anoro Ellipta 62.5-25 Mcg INH] 1 puff IH QPM 02/13/19 Zolpidem Tartrate [Ambien Cr] 12.5 mg PO QHS 02/13/19 Allergies/Adverse Reactions: lisinopril Allergy (Severe, Verified 02/26/19 12:55) Edema Review of Systems All systems: reviewed and no additional remarkable complaints except as stated Physical Exam Vital Signs: Temp Pulse Resp BP Pulse Ox 98.3 F 64 18 117/65 99 02/27/19 04:06 02/27/19 09:15 02/27/19 09:15 02/27/19 04:06 02/27/19 09:15 Intake & Output 02/26/19 02/27/19 02/28/19 06:59 06:59 06:59 Output Total 250 Balance -250 Weight 69 kg General appearance: PRESENT: no acute distress, cooperative, disheveled, thin, well-developed, well-nourished Head exam: PRESENT: atraumatic, normocephalic Eye exam: PRESENT: conjunctiva pale, EOMI. ABSENT: nystagmus, periorbital swelling Mouth exam: PRESENT: dry mucosa, neck supple, tongue midline Neck exam: ABSENT: carotid bruit, JVD, lymphadenopathy, meningismus, thyromegaly, tracheal deviation, tracheostomy Respiratory exam: PRESENT: decreased breath sounds, prolonged expiratory phas, rhonchi, symmetrical, unlabored. ABSENT: retraction, stridor, tachypnea, wheezes Cardiovascular exam: PRESENT: RRR, +S1, +S2. ABSENT: tachycardia Pulses: PRESENT: normal radial pulses GI/Abdominal exam: PRESENT: soft. ABSENT: distended, guarding, mass, rebound Extremities exam: ABSENT: calf tenderness, clubbing, joint swelling, pedal edema, tenderness Musculoskeletal exam: ABSENT: deformity, dislocation Neurological exam: PRESENT: awake Psychiatric exam: PRESENT: flat affect Skin exam: PRESENT: dry, warm Results Laboratory Results: 02/26/19 15:09 02/26/19 15:09 02/26/19 02/26/19 02/26/19 15:09 15:09 15:09 WBC 7.9 RBC 5.39 Hgb 14.4 Hct 44.5 MCV 83 MCH 26.8 L MCHC 32.4 RDW 22.6 H Plt Count 236 Seg Neutrophils % 88.5 H Carbonic Acid 1.18 HCO3/H2CO3 Ratio 22:1 ABG pH 7.45 ABG pCO2 39.3 ABG pO2 128.4 H ABG HCO3 26.4 H ABG O2 Saturation 98.7 H ABG Base Excess 2.3 FiO2 28% Sodium 132.7 L Potassium 4.7 Chloride 94 L Carbon Dioxide 27 Anion Gap 12 BUN 11 Creatinine 0.46 L Est GFR ( Amer) > 60 Glucose 105 Calcium 9.3 Total Bilirubin 0.7 AST 22 Alkaline Phosphatase 97 Total Protein 7.2 Albumin 3.8 TSH Urine Color Urine Appearance Urine pH Ur Specific [place] Urine Protein Urine Glucose (UA) Urine Ketones Urine Blood Urine Nitrite Ur Leukocyte Esterase Urine WBC (Auto) Urine RBC (Auto) 02/26/19 02/27/19 15:09 02:58 WBC RBC Hgb Hct MCV MCH MCHC RDW Plt Count Seg Neutrophils % Carbonic Acid HCO3/H2CO3 Ratio ABG pH ABG pCO2 ABG pO2 ABG HCO3 ABG O2 Saturation ABG Base Excess FiO2 Sodium Potassium Chloride Carbon Dioxide Anion Gap BUN Creatinine Est GFR ( Amer) Glucose Calcium Total Bilirubin AST Alkaline Phosphatase Total Protein Albumin TSH 11.20 H Urine Color YELLOW Urine Appearance CLEAR Urine pH 7.0 Ur Specific [place] 1.043 Urine Protein NEGATIVE Urine Glucose (UA) NEGATIVE Urine Ketones 20 H Urine Blood NEGATIVE Urine Nitrite NEGATIVE Ur Leukocyte Esterase NEGATIVE Urine WBC (Auto) 1 Urine RBC (Auto) 5 02/26/19 02/26/19 15:09 15:09 Troponin I < 0.012 NT-Pro-B Natriuret Pep 136 H Impressions: Chest X-Ray 02/26/19 13:08 IMPRESSION: No significant interval change in the chest with small bilateral pl eural effusions and basilar atelectasis. Chest/Abdomen CTA 02/26/19 18:15 IMPRESSION: 1. No CT evidence to suggest acute or chronic pulmonary embolism, aortic aneurysm or aortic dissection. 2. Again demonstrated are postsurgical changes consistent with an esophagectomy and gastric pull-through procedure. 3. Persistent loculated left pleural effusion/empyema without significant change since 02/12/2019. 4. Persistent focal airspace consolidation in the posterior medial left lower lobe and minimal dependent right lung atelectasis, similar when compared to 02/12/2019. Assessment & Plan - Diagnosis (1) Depression Qualifiers: Depression Type: unspecified Qualified Code(s): F32.9 - Major depressive disorder, single episode, unspecified Is this a current diagnosis for this admission?: Yes Plan: Consider psych consultation and/or citalopram (2) Dyspnea Qualifiers: Dyspnea type: unspecified Qualified Code(s): R06.00 - Dyspnea, unspecified Is this a current diagnosis for this admission?: Yes Plan: Arterial blood gas does not reveal hypoxia or hypercapnia or abnormal pH (3) Pleural effusion Is this a current diagnosis for this admission?: Yes Plan: This has been longstanding greater than a year looks better now than in the past and if this effusion is truly loculated he would need a video-assisted thorascopic procedure to the loculations and help drain the fluid he also feels that he may have some longstanding atelectasis left lower lobe conservatively Mucomyst and chest physiotherapy for at least 2 to 3 months and if this not successful consider bronchoscopy (4) Hypothyroidism Is this a current diagnosis for this admission?: Yes Plan: Titrate Synthroid as tolerated - Time Time Spent: 50 to 70 Minutes
--- NOTE | 2019-02-27 16:02 | PDOC PROGRESS REPORT ---
Subjective Progress Note for:: 02/27/19 Subjective:: NICOLE EDWARDS is a 68 year old male with a past medical history of esophageal cancer status post total esophagectomy approximately 1 year ago, restrictive lung disease, [place] status post stents x2, hypertension, hyperlipidemia, hypothyroidism, BPH, and depression who presented with shortness of breath. Patient was recently admitted on 02/12/2019 for pneumonia. He was hospitalized for 9 days. He ended up requiring thoracentesis for his pleural effusion. He was treated with antibiotics as well. He says that he did not really fully recover back to his baseline but he did improve with the treatments on his recent admission. He says that he was doing well until the past 2 days when he started having recurrence of increasing shortness of breath. He says that he felt dizzy when he tried to ambulate. He denies chest pain. He denies productive cough. No fever or chills. In the ER, work-up was unremarkable. Chest x-ray did not show acute changes. His blood gas is pretty much unremarkable. He was noted to be tachypneic in the high 20s. 02/27: Chest CTA ruled out a PE. No acute changes was noted. Otherwise, no acute event overnight. He did not have any episode of hypoxia off the oxygen since admission. He does have episodes of going tachypneic. However this appears to be more of hyperventilation. This morning prior to coming into the room, patient was noted to have normal respiratory rate. When this provider entered the room, patient noticeably appeared to consciously/voluntarily increase his rate of respiration. CTA was pursued last night as his d-dimer came back elevated. Imaging did reveal chronic loculated left sided pleural e ffusion. This is unchanged and has not increased in size compared to the imaging done in the recent admission. Unlikely to be empyema as he does not have any fever nor leukocytosis. He was weaned off supplemental O2. Case was also discussed in length with pulmonology. No interventions is deemed necessary at this time but he will need close follow-up with pulmonology to reassess the chronic effusion and consider if there is a need for further interventions like VATS or bronchoscopy. We will place patient on Mucomyst and CPT for now. He did complain of getting winded and dizzy when he tries to go to the bathroom. Orthostatic vital signs were done and did come back positive for orthostasis with a standing blood pressure going down to the 80 systolic. He does report he has been drinking and eating less in the past few days. Discussed in length with patient and . They were reassured that his lung findings have been stable and there is no concern for new pneumonia or increasing effusion nor a PE. At this point, patient was noted to be more pacified and actually started breathing back to a normal respiratory rate and pattern. Suspect there is some component of anxiety. En couraged to increase his fluid oral intake. We will also give him cautious IV fluid hydration for the orthostasis. Anticipate discharge in the next 24 hours if orthostasis resolves. Will re-assess again for need for home O2 if he is able to tolerate ambulation once his orthostasis resolves. Reason For Visit: SHORTNESS OF BREATH POSSIBLE COPD EXACERBATION Physical Exam Vital Signs: Temp Pulse Resp BP Pulse Ox 98.2 F 100 26 H 102/56 L 100 02/27/19 11:17 02/27/19 13:50 02/27/19 13:50 02/27/19 11:17 02/27/19 13:50 Intake & Output 02/26/19 02/27/19 02/28/19 06:59 06:59 06:59 Output Total 250 Balance -250 Weight 152 lb 1.903 oz General appearance: PRESENT: no acute distress, well-developed, well-nourished Head exam: PRESENT: atraumatic, normocephalic Eye exam: PRESENT: conjunctiva pink, EOMI, PERRLA. ABSENT: scleral icterus Ear exam: PRESENT: normal external ear exam Mouth exam: PRESENT: moist, tongue midline Neck exam: ABSENT: carotid bruit, JVD, lymphadenopathy, thyromegaly Respiratory exam: PRESENT: clear to auscultation bette. ABSENT: rales, rhonchi, wheezes Cardiovascular exam: PRESENT: RRR. ABSENT: diastolic murmur, rubs, systolic murmur Pulses: PRESENT: normal dorsalis pedis pul GI/Abdominal exam: PRESENT: normal bowel sounds, soft. ABSENT: distended, guarding, mass, organolmegaly, rebound, tenderness Rectal exam: PRESENT: deferred Extremities exam: PRESENT: full ROM. ABSENT: calf tenderness, clubbing, pedal edema Neurological exam: PRESENT: alert, awake, oriented to person, oriented to place, oriented to time, oriented to situation, CN II-XII grossly intact. ABSENT: motor sensory deficit Results Laboratory Results: 02/26/19 15:09 02/26/19 15:09 02/26/19 02/26/19 02/27/19 15:09 15:09 02:58 Sodium 132.7 L Potassium 4.7 Chloride 94 L Carbon Dioxide 27 Anion Gap 12 BUN 11 Creatinine 0.46 L Est GFR ( Amer) > 60 Glucose 105 Calcium 9.3 Total Bilirubin 0.7 AST 22 Alkaline Phosphatase 97 Total Protein 7.2 Albumin 3.8 TSH 11.20 H Urine Color YELLOW Urine Appearance CLEAR Urine pH 7.0 Ur Specific [place] 1.043 Urine Protein NEGATIVE Urine Glucose (UA) NEGATIVE Urine Ketones 20 H Urine Blood NEGATIVE Urine Nitrite NEGATIVE Ur Leukocyte Esterase NEGATIVE Urine WBC (Auto) 1 Urine RBC (Auto) 5 02/26/19 02/26/19 15:09 15:09 Troponin I < 0.012 NT-Pro-B Natriuret Pep 136 H Impressions: Chest X-Ray 02/26/19 13:08 IMPRESSION: No significant interval change in the chest with small bilateral pleural effusions and basilar atelectasis. Chest/Abdomen CTA 02/26/19 18:15 IMPRESSION: 1. No CT evidence to suggest acute or chronic pulmonary embolism, aortic aneurysm or aortic dissection. 2. Again demonstrated are postsurgical changes consistent with an esophagectomy and gastric pull-through procedure. 3. Persistent loculated left pleural effusion/empyema without significant change since 02/12/2019. 4. Persistent focal airspace consolidation in the posterior medial left lower lobe and minimal dependent right lung atelectasis, similar when compared to 02/12/2019. Assessment and Plan - Diagnosis (1) Dyspnea Qualifiers: Dyspnea type: unspecified Qualified Code(s): R06.00 - Dyspnea, unspecified Is this a current diagnosis for this admission?: Yes Plan: 02/26: Patient is presenting with progressive shortness of breath in the past 2 days. He was noted to be tachypneic. No significant wheezes on examination but he does have slightly decreased breath sounds. He had a recent PFT which was not definitive for obstructive lung disease but did show decreased DLCO. He did not have formal or full pulmonary function testing. He denies previous formal diagnosis of COPD but he was placed on Anoro by his test lead application testing from [facility]. He says he has not been using the Anoro. Chest x-ray does not show new changes. He is not hypoxic. Obtained d-dimer which came back elevated. Will pursue a CTA of the chest to rule out PE. Discussed benefits and risk CTA including JOSE R with patient and . Will also start him on scheduled breathing treatments and low-dose prednisone and see if he gets relief from these treatments. 02/27: Improved. Multifactorial from chronic lung issues including his restrictive lung disease, limited lung reserve from chronic lung changes related to his esophageal pull-through and chronic left-sided loculated pleural effusion. Also suspect some component of anxiety as mentioned above. Weaned o ff supplemental O2. Appreciate pulmonology recommendations. Started Mucomyst and CPT. (2) Orthostasis Is this a current diagnosis for this admission?: Yes Plan: Encourage increased oral fluid intake. We will also start normal saline 50 cc/h. Continue to check orthostatic vital signs. Hold off on home antihypertensives for now. (3) History of esophagectomy Is this a current diagnosis for this admission?: Yes (4) HTN (hypertension) Is this a current diagnosis for this admission?: Yes Plan: Hold off on home medications due to orthostasis. (5) Hypothyroidism Is this a current diagnosis for this admission?: Yes Plan: Check T3 and T4. - Time Time Spent with patient: 25-34 minutes
[2019-02-27 18:01] LABS: ANION GAP 8 (5-19); BLOOD UREA NITROGEN 10 mg/dL (7-20); CALCIUM 9.1 mg/dL (8.4-10.2); CARBON DIOXIDE 29 mmol/L (22-30); CHLORIDE 97 mmol/L (98-107); GLUCOSE 140 mg/dL (75-110); POTASSIUM 4.6 mmol/L (3.6-5.0)
[2019-02-27] MEDS: MIDODRINE HCL 5 MG TABLET PO SCH (18:01)
[2019-02-27 18:15] LABS: FREE T3 1.76 pg/mL (2.77-5.27); FREE T4 (FREE THYROXINE) 1.41 ng/dL (0.78-2.19)
[2019-02-27] MEDS ORDERED: ACETYLCYSTEINE 10% NEB 400 MG/4 ML VIAL NEB SCH (20:00)
[2019-02-27] MEDS: ACETYLCYSTEINE 10% NEB 400 MG/4 ML VIAL NEB SCH (20:01)
[2019-02-28] MEDS: IPRATROPIUM/ALBUTEROL 0.5-2.5 MG/3 ML AMPUL NEB SCH ×3 (02:24→14:23)
[2019-02-28] MEDS: HEPARIN SOD (PORCINE) 5,000 UNIT/ML 1 ML VIAL SUBCUT SCH ×2 (05:34→14:45)
[2019-02-28] MEDS ORDERED: ALBUTEROL SULFATE HFA (90 MCG/PUFF) 200 PUFF/8.5 GM MDI IH PRN (07:21)
[2019-02-28] MEDS: ACETYLCYSTEINE 10% NEB 400 MG/4 ML VIAL NEB SCH ×2 (09:03→14:23)
[2019-02-28] MEDS: MIDODRINE HCL 5 MG TABLET PO SCH ×2 (09:57→14:45)
[2019-02-28] MEDS: PREDNISONE 20 MG TABLET PO SCH (09:57)
[2019-02-28] MEDS ORDERED: CITALOPRAM HYDROBROMIDE 20 MG TABLET PO SCH (10:00)
[2019-02-28] MEDS ORDERED: ASPIRIN 81 MG TABLET, ENT COATED PO SCH (10:00)
[2019-02-28 17:18] VITALS: BP 125/63
[2019-02-28] MEDS ORDERED: FERROUS SULFATE 325 MG TABLET PO SCH (18:00)
[2019-02-28] MEDS ORDERED: (PENDING PHARMACY ID) (Umeclidinium Brm/Vilanterol Tr [Anoro Ellipta 62.5-25 Mcg Inh] 1 PU IH SCH (18:00)
[2019-02-28] MEDS ORDERED: ZOLPIDEM TARTRATE 5 MG TABLET PO SCH (22:00)
[2019-02-28] MEDS ORDERED: ATORVASTATIN CALCIUM 40 MG TABLET PO SCH (22:00)
[2019-03-01] MEDS ORDERED: (PENDING PHARMACY ID) (Lansoprazole [Prevacid] 30 MG) PO SCH (06:00)
[2019-03-01] MEDS ORDERED: LEVOTHYROXINE SODIUM 0.075 MG TABLET PO SCH (06:00)
[2019-03-01] MEDS ORDERED: PANTOPRAZOLE SODIUM 40 MG TABLET.DR PO SCH (06:00)
--- NOTE | 2019-03-01 18:00 | PDOC DISCHARGE SUMMARY ---
Impression - Admit/DC Date/PCP Admission Date/Primary Care Provider: 02/26/19 18:17 MICHAEL RUIZ MD Discharge Date: 02/28/19 - Discharge Diagnosis (1) Dyspnea Is this a current diagnosis for this admission?: Yes (2) Chronic pleural effusion Is this a current diagnosis for this admission?: Yes (3) Orthostasis Is this a current diagnosis for this admission?: Yes (4) History of esophagectomy Is this a current diagnosis for this admission?: Yes (5) HTN (hypertension) Is this a current diagnosis for this admission?: Yes (6) Hypothyroidism Is this a current diagnosis for this admission?: Yes - Additional Information Resuscitation Status: Full Code Discharge Diet: As Tolerated Discharge Activity: Activity As Tolerated, Balance Activity w/Rest Referrals: VALDEZ WARE MD [ACTIVE STAFF] - (We will make an appointment for you and contact you with the date and time. Thank you and Happy Holidays!) MICHAEL RUIZ MD [Primary Care Provider] - (L/M WITH OFFICE ABOUT FOLLOW UP APPOINTMENT) Prescriptions: Acetylcysteine [Mucomist 10% Neb 400 mg/4 ml Vial] 400 mg IH Q12 #30 vial.neb Levothyroxine Sodium [Synthroid 0.112 mg Tablet] 0.112 mg PO QAM #30 tablet Albuterol Sulfate [Ventolin 0.042% Neb 1.25 mg/3 mL Ampul] 1 vial NEB Q12HP PRN #20 vial.neb PRN Reason: Alprazolam [Xanax 0.25 mg Tablet] 0.25 mg PO Q12HP PRN #20 tab PRN Reason: Home Medications: Albuterol Sulfate [Proair HFA Inhalation Aerosol 8.5 gm MDI] 2 puff IH Q4HP PRN 02/13/19 Aspirin [Adult Low Dose Aspirin EC] 81 mg PO DAILY 02/13/19 Atorvastatin Calcium [Lipitor 40 mg Tablet] 40 mg PO QHS 02/13/19 Citalopram Hydrobromide [Celexa 20 mg Tablet] 20 mg PO BID 02/13/19 Ferrous Sulfate [Feosol 325 mg Tablet] 325 mg PO QPM 02/13/19 Lansoprazole [Prevacid] 30 mg PO Q6AM 02/13/19 Umeclidinium Brm/Vilanterol Tr [Anoro Ellipta 62.5-25 Mcg INH] 1 puff IH QPM 02/13/19 Acetylcysteine [Mucomist 10% Neb 400 mg/4 ml Vial] 400 mg IH Q12 #30 vial.neb 02/28/19 Albuterol Sulfate [Ventolin 0.042% Neb 1.25 mg/3 mL Ampul] 1 vial NEB Q12HP PRN #20 vial.neb 02/28/19 Alprazolam [Xanax 0.25 mg Tablet] 0.25 mg PO Q12HP PRN #20 tab 02/28/19 Levothyroxine Sodium [Synthroid 0.112 mg Tablet] 0.112 mg PO QAM #30 tablet 02/28/19 History of Present Illiness History of Present Illness: NICOLE EDWARDS is a 68 year old male with a past medical history of esophageal cancer status post total esophagectomy approximately 1 year ago, [place] status post stents x2, hypertension, hyperlipidemia, hypothyroidism, BPH, and depression who presented with shortness of breath. Patient was recently admitted on 02/12/2019 for pneumonia. He was hospitalized for 9 days. He ended up requiring thoracentesis for his pleural effusion. He was treated with antibiotics as well. He says that he did not really fully recover back to his baseline but he did improve with the treatments on his recent admission. He says that he was doing well until the past 2 days when he started having recurrence of increasing shortness of breath. He says that he felt dizzy when he tried to ambulate. He denies chest pain. He denies productive cough. No fever or chills. In the ER, work-up was unremarkable. Chest x-ray did not show acute changes. His blood gases pretty much unremarkable. He was noted to be tachypneic in the high 20s. Hospital Course Hospital Course: NICOLE EDWARDS is a 68 year old male with a past medical history of esophageal cancer status post total esophagectomy approximately 1 year ago, restrictive lung disease, [place] status post stents x2, hypertension, hyperlipidemia, hypothyroidism, BPH, and depression who presented with shortness of breath. Patient was recently admitted on 02/12/2019 for pneumonia. He was hospitalized for 9 days. He ended up requiring thoracentesis for his pleural effusion. He was treated with antibiotics as well. He says that he did not really fully recover back to his baseline but he did improve with the treatments on his rece nt admission. He says that he was doing well until the past 2 days when he started having recurrence of increasing shortness of breath. He says that he felt dizzy when he tried to ambulate. He denies chest pain. He denies productive cough. No fever or chills. In the ER, work-up was unremarkable. Chest x-ray did not show acute changes. His blood gas is pretty much unremarkable. He was noted to be tachypneic in the high 20s. Chest CTA was pursued as his d-dimer came back elevated and he had episodes of tachypnea. CTA ruled out a PE. It did reveal the same chronic loculated left sided pleural effusion. This is unchanged and has not increased in size compared to the imaging done in the recent admission. Unlikely to be empyema as he does not have any fever nor leukocytosis. Pulmonology was also consulted and actually deemed that the chronic left-sided pleural effusion has slightly improved. No interventions warranted at this time per pulmonology. Dr. Ware recommends close follow-up with him for reassessment of his chronic pleural effusion to be reevaluated if he needs subsequent VATS or bronchoscopy if the chronic effusion increases in size. Patient never had an episode of desaturation even on room air and ambulation. He did complain of lightheadedness. He was found to be orthostatic. He did complain of poor oral intake a few days prior to admission. He was given IV fluids and his metoprolol was held. His orthostasis resolved with IV fluids. Recommending holding off on home antihypertensives with close monitoring of blood pressures at home and follow-up with PCP. Although patient has chronic pleural effusion and restrictive lung disease, there is definitely a component of anxiety. Patient had episodes of tachypnea but these are actually hyperventilation episodes likely from anxiety. On multiple occasions, this provider has noted that prior to entering patient's room, patient was noted to be breathing well with normal respiratory pattern and rate. On these encounters, when patient sees provider, he is noted to voluntarily increase his rate of breathing and hyperventilates. Discussed in length with patient about all the work-up that was done including pulmonology recommendations and many of these encounters, patient spontaneously normalize his breathing pattern and rate. These episodes were also noted by physical therapy and nursing staff. Recommended patient to continue taking his Celexa. Will add as needed Xanax for severe anxiety attacks. Discussed in length with patient about the adverse effects of Xanax and to only use during severe episodes of anxiety. He verbalized understanding. He takes high-dose of Ambien (12.5 mg) at home for sleep. This was discontinued as he will be given a prescription for prn Xanax for anxiety attacks. His dizziness did resolve with IV fluids. His TSH was also elevated and T3 was low. His Synthroid was increased. He was given a confirmed appt with pulmonology. He will continue doing Mucomyst and CPT at home and will closely follow-up with pulmonology to reassess his chronic left-sided pleural effusion. He will also be getting a formal PFT with pulmonology. Physical Exam Vital Signs: Temp Pulse Resp BP Pulse Ox 98.3 F 86 21 H 125/63 98 02/28/19 17:15 02/28/19 17:15 02/28/19 17:15 02/28/19 17:15 02/28/19 17:15 Intake & Output 02/28/19 03/01/19 03/02/19 06:59 06:59 06:59 Intake Total 960 Output Total 925 Balance 35 Weight 152 lb 1.903 oz General appearance: PRESENT: no acute distress, well-developed, well-nourished Head exam: PRESENT: atraumatic, normocephalic Eye exam: PRESENT: conjunctiva pink, EOMI, PERRLA. ABSENT: scleral icterus Ear exam: PRESENT: normal external ear exam Mouth exam: PRESENT: moist, tongue midline Neck exam: ABSENT: carotid bruit, JVD, lymphadenopathy, thyromegaly Respiratory exam: PRESENT: clear to auscultation bette. ABSENT: rales, rhonchi, wheezes Cardiovascular exam: PRESENT: RRR. ABSENT: diastolic murmur, rubs, systolic murmur GI/Abdominal exam: PRESENT: normal bowel sounds, soft. ABSENT: distended, guarding, mass, organolmegaly, rebound, tenderness Rectal exam: PRESENT: deferred Extremities exam: PRESENT: full ROM. ABSENT: calf tenderness, clubbing, pedal edema Neurological exam: PRESENT: alert, awake, oriented to person, oriented to place, oriented to time, oriented to situation, CN II-XII grossly intact. ABSENT: motor sensory deficit Results Laboratory Results: WBC 7.9 10^3/uL (4.0-10.5) 02/26/19 15:09 RBC 5.39 10^6/uL (4.35-5.55) 02/26/19 15:09 Hgb 14.4 g/dL (13.5-17.0) 02/26/19 15:09 Hct 44.5 % (37.9-51.0) 02/26/19 15:09 MCV 83 fl (80-97) 02/26/19 15:09 MCH 26.8 pg (27.0-33.4) L 02/26/19 15:09 MCHC 32.4 g/dL (32.0-36.0) 02/26/19 15:09 RDW 22.6 % (11.5-14.0) H 02/26/19 15:09 Plt Count 236 10^3/uL (150-450) 02/26/19 15:09 Lymph % (Auto) 5.3 % (13-45) L 02/26/19 15:09 [place] % (Auto) 4.5 % (3-13) 02/26/19 15:09 Eos % (Auto) 0.8 % (0-6) 02/26/19 15:09 Baso % (Auto) 0.9 % (0-2) 02/26/19 15:09 Absolute Neuts (auto) 7.0 10^3/uL (1.7-8.2) 02/26/19 15:09 Absolute Lymphs (auto) 0.4 10^3/uL (0.5-4.7) L 02/26/19 15:09 Absolute Monos (auto) 0.4 10^3/uL (0.1-1.4) 02/26/19 15:09 Absolute Eos (auto) 0.1 10^3/uL (0.0-0.6) 02/26/19 15:09 Absolute Basos (auto) 0.1 10^3/uL (0.0-0.2) 02/26/19 15:09 Seg Neutrophils % 88.5 % (42-78) H 02/26/19 15:09 D-Dimer 1.46 ug/mL (0.00-0.50) H 02/26/19 15:09 Carbonic Acid 1.18 mmol/L (1.05-1.35) 02/26/19 15:09 HCO3/H2CO3 Ratio 22:1 02/26/19 15:09 ABG pH 7.45 (7.35-7.45) 02/26/19 15:09 ABG pCO2 39.3 mmHg (35-45) 02/26/19 15:09 ABG pO2 128.4 mmHg (80-100) H 02/26/19 15:09 ABG HCO3 26.4 mmol/L (20-24) H 02/26/19 15:09 ABG Total CO2 27.6 mmol/L (23-27) H 02/26/19 15:09 ABG O2 Saturation 98.7 % (94-98) H 02/26/19 15:09 ABG Base Excess 2.3 mmol/L 02/26/19 15:09 FiO2 28% 02/26/19 15:09 Sodium 134.4 mmol/L (137-145) L 02/27/19 17:30 Potassium 4.6 mmol/L (3.6-5.0) 02/27/19 17:30 Chloride 97 mmol/L (98-107) L 02/27/19 17:30 Carbon Dioxide 29 mmol/L (22-30) 02/27/19 17:30 Anion Gap 8 (5-19) 02/27/19 17:30 BUN 10 mg/dL (7-20) 02/27/19 17:30 Creatinine 0.48 mg/dL (0.52-1.25) L 02/27/19 17:30 Est GFR ( Amer) > 60 (>60) 02/27/19 17:30 Est GFR (MDRD) Non-Af > 60 (>60) 02/27/19 17:30 Glucose 140 mg/dL (75-110) H 02/27/19 17:30 Calcium 9.1 mg/dL (8.4-10.2) 02/27/19 17:30 Total Bilirubin 0.7 mg/dL (0.2-1.3) 02/26/19 15:09 Direct Bilirubin 0.1 mg/dL (0.0-0.4) 02/26/19 15:09 Neonat Total Bilirubin Not Reportable 02/26/19 15:09 Neonat Direct Bilirubin Not Reportable 02/26/19 15:09 Neonat Indirect Bili Not Reportable 02/26/19 15:09 AST 22 U/L (17-59) 02/26/19 15:09 ALT 12 U/L (<50) 02/26/19 15:09 Alkaline Phosphatase 97 U/L (38-126) 02/26/19 15:09 Troponin I < 0.012 ng/mL 02/26/19 15:09 NT-Pro-B Natriuret Pep 136 pg/mL (<125) H 02/26/19 15:09 Total Protein 7.2 g/dL (6.3-8.2) 02/26/19 15:09 Albumin 3.8 g/dL (3.5-5.0) 02/26/19 15:09 TSH 11.20 uIU/mL (0.47-4.68) H 02/26/19 15:09 Free T4 1.41 ng/dL (0.78-2.19) 02/27/19 17:30 Free T3 pg/mL 1.76 pg/mL (2.77-5.27) L 02/27/19 17:30 Urine Color YELLOW 02/27/19 02:58 Urine Appearance CLEAR 02/27/19 02:58 Urine pH 7.0 (5.0-9.0) 02/27/19 02:58 Ur Specific [place] 1.043 02/27/19 02:58 Urine Protein NEGATIVE mg/dL (NEGATIVE) 02/27/19 02:58 Urine Glucose (UA) NEGATIVE mg/dL (NEGATIVE) 02/27/19 02:58 Urine Ketones 20 mg/dL (NEGATIVE) H 02/27/19 02:58 Urine Blood NEGATIVE (NEGATIVE) 02/27/19 02:58 Urine Nitrite NEGATIVE (NEGATIVE) 02/27/19 02:58 Urine Bilirubin NEGATIVE (NEGATIVE) 02/27/19 02:58 Urine Urobilinogen 2.0 mg/dL (<2.0) H 02/27/19 02:58 Ur Leukocyte Esterase NEGATIVE (NEGATIVE) 02/27/19 02:58 Urine WBC (Auto) 1 /HPF 02/27/19 02:58 Urine RBC (Auto) 5 /HPF 02/27/19 02:58 Urine Mucus (Auto) OCC /LPF 02/27/19 02:58 Urine Ascorbic Acid NEGATIVE (NEGATIVE) 02/27/19 02:58 02/26/19 02/26/19 15:09 15:09 Troponin I < 0.012 NT-Pro-B Natriuret Pep 136 H Impressions: Chest X-Ray 02/26/19 13:08 IMPRESSION: No significant interval change in the chest with small bilateral pleural effusions and basilar atelectasis. Chest/Abdomen CTA 02/26/19 18:15 IMPRESSION: 1. No CT evidence to suggest acute or chronic pulmonary embolism, aortic aneurysm or aortic dissection. 2. Again demonstrated are postsurgical changes consistent with an esophagectomy and gastric pull-through procedure. 3. Persistent loculated left pleural effusion/empyema without significant change since 02/12/2019. 4. Persistent focal airspace consolidation in the posterior medial left lower lobe and minimal dependent right lung atelectasis, similar when compared to 02/12/2019. Stroke Is this a Stroke Patient?: No Acute Heart Failure - Is this a Heart Failure Patient?: No
== END 2019-02-28 18:00 | disposition home or self-care (01) ==
LOC: ER 12:27 → EH 18:17 → 4S 20:32
PROVIDERS: ADMIT Internal Medicine; ATTEND Internal Medicine
DX: R06.00 Dyspnea, unspecified (principal); J90 Pleural effusion, not elsewhere classified; I95.1 Orthostatic hypotension; I10 Essential (primary) hypertension; E03.9 Hypothyroidism, unspecified; F32.9 Major depressive disorder, single episode, unspecified; J98.4 Other disorders of lung; F41.9 Anxiety disorder, unspecified; R06.4 Hyperventilation; I25.10 Atherosclerotic heart disease of native coronary artery without angina pectoris; E11.9 Type 2 diabetes mellitus without complications; E78.5 Hyperlipidemia, unspecified; M62.81 Muscle weakness (generalized); I25.2 Old myocardial infarction; Z90.49 Acquired absence of other specified parts of digestive tract; R79.89 Other specified abnormal findings of blood chemistry; Z79.82 Long term (current) use of aspirin; Z79.899 Other long term (current) drug therapy; Z85.01 Personal history of malignant neoplasm of esophagus; Z95.5 Presence of coronary angioplasty implant and graft; Z87.01 Personal history of pneumonia (recurrent); Z98.890 Other specified postprocedural states; Z82.49 Family history of ischemic heart disease and other diseases of the circulatory system
CPT/HCPCS: 93005; 94640 ×5; 99285; 36415 ×2; 84439; 82803; 84443; 85025; 80048; 80053; 81001; 84484; 84481; 85379; 83880; 71045; 71275; 93010; 94667; 97116; 97161; G0378 ×4; A9270 ×11; J1644 ×3; J3490 ×4; J2405; J7030; J7512; J7620

== ENCOUNTER 2019-03-04 16:12 | Observation (INO) | payer MEDICARE ==
[2019-03-04] MEDS ORDERED: NORMAL SALINE 250 ML IV ONE (16:35)
[2019-03-04] MEDS ORDERED: IPRATROPIUM/ALBUTEROL 0.5-2.5 MG/3 ML AMPUL NEB ONE (16:36)
--- NOTE | 2019-03-04 16:40 | ER Document Report ---
ED General - General TRAVEL OUTSIDE OF THE [place] IN LAST 30 DAYS: No <ADELINA BUTTS - Last Filed: 03/04/19 20:43> <BALJIT IRWIN - Last Filed: 03/05/19 02:18> - General Chief Complaint: Shortness Of Breath Stated Complaint: SHORTNESS OF BREATH Primary Care Provider: MICHAEL RUIZ MD [Primary Care Provider] - Follow up as needed - HPI Notes: 68wm h/o esophageal Ca s/p total esophagectomy 1y/a, 9 day [place] adm 02/12/2019 for loculated LLL effusion, neg for PE which ultimately required thoracentesis + Abx. per d/c summ did not recover to prior basleine after 9d admisson. more recently adm few days here only just d/c few d/a on 03/01. during this stay, pulm saw him on 02/27/19: "Pleural effusion has been longstanding >1yr looks better now. if truly loculated needs VATS. re: he possible longstanding atelectasis LLL conservatively Mucomyst and chest physiotherapy for at least 2-3 mo and if this not successful consider bronch" Today pt called ems for return of sob and anxiety. Patient denies any fevers chills sweats says he has not complained of any and she says he has not complained of any pain. She says that he had been doing okay after discharge but that physical therapy came to the house today and he began to have some anxiety and deep breathing the physical therapist tried to perform orthostatics, but his anxiety and sensation of dyspnea and deep breathing escalated therefore the physical therapist called the rescue squad. says they do have a pulmonology follow-up April 02. She says she has given him the Xanax EMS say as they arrived the he took 1 of his Xanax he was on room air low 90s SPO2, but using abdominal breathing and tachypneic. Blood pressure was 170s over 100s, heart rate 135. placed on few liters nc iumproved spo2 upper 90s. Other PMH: ME s/p PCI + stents x2 htn/hld hypothyroidism BPH MDD (ADELINA BUTTS) - Related Data Allergies/Adverse Reactions: lisinopril Allergy (Severe, Verified 02/26/19 12:55) Edema Past Medical History - Social History Smoking Status: Unknown if Ever Smoked Family History: CAD, COPD, DM Patient has suicidal ideation: No Patient has homicidal ideation: No - Past Medical History Cardiac Medical History: Reports: Hx Coronary Artery Disease, Hx Heart Attack - 2006, Hx Hypercholesterolemia, Hx Hypertension Pulmonary Medical History: Reports: Hx Pneumonia Denies: Hx Asthma, Hx Bronchitis, Hx COPD Neurological Medical History: Denies: Hx Cerebrovascular Accident, Hx Seizures Endocrine Medical History: Reports: Hx Diabetes Mellitus Type 2 - Tight control Renal/ Medical History: Denies: Hx Peritoneal Dialysis GI Medical History: Reports: Hx Gastroesophageal Reflux Disease. Denies: Hx Cirrhosis, Hx Crohn's Disease, Hx Diverticulitis, Hx Gastritis, Hx Hepatitis, Hx Hiatal Hernia, Hx Irritable Bowel, Hx Liver Failure, Hx Pancreatitis, Hx Ulcer, Hx Ulcerative Colitis, Hx Colonoscopy, Hx Endoscopic Retrograde Cholangio, Hx Endoscopy Musculoskeletal Medical History: Reports Hx Arthritis Psychiatric Medical History: Reports: Hx Depression Traumatic Medical History: Denies: Hx Traumatic Brain Injury Infectious Medical History: Denies: Hx Hepatitis Past Surgical History: Reports: Hx Cardiac Catheterization - x2, 5 stents, Hx Herniorrhaphy - Bilateral, Other - Esophagectomy. Denies: Hx Pacemaker - Immunizations Hx Diphtheria, Pertussis, Tetanus Vaccination: Yes Hx Pneumococcal Vaccination: 08/11/06 <ADELINA BUTTS - Last Filed: 03/04/19 20:43> Physical Exam - Vital signs Vitals: Pulse Ox 99 03/04/19 16:18 Course - Laboratory Result Diagrams: 03/04/19 16:34 03/04/19 16:34 <ADELINA BUTTS - Last Filed: 03/04/19 20:43> - Laboratory Result Diagrams: 03/04/19 16:34 03/04/19 16:34 <BALJIT IRWIN - Last Filed: 03/05/19 02:18> - Re-evaluation Re-evalutation: 03/04/19 20:43 Patient's anxiety and breathing calmed down in the next hours of observation in the ED. Never had any hypoxia. No evidence of hypoxemia on his gas initially on supplemental nasal cannula. He at that time did have slightly lower pH than his usual and slightly higher PCO2 than usual. Repeat is pending. His lactic acid was 3.2 in the setting of his breathing treatments and his hyperventilation this has been repeated and has come down the less than 1.5. Renal function is intact his chest x-ray shows no change in the right lower pleural fluid collection. Spoke with Dr. Cano who had been his hospitalist on this prior to discharge we reviewed he had never had any evidence of an exudative collection and ultimately he will require VATS procedure as well as pulmonary function testing. On observation in the ED and per 's history it sounds like his dyspnea and any escalation of anxiety is actually improved with the Xanax. He says he feels much better now. 03/04/19 20:47 Currently still just pending repeat ABG and the UA which has not yet been collected. I discussed signs to look for such as fever chills sweats persistent breathing difficulty I did not give him a steroid here and he had market improvement therefore I will defer any outpatient steroid but he can continue to use his rescue inhaler as well as breathing treatment. says she was actually only just now able to fill his nebulizer refills for at home. Patient says he is okay to continue his at home physical therapy because he knows he is much weaker after these 2 hospitalizations. 03/04/19 20:49 also says that his cancer treatment history was that he had initial radiation and then chemo and then a total esophagectomy a year ago. She says that his cancer doctor actually had moved to [place] and therefore they do have a follow-up coming that she should schedule. She says that it is not due until this coming year though. And he had been on surveillance remaining "without cancer" (ADELINA BUTTS) 03/05/19 02:14 Attempts to send the patient home have been unsuccessful. He stands at into the low 80s, good waveform. Tachypneic and very shaky. I do believe there is a component of anxiety, however also believe that the patient is air hungry with oxygen demand. I have discussed this with the hospitalist, Dr. Castillo he will admit her to telemetry/observation status. (BALJIT IRWIN) - Vital Signs Vital signs: Temp Pulse Resp BP Pulse Ox 98 F 103 H 21 H 136/82 H 98 03/04/19 16:53 03/04/19 22:44 03/05/19 02:01 03/05/19 02:00 03/05/19 02:01 - Laboratory Laboratory results interpreted by me: 03/04/19 03/04/19 03/04/19 16:34 16:34 16:34 RBC 5.76 H MCH 26.9 L RDW 21.5 H Lymph % (Auto) 11.9 L Seg Neutrophils % 81.4 H Carbonic Acid ABG pH ABG pCO2 ABG pO2 ABG HCO3 ABG Total CO2 ABG O2 Saturation Sodium 135.9 L Chloride 94 L Glucose 137 H Lactic Acid NT-Pro-B Natriuret Pep TSH 24.90 H Urine Protein Urine Ketones Urine Blood 03/04/19 03/04/19 03/04/19 16:34 16:34 16:39 RBC MCH RDW Lymph % (Auto) Seg Neutrophils % Carbonic Acid 2.06 H ABG pH 7.25 L ABG pCO2 68.3 H ABG pO2 209.6 H ABG HCO3 29.1 H ABG Total CO2 31.2 H ABG O2 Saturation 99.2 H Sodium Chloride Glucose Lactic Acid 3.2 H NT-Pro-B Natriuret Pep 201 H TSH Urine Protein Urine Ketones Urine Blood 03/04/19 03/04/19 19:45 21:36 RBC MCH RDW Lymph % (Auto) Seg Neutrophils % Carbonic Acid 1.85 H ABG pH 7.29 L ABG pCO2 61.4 H ABG pO2 125.5 H ABG HCO3 28.7 H ABG Total CO2 30.5 H ABG O2 Saturation Sodium Chloride Glucose Lactic Acid NT-Pro-B Natriuret Pep TSH Urine Protein 30 H Urine Ketones 20 H Urine Blood MODERATE H Discharge <ADELINA BUTTS - Last Filed: 03/04/19 20:43> - Discharge Admitting Provider: Jonathan (Hospitalist) Unit Admitted: Telemetry <BALJIT IRWIN - Last Filed: 03/05/19 02:18> - Discharge Clinical Impression: Anxiety, Lactic acidosis, Respiratory distress, Chronic pleural effusion, Hypoxia Condition: Fair Disposition: ADMITTED OBSERVATION Additional Instructions: Today in the emergency department your chest x-ray, single view from the front, showed that your right lung fluid looks the same as when you were discharged. Your oxygenation here has otherwise been good and after hours of observation your breathing and sense of shortness of breath is also improved. You did have initial increase in your lactic acid which resolved after her small amount of fluids and the observation period. You do have the follow-up with the material handling warehouse supervisor April 02 please keep this appointment. Also I want you to call your primary care doctor's office tomorrow and have let him know or her know that you were seen in the emergency department. Please watch for any fevers chills sweats, temperature greater than 100.4. Persistent shortness of breath. I would suggest taking the Xanax if you do become dyspneic and using your breathing treatments and relaxing but if this persists the emergency department is always available. Also watch for any chest pain that is exertional or passing out or near passing out since you also have a history of heart disease. Referrals: MICHAEL RUIZ MD [Primary Care Provider] - Follow up as needed
[2019-03-04 17:03] LABS: ARTERIAL BLOOD BASE EXCESS -0.3 mmol/L; ARTERIAL BLOOD H2CO3 2.06 mmol/L (1.05-1.35); ARTERIAL BLOOD HCO3 29.1 mmol/L (20-24); ARTERIAL BLOOD O2 SATURATION 99.2 % (94-98); ARTERIAL BLOOD PCO2 68.3 mmHg (35-45); ARTERIAL BLOOD PH 7.25 (7.35-7.45); ARTERIAL BLOOD PO2 209.6 mmHg (80-100); ARTERIAL BLOOD TOTAL CO2 31.2 mmol/L (23-27)
[2019-03-04 17:04] LABS: ARTERIAL BLOOD FIO2 4
[2019-03-04 17:06] LABS: ABSOLUTE EOSINOPHILS # (AUTO) 0.1 10^3/uL (0.0-0.6); ABSOLUTE LYMPHOCYTES (AUTO) 0.9 10^3/uL (0.5-4.7); ABSOLUTE MONOCYTES (AUTO) 0.4 10^3/uL (0.1-1.4); ABSOLUTE NEUT (AUTO) 6.2 10^3/uL (1.7-8.2); BASOPHILS % (AUTO) 0.6 % (0-2); EOSINOPHILS % (AUTO) 1.2 % (0-6); HEMATOCRIT 48.4 % (37.9-51.0); HEMOGLOBIN 15.5 g/dL (13.5-17.0); LYMPHOCYTES % (AUTO) 11.9 % (13-45); MEAN CORPUSCULAR HEMOGLOBIN 26.9 pg (27.0-33.4); MEAN CORPUSCULAR VOLUME 84 fl (80-97); MONOCYTES % (AUTO) 4.9 % (3-13); PLATELET COUNT 256 10^3/uL (150-450); RED BLOOD COUNT 5.76 10^6/uL (4.35-5.55); RED CELL DISTRIBUTION WIDTH 21.5 % (11.5-14.0); SEGMENTED NEUTROPHILS % (AUTO) 81.4 % (42-78); TOTAL CELLS COUNTED % (AUTO) 100 %; WHITE BLOOD COUNT 7.6 10^3/uL (4.0-10.5)
[2019-03-04 17:14] LABS: ALBUMIN 4.2 g/dL (3.5-5.0); ALKALINE PHOSPHATASE 102 U/L (38-126); ANION GAP 15 (5-19); ASPARTATE AMINO TRANSFERASE 25 U/L (17-59); BILIRUBIN,DIRECT 0.2 mg/dL (0.0-0.4); BILIRUBIN,TOTAL 0.7 mg/dL (0.2-1.3); BLOOD UREA NITROGEN 16 mg/dL (7-20); CALCIUM 9.2 mg/dL (8.4-10.2); CARBON DIOXIDE 27 mmol/L (22-30); CHLORIDE 94 mmol/L (98-107); GLUCOSE 137 mg/dL (75-110); PHOSPHORUS 4.1 mg/dL (2.5-4.5); POTASSIUM 3.9 mmol/L (3.6-5.0); TOTAL PROTEIN 7.9 g/dL (6.3-8.2)
--- NOTE | 2019-03-04 17:22 | RADIOLOGY REPORT (SQ) ---
EXAM DESCRIPTION: CHEST SINGLE VIEW COMPLETED DATE/TIME: 03/04/2019 4:54 pm REASON FOR STUDY: sob COMPARISON: 02/26/2019 TECHNIQUE: Single frontal radiographic view of the chest acquired. NUMBER OF VIEWS: One view. LIMITATIONS: None. FINDINGS: LUNGS AND PLEURA: No pneumothorax. Similar bibasilar atelectasis- pleural effusions. MEDIASTINUM AND HILAR STRUCTURES: Stable. HEART AND VASCULAR STRUCTURES: Stable. BONES: No acute findings. HARDWARE: Left chest port. OTHER: No other significant finding. IMPRESSION: Similar bibasilar atelectasis- pleural effusions. TECHNICAL DOCUMENTATION: JOB ID: [id number] 2010 [employer]- All Rights Reserved Reading location - IP/workstation name: [email or web address]
[2019-03-04 19:29] LABS: NT PRO BNP 201 pg/mL (<125); TROPONIN I < 0.012 ng/mL
[2019-03-04 20:47] LABS: ARTERIAL BLOOD BASE EXCESS 0.5 mmol/L; ARTERIAL BLOOD H2CO3 1.85 mmol/L (1.05-1.35); ARTERIAL BLOOD HCO3 28.7 mmol/L (20-24); ARTERIAL BLOOD PCO2 61.4 mmHg (35-45); ARTERIAL BLOOD PH 7.29 (7.35-7.45); ARTERIAL BLOOD PO2 125.5 mmHg (80-100); ARTERIAL BLOOD TOTAL CO2 30.5 mmol/L (23-27)
[2019-03-04 20:50] LABS: ARTERIAL BLOOD FIO2 2L
[2019-03-04] MEDS ORDERED: RINGERS SOLUTION,LACTATED 250 ML IV ONE (22:00)
[2019-03-04 22:12] LABS: APPEARANCE,URINE CLEAR; BILIRUBIN,URINE NEGATIVE (NEGATIVE); COLOR,URINE YELLOW; GLUCOSE, URINE NEGATIVE (NEGATIVE); KETONES,URINE 20 mg/dL (NEGATIVE); LEUKOCYTE ESTERASE,URINE NEGATIVE (NEGATIVE); NITRITE,URINE NEGATIVE (NEGATIVE); PROTEIN,URINE 30 mg/dL (NEGATIVE); UROBILINOGEN,URINE NEGATIVE mg/dL (<2.0)
--- NOTE | 2019-03-04 22:32 | EKG REPORT ---
SEVERITY:- ABNORMAL ECG - SINUS TACHYCARDIA NONSPECIFIC INTRAVENTRICULAR CONDUCTION DELAY ANTERIOR INFARCT, AGE INDETERMINATE ST DEPRESSION, CONSIDER ISCHEMIA, LAT LEADS BASELINE ARTIFACT : Confirmed by: Lynn Merritt MD 04-Mar-2019 22:31:15
[2019-03-04] MEDS ORDERED: LORAZEPAM INJ 2 MG/1 ML VIAL IV ONE (23:38)
[2019-03-05] MEDS ORDERED: ACETAMINOPHEN 325 MG TABLET PO PRN (02:15)
[2019-03-05] MEDS ORDERED: IPRATROPIUM/ALBUTEROL 0.5-2.5 MG/3 ML AMPUL NEB PRN (02:15)
[2019-03-05] MEDS ORDERED: HYDRALAZINE HCL INJ/PF 20 MG/1 ML SDV IV PRN (02:15)
[2019-03-05] MEDS ORDERED: PREDNISONE 20 MG TABLET PO ONE (02:45)
[2019-03-05] MEDS: CHLORPHENIRAMINE MALEATE 4 MG TABLET PO SCH ×4 (04:44→20:12)
[2019-03-05] MEDS: HEPARIN SOD (PORCINE) 5,000 UNIT/ML 1 ML VIAL SUBCUT SCH ×3 (05:46→21:28)
--- NOTE | 2019-03-05 06:00 | PDOC H&P ---
History of Present Illness Admission Date/PCP: 03/05/19 02:25 MICHAEL RUIZ MD Patient complains of: Shortness of breath History of Present Illness: NICOLE EDWARDS is a 68 year old male with a past medical history of esophageal cancer status post total esophagectomy, coronary artery disease with stents x2, dyslipidemia, hypothyroidism, BPH, COPD, chronic bronchitis, depression and anxiety. He presents with nonproductive cough tachypnea with use of a sensory muscles, ABG reveals hypoxia and hypercapnia. He started on supplemental oxygen, steroids and referred to the hospitalist for admission. Patient develops severe anxiety and receives Ativan and is subsequently unable to provide history. He is however breathing significantly better. Past Medical History Cardiac Medical History: Reports: Coronary Artery Disease, Myocardial Infarction - 2006, Hyperlipidema, Hypertension Pulmonary Medical History: Reports: Pneumonia Denies: Asthma, Bronchitis, Chronic Obstructive Pulmonary Disease (COPD) Neurological Medical History: Denies: Seizures Endocrine Medical History: Reports: Diabetes Mellitus Type 2 - Tight control GI Medical History: Reports: Gastroesophageal Reflux Disease Denies: Cirrhosis, Crohn's Disease, Diverticulitis, Hepatitis, Hiatal Hernia, Ulcerative Colitis Musculoskeltal Medical History: Reports: Arthritis Psychiatric Medical History: Reports: Depression, General Anxiety Disorder Traumatic Medical History: Denies: Traumatic Brain Injury Hematology: Denies: Anemia, Hemophilia, Sickle Cell Disease Past Surgical History Past Surgical History: Reports: Cardiac Catheterization - x2, 5 stents, Herniorrhaphy - Bilateral, Other - Esophagectomy Denies: Pacemaker Social History Information Source: Patient Lives with: Family Smoking Status: Unknown if Ever Smoked Frequency of Alcohol Use: None Hx Recreational Drug Use: No Drugs: None Hx Prescription Drug Abuse: No - Advance Directive Resuscitation Status: Full Code Family History Family History: CAD, COPD, DM Parental Family History Reviewed: Yes Children Family History Reviewed: Yes Sibling(s) Family History Reviewed.: Yes Medication/Allergy Home Medications: Albuterol Sulfate [Proair HFA Inhalation Aerosol 8.5 gm MDI] 2 puff IH Q4HP PRN 02/13/19 Aspirin [Adult Low Dose Aspirin EC] 81 mg PO DAILY 02/13/19 Atorvastatin Calcium [Lipitor 40 mg Tablet] 40 mg PO QHS 02/13/19 Citalopram Hydrobromide [Celexa 20 mg Tablet] 20 mg PO BID 02/13/19 Ferrous Sulfate [Feosol 325 mg Tablet] 325 mg PO QPM 02/13/19 Lansoprazole [Prevacid] 30 mg PO Q6AM 02/13/19 Umeclidinium Brm/Vilanterol Tr [Anoro Ellipta 62.5-25 Mcg INH] 1 puff IH QPM 02/13/19 Acetylcysteine [Mucomist 10% Neb 400 mg/4 ml Vial] 400 mg IH Q12 #30 vial.neb 02/28/19 Albuterol Sulfate [Ventolin 0.042% Neb 1.25 mg/3 mL Ampul] 1 vial NEB Q12HP PRN #20 vial.neb 02/28/19 Alprazolam [Xanax 0.25 mg Tablet] 0.25 mg PO Q12HP PRN #20 tab 02/28/19 Levothyroxine Sodium [Synthroid 0.112 mg Tablet] 0.112 mg PO QAM #30 tablet 02/28/19 Allergies/Adverse Reactions: lisinopril Allergy (Severe, Verified 02/26/19 12:55) Edema Review of Systems Constitutional: ABSENT: chills, fever(s), headache(s), weight gain, weight loss Eyes: ABSENT: visual disturbances Ears: ABSENT: hearing changes Cardiovascular: ABSENT: chest pain, dyspnea on exertion, edema, orthropnea, palpitations Respiratory: ABSENT: cough, hemoptysis Gastrointestinal: ABSENT: abdominal pain, constipation, diarrhea, hematemesis, hematochezia, nausea, vomiting Genitourinary: ABSENT: dysuria, hematuria Musculoskeletal: ABSENT: joint swelling Integumentary: ABSENT: rash, wounds Neurological: ABSENT: abnormal gait, abnormal speech, confusion, dizziness, focal weakness, syncope Psychiatric: ABSENT: anxiety, depression, homidical ideation, suicidal ideation Endocrine: ABSENT: cold intolerance, heat intolerance, polydipsia, polyuria Hematologic/Lymphatic: ABSENT: easy bleeding, easy bruising Physical Exam Vital Signs: Temp Pulse Resp BP Pulse Ox 97.5 F 96 22 H 144/83 H 99 03/05/19 04:36 03/05/19 04:36 03/05/19 04:36 03/05/19 04:36 03/05/19 04:36 Intake & Output 03/03/19 03/04/19 03/05/19 11:59 11:59 11:59 Intake Total 500 Balance 500 Weight 63.9 kg General appearance: PRESENT: cooperative, severe distress - Anxious, well- developed, well-nourished Head exam: PRESENT: atraumatic, normocephalic Eye exam: PRESENT: conjunctiva pink, EOMI, PERRLA. ABSENT: scleral icterus Ear exam: PRESENT: normal external ear exam Mouth exam: PRESENT: moist, tongue midline Neck exam: ABSENT: carotid bruit, JVD, lymphadenopathy, thyromegaly Respiratory exam: PRESENT: accessory muscle use, clear to auscultation bette, tachypnea. ABSENT: prolonged expiratory phas, rales, rhonchi, wheezes Cardiovascular exam: PRESENT: RRR. ABSENT: diastolic murmur, rubs, systolic murmur Pulses: PRESENT: normal dorsalis pedis pul Vascular exam: PRESENT: normal capillary refill GI/Abdominal exam: PRESENT: normal bowel sounds, soft. ABSENT: distended, guarding, mass, organolmegaly, rebound, tenderness Rectal exam: PRESENT: deferred Extremities exam: PRESENT: full ROM. ABSENT: calf tenderness, clubbing, pedal edema Neurological exam: PRESENT: alert, awake, oriented to person, oriented to place, oriented to time, oriented to situation, CN II-XII grossly intact. ABSENT: motor sensory deficit Psychiatric exam: PRESENT: anxious. ABSENT: homicidal ideation, suicidal ideation Skin exam: PRESENT: dry, intact, warm. ABSENT: cyanosis, rash Results Laboratory Results: 03/04/19 16:34 03/04/19 16:34 03/04/19 03/04/19 03/04/19 16:34 16:34 16:34 WBC 7.6 RBC 5.76 H Hgb 15.5 Hct 48.4 MCV 84 MCH 26.9 L MCHC 32.0 RDW 21.5 H Plt Count 256 Seg Neutrophils % 81.4 H Carbonic Acid HCO3/H2CO3 Ratio ABG pH ABG pCO2 ABG pO2 ABG HCO3 ABG O2 Saturation ABG Base Excess FiO2 Sodium 135.9 L Potassium 3.9 Chloride 94 L Carbon Dioxide 27 Anion Gap 15 BUN 16 Creatinine 0.59 Est GFR ( Amer) > 60 Glucose 137 H Lactic Acid Calcium 9.2 Phosphorus 4.1 Magnesium 2.2 Total Bilirubin 0.7 AST 25 Alkaline Phosphatase 102 Total Protein 7.9 Albumin 4.2 TSH 24.90 H Urine Color Urine Appearance Urine pH Ur Specific [place] Urine Protein Urine Glucose (UA) Urine Ketones Urine Blood Urine Nitrite Ur Leukocyte Esterase Urine WBC (Auto) Urine RBC (Auto) 03/04/19 03/04/19 03/04/19 16:34 16:39 19:01 WBC RBC Hgb Hct MCV MCH MCHC RDW Plt Count Seg Neutrophils % Carbonic Acid 2.06 H HCO3/H2CO3 Ratio 14:1 ABG pH 7.25 L ABG pCO2 68.3 H ABG pO2 209.6 H ABG HCO3 29.1 H ABG O2 Saturation 99.2 H ABG Base Excess -0.3 FiO2 4 Sodium Potassium Chloride Carbon Dioxide Anion Gap BUN Creatinine Est GFR ( Amer) Glucose Lactic Acid 3.2 H 1.5 Calcium Phosphorus Magnesium Total Bilirubin AST Alkaline Phosphatase Total Protein Albumin TSH Urine Color Urine Appearance Urine pH Ur Specific [place] Urine Protein Urine Glucose (UA) Urine Ketones Urine Blood Urine Nitrite Ur Leukocyte Esterase Urine WBC (Auto) Urine RBC (Auto) 03/04/19 03/04/19 19:45 21:36 WBC RBC Hgb Hct MCV MCH MCHC RDW Plt Count Seg Neutrophils % Carbonic Acid 1.85 H HCO3/H2CO3 Ratio 15:1 ABG pH 7.29 L ABG pCO2 61.4 H ABG pO2 125.5 H ABG HCO3 28.7 H ABG O2 Saturation 98.0 ABG Base Excess 0.5 FiO2 2L Sodium Potassium Chloride Carbon Dioxide Anion Gap BUN Creatinine Est GFR ( Amer) Glucose Lactic Acid Calcium Phosphorus Magnesium Total Bilirubin AST Alkaline Phosphatase Total Protein Albumin TSH Urine Color YELLOW Urine Appearance CLEAR Urine pH 5.0 Ur Specific [place] 1.020 Urine Protein 30 H Urine Glucose (UA) NEGATIVE Urine Ketones 20 H Urine Blood MODERATE H Urine Nitrite NEGATIVE Ur Leukocyte Esterase NEGATIVE Urine WBC (Auto) 2 Urine RBC (Auto) 18 03/04/19 16:34 Troponin I < 0.012 NT-Pro-B Natriuret Pep 201 H Impressions: Chest X-Ray 03/04/19 16:22 IMPRESSION: Similar bibasilar atelectasis- pleural effusions. Assessment and Plan - Diagnosis (1) Acute on chronic respiratory failure with hypoxia and hypercapnia Is this a current diagnosis for this admission?: Yes Plan: Supplemental oxygen, minimize steroids secondary to anxiety. Optimize flutter valve and incentive spirometry for atelectasis. (2) Anxiety Is this a current diagnosis for this admission?: Yes Plan: Avoid sedating anxiolytics reducing respiratory drive worsening hypercapnia. Follow-up mental health consult (3) Chronic pleural effusion Is this a current diagnosis for this admission?: Yes Plan: At baseline, clinical follow-up for thoracentesis if enlarged - Time Time Spent with patient: 25-34 minutes - Inpatient Certification Medical Necessity: Need Close Monitoring Due to Risk of Patient Decompensation
[2019-03-05] MEDS: IPRATROPIUM/ALBUTEROL 0.5-2.5 MG/3 ML AMPUL NEB SCH ×3 (07:35→23:54)
--- NOTE | 2019-03-05 09:53 | PDOC PROGRESS REPORT ---
Subjective Progress Note for:: 03/05/19 Subjective:: The patient exhibited significantly increased work of breathing as well as acute on chronic respiratory failure with hypoxia and hypercapnia. He remains on oxygen 2 L nasal cannula patient is lying quite still in bed. He complains of a very dry mouth. With this his voice is extremely soft. His tongue is quite dry. Breathing is comfortable while laying motionless. Reason For Visit: COPD EXACERBATION ANX Physical Exam Vital Signs: Temp Pulse Resp BP Pulse Ox 97.3 F 95 16 140/75 H 100 03/05/19 08:20 03/05/19 08:20 03/05/19 08:20 03/05/19 08:20 03/05/19 08:20 Intake & Output 03/04/19 03/05/19 03/06/19 06:59 06:59 06:59 Intake Total 500 Balance 500 Weight 60.3 kg General appearance: PRESENT: no acute distress, cooperative, thin, well- developed Head exam: PRESENT: atraumatic, normocephalic Ear exam: PRESENT: normal external ear exam. ABSENT: bleeding, drainage Mouth exam: PRESENT: dry mucosa, tongue midline Respiratory exam: PRESENT: symmetrical, unlabored, other - Distant breath sounds bilaterally. Difficult to appreciate bases by auscultation.. ABSENT: rales, rhonchi, tachypnea, wheezes Cardiovascular exam: PRESENT: RRR, +S1, +S2, systolic murmur - 1/6 GI/Abdominal exam: PRESENT: normal bowel sounds, soft, other - Allevyn dressing left side. Old PEG tube site still healing.. ABSENT: distended, tenderness Rectal exam: PRESENT: deferred Extremities exam: PRESENT: full ROM. ABSENT: calf tenderness, joint swelling, pedal edema Musculoskeletal exam: PRESENT: ambulatory, full ROM, normal inspection Neurological exam: PRESENT: alert, awake, oriented to person, oriented to place, oriented to time, oriented to situation, other - Voice is at a whisper but likely secondary to dry mouth as opposed to neurologic deficit Psychiatric exam: PRESENT: flat affect. ABSENT: agitated, anxious Focused psych exam: ABSENT: delusional, restlessness Skin exam: PRESENT: dry, pallor, warm. ABSENT: rash Results Laboratory Results: 03/04/19 16:34 03/04/19 16:34 03/04/19 03/04/19 03/04/19 16:34 16:34 16:34 WBC 7.6 RBC 5.76 H Hgb 15.5 Hct 48.4 MCV 84 MCH 26.9 L MCHC 32.0 RDW 21.5 H Plt Count 256 Seg Neutrophils % 81.4 H Carbonic Acid HCO3/H2CO3 Ratio ABG pH ABG pCO2 ABG pO2 ABG HCO3 ABG O2 Saturation ABG Base Excess FiO2 Sodium 135.9 L Potassium 3.9 Chloride 94 L Carbon Dioxide 27 Anion Gap 15 BUN 16 Creatinine 0.59 Est GFR ( Amer) > 60 Glucose 137 H Lactic Acid Calcium 9.2 Phosphorus 4.1 Magnesium 2.2 Total Bilirubin 0.7 AST 25 Alkaline Phosphatase 102 Total Protein 7.9 Albumin 4.2 TSH 24.90 H Urine Color Urine Appearance Urine pH Ur Specific [place] Urine Protein Urine Glucose (UA) Urine Ketones Urine Blood Urine Nitrite Ur Leukocyte Esterase Urine WBC (Auto) Urine RBC (Auto) 03/04/19 03/04/19 03/04/19 16:34 16:39 19:01 WBC RBC Hgb Hct MCV MCH MCHC RDW Plt Count Seg Neutrophils % Carbonic Acid 2.06 H HCO3/H2CO3 Ratio 14:1 ABG pH 7.25 L ABG pCO2 68.3 H ABG pO2 209.6 H ABG HCO3 29.1 H ABG O2 Saturation 99.2 H ABG Base Excess -0.3 FiO2 4 Sodium Potassium Chloride Carbon Dioxide Anion Gap BUN Creatinine Est GFR ( Amer) Glucose Lactic Acid 3.2 H 1.5 Calcium Phosphorus Magnesium Total Bilirubin AST Alkaline Phosphatase Total Protein Albumin TSH Urine Color Urine Appearance Urine pH Ur Specific [place] Urine Protein Urine Glucose (UA) Urine Ketones Urine Blood Urine Nitrite Ur Leukocyte Esterase Urine WBC (Auto) Urine RBC (Auto) 03/04/19 03/04/19 19:45 21:36 WBC RBC Hgb Hct MCV MCH MCHC RDW Plt Count Seg Neutrophils % Carbonic Acid 1.85 H HCO3/H2CO3 Ratio 15:1 ABG pH 7.29 L ABG pCO2 61.4 H ABG pO2 125.5 H ABG HCO3 28.7 H ABG O2 Saturation 98.0 ABG Base Excess 0.5 FiO2 2L Sodium Potassium Chloride Carbon Dioxide Anion Gap BUN Creatinine Est GFR ( Amer) Glucose Lactic Acid Calcium Phosphorus Magnesium Total Bilirubin AST Alkaline Phosphatase Total Protein Albumin TSH Urine Color YELLOW Urine Appearance CLEAR Urine pH 5.0 Ur Specific [place] 1.020 Urine Protein 30 H Urine Glucose (UA) NEGATIVE Urine Ketones 20 H Urine Blood MODERATE H Urine Nitrite NEGATIVE Ur Leukocyte Esterase NEGATIVE Urine WBC (Auto) 2 Urine RBC (Auto) 18 03/04/19 16:34 Troponin I < 0.012 NT-Pro-B Natriuret Pep 201 H Impressions: Chest X-Ray 03/04/19 16:22 IMPRESSION: Similar bibasilar atelectasis- pleural effusions. Assessment and Plan - Diagnosis (1) Acute on chronic respiratory failure with hypoxia and hypercapnia Is this a current diagnosis for this admission?: Yes Plan: 03/05/2019-the patient has decreased breath sounds at the bases. The patient was noted to have bibasilar atelectasis and small pleural effusions. We will continue oxygen supplementation but try and keep oxygen saturation between 90 and 94% to avoid recurrent hypercapnia. The patient does not appear to need any BiPAP this morning. Breath sounds are distant and this could be related to some hyperinflation. We will continue his oxygen supplementation as well as scheduled duo nebs and systemic steroids. (2) Depression with anxiety Is this a current diagnosis for this admission?: Yes Plan: We will continue the patient's antidepressant therapy as well as antianxiety medication (benzodiazepines). As the patient is recovering from esophageal cancer with esophagectomy it is understandable for his depression and anxiety. We will monitor for evidence of panic attack. This should increase his respiratory rate and typically decrease his PCO2. I will check a blood gas in the morning to assess for improvement. (3) Pleural effusion Is this a current diagnosis for this admission?: Yes Plan: 03/05/2019-pleural effusion is present. This could be related to his surgery. He does have a history of heart disease with coronary artery stents. We will continue to monitor and order thoracentesis if necessary. (4) HLD (hyperlipidemia) Qualifiers: Hyperlipidemia type: unspecified Qualified Code(s): E78.5 - Hyperlipidemia, unspecified Is this a current diagnosis for this admission?: Yes Plan: 03/05/2019-continue statin therapy. (5) HTN (hypertension) Qualifiers: Hypertension type: essential hypertension Qualified Code(s): I10 - Essential (primary) hypertension Is this a current diagnosis for this admission?: Yes Plan: 03/05/2019-currently on metoprolol. Continue to monitor vital signs. Adjust medications if necessary. We may see elevated blood pressure while on prednisone therapy. (6) Hypothyroidism Qualifiers: Hypothyroidism type: unspecified Qualified Code(s): E03.9 - Hypothyroidism, unspecified Is this a current diagnosis for this admission?: Yes Plan: 03/05/2019-continue levothyroxine (7) History of esophagectomy Is this a current diagnosis for this admission?: Yes Plan: 03/05/2019-patients who have undergone esophagectomy typically are high risk for aspiration. Will encourage eating when upright and other measures to avoid aspiration - Plan Summary Summary: We will continue therapy as noted above. Hopeful for discharge in the next day or 2. - Time Time Spent with patient: 15-24 minutes Medications reviewed and adjusted accordingly: Yes Anticipated discharge: Home Within: within 48 hours
[2019-03-05] MEDS: FLUTICASONE NASAL SPRAY 50 MCG/SPRY 120 SPRAY/16 GM NASL SCH ×2 (10:31→21:26)
[2019-03-05] MEDS ORDERED: ALPRAZOLAM 0.25 MG TABLET PO PRN (13:48)
--- NOTE | 2019-03-05 16:34 | PSYCHOLOGICAL NOTE ---
Psych Note - Psych Note Date seen by psych provider: 03/05/19 Time seen by psych provider: 15:15 Psych Note: Reason For Consult: Depression and anxiety Patient's stepped out for patient's evaluation Patient disclosed that he has been experiencing depression for approximately 1 to 2 years however feels that it is increasing. He reports that he does not think his current medications prescribed by his outpatient provider are working. Patient states that just the thought of having to get up and move when he cannot breathe causes his anxiety to increase. He confirms he feels his anxiety and depression are directly connected to his difficulty breathing. Patient does have a history of depression however previously it was situational and he had not had any difficulties with it until the last few years. Patient denies any thoughts of wanting to harm himself or others. Patient discloses concerns with memory issues and not being hungry. He reports that since his surgery (esophagectomy) last year, just thinking about breakfast first thing in the morning sours his stomach. He reports he can go a full 24 hours without ever thinking of food or wanting food. He confirms he makes himself eat and is still trying to eat small meals instead of eating like he used to. Patient is alert and orientated to person, place, time and circumstance. Mood is euthymic with congruent affect. Patient denies suicidal and homicidal ideation. Delusions are absent and behaviors congruent with an intact reality based presentation ie organized and linear thought process. Eye contact is fair. Conversational speech is difficult for the patient as he is having di fficulty breathing. Intellectual abilities appear to be within the average range. Attention and concentration are good. Insight, judgment, impulse control are fair. Diagnosis: Depressive disorder Anxiety disorder; due to medical Medication recommendations per [facility]'s contracted psychiatrist Dr. Bryant DUMONT are as follows Discontinue home medication of xanax Buspar 10mg twice daily Impression\plan: Patient is cleared from acute psychiatric services. Patient reports increase in mental health symptoms of depression and anxiety that he feels is directly related to his medical condition i.e. unable to breathe. Patient confirms he is currently on home medications for his mental health however feels that they are not working. Medication recommendations have been provided. Dr. Finley was consulted to care management of this patient; attending physicians in agreement with recommendations and disposition.
[2019-03-05] MEDS: PREDNISONE 20 MG TABLET PO SCH (18:03)
[2019-03-05] MEDS ORDERED: MAGNESIUM HYDROXIDE SUSP 30 ML UDCUP PO PRN (19:46)
[2019-03-05] MEDS ORDERED: ATORVASTATIN CALCIUM 40 MG TABLET PO SCH (22:00)
[2019-03-05] MEDS ORDERED: TRAZODONE HCL 50 MG TABLET PO SCH (22:00)
[2019-03-05 23:18] LABS: URINE AMPHETAMINES SCREEN NEGATIVE; URINE BARBITURATES SCREEN NEGATIVE; URINE BENZODIAZEPINES SCREEN NEGATIVE; URINE COCAINE SCREEN NEGATIVE; URINE MARIJUANA (THC) SCREEN NEGATIVE; URINE METHADONE SCREEN NEGATIVE; URINE PHENCYCLIDINE SCREEN NEGATIVE
[2019-03-06] MEDS: HEPARIN SOD (PORCINE) 5,000 UNIT/ML 1 ML VIAL SUBCUT SCH ×2 (05:07→14:31)
[2019-03-06] MEDS ORDERED: LEVOTHYROXINE SODIUM 0.112 MG TABLET PO SCH (06:00)
[2019-03-06 06:02] LABS: ABSOLUTE LYMPHOCYTES (AUTO) 0.2 10^3/uL (0.5-4.7); ABSOLUTE MONOCYTES (AUTO) 0.2 10^3/uL (0.1-1.4); ABSOLUTE NEUT (AUTO) 3.1 10^3/uL (1.7-8.2); BASOPHILS % (AUTO) 0.4 % (0-2); EOSINOPHILS % (AUTO) 0.3 % (0-6); HEMATOCRIT 44.9 % (37.9-51.0); HEMOGLOBIN 14.6 g/dL (13.5-17.0); LYMPHOCYTES % (AUTO) 6.8 % (13-45); MEAN CORPUSCULAR HGB CONC 32.5 g/dL (32.0-36.0); MEAN CORPUSCULAR VOLUME 83 fl (80-97); MONOCYTES % (AUTO) 5.5 % (3-13); PLATELET COUNT 186 10^3/uL (150-450); RED CELL DISTRIBUTION WIDTH 21.2 % (11.5-14.0); TOTAL CELLS COUNTED % (AUTO) 100 %; WHITE BLOOD COUNT 3.5 10^3/uL (4.0-10.5)
[2019-03-06 06:06] LABS: BLOOD UREA NITROGEN 12 mg/dL (7-20); CALCIUM 9.3 mg/dL (8.4-10.2); CHLORIDE 94 mmol/L (98-107); GLUCOSE 118 mg/dL (75-110); POTASSIUM 4.5 mmol/L (3.6-5.0)
[2019-03-06 06:11] LABS: CARBON DIOXIDE 38 mmol/L (22-30)
[2019-03-06 06:13] LABS: ANION GAP 5 (5-19)
[2019-03-06] MEDS: IPRATROPIUM/ALBUTEROL 0.5-2.5 MG/3 ML AMPUL NEB SCH (09:03)
[2019-03-06] MEDS: PREDNISONE 20 MG TABLET PO SCH (09:34)
[2019-03-06] MEDS: FLUTICASONE NASAL SPRAY 50 MCG/SPRY 120 SPRAY/16 GM NASL SCH (09:34)
[2019-03-06] MEDS ORDERED: CITALOPRAM HYDROBROMIDE 20 MG TABLET PO SCH (10:00)
[2019-03-06] MEDS ORDERED: METOPROLOL TARTRATE 25 MG TABLET PO SCH (10:00)
[2019-03-06] MEDS ORDERED: BUSPIRONE HCL 10 MG TABLET PO ONE (13:15)
--- NOTE | 2019-03-06 13:34 | PDOC DISCHARGE SUMMARY ---
Impression - Admit/DC Date/PCP Admission Date/Primary Care Provider: 03/05/19 02:25 MICHAEL RUIZ MD Discharge Date: 03/06/19 - Discharge Diagnosis (1) Acute on chronic respiratory failure with hypoxia and hypercapnia Is this a current diagnosis for this admission?: Yes (2) Depression with anxiety Is this a current diagnosis for this admission?: Yes (3) Pleural effusion Is this a current diagnosis for this admission?: Yes (4) HLD (hyperlipidemia) Is this a current diagnosis for this admission?: Yes (5) HTN (hypertension) Is this a current diagnosis for this admission?: Yes (6) Hypothyroidism Is this a current diagnosis for this admission?: Yes (7) History of esophagectomy Is this a current diagnosis for this admission?: Yes - Assessment Summary: We will continue therapy as noted above. Hopeful for discharge in the next day or 2. - Additional Information Resuscitation Status: Full Code Discharge Diet: Regular, Other (Comments) - drink 2-3 liters of water daily Discharge Activity: Activity As Tolerated, Balance Activity w/Rest Referrals: VALDEZ RUCKER MD [ACTIVE STAFF] - MICHAEL RUIZ MD [Primary Care Provider] - (We will make an appointment for you and contact you with the date and time. Thank you and Genevieve Montoya!) Prescriptions: Buspirone HCl [Buspar 10 mg Tablet] 10 mg PO BID 14 Days #28 tablet Prednisone [Deltasone 5 mg Tablet] 5 mg PO ASDIR 16 Days #32 tablet Home Medications: Albuterol Sulfate [Proair HFA Inhalation Aerosol 8.5 gm MDI] 2 puff IH Q6HP PRN 03/05/19 Albuterol Sulfate [Ventolin 0.042% Neb 1.25 mg/3 mL Ampul] 1 vial NEB Q12HP PRN 03/05/19 Alprazolam [Xanax 0.25 mg Tablet] 0.25 mg PO Q12HP PRN 03/05/19 Atorvastatin Calcium [Lipitor 40 mg Tablet] 40 mg PO QHS 03/05/19 Citalopram Hydrobromide [Celexa 20 mg Tablet] 40 mg PO DAILY 03/05/19 Lansoprazole [Prevacid 30 mg Odt Tablet] 30 mg PO BID 03/05/19 Levothyroxine Sodium [Synthroid 0.112 mg Tablet] 0.112 mg PO Q6AM 03/05/19 Metoprolol Tartrate [Lopressor 25 mg Tablet] 25 mg PO DAILY 03/05/19 Umeclidinium Brm/Vilanterol Tr [Anoro Ellipta 62.5-25 Mcg INH] 1 puff IH DAILY 03/05/19 Zolpidem Tartrate [Zolpidem Tartrate ER] 12.5 mg PO QHS 03/05/19 Buspirone HCl [Buspar 10 mg Tablet] 10 mg PO BID 14 Days #28 tablet 03/06/19 Fluticasone Propionate [Flonase Nasal [place] 50 Mcg/[place] 16 gm] 2 spray NASL Q12 spray.pump 03/06/19 Prednisone [Deltasone 5 mg Tablet] 5 mg PO ASDIR 16 Days #32 tablet 03/06/19 History of Present Illiness History of Present Illness: NICOLE EDWARDS is a 68 year old male with recent total esophagectomy. He also has a history of coronary artery disease with stents, hyperlipidemia, hypothyroidism, COPD, BPH with bronchitis as well as depression with anxiety. He was having some episodes of shortness of breath at home. Some of this may have been related to anxiety. When evaluated he required supplemental oxygen therapy and had an abnormal blood gas with hypercapnia and hypoxia. There is no evidence of pneumonia on x-ray. The patient does have bilateral pleural effusions which are chronic. He was referred to the hospital service for ad mission. Hospital Course Hospital Course: The patient had a stable hospital course. He was quickly tapered to room air. He did not require antibiotics. Nebulizer treatments and oral steroids helped. 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 We also reviewed the role that anxiety has at this time. Today he was resting comfortably on room air. He was discharged home as noted above. Physical Exam Vital Signs: Temp Pulse Resp BP Pulse Ox 98.4 F 86 17 120/74 91 L 03/06/19 07:55 03/06/19 07:55 03/06/19 07:55 03/06/19 07:55 03/06/19 07:55 Intake & Output 03/05/19 03/06/19 03/07/19 06:59 06:59 06:59 Intake Total 500 758 Output Total 150 Balance 500 608 Weight 60.3 kg 60.2 kg General appearance: PRESENT: no acute distress, cooperative, thin Head exam: PRESENT: atraumatic, normocephalic Ear exam: PRESENT: normal external ear exam. ABSENT: bleeding, drainage Mouth exam: PRESENT: dry mucosa, tongue midline Respiratory exam: PRESENT: decreased breath sounds - At both bases, symmetrical, unlabored. ABSENT: rhonchi, tachypnea, wheezes Cardiovascular exam: PRESENT: RRR, +S1, +S2. ABSENT: diastolic murmur, systolic murmur GI/Abdominal exam: PRESENT: normal bowel sounds, soft, other - Healing PEG tube site left side of the abdomen. ABSENT: distended, tenderness Rectal exam: PRESENT: deferred Gentrourinary exam: PRESENT: indwelling catheter Extremities exam: ABSENT: pedal edema Musculoskeletal exam: PRESENT: normal inspection Neurological exam: PRESENT: alert, awake, oriented to person, oriented to place, oriented to time, oriented to situation, CN II-XII grossly intact Psychiatric exam: PRESENT: anxious - Slightly anxious regarding ongoing breathing issues, flat affect. ABSENT: agitated Results Laboratory Results: WBC 3.5 10^3/uL (4.0-10.5) L 03/06/19 04:33 RBC 5.40 10^6/uL (4.35-5.55) 03/06/19 04:33 Hgb 14.6 g/dL (13.5-17.0) 03/06/19 04:33 Hct 44.9 % (37.9-51.0) 03/06/19 04:33 MCV 83 fl (80-97) 03/06/19 04:33 MCH 27.0 pg (27.0-33.4) 03/06/19 04:33 MCHC 32.5 g/dL (32.0-36.0) 03/06/19 04:33 RDW 21.2 % (11.5-14.0) H 03/06/19 04:33 Plt Count 186 10^3/uL (150-450) 03/06/19 04:33 Lymph % (Auto) 6.8 % (13-45) L 03/06/19 04:33 [place] % (Auto) 5.5 % (3-13) 03/06/19 04:33 Eos % (Auto) 0.3 % (0-6) 03/06/19 04:33 Baso % (Auto) 0.4 % (0-2) 03/06/19 04:33 Absolute Neuts (auto) 3.1 10^3/uL (1.7-8.2) 03/06/19 04:33 Absolute Lymphs (auto) 0.2 10^3/uL (0.5-4.7) L 03/06/19 04:33 Absolute Monos (auto) 0.2 10^3/uL (0.1-1.4) 03/06/19 04:33 Absolute Eos (auto) 0.0 10^3/uL (0.0-0.6) 03/06/19 04:33 Absolute Basos (auto) 0.0 10^3/uL (0.0-0.2) 03/06/19 04:33 Seg Neutrophils % 87.0 % (42-78) H 03/06/19 04:33 Carbonic Acid 1.85 mmol/L (1.05-1.35) H 03/04/19 19:45 HCO3/H2CO3 Ratio 15:1 03/04/19 19:45 ABG pH 7.29 (7.35-7.45) L 03/04/19 19:45 ABG pCO2 61.4 mmHg (35-45) H 03/04/19 19:45 ABG pO2 125.5 mmHg (80-100) H 03/04/19 19:45 ABG HCO3 28.7 mmol/L (20-24) H 03/04/19 19:45 ABG Total CO2 30.5 mmol/L (23-27) H 03/04/19 19:45 ABG O2 Saturation 98.0 % (94-98) 03/04/19 19:45 ABG Base Excess 0.5 mmol/L 03/04/19 19:45 FiO2 2L 03/04/19 19:45 Sodium 136.5 mmol/L (137-145) L 03/06/19 04:33 Potassium 4.5 mmol/L (3.6-5.0) 03/06/19 04:33 Chloride 94 mmol/L (98-107) L 03/06/19 04:33 Carbon Dioxide 38 mmol/L (22-30) H 03/06/19 04:33 Anion Gap 5 (5-19) 03/06/19 04:33 BUN 12 mg/dL (7-20) 03/06/19 04:33 Creatinine 0.50 mg/dL (0.52-1.25) L 03/06/19 04:33 Est GFR ( Amer) > 60 (>60) 03/06/19 04:33 Est GFR (MDRD) Non-Af > 60 (>60) 03/06/19 04:33 Glucose 118 mg/dL (75-110) H 03/06/19 04:33 Lactic Acid 1.5 mmol/L (0.7-2.1) 03/04/19 19:01 Calcium 9.3 mg/dL (8.4-10.2) 03/06/19 04:33 Phosphorus 4.1 mg/dL (2.5-4.5) 03/04/19 16:34 Magnesium 2.2 mg/dL (1.6-2.3) 03/04/19 16:34 Total Bilirubin 0.7 mg/dL (0.2-1.3) 03/04/19 16:34 Direct Bilirubin 0.2 mg/dL (0.0-0.4) 03/04/19 16:34 Neonat Total Bilirubin Not Reportable 03/04/19 16:34 Neonat Direct Bilirubin Not Reportable 03/04/19 16:34 Neonat Indirect Bili Not Reportable 03/04/19 16:34 AST 25 U/L (17-59) 03/04/19 16:34 ALT 13 U/L (<50) 03/04/19 16:34 Alkaline Phosphatase 102 U/L (38-126) 03/04/19 16:34 Troponin I < 0.012 ng/mL 03/04/19 16:34 NT-Pro-B Natriuret Pep 201 pg/mL (<125) H 03/04/19 16:34 Total Protein 7.9 g/dL (6.3-8.2) 03/04/19 16:34 Albumin 4.2 g/dL (3.5-5.0) 03/04/19 16:34 TSH 24.90 uIU/mL (0.47-4.68) H 03/04/19 16:34 Urine Color YELLOW 03/04/19 21:36 Urine Appearance CLEAR 03/04/19 21:36 Urine pH 5.0 (5.0-9.0) 03/04/19 21:36 Ur Specific [place] 1.020 03/04/19 21:36 Urine Protein 30 mg/dL (NEGATIVE) H 03/04/19 21:36 Urine Glucose (UA) NEGATIVE mg/dL (NEGATIVE) 03/04/19 21:36 Urine Ketones 20 mg/dL (NEGATIVE) H 03/04/19 21:36 Urine Blood MODERATE (NEGATIVE) H 03/04/19 21:36 Urine Nitrite NEGATIVE (NEGATIVE) 03/04/19 21:36 Urine Bilirubin NEGATIVE (NEGATIVE) 03/04/19 21:36 Urine Urobilinogen NEGATIVE mg/dL (<2.0) 03/04/19 21:36 Ur Leukocyte Esterase NEGATIVE (NEGATIVE) 03/04/19 21:36 Urine WBC (Auto) 2 /HPF 03/04/19 21:36 Urine RBC (Auto) 18 /HPF 03/04/19 21:36 Squamous Epi Cells Auto <1 /HPF 03/04/19 21:36 Urine Mucus (Auto) RARE /LPF 03/04/19 21:36 Urine Ascorbic Acid NEGATIVE (NEGATIVE) 03/04/19 21:36 Urine Opiates Screen NEGATIVE 03/05/19 22:48 Urine Methadone Screen NEGATIVE 03/05/19 22:48 Ur Barbiturates Screen NEGATIVE 03/05/19 22:48 Ur Phencyclidine Scrn NEGATIVE 03/05/19 22:48 Ur Amphetamines Screen NEGATIVE 03/05/19 22:48 U Benzodiazepines Scrn NEGATIVE 03/05/19 22:48 Urine Cocaine Screen NEGATIVE 03/05/19 22:48 U Marijuana (THC) Screen NEGATIVE 03/05/19 22:48 03/04/19 16:34 Troponin I < 0.012 NT-Pro-B Natriuret Pep 201 H Impressions: Chest X-Ray 03/04/19 16:22 IMPRESSION: Similar bibasilar atelectasis- pleural effusions. Plan Health Concerns: Chronic pleural effusions and the role that they play in his shortness of breath Plan of Treatment: As outlined above. Resume Anoro Ellipta. Utilize nebulizer treatments as described above. Taper off of prednisone as directed. Follow-up with pulmonology on April 02 as already arranged. Follow-up with primary care provider in the next 5 to 7 days. If the pleural effusions do not improve consider thoracentesis and assess improvement. Goals: Stabilization of his shortness of breath. Better control of his anxiety and de pression. Time Spent: Greater than 30 Minutes Stroke Is this a Stroke Patient?: No Acute Heart Failure - Is this a Heart Failure Patient?: No
[2019-03-06 14:15] VITALS: BP 143/77
== END 2019-03-06 14:40 | disposition home or self-care (01) ==
LOC: ER 16:12 → EH 03-05 02:25 → 5 03-05 04:01
PROVIDERS: ADMIT Internal Medicine; ATTEND Internal Medicine
DX: J96.22 Acute and chronic respiratory failure with hypercapnia (principal); J96.21 Acute and chronic respiratory failure with hypoxia; F41.8 Other specified anxiety disorders; J90 Pleural effusion, not elsewhere classified; E78.5 Hyperlipidemia, unspecified; I10 Essential (primary) hypertension; E03.9 Hypothyroidism, unspecified; R68.2 Dry mouth, unspecified; E87.2 Acidosis; I25.2 Old myocardial infarction; I25.10 Atherosclerotic heart disease of native coronary artery without angina pectoris; J44.9 Chronic obstructive pulmonary disease, unspecified; Z90.49 Acquired absence of other specified parts of digestive tract; E11.9 Type 2 diabetes mellitus without complications; K21.9 Gastro-esophageal reflux disease without esophagitis; Z79.899 Other long term (current) drug therapy; Z95.5 Presence of coronary angioplasty implant and graft; Z85.01 Personal history of malignant neoplasm of esophagus; Z92.3 Personal history of irradiation; Z92.21 Personal history of antineoplastic chemotherapy; Z87.01 Personal history of pneumonia (recurrent); Z82.49 Family history of ischemic heart disease and other diseases of the circulatory system; Z79.82 Long term (current) use of aspirin
CPT/HCPCS: 93005; 94640 ×3; 99285; 96361; 51701; 96374; 36415 ×2; 87040; 82803; 83605; 83735; 84100; 84443; 85025 ×2; 80048; 80053; 81001; 84484; 80307; 83880; 71045; 94799; 93010; 94668; G0378 ×3; C1758; A9270 ×13; J1644 ×2; J2060; J7050; J7120; J3490; J7512; J7620